=== PATIENT | male | born 1990 | race Caucasian/White ===

== ENCOUNTER 2016-07-26 23:19 | Emergency (ER) | payer OTHER ==
[~2016-07-26] VITALS: Ht 180.3 cm; Wt 121.5 kg
[2016-07-26 23:19] VITALS: BP 136/83
[~2016-07-26 23:19] MED LIST: /ADVA50050 PO; /QUET10TA PO; /QUET25TA; ADDE10CA3; ADDE30CA PO; AFRI0.056; ATOM40CA; ATOM60CA PO; DEPA250T2 PO; GUANFACINE; PROP PO; PROV90AE; PROZ10CA; QUET20XRTB; SERO50TA PO; SING10TA31; TRAZ50TA2 PO
[2016-07-26] MEDS ORDERED: EPIP0.3I2 (23:50)
[2016-07-26] MEDS ORDERED: ACAM0.05 PO (23:50)
[2016-07-26] MEDS ORDERED: CLAR1TAB2 PO (23:50)
[2016-07-26] MEDS ORDERED: BREO1INH (23:50)
[2016-07-26] MEDS ORDERED: ALBU17IN INH (23:50)
[2016-07-26] MEDS ORDERED: DIVA500T3 PO (23:50)
[2016-07-26] MEDS ORDERED: NALT50TA4 PO (23:50)
[2016-07-26] MEDS ORDERED: MONT10TA2 PO (23:50)
[2016-07-26] MEDS ORDERED: BUPR1TAB52 PO (23:50)
[2016-07-26] MEDS ORDERED: Vitamin (23:50)
[2016-07-26] MEDS ORDERED: HYDR25TAB PO (23:50)
== END 2016-07-27 01:10 | disposition left against medical advice (07) ==
LOC: M ED 07-27 00:40
DX: R07.9 Chest pain, unspecified (principal); Z53.21 Procedure and treatment not carried out due to patient leaving prior to being seen by health care provider

== ENCOUNTER 2016-09-04 17:55 | Emergency (ER) | payer OTHER ==
[~2016-09-04] VITALS: Ht 180.3 cm; Wt 124.7 kg
[2016-09-04 17:55] VITALS: BP 152/93
[~2016-09-04 17:55] MED LIST changes: +ACAM0.05 PO; +ALBU17IN INH; +BREO1INH; +BUPR1TAB52 PO; +CLAR1TAB2 PO; +DIVA500T3 PO; +EPIP0.3I2; +HYDR25TAB PO; +MONT10TA2 PO; +NALT50TA4 PO; +Vitamin
[2016-09-16] MEDS ORDERED: BREO1INH3 INH (16:31)
[2016-09-16] MEDS ORDERED: AMOX250REC PO (16:31)
[2016-09-16] MEDS ORDERED: PRED5SOL10 PO (16:31)
== END 2016-09-04 18:58 | disposition left against medical advice (07) ==
LOC: M ED 18:55
DX: R06.02 Shortness of breath (principal); Z53.29 Procedure and treatment not carried out because of patient's decision for other reasons

== ENCOUNTER 2016-09-04 20:46 | Emergency (ER) | payer OTHER ==
[~2016-09-04] VITALS: Ht 177.8 cm; Wt 124.7 kg
[2016-09-04 20:46] VITALS: BP 131/98
[2016-09-16] MEDS ORDERED: AMOX250REC PO (16:31)
[2016-09-16] MEDS ORDERED: PRED5SOL10 PO (16:31)
[2016-09-16] MEDS ORDERED: BREO1INH3 INH (16:31)
== END 2016-09-05 00:19 | disposition left against medical advice (07) ==
LOC: M ED 21:56
DX: J02.9 Acute pharyngitis, unspecified (principal); Z53.29 Procedure and treatment not carried out because of patient's decision for other reasons

== ENCOUNTER 2016-09-07 03:11 | Emergency (ER) | payer OTHER ==
[~2016-09-07] VITALS: Ht 175.3 cm; Wt 122.5 kg
[2016-09-07] MEDS ORDERED: cloNIDine 0.1 MG TAB PO ONE (03:30)
[2016-09-07] MEDS ORDERED: clonazePAM 0.5 MG TAB PO ONE (03:30)
[2016-09-07 03:52] VITALS: BP 134/100
[2016-09-07 04:39] VITALS: BP 136/88
[2016-09-07] MEDS ORDERED: HYDR-4274 PO ×2 (16:42→16:44)
[2016-09-08] MEDS ORDERED: MUCI600T34 PO (08:53)
[2016-09-08] MEDS ORDERED: IBUP80TA PO (08:53)
[2016-09-08] MEDS ORDERED: AUGM875T27 PO (08:53)
[2016-09-08] MEDS ORDERED: ZOFR4TAB3 PO (08:53)
[2016-09-16] MEDS ORDERED: AMOX250REC PO (16:31)
[2016-09-16] MEDS ORDERED: BREO1INH3 INH (16:31)
[2016-09-16] MEDS ORDERED: PRED5SOL10 PO (16:31)
== END 2016-09-07 04:40 | disposition home or self-care (01) ==
LOC: EDBD 03:11 → M ED 03:33
DX: F41.9 Anxiety disorder, unspecified (principal); I10 Essential (primary) hypertension; J45.909 Unspecified asthma, uncomplicated; F19.21 Other psychoactive substance dependence, in remission; Z79.899 Other long term (current) drug therapy; Z79.51 Long term (current) use of inhaled steroids; Z91.030 Bee allergy status; Z91.018 Allergy to other foods; Z88.5 Allergy status to narcotic agent; Z88.8 Allergy status to other drugs, medicaments and biological substances

== ENCOUNTER 2016-09-07 14:13 | Emergency (ER) | payer OTHER ==
[~2016-09-07] VITALS: Ht 180.3 cm; Wt 124.7 kg
[2016-09-07 14:24] VITALS: BP 135/75
[2016-09-07] MEDS ORDERED: HYDR-4274 PO ×2 (16:42→16:44)
[2016-09-07] MEDS ORDERED: hydrOXYzine 50 MG TAB PO ONE (16:45)
[2016-09-07] MEDS ORDERED: hydrOXYzine 25 MG TAB PO ONE (16:45)
[2016-09-08] MEDS ORDERED: IBUP80TA PO (08:53)
[2016-09-08] MEDS ORDERED: AUGM875T27 PO (08:53)
[2016-09-08] MEDS ORDERED: MUCI600T34 PO (08:53)
[2016-09-08] MEDS ORDERED: ZOFR4TAB3 PO (08:53)
[2016-09-16] MEDS ORDERED: PRED5SOL10 PO (16:31)
[2016-09-16] MEDS ORDERED: BREO1INH3 INH (16:31)
[2016-09-16] MEDS ORDERED: AMOX250REC PO (16:31)
== END 2016-09-07 16:55 | disposition home or self-care (01) ==
LOC: M ED 16:48
DX: F41.9 Anxiety disorder, unspecified (principal); F43.10 Post-traumatic stress disorder, unspecified; F33.9 Major depressive disorder, recurrent, unspecified; F19.10 Other psychoactive substance abuse, uncomplicated; F10.10 Alcohol abuse, uncomplicated; Z79.899 Other long term (current) drug therapy; Z79.51 Long term (current) use of inhaled steroids; Z91.030 Bee allergy status; Z91.018 Allergy to other foods; Z88.5 Allergy status to narcotic agent; Z88.8 Allergy status to other drugs, medicaments and biological substances

== ENCOUNTER 2016-09-08 08:00 | Emergency (ER) | payer OTHER ==
[~2016-09-08] VITALS: Ht 177.8 cm; Wt 124.7 kg
[~2016-09-08 08:00] MED LIST changes: +HYDR-4274 PO
[2016-09-08 08:15] VITALS: BP 131/87
[2016-09-08] MEDS ORDERED: AUGM875T27 PO (08:53)
[2016-09-08] MEDS ORDERED: MUCI600T34 PO (08:53)
[2016-09-08] MEDS ORDERED: ZOFR4TAB3 PO (08:53)
[2016-09-08] MEDS ORDERED: IBUP80TA PO (08:53)
[2016-09-08] MEDS ORDERED: AUGMENTIN 875 MG TAB PO ONE (09:00)
[2016-09-08] MEDS ORDERED: IBUPROFEN 800 MG TAB PO ONE (09:00)
[2016-09-08] MEDS ORDERED: ONDANSETRON 4 MG ORAL DISINTEGRATING TAB (S0181) PO ONE (09:00)
[2016-09-09] MEDS ORDERED: BUPR10TASR PO (19:27)
[2016-09-16] MEDS ORDERED: BREO1INH3 INH (16:31)
[2016-09-16] MEDS ORDERED: AMOX250REC PO (16:31)
[2016-09-16] MEDS ORDERED: PRED5SOL10 PO (16:31)
== END 2016-09-08 09:43 | disposition home or self-care (01) ==
LOC: M ED 09:17
DX: J02.0 Streptococcal pharyngitis (principal); J01.90 Acute sinusitis, unspecified; J45.909 Unspecified asthma, uncomplicated; F41.9 Anxiety disorder, unspecified; F33.9 Major depressive disorder, recurrent, unspecified; F43.10 Post-traumatic stress disorder, unspecified; F19.10 Other psychoactive substance abuse, uncomplicated; Z79.899 Other long term (current) drug therapy; Z79.51 Long term (current) use of inhaled steroids; Z91.030 Bee allergy status; Z91.018 Allergy to other foods; Z88.5 Allergy status to narcotic agent; Z88.8 Allergy status to other drugs, medicaments and biological substances; F17.210 Nicotine dependence, cigarettes, uncomplicated

== ENCOUNTER 2016-09-08 20:36 | Emergency (ER) | payer OTHER ==
[~2016-09-08] VITALS: Ht 177.8 cm; Wt 124.7 kg
[~2016-09-08 20:36] MED LIST changes: +AUGM875T27 PO; +IBUP80TA PO; +MUCI600T34 PO; +ZOFR4TAB3 PO
--- NOTE | 2016-09-08 23:20 | REPUSA ---
CT of the soft tissues of the neck Clinical history: dysphagia. Technique: Multiple axial CT images were obtained from the base of the skull to the upper thorax with out administration of contrast. Findings: The visualized paranasal sinuses are clear. The pterygopalatine fossa, pterygoid plates and pterygoid muscles are unremarkable. The mucosa of the naso- and oropharynx appears unremarkable. The hypopharynx and larynx show no pathology. The visualized osseous structures are intact. The airway i s patent. No focal mass is appreciated. There is no evidence of lymphadenopathy. The thyroid gland ap pears unremarkable. The superficial soft tissues are unremarkable. Impression: Unremarkable CT examination of the soft tissues of the neck.
[2016-09-08 23:28] VITALS: BP 124/76
[2016-09-09] MEDS ORDERED: BUPR10TASR PO (19:27)
[2016-09-16] MEDS ORDERED: PRED5SOL10 PO (16:31)
[2016-09-16] MEDS ORDERED: AMOX250REC PO (16:31)
[2016-09-16] MEDS ORDERED: BREO1INH3 INH (16:31)
== END 2016-09-08 23:31 | disposition home or self-care (01) ==
LOC: EDBD 20:36 → EDSEX 20:36 → M ED 21:21
DX: F41.9 Anxiety disorder, unspecified (principal); I10 Essential (primary) hypertension; J45.909 Unspecified asthma, uncomplicated; F19.10 Other psychoactive substance abuse, uncomplicated; Z79.899 Other long term (current) drug therapy; Z91.030 Bee allergy status; Z91.018 Allergy to other foods; Z88.5 Allergy status to narcotic agent; Z88.8 Allergy status to other drugs, medicaments and biological substances; F17.210 Nicotine dependence, cigarettes, uncomplicated

== ENCOUNTER 2016-09-09 18:51 | Emergency (ER) | payer OTHER ==
[~2016-09-09] VITALS: Ht 177.8 cm; Wt 122.0 kg
[2016-09-09 18:52] VITALS: BP 147/92
[2016-09-09] MEDS ORDERED: BUPR10TASR PO (19:27)
[2016-09-16] MEDS ORDERED: AMOX250REC PO (16:31)
[2016-09-16] MEDS ORDERED: BREO1INH3 INH (16:31)
[2016-09-16] MEDS ORDERED: PRED5SOL10 PO (16:31)
== END 2016-09-09 19:31 | disposition home or self-care (01) ==
LOC: M ED 19:23
DX: F41.1 Generalized anxiety disorder (principal); J45.909 Unspecified asthma, uncomplicated; R56.9 Unspecified convulsions; F33.9 Major depressive disorder, recurrent, unspecified; F43.10 Post-traumatic stress disorder, unspecified; F19.10 Other psychoactive substance abuse, uncomplicated; Z79.899 Other long term (current) drug therapy; Z79.51 Long term (current) use of inhaled steroids; Z91.030 Bee allergy status; Z91.018 Allergy to other foods; Z88.5 Allergy status to narcotic agent; Z88.8 Allergy status to other drugs, medicaments and biological substances

== ENCOUNTER 2016-09-11 14:49 | Emergency (ER) | payer OTHER ==
[~2016-09-11] VITALS: Ht 177.8 cm; Wt 122.0 kg
[~2016-09-11 14:49] MED LIST changes: +BUPR10TASR PO
[2016-09-11] MEDS ORDERED: PRED1TABL PO (15:07)
[2016-09-11] MEDS ORDERED: unable to verify (15:09)
[2016-09-11 16:38] LABS: BASO % 0.5 % (0.0-1.0); EOS # 0.2 K/mm3 (0.0-0.50); EOS % 1.6 % (0.0-3.0); LARGE UNSTAINED CELL # 0.2 K/mm3 (0.0-0.4); LARGE UNSTAINED CELL % 1.5 % (0.0-4.0); LYMPH # 2.5 K/mm3 (1.5-6.5); LYMPH % 24.3 % (24.0-44.0); MEAN CORPUSCULAR HEMOGLOBIN 29.6 pg (27.0-33.0); MEAN CORPUSCULAR HGB CONC 34.1 g/dl (32.0-36.5); MEAN CORPUSCULAR VOLUME 86.6 fl (80.0-96.0); MONO # 0.5 K/mm3 (0.0-0.8); MONO % 4.9 % (0.0-5.0); NEUTROPHILS # 6.8 K/mm3 (1.8-7.7); NEUTROPHILS % 67.2 % (36.0-66.0); PLATELET COUNT, AUTOMATED 322 k/mm3 (150-450); RED CELL DISTRIBUTION WIDTH 12.6 % (11.5-14.5); WHITE BLOOD COUNT 10.2 K/mm3 (4.0-10.0)
[2016-09-11 17:07] LABS: ALBUMIN 4.5 GM/DL (3.2-5.2); ALBUMIN/GLOBULIN RATIO 1.36 (1.00-1.93); ALKALINE PHOSPHATASE 61 U/L (45-117); ALT/SGPT 34 U/L (12-78); ANION GAP 6 MEQ/L (8-16); AST/SGOT 12 U/L (15-37); BILIRUBIN,TOTAL 0.6 MG/DL (0.2-1.0); BLOOD UREA NITROGEN 10 MG/DL (7-18); CALCIUM LEVEL 9.5 MG/DL (8.5-10.1); CARBON DIOXIDE LEVEL 27 MEQ/L (21-32); CHLORIDE LEVEL 106 MEQ/L (98-107); CREATININE FOR GFR 0.75 MG/DL (0.70-1.30); FREE T4 1.11 NG/DL (0.76-1.46); GLOMERULAR FILTRATION RATE > 60.0 (>60); GLUCOSE, FASTING 94 MG/DL (70-105); POTASSIUM SERUM 3.9 MEQ/L (3.5-5.1); SODIUM LEVEL 139 MEQ/L (136-145); THYROXINE (T4) 9.3 UG/DL (4.5-12.0); TOTAL PROTEIN 7.8 GM/DL (6.4-8.2)
[2016-09-11 17:09] LABS: CONTROL LINE MONO INT CTR LINE PRESENT
[2016-09-11] MEDS ORDERED: DILT60TA PO (17:25)
[2016-09-11 17:39] VITALS: BP 129/85
--- NOTE | 2016-09-12 07:02 | REP ---
REASON: Dysphagia. COMPARISON: None. FINDINGS: AP and lateral views of the neck soft tissues show the pharyngeal, hypopharyngeal and tracheal airways to be within normal limits. The anterior spinal soft tissues are within normal limits. IMPRESSION: Negative exam. Signed by Jose Luis Lugo DO 09/12/2016 03:44 P
[2016-09-16] MEDS ORDERED: PRED5SOL10 PO (16:31)
[2016-09-16] MEDS ORDERED: BREO1INH3 INH (16:31)
[2016-09-16] MEDS ORDERED: AMOX250REC PO (16:31)
== END 2016-09-11 17:50 | disposition home or self-care (01) ==
LOC: M ED 16:26
DX: K22.4 Dyskinesia of esophagus (principal); I10 Essential (primary) hypertension; J45.909 Unspecified asthma, uncomplicated; G43.909 Migraine, unspecified, not intractable, without status migrainosus; F41.9 Anxiety disorder, unspecified; F31.9 Bipolar disorder, unspecified; F43.10 Post-traumatic stress disorder, unspecified; F19.10 Other psychoactive substance abuse, uncomplicated; F17.200 Nicotine dependence, unspecified, uncomplicated; Z79.899 Other long term (current) drug therapy; Z79.51 Long term (current) use of inhaled steroids; Z79.52 Long term (current) use of systemic steroids

== ENCOUNTER 2016-09-12 18:57 | Emergency (ER) | payer OTHER ==
[~2016-09-12] VITALS: Ht 177.8 cm; Wt 120.2 kg
[2016-09-12 18:57] VITALS: BP 145/90
[~2016-09-12 18:57] MED LIST changes: +DILT60TA PO; +PRED1TABL PO; +unable to verify
[2016-09-16] MEDS ORDERED: BREO1INH3 INH (16:31)
[2016-09-16] MEDS ORDERED: PRED5SOL10 PO (16:31)
[2016-09-16] MEDS ORDERED: AMOX250REC PO (16:31)
== END 2016-09-12 19:49 | disposition home or self-care (01) ==
LOC: M ED 19:46
DX: R13.10 Dysphagia, unspecified (principal)

== ENCOUNTER → 2016-09-15 | Outpatient (CLI) | payer OTHER ==
[~2016-09-15] MED LIST changes: +AMOX250REC PO; +BREO1INH3 INH; +PRED5SOL10 PO
[2016-09-15 11:52] LABS: BASO % 0.5 % (0.0-1.0); EOS # 0.1 K/mm3 (0.0-0.50); EOS % 1.1 % (0.0-3.0); LARGE UNSTAINED CELL # 0.2 K/mm3 (0.0-0.4); LARGE UNSTAINED CELL % 2.1 % (0.0-4.0); LYMPH # 2.6 K/mm3 (1.5-6.5); LYMPH % 31.3 % (24.0-44.0); MEAN CORPUSCULAR HEMOGLOBIN 29.3 pg (27.0-33.0); MEAN CORPUSCULAR HGB CONC 33.9 g/dl (32.0-36.5); MEAN CORPUSCULAR VOLUME 86.3 fl (80.0-96.0); MONO # 0.5 K/mm3 (0.0-0.8); MONO % 5.9 % (0.0-5.0); NEUTROPHILS # 4.7 K/mm3 (1.8-7.7); PLATELET COUNT, AUTOMATED 320 k/mm3 (150-450); RED CELL DISTRIBUTION WIDTH 12.5 % (11.5-14.5); WHITE BLOOD COUNT 7.9 K/mm3 (4.0-10.0)
--- NOTE | 2016-09-15 12:04 | REP ---
ABDOMINAL SERIES: Three views. HISTORY: Abdominal pain. COMPARISON STUDY: September 26, 2012. FINDINGS: Upright chest radiograph is normal. There is no evidence of infiltrate or free subdiaphragmatic air. Supine and erect views of the abdomen show no evidence of mass, organomegaly or pathologic calcification. Psoas margins and flank stripes are intact. There are a few loops of air-filled nondilated small bowel in the central abdomen and there are several very small right colonic air fluid levels. Question enteritis versus ileus. No evidence of obstruction. No evidence of free air. IMPRESSION: Nonspecific small bowel loops without small or large bowel dilation. Question enteritis. Otherwise negative. Signed by Refugio Duarte MD 09/15/2016 12:41 P
[2016-09-15 12:15] LABS: ALBUMIN 4.6 GM/DL (3.2-5.2); ALBUMIN/GLOBULIN RATIO 1.31 (1.00-1.93); ALKALINE PHOSPHATASE 61 U/L (45-117); ALT/SGPT 38 U/L (12-78); AMYLASE 33 U/L (25-115); ANION GAP 9 MEQ/L (8-16); AST/SGOT 21 U/L (15-37); BILIRUBIN,TOTAL 0.9 MG/DL (0.2-1.0); BLOOD UREA NITROGEN 12 MG/DL (7-18); CALCIUM LEVEL 9.6 MG/DL (8.5-10.1); CARBON DIOXIDE LEVEL 30 MEQ/L (21-32); CHLORIDE LEVEL 101 MEQ/L (98-107); GLOMERULAR FILTRATION RATE > 60.0 (>60); GLUCOSE, FASTING 85 MG/DL (70-105); POTASSIUM SERUM 4.1 MEQ/L (3.5-5.1); SODIUM LEVEL 140 MEQ/L (136-145); TOTAL PROTEIN 8.1 GM/DL (6.4-8.2)
== END ==
LOC: M LAB 10:59
PROVIDERS: ATTEND Physician Assistant Medical
DX: R10.10 Upper abdominal pain, unspecified (principal); R19.7 Diarrhea, unspecified; R11.0 Nausea

== ENCOUNTER → 2016-09-20 | Outpatient (CLI) | payer OTHER ==
[~2016-09-20] VITALS: Ht 177.8 cm; Wt 117.9 kg
[~2016-09-20] MED LIST changes: +LIDOCAINE 2% INJ 100 MG/5 ML SDV (FOR ANES.) As Ordered ONE; +NS 1,000 ML IV SCH; +PROPOFOL 200 MG/20 ML VIAL As Ordered ONE; +fentaNYL 100 MCG/2 ML INJECTION (J3010) As Ordered ONE
--- NOTE | 2016-09-20 09:40 | ROOR ---
Patient Name: Liu Bynum Procedure Date: 09/20/2016 9:21 AM Date of : 1990 Age: 26 Room: [facility] Gender: Male Note Status: Finalized Procedure: Upper GI endoscopy Indications: Dysphagia Providers: Vikram SCHOFIELD MD Referring MD: Ray FISCHER MD Requesting Provider: Medicines: Monitored Anesthesia Care Complications: No immediate complications. Procedure: Pre-Anesthesia Assessment: - The heart rate, respiratory rate, oxygen saturations, blood pressure, adequacy of pulmonary ventilation, and response to care were monitored throughout the procedure. The Endoscope was introduced through the mouth, and advanced to the second part of duodenum. The upper GI endoscopy was accomplished without difficulty. The patient tolerated the procedure well. Findings: The esophagus was normal. The stomach was normal. The examined duodenum was normal. No endoscopic abnormality was evident in the esophagus to explain the patient's complaint of dysphagia. It was decided, however, to proceed with dilation of the entire esophagus. The scope was withdrawn. Dilation was performed with a Mars dilator with no resistance at 56 Fr. The dilation site was examined following endoscope reinsertion and showed no change. This was biopsied with a cold forceps for evaluation of eosinophilic esophagitis. Impression: - Normal esophagus. - Normal stomach. - Normal examined duodenum. - No endoscopic esophageal abnormality to explain patient's dysphagia. Esophagus dilated with 54 and 56Fmaloney. Biopsied for eosinophilic esophagitis. Recommendation: - Observe patient's clinical course. - I anticipate no further need for intervention. - Telephone endoscopist for pathology results in 2 weeks. Vikram Schofield MD Vikram SCHOFIELD MD 09/20/2016 9:39:36 AM This report has been signed electronically. Number of Addenda: 0 Note Initiated On: 09/20/2016 9:21 AM Estimated Blood Loss: Estimated blood loss: none.
[2016-09-20 10:00] VITALS: BP 119/78
== END | disposition home or self-care (01) ==
LOC: M OPP 08:15
PROVIDERS: ATTEND Internal Medicine Gastroenterology
DX: I10 Essential (primary) hypertension (principal); K21.9 Gastro-esophageal reflux disease without esophagitis; J45.909 Unspecified asthma, uncomplicated; F41.9 Anxiety disorder, unspecified; F31.9 Bipolar disorder, unspecified; F17.210 Nicotine dependence, cigarettes, uncomplicated; Z79.899 Other long term (current) drug therapy; Z79.51 Long term (current) use of inhaled steroids; Z91.030 Bee allergy status; Z91.018 Allergy to other foods; Z88.5 Allergy status to narcotic agent; Z88.8 Allergy status to other drugs, medicaments and biological substances
CPT/HCPCS: 43239; 43450; 88305; 99156; 99157; J3010

== ENCOUNTER 2016-09-26 19:44 | Emergency (ER) | payer OTHER ==
[~2016-09-26] VITALS: Ht 177.8 cm; Wt 117.9 kg
[~2016-09-26 19:44] MED LIST changes: -LIDOCAINE 2% INJ 100 MG/5 ML SDV (FOR ANES.) As Ordered ONE; -NS 1,000 ML IV SCH; -PROPOFOL 200 MG/20 ML VIAL As Ordered ONE; -fentaNYL 100 MCG/2 ML INJECTION (J3010) As Ordered ONE
[2016-09-26] MEDS ORDERED: PANTOPRAZOLE 40MG INJ (PROTONIX) (C9113) IV ONE (20:45)
[2016-09-26] MEDS ORDERED: dexameTHASONE 1 MG/10 ML ORAL SOL PO ONE (20:45)
[2016-09-26] MEDS ORDERED: KETOROLAC 30 MG/ML VIAL (J1885) IV ONE (20:45)
[2016-09-26] MEDS ORDERED: dexameTHASONE 4 MG/ML 1ML VIAL (J1100) PO ONE (21:00)
[2016-09-26 21:16] LABS: BASO # 0.1 K/mm3 (0.0-0.2); BASO % 0.6 % (0.0-1.0); EOS # 0.2 K/mm3 (0.0-0.50); EOS % 1.8 % (0.0-3.0); LARGE UNSTAINED CELL # 0.3 K/mm3 (0.0-0.4); LARGE UNSTAINED CELL % 2.5 % (0.0-4.0); LYMPH # 2.9 K/mm3 (1.5-6.5); LYMPH % 28.7 % (24.0-44.0); MEAN CORPUSCULAR HEMOGLOBIN 30.5 pg (27.0-33.0); MEAN CORPUSCULAR HGB CONC 34.4 g/dl (32.0-36.5); MEAN CORPUSCULAR VOLUME 88.6 fl (80.0-96.0); MONO # 0.6 K/mm3 (0.0-0.8); MONO % 6.2 % (0.0-5.0); NEUTROPHILS % 60.1 % (36.0-66.0); PLATELET COUNT, AUTOMATED 294 k/mm3 (150-450); RED CELL DISTRIBUTION WIDTH 12.6 % (11.5-14.5)
[2016-09-26 21:37] LABS: ALBUMIN 4.1 GM/DL (3.2-5.2); ALBUMIN/GLOBULIN RATIO 1.24 (1.00-1.93); ALKALINE PHOSPHATASE 66 U/L (45-117); ALT/SGPT 35 U/L (12-78); ANION GAP 8 MEQ/L (8-16); AST/SGOT 15 U/L (15-37); BILIRUBIN,DIRECT < 0.1 MG/DL (0.0-0.2); BILIRUBIN,TOTAL 0.3 MG/DL (0.2-1.0); BLOOD UREA NITROGEN 10 MG/DL (7-18); CARBON DIOXIDE LEVEL 25 MEQ/L (21-32); CHLORIDE LEVEL 106 MEQ/L (98-107); CREATININE FOR GFR 0.73 MG/DL (0.70-1.30); GLOMERULAR FILTRATION RATE > 60.0 (>60); GLUCOSE, FASTING 92 MG/DL (70-105); SODIUM LEVEL 139 MEQ/L (136-145); TOTAL PROTEIN 7.4 GM/DL (6.4-8.2)
[2016-09-26 22:01] VITALS: BP 126/82
== END 2016-09-26 22:07 | disposition home or self-care (01) ==
LOC: M ED 20:24
DX: J38.5 Laryngeal spasm (principal); R11.10 Vomiting, unspecified
CPT/HCPCS: 80048; 80076; 83690; 85025; 96374; 96375; 99282; C9113; J1100; J1885

== ENCOUNTER 2016-09-29 22:16 | Emergency (ER) | payer OTHER ==
[~2016-09-29] VITALS: Ht 177.8 cm; Wt 117.9 kg
[2016-09-29] MEDS ORDERED: diphenhydrAMINE INJ 50MG/ML VIAL (J1200) IV STA (23:07)
[2016-09-29] MEDS ORDERED: NS 1,000 ML IV ONE (23:15)
[2016-09-29] MEDS ORDERED: KETOROLAC 30 MG/ML VIAL (J1885) IV ONE (23:15)
[2016-09-29] MEDS ORDERED: METOCLOPRAMIDE INJ 10MG/2ML VIAL (J2765) IV ONE (23:15)
[2016-09-29 23:34] LABS: VENOUS BASE EXCESS 1.5 (-2.0-2.0); VENOUS PARTIAL PRESSURE CO2 48.6 mmHg (38.0-50.0); VENOUS STANDARD HCO3 25.3 MEQ/L
[2016-09-29 23:44] LABS: BASO # 0.1 K/mm3 (0.0-0.2); BASO % 0.7 % (0.0-1.0); EOS # 0.2 K/mm3 (0.0-0.50); EOS % 1.8 % (0.0-3.0); LARGE UNSTAINED CELL # 0.2 K/mm3 (0.0-0.4); LARGE UNSTAINED CELL % 2.3 % (0.0-4.0); LYMPH # 3.4 K/mm3 (1.5-6.5); LYMPH % 41.1 % (24.0-44.0); MEAN CORPUSCULAR HEMOGLOBIN 30.2 pg (27.0-33.0); MEAN CORPUSCULAR VOLUME 88.9 fl (80.0-96.0); MONO # 0.5 K/mm3 (0.0-0.8); MONO % 6.5 % (0.0-5.0); NEUTROPHILS # 3.9 K/mm3 (1.8-7.7); NEUTROPHILS % 47.6 % (36.0-66.0); PLATELET COUNT, AUTOMATED 312 k/mm3 (150-450); RED CELL DISTRIBUTION WIDTH 12.6 % (11.5-14.5); WHITE BLOOD COUNT 8.2 K/mm3 (4.0-10.0)
[2016-09-29 23:47] LABS: INR 1.01
[2016-09-29 23:54] LABS: METHADONE URINE NEGATIVE (NEGATIVE)
[2016-09-30] LABS: ALBUMIN 4.1 GM/DL (3.2-5.2); ALBUMIN/GLOBULIN RATIO 1.28 (1.00-1.93); ALKALINE PHOSPHATASE 61 U/L (45-117); ALT/SGPT 28 U/L (12-78); ANION GAP 6 MEQ/L (8-16); AST/SGOT 12 U/L (15-37); BILIRUBIN,DIRECT 0.1 MG/DL (0.0-0.2); BILIRUBIN,TOTAL 0.4 MG/DL (0.2-1.0); BLOOD UREA NITROGEN 8 MG/DL (7-18); CALCIUM LEVEL 9.1 MG/DL (8.5-10.1); CARBON DIOXIDE LEVEL 31 MEQ/L (21-32); CHLORIDE LEVEL 105 MEQ/L (98-107); CREATININE FOR GFR 0.68 MG/DL (0.70-1.30); GLOMERULAR FILTRATION RATE > 60.0 (>60); GLUCOSE, FASTING 93 MG/DL (70-105); POTASSIUM SERUM 3.8 MEQ/L (3.5-5.1); SODIUM LEVEL 142 MEQ/L (136-145); TOTAL PROTEIN 7.3 GM/DL (6.4-8.2)
[2016-09-30 00:21] VITALS: BP 104/63
--- NOTE | 2016-09-30 00:56 | REP ---
Clinical: Dyspnea and cough . Comparison: 09/15/2016 . Technique: PA and lateral. Findings: The mediastinum and cardiac silhouette are normal. The lung icsse are clear and without acute consolidation, effusion, or pneumothorax. The skeletal structures are intact and normal. Impression: 1. No acute cardiopulmonary process. Signed by Eduardo Starks MD 09/30/2016 12:47 A
--- NOTE | 2016-09-30 11:06 | ECGEPIP ---
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
== END 2016-09-30 00:22 | disposition home or self-care (01) ==
LOC: M ED 23:53
DX: F41.9 Anxiety disorder, unspecified (principal); J45.909 Unspecified asthma, uncomplicated; Z79.899 Other long term (current) drug therapy; Z79.51 Long term (current) use of inhaled steroids; Z91.030 Bee allergy status; Z91.018 Allergy to other foods; Z88.5 Allergy status to narcotic agent; Z88.8 Allergy status to other drugs, medicaments and biological substances; E75.21 Fabry (-Anderson) disease
CPT/HCPCS: 71020; 80048; 80076; 80306; 82550; 82553; 82803; 83605; 85025; 85610; 93005; 96374; 96375; 99283; G0480; J1200; J1885; J2765

== ENCOUNTER 2016-10-01 20:48 | Emergency (ER) | payer OTHER ==
[~2016-10-01] VITALS: Ht 177.8 cm; Wt 115.7 kg
[2016-10-01] MEDS ORDERED: METOCLOPRAMIDE INJ 10MG/2ML VIAL (J2765) IV ONE (22:45)
[2016-10-01] MEDS ORDERED: NS 1,000 ML IV ONE (22:45)
[2016-10-01] MEDS ORDERED: diphenhydrAMINE INJ 50MG/ML VIAL (J1200) IV ONE (22:45)
[2016-10-01] MEDS ORDERED: KETOROLAC 30 MG/ML VIAL (J1885) IV ONE (22:45)
[2016-10-01 23:06] LABS: BASO # 0.1 K/mm3 (0.0-0.2); BASO % 0.7 % (0.0-1.0); EOS # 0.2 K/mm3 (0.0-0.50); EOS % 2.3 % (0.0-3.0); LARGE UNSTAINED CELL # 0.2 K/mm3 (0.0-0.4); LARGE UNSTAINED CELL % 1.9 % (0.0-4.0); LYMPH # 4.3 K/mm3 (1.5-6.5); LYMPH % 41.8 % (24.0-44.0); MEAN CORPUSCULAR HEMOGLOBIN 29.9 pg (27.0-33.0); MEAN CORPUSCULAR HGB CONC 34.2 g/dl (32.0-36.5); MEAN CORPUSCULAR VOLUME 87.4 fl (80.0-96.0); MONO # 0.6 K/mm3 (0.0-0.8); MONO % 6.3 % (0.0-5.0); NEUTROPHILS # 4.6 K/mm3 (1.8-7.7); NEUTROPHILS % 46.9 % (36.0-66.0); PLATELET COUNT, AUTOMATED 303 k/mm3 (150-450); RED CELL DISTRIBUTION WIDTH 12.7 % (11.5-14.5); WHITE BLOOD COUNT 9.8 K/mm3 (4.0-10.0)
[2016-10-01 23:27] LABS: ALBUMIN 4.3 GM/DL (3.2-5.2); ALBUMIN/GLOBULIN RATIO 1.34 (1.00-1.93); ALKALINE PHOSPHATASE 58 U/L (45-117); ALT/SGPT 27 U/L (12-78); ANION GAP 5 MEQ/L (8-16); AST/SGOT 11 U/L (15-37); BILIRUBIN,DIRECT 0.2 MG/DL (0.0-0.2); BILIRUBIN,TOTAL 0.7 MG/DL (0.2-1.0); BLOOD UREA NITROGEN 10 MG/DL (7-18); CALCIUM LEVEL 9.5 MG/DL (8.5-10.1); CARBON DIOXIDE LEVEL 30 MEQ/L (21-32); CHLORIDE LEVEL 105 MEQ/L (98-107); CREATININE FOR GFR 0.74 MG/DL (0.70-1.30); GLOMERULAR FILTRATION RATE > 60.0 (>60); GLUCOSE, FASTING 87 MG/DL (70-105); SODIUM LEVEL 140 MEQ/L (136-145); TOTAL PROTEIN 7.5 GM/DL (6.4-8.2)
[2016-10-01] MEDS ORDERED: VALPROATE SOD INJ 500 MG in D5W 50 ML IV ONE (23:45)
[2016-10-02] MEDS ORDERED: diphenhydrAMINE INJ 50MG/ML VIAL (J1200) IV ONE (00:45)
[2016-10-02] MEDS ORDERED: METOCLOPRAMIDE INJ 10MG/2ML VIAL (J2765) IV ONE (00:45)
[2016-10-02] MEDS ORDERED: ZOFR4TAB3 PO (01:46)
[2016-10-02 01:57] VITALS: BP 133/69
== END 2016-10-02 01:59 | disposition home or self-care (01) ==
LOC: M ED 21:37
DX: G43.909 Migraine, unspecified, not intractable, without status migrainosus (principal); F31.9 Bipolar disorder, unspecified; Z79.899 Other long term (current) drug therapy; Z91.018 Allergy to other foods; Z91.030 Bee allergy status; Z88.5 Allergy status to narcotic agent; Z88.8 Allergy status to other drugs, medicaments and biological substances; F17.210 Nicotine dependence, cigarettes, uncomplicated
CPT/HCPCS: 80048; 80076; 80164; 82375; 83690; 85025; 93041; 96374; 96375; 96376; 99284; J1200; J1885; J2765

== ENCOUNTER → 2016-10-12 | Outpatient (CLI) | payer OTHER ==
[~2016-10-12] MED LIST changes: +E-Z-GAS II EFFERVESCENT PACKET (SODIUM BICARB./CITRIC ACID/SIMETHICONE) As Ordered ONE; +E-Z-HD 98% w/w 340GM SUSP BTL As Ordered ONE; +E-Z-PAQUE 96% w/w SUSP 176GM BTL As Ordered ONE
--- NOTE | 2016-10-12 09:01 | REP ---
Thyroid sonography: History: Dysphagia. Findings: Thyroid isthmus is 0.5 cm thick. Right lobe dimensions by ultrasound are 5.3 x 1.8 x 2.0 cm. Left lobe measures 4.2 x 1.5 x 1.5 cm. No thyroid mass or cyst is seen. No extrathyroidal mass or adenopathy is observed. Posterior surface of the right thyroid lobe is seen to be somewhat lobulated. This is felt to be normal variant. Impression: Normal thyroid sonography. Signed by Refugio Duarte MD 10/12/2016 09:05 A
--- NOTE | 2016-10-14 17:08 | REP ---
Clinical: dysphagia. Technique: Single contrast and double contrast technique using barium sulfate substrates. Findings: Normal motility through the oropharynx and hypopharynx is appreciated without obvious mass/mass effect or contour abnormality. The esophagus demonstrates normal mucosal outline and distension without ulcerations, polyps, mass lesions, mucosal irregularities or extrinsic abnormalities. No areas of stenosis or stricture appreciated. No hiatal hernia or evidence for reflux during examination. Limited evaluation of the stomach and duodenum demonstrates normal gastric rugal folds, duodenal bulb and incidental 11 mm duodenal diverticulum along the medial aspect of the descending duodenum. Total fluoroscopic time: 2:27. Impression: Essentially normal esophagram study. Incidental 11 mm duodenal diverticulum. Signed by Eduardo Starks MD 10/14/2016 05:00 P
== END ==
LOC: M RAD 08:17
PROVIDERS: ATTEND Family Medicine Addiction Medicine
DX: R13.10 Dysphagia, unspecified (principal)

== ENCOUNTER 2017-03-26 20:07 | Emergency (ER) | payer OTHER ==
[~2017-03-26] VITALS: Ht 177.8 cm; Wt 113.6 kg
[~2017-03-26 20:07] MED LIST changes: -AUGM875T27 PO; +AUGM875T28 PO; +DOXY100C37 PO; -E-Z-GAS II EFFERVESCENT PACKET (SODIUM BICARB./CITRIC ACID/SIMETHICONE) As Ordered ONE; -E-Z-HD 98% w/w 340GM SUSP BTL As Ordered ONE; -E-Z-PAQUE 96% w/w SUSP 176GM BTL As Ordered ONE; -HYDR-4274 PO; +HYDR50TA70 PO; -MUCI600T34 PO; +MUCI600T37 PO
[2017-03-26] MEDS ORDERED: NORCOTAB PO (21:22)
[2017-03-26 21:35] VITALS: BP 139/76
== END 2017-03-26 21:37 | disposition home or self-care (01) ==
LOC: M ED 20:07
DX: L02.11 Cutaneous abscess of neck (principal); Z72.0 Tobacco use

== ENCOUNTER → 2017-04-23 | Outpatient (CLI) | payer OTHER ==
[~2017-04-23] MED LIST changes: +NORCOTAB PO
[2017-04-23 10:13] LABS: BASO # 0.1 10^3/uL (0.0-0.2); BASO % 0.8 % (0.0-1.0); EOS # 0.1 10^3/uL (0.0-0.50); EOS % 2.1 % (0.0-3.0); IMMATURE GRANULOCYTE % 0.3 % (0-0); LYMPH # 2.4 10^3/uL (1.5-6.5); LYMPH % 35.9 % (24.0-44.0); MEAN CORPUSCULAR HEMOGLOBIN 29.2 pg (27.0-33.0); MEAN CORPUSCULAR HGB CONC 34.5 g/dl (32.0-36.5); MEAN CORPUSCULAR VOLUME 84.6 fl (80.0-96.0); MONO # 0.6 10^3/uL (0.0-0.8); MONO % 9.5 % (0.0-5.0); NEUTROPHILS # 3.4 10^3/uL (1.8-7.7); NEUTROPHILS % 51.4 % (36.0-66.0); PLATELET COUNT, AUTOMATED 292 10^3/uL (150-450); RED CELL DISTRIBUTION WIDTH 12.9 % (11.5-14.5); WHITE BLOOD COUNT 6.6 10^3/uL (4.0-10.0)
[2017-04-23 10:45] LABS: ALBUMIN 3.9 GM/DL (3.2-5.2); ALBUMIN/GLOBULIN RATIO 1.15 (1.00-1.93); ALKALINE PHOSPHATASE 77 U/L (45-117); ALT/SGPT 21 U/L (12-78); ANION GAP 7 MEQ/L (8-16); AST/SGOT 9 U/L (7-37); BILIRUBIN,TOTAL 0.5 MG/DL (0.2-1.0); BLOOD UREA NITROGEN 14 MG/DL (7-18); CALCIUM LEVEL 8.9 MG/DL (8.5-10.1); CARBON DIOXIDE LEVEL 27 MEQ/L (21-32); CHLORIDE LEVEL 107 MEQ/L (98-107); CHOLESTEROL LEVEL 183 MG/DL (<200); CREATININE FOR GFR 0.67 MG/DL (0.70-1.30); GLOMERULAR FILTRATION RATE > 60.0 (>60); GLUCOSE, FASTING 93 MG/DL (70-105); POTASSIUM SERUM 4.2 MEQ/L (3.5-5.1); SODIUM LEVEL 141 MEQ/L (136-145); T UPTAKE 29 % (33-40); THYROXINE (T4) 7.6 UG/DL (4.5-12.0); TOTAL PROTEIN 7.3 GM/DL (6.4-8.2); TRIGLYCERIDES LEVEL 130 MG/DL (<150)
== END ==
LOC: M LAB 09:48
PROVIDERS: ATTEND Physician Assistant Medical
DX: I10 Essential (primary) hypertension (principal)

== ENCOUNTER → 2017-06-09 | Outpatient (CLI) | payer OTHER | LOC: M PLARAD 11:31 | DX: R42 Dizziness and giddiness (principal); R51 Headache | CPT/HCPCS: 70551 ==

== ENCOUNTER → 2017-08-02 | Outpatient (REF) | payer OTHER ==
[2017-08-03 14:22] LABS: VITAMIN B12 LEVEL 260 PG/ML
[2017-08-03 14:23] LABS: FOLATE 10.6 NG/ML
== END ==
LOC: M LAB REF 08-03 13:54
DX: G60.9 Hereditary and idiopathic neuropathy, unspecified (principal)

== ENCOUNTER → 2017-08-02 | Outpatient (CLI) | payer OTHER ==
[2017-08-02 11:22] LABS: BASO % 0.5 % (0.0-1.0); EOS # 0.1 10^3/uL (0.0-0.50); EOS % 1.5 % (0.0-3.0); HEMATOCRIT 45.3 % (42.0-52.0); HEMOGLOBIN 15.3 g/dl (14.0-18.0); IMMATURE GRANULOCYTE % 0.2 % (0-3.0); LYMPH # 2.4 10^3/uL (1.5-6.5); LYMPH % 28.7 % (24.0-44.0); MEAN CORPUSCULAR HEMOGLOBIN 28.9 pg (27.0-33.0); MEAN CORPUSCULAR HGB CONC 33.8 g/dl (32.0-36.5); MEAN CORPUSCULAR VOLUME 85.6 fl (80.0-96.0); MONO # 0.8 10^3/uL (0.0-0.8); MONO % 9.2 % (0.0-5.0); NEUTROPHILS # 4.9 10^3/uL (1.8-7.7); NEUTROPHILS % 59.9 % (36.0-66.0); PLATELET COUNT, AUTOMATED 301 10^3/uL (150-450); RED BLOOD COUNT 5.29 10^6/uL (4.30-6.10); RED CELL DISTRIBUTION WIDTH 13.4 % (11.5-14.5); WHITE BLOOD COUNT 8.2 10^3/uL (4.0-10.0)
[2017-08-02 12:02] LABS: ALBUMIN/GLOBULIN RATIO 1.18 (1.00-1.93); ALKALINE PHOSPHATASE 78 U/L (45-117); ALT/SGPT 22 U/L (12-78); ANION GAP 8 MEQ/L (8-16); AST/SGOT 10 U/L (7-37); BILIRUBIN,TOTAL 0.4 MG/DL (0.2-1.0); BLOOD UREA NITROGEN 17 MG/DL (7-18); CARBON DIOXIDE LEVEL 28 MEQ/L (21-32); CHLORIDE LEVEL 105 MEQ/L (98-107); CHOLESTEROL LEVEL 182 MG/DL (<200); CHOLESTEROL RISK RATIO 4.044 (<5); CREATININE FOR GFR 0.73 MG/DL (0.70-1.30); GLOMERULAR FILTRATION RATE > 60.0 (>60); GLUCOSE, FASTING 92 MG/DL (70-100); HDL CHOLESTEROL 45 MG/DL (>40); LDL CHOLESTEROL 105.4 MG/DL (<100); NON-HDL-C 137 MG/DL; POTASSIUM SERUM 4.4 MEQ/L (3.5-5.1); SODIUM LEVEL 141 MEQ/L (136-145); TOTAL PROTEIN 7.4 GM/DL (6.4-8.2); TRIGLYCERIDES LEVEL 158 MG/DL (<150)
[2017-08-02 15:21] LABS: ESTIMATED AVERAGE GLUCOSE 108 MG/DL (60-110); HEMOGLOBIN A1c 5.4 %
== END ==
LOC: M WUC 09:36
DX: F32.89 Other specified depressive episodes (principal)
CPT/HCPCS: 84443

== ENCOUNTER 2017-09-12 22:06 | Emergency (ER) | payer OTHER | END 2017-09-13 01:00 | disposition left against medical advice (07) | LOC: M ED 22:06 | DX: R07.9 Chest pain, unspecified (principal); Z53.21 Procedure and treatment not carried out due to patient leaving prior to being seen by health care provider | CPT/HCPCS: 93005 ==

== ENCOUNTER 2017-10-20 00:47 | Emergency (ER) | payer OTHER ==
[2017-10-20 01:53] LABS: HEMATOCRIT 40.8 % (42.0-52.0); HEMOGLOBIN 13.9 g/dl (13.5-17.5); MEAN CORPUSCULAR HEMOGLOBIN 29.4 pg (27.0-33.0); MEAN CORPUSCULAR HGB CONC 34.1 g/dl (32.0-36.5); MEAN CORPUSCULAR VOLUME 86.3 fl (80.0-96.0); PLATELET COUNT, AUTOMATED 278 10^3/uL (150-450); RED BLOOD COUNT 4.73 10^6/uL (4.30-6.10); RED CELL DISTRIBUTION WIDTH 12.9 % (11.5-14.5); WHITE BLOOD COUNT 8.8 10^3/uL (4.0-10.0)
[2017-10-20 02:16] LABS: AMPHETAMINES LEVEL URINE NEGATIVE (NEGATIVE); BARBITURATES URINE NEGATIVE (NEGATIVE); BENZODIAZEPINES URINE NEGATIVE (NEGATIVE); CANNABINOIDS URINE NEGATIVE (NEGATIVE); COCAINE METABOLITE URINE NEGATIVE (NEGATIVE); METHADONE URINE NEGATIVE (NEGATIVE); OPIATES URINE NEGATIVE (NEGATIVE); PHENCYCLIDINE URINE NEGATIVE (NEGATIVE)
[2017-10-20 02:24] LABS: ACETAMINOPHEN LEVEL < 2.0 UG/ML (10.0-30.0); ALBUMIN 3.8 GM/DL (3.2-5.2); ALBUMIN/GLOBULIN RATIO 1.19 (1.00-1.93); ALKALINE PHOSPHATASE 76 U/L (45-117); ALT/SGPT 27 U/L (12-78); ANION GAP 9 MEQ/L (8-16); AST/SGOT 15 U/L (7-37); BILIRUBIN,DIRECT 0.1 MG/DL (0.0-0.2); BILIRUBIN,TOTAL 0.5 MG/DL (0.2-1.0); BLOOD UREA NITROGEN 13 MG/DL (7-18); CALCIUM LEVEL 8.7 MG/DL (8.5-10.1); CARBON DIOXIDE LEVEL 25 MEQ/L (21-32); CHLORIDE LEVEL 107 MEQ/L (98-107); CREATININE FOR GFR 0.76 MG/DL (0.70-1.30); ETHYL ALCOHOL (ETHANOL) 0.048 % (0.000-0.010); GLOMERULAR FILTRATION RATE > 60.0 (>60); GLUCOSE, FASTING 95 MG/DL (70-100); POTASSIUM SERUM 3.5 MEQ/L (3.5-5.1); SALICYLATE LEVEL < 1.7 MG/DL (5.0-30.0); SODIUM LEVEL 141 MEQ/L (136-145)
== END 2017-10-20 03:48 | disposition home or self-care (01) ==
LOC: M ED 00:47
DX: F10.229 Alcohol dependence with intoxication, unspecified (principal); Z60.9 Problem related to social environment, unspecified; J45.909 Unspecified asthma, uncomplicated; F41.9 Anxiety disorder, unspecified; F33.9 Major depressive disorder, recurrent, unspecified; Z88.5 Allergy status to narcotic agent; Z88.8 Allergy status to other drugs, medicaments and biological substances; Z91.018 Allergy to other foods; Z91.030 Bee allergy status; F17.210 Nicotine dependence, cigarettes, uncomplicated
CPT/HCPCS: 80320

== ENCOUNTER 2018-01-10 21:24 | Emergency (ER) | payer OTHER ==
[2018-01-11] MEDS: AMOXICILLIN 500 MG CAP PO (01:54)
[2018-01-11] MEDS: MAGIC MOUTHWASH SUSPENSION BTL SS (02:01)
== END 2018-01-11 02:03 | disposition home or self-care (01) ==
LOC: M ED 21:24
DX: J02.9 Acute pharyngitis, unspecified (principal); J06.9 Acute upper respiratory infection, unspecified; H66.91 Otitis media, unspecified, right ear; I10 Essential (primary) hypertension; G43.909 Migraine, unspecified, not intractable, without status migrainosus; F43.10 Post-traumatic stress disorder, unspecified; F31.9 Bipolar disorder, unspecified; F19.10 Other psychoactive substance abuse, uncomplicated; Z72.0 Tobacco use; Z79.899 Other long term (current) drug therapy; Z91.030 Bee allergy status; Z91.018 Allergy to other foods; Z88.5 Allergy status to narcotic agent; Z88.8 Allergy status to other drugs, medicaments and biological substances
CPT/HCPCS: 87880

== ENCOUNTER 2018-01-29 21:16 | Emergency (ER) | payer OTHER | END 2018-01-29 22:25 | disposition home or self-care (01) | LOC: M ED 21:16 | DX: F10.120 Alcohol abuse with intoxication, uncomplicated (principal); Z60.9 Problem related to social environment, unspecified; J45.909 Unspecified asthma, uncomplicated; F91.9 Conduct disorder, unspecified; Z88.5 Allergy status to narcotic agent; Z88.8 Allergy status to other drugs, medicaments and biological substances; Z91.030 Bee allergy status; Z91.018 Allergy to other foods; Z79.899 Other long term (current) drug therapy; Z79.51 Long term (current) use of inhaled steroids; Z79.1 Long term (current) use of non-steroidal anti-inflammatories (NSAID) | CPT/HCPCS: 99284 ==

== ENCOUNTER 2018-03-07 21:14 | Emergency (ER) | payer OTHER ==
[2018-03-07] MEDS: NORCO 5/325MG TABLET (BULK FOR ED) PO (22:49)
== END 2018-03-07 22:58 | disposition home or self-care (01) ==
LOC: M ED 21:14
DX: S30.811A Abrasion of abdominal wall, initial encounter (principal); S30.1XXA Contusion of abdominal wall, initial encounter; V28.4XXA Motorcycle driver injured in noncollision transport accident in traffic accident, initial encounter; Y92.410 Unspecified street and highway as the place of occurrence of the external cause; I10 Essential (primary) hypertension; J45.909 Unspecified asthma, uncomplicated; F31.9 Bipolar disorder, unspecified; F43.10 Post-traumatic stress disorder, unspecified; Z79.899 Other long term (current) drug therapy; Z88.5 Allergy status to narcotic agent; Z88.8 Allergy status to other drugs, medicaments and biological substances; Z91.030 Bee allergy status; F17.201 Nicotine dependence, unspecified, in remission
CPT/HCPCS: 73030

== ENCOUNTER 2018-04-01 19:40 | Emergency (ER) | payer OTHER ==
[2018-04-01] MEDS: METHOCARBAMOL 500 MG TAB PO (21:33)
== END 2018-04-01 21:36 | disposition home or self-care (01) ==
LOC: M ED 19:40
DX: M51.37 Other intervertebral disc degeneration, lumbosacral region (principal); M25.511 Pain in right shoulder; M54.5 Low back pain; G89.29 Other chronic pain; F17.200 Nicotine dependence, unspecified, uncomplicated; Z88.5 Allergy status to narcotic agent; Z88.8 Allergy status to other drugs, medicaments and biological substances; Z91.030 Bee allergy status; Z79.899 Other long term (current) drug therapy; Z79.51 Long term (current) use of inhaled steroids
CPT/HCPCS: 72110

== ENCOUNTER 2018-04-13 02:32 | Emergency (ER) | payer OTHER ==
[2018-04-13] MEDS ORDERED: LORazepam 2 MG TAB PO (02:45)
[2018-04-13] MEDS: LIDOCAINE VISCOUS 2% SOLN 15ML UDC SS (05:00)
[2018-04-13] MEDS ORDERED: THIAMINE 100 MG TAB PO (09:00)
[2018-04-13] MEDS ORDERED: MULTIVITAMINS/MINERALS THERAP 1 TAB PO (09:00)
[2018-04-13] MEDS ORDERED: FOLIC ACID 1 MG TAB PO (09:00)
== END 2018-04-13 05:19 | disposition home or self-care (01) ==
LOC: M ED 02:32
DX: J02.9 Acute pharyngitis, unspecified (principal); Z79.899 Other long term (current) drug therapy; Z91.030 Bee allergy status; Z88.5 Allergy status to narcotic agent; Z88.8 Allergy status to other drugs, medicaments and biological substances
CPT/HCPCS: 87880

== ENCOUNTER 2018-04-27 20:26 | Emergency (ER) | payer OTHER ==
[2018-04-27] MEDS: AUGMENTIN 875 MG TAB PO (23:38)
== END 2018-04-27 23:50 | disposition home or self-care (01) ==
LOC: M ED 20:26
DX: J40 Bronchitis, not specified as acute or chronic (principal); J02.9 Acute pharyngitis, unspecified; F10.229 Alcohol dependence with intoxication, unspecified; J45.909 Unspecified asthma, uncomplicated; F31.9 Bipolar disorder, unspecified; F19.10 Other psychoactive substance abuse, uncomplicated; Z79.899 Other long term (current) drug therapy; Z88.5 Allergy status to narcotic agent; Z88.8 Allergy status to other drugs, medicaments and biological substances; Z91.018 Allergy to other foods; Z91.030 Bee allergy status; F17.210 Nicotine dependence, cigarettes, uncomplicated
CPT/HCPCS: 71046

== ENCOUNTER 2018-04-30 16:39 | Emergency (ER) | payer OTHER ==
[2018-04-30] MEDS: IBUPROFEN 600 MG TAB PO (18:07)
[2018-04-30] MEDS: dexameTHASONE 4 MG/ML 1ML VIAL (J1100) PO (18:07)
[2018-04-30] MEDS: IPRATROPIUM 0.5MG/ALBUTEROL 2.5MG INH SOL UD 3ML (DUONEB)(J7620) NEB (18:29)
== END 2018-04-30 19:28 | disposition home or self-care (01) ==
LOC: M ED 16:39
DX: J06.9 Acute upper respiratory infection, unspecified (principal); B34.9 Viral infection, unspecified; I10 Essential (primary) hypertension; J45.909 Unspecified asthma, uncomplicated; F41.9 Anxiety disorder, unspecified; G43.909 Migraine, unspecified, not intractable, without status migrainosus; Z79.899 Other long term (current) drug therapy; Z88.5 Allergy status to narcotic agent; Z88.8 Allergy status to other drugs, medicaments and biological substances; Z91.018 Allergy to other foods; Z91.030 Bee allergy status; F17.210 Nicotine dependence, cigarettes, uncomplicated; F17.220 Nicotine dependence, chewing tobacco, uncomplicated
CPT/HCPCS: J1100

== ENCOUNTER 2018-05-01 19:16 | Emergency (ER) | payer OTHER ==
[2018-05-01] MEDS: NS 1,000 ML IV (22:15)
[2018-05-01] MEDS: dexameTHASONE 20 MG/5 ML VIAL (J1100) IV (22:15)
[2018-05-01 22:21] LABS: HEMATOCRIT 45.4 % (42.0-52.0); HEMOGLOBIN 15.1 g/dl (13.5-17.5); MEAN CORPUSCULAR HEMOGLOBIN 29.3 pg (27.0-33.0); MEAN CORPUSCULAR HGB CONC 33.3 g/dl (32.0-36.5); MEAN CORPUSCULAR VOLUME 88.2 fl (80.0-96.0); PLATELET COUNT, AUTOMATED 311 10^3/uL (150-450); RED BLOOD COUNT 5.15 10^6/uL (4.30-6.10); RED CELL DISTRIBUTION WIDTH 12.7 % (11.5-14.5); WHITE BLOOD COUNT 13.3 10^3/uL (4.0-10.0)
[2018-05-01 22:24] LABS: ADD MANUAL DIFFER YES; DIFF SLIDE NUMBER 420; POSITIVE DIFF POS FLAG; POSITIVE MORPH POS FLAG
[2018-05-01 22:41] LABS: ERYTHROCYTE SEDIMENTATION RATE 1 mm/hr (0-15)
[2018-05-01 22:52] LABS: ANION GAP 5 MEQ/L (8-16); BLOOD UREA NITROGEN 8 MG/DL (7-18); C REACTIVE PROTEIN QUANTITATIV < 0.30 MG/DL (0.00-0.30); CALCIUM LEVEL 8.8 MG/DL (8.5-10.1); CARBON DIOXIDE LEVEL 29 MEQ/L (21-32); CHLORIDE LEVEL 105 MEQ/L (98-107); CREATININE FOR GFR 0.88 MG/DL (0.70-1.30); FREE THYROXINE INDEX 2.2 % (1.4-3.8); GLOMERULAR FILTRATION RATE > 60.0 (>60); GLUCOSE, FASTING 104 MG/DL (70-100); SODIUM LEVEL 139 MEQ/L (136-145); T UPTAKE 28 % (33-40); THYROXINE (T4) 7.9 UG/DL (4.5-12.0)
[2018-05-01 22:57] LABS: ATYPICAL LYMPH 3 % (0-5); EOSINOPHILS 1 % (0-5); LYMPHOCYTES 35 % (16-52); MONOCYTES 9 % (0-8); NEUTROPHILS 52 % (35-75)
[2018-05-01] MEDS ORDERED: ISOVUE-370 76% 100ML VIAL (Q9967) As Ordered (22:57)
[2018-05-01 22:58] LABS: PLATELET ESTIMATE NORMAL (NORMAL)
== END 2018-05-01 23:59 | disposition home or self-care (01) ==
LOC: M ED 23:59
DX: J03.90 Acute tonsillitis, unspecified (principal); I10 Essential (primary) hypertension; G43.909 Migraine, unspecified, not intractable, without status migrainosus; J45.909 Unspecified asthma, uncomplicated; F31.9 Bipolar disorder, unspecified; F43.10 Post-traumatic stress disorder, unspecified; F19.10 Other psychoactive substance abuse, uncomplicated; F20.9 Schizophrenia, unspecified; Z72.0 Tobacco use; Z79.899 Other long term (current) drug therapy; Z91.030 Bee allergy status; Z91.018 Allergy to other foods; Z88.5 Allergy status to narcotic agent; Z88.8 Allergy status to other drugs, medicaments and biological substances
CPT/HCPCS: J1100

== ENCOUNTER 2018-05-02 20:02 | Emergency (ER) | payer OTHER | END 2018-05-02 21:25 | disposition home or self-care (01) | LOC: M ED 20:02 | DX: J06.9 Acute upper respiratory infection, unspecified (principal); B34.9 Viral infection, unspecified; I10 Essential (primary) hypertension; J45.909 Unspecified asthma, uncomplicated; Z79.899 Other long term (current) drug therapy; Z88.5 Allergy status to narcotic agent; Z88.8 Allergy status to other drugs, medicaments and biological substances; Z91.018 Allergy to other foods; Z91.030 Bee allergy status; F17.210 Nicotine dependence, cigarettes, uncomplicated | CPT/HCPCS: 99283 ==

== ENCOUNTER 2018-05-04 10:37 | Emergency (ER) | payer OTHER ==
[2018-05-04] MEDS: NS 1,000 ML IV (11:23)
[2018-05-04] MEDS: cefTRIAXone SOD 1 GM in D5W MINI-BAG PLUS 50 ML IV (11:23)
[2018-05-04] MEDS: ONDANSETRON 4MG/2ML VIAL (J2405) IV (11:23)
[2018-05-04] MEDS: GI COCKTAIL 50ML BTL(HYOSCYAMINE/MAALOX/LIDOCAINE VISCOUS)(1:3:1) PO (11:28)
== END 2018-05-04 13:30 | disposition home or self-care (01) ==
LOC: M ED 10:37
DX: J02.0 Streptococcal pharyngitis (principal); F17.210 Nicotine dependence, cigarettes, uncomplicated; I10 Essential (primary) hypertension; G43.909 Migraine, unspecified, not intractable, without status migrainosus; F43.10 Post-traumatic stress disorder, unspecified
CPT/HCPCS: J2405

== ENCOUNTER 2018-05-17 02:39 | Emergency (ER) | payer OTHER ==
[~2018-05-17] VITALS: Ht 180.3 cm; Wt 80.0 kg
[~2018-05-17 02:39] MED LIST changes: +AMOX875T PO; +CEPA1LOZ5 PO; +CEPH250REC PO; +CETI10TA; -DIVA500T3 PO; +DIVA500T94; +DIVA500T94 PO; +GABA-843; +GABA600T PO; +LAMI25TA PO; +LAMO25TA2; +LIDO2SO PO; +MAGICMW SSP; +MELO7.5T7; +NAPR-885 PO; +OMEP40CA2; +PRED20TA PO; +PROAAER10 INH; +ROBA500T PO; +TESS100C PO; +VENTAER PO; +ZOFR4TAB14 PO; -ZOFR4TAB3 PO
[2018-05-17] MEDS ORDERED: NAPR250T4 PO (03:14)
[2018-05-17] MEDS ORDERED: NS 1,000 ML IV ONE ×2 (04:00→04:30)
[2018-05-17 04:22] LABS: BASO % 0.7 % (0.0-1.0); EOS # 0.1 10^3/uL (0.0-0.50); EOS % 2.4 % (0.0-3.0); HEMOGLOBIN 13.3 g/dl (13.5-17.5); LYMPH # 2.5 10^3/uL (1.5-6.5); LYMPH % 45.3 % (24.0-44.0); MEAN CORPUSCULAR HEMOGLOBIN 29.6 pg (27.0-33.0); MEAN CORPUSCULAR HGB CONC 34.1 g/dl (32.0-36.5); MEAN CORPUSCULAR VOLUME 86.7 fl (80.0-96.0); MONO # 0.7 10^3/uL (0.0-0.8); MONO % 12.4 % (0.0-5.0); NEUTROPHILS # 2.1 10^3/uL (1.8-7.7); PLATELET COUNT, AUTOMATED 229 10^3/uL (150-450); WHITE BLOOD COUNT 5.5 10^3/uL (4.0-10.0)
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
[2018-05-17 04:58] LABS: ALBUMIN 3.8 GM/DL (3.2-5.2); ALT/SGPT 39 U/L (12-78); BILIRUBIN,DIRECT 0.2 MG/DL (0.0-0.2); BILIRUBIN,TOTAL 0.6 MG/DL (0.2-1.0); BLOOD UREA NITROGEN 3 MG/DL (7-18); CALCIUM LEVEL 8.3 MG/DL (8.5-10.1); CARBON DIOXIDE LEVEL 32 MEQ/L (21-32); CHLORIDE LEVEL 107 MEQ/L (98-107); ETHYL ALCOHOL (ETHANOL) 0.003 % (0.000-0.010); GLOMERULAR FILTRATION RATE > 60.0 (>60); GLUCOSE, FASTING 87 MG/DL (70-100); LIPASE 56 U/L (73-393); POTASSIUM SERUM 3.4 MEQ/L (3.5-5.1); SODIUM LEVEL 144 MEQ/L (136-145); TOTAL PROTEIN 6.6 GM/DL (6.4-8.2)
[2018-05-17 07:00] VITALS: BP 108/65
== END 2018-05-17 07:19 | disposition home or self-care (01) ==
LOC: M ED 02:39 → EDBD 02:39 → M ED 07:19
DX: E86.0 Dehydration (principal); K21.9 Gastro-esophageal reflux disease without esophagitis; F17.200 Nicotine dependence, unspecified, uncomplicated; G89.29 Other chronic pain; M54.9 Dorsalgia, unspecified; G43.909 Migraine, unspecified, not intractable, without status migrainosus
CPT/HCPCS: 36415; 70450; 80048; 80076; 83690; 85025; 96360; 99285; G0480

== ENCOUNTER 2018-05-18 13:32 | Day surgery (SDC) | payer OTHER ==
[2018-05-18] MEDS: NS 1,000 ML IV (13:57)
[2018-05-18] MEDS ORDERED: fentaNYL 100 MCG/2 ML INJECTION (J3010) As Ordered ×2 (15:25→15:51)
[2018-05-18] MEDS ORDERED: MIDAZOLAM INJ 2 MG/2 ML VIAL (J2250) As Ordered ×6 (15:27→15:55)
== END 2018-05-19 16:42 | disposition home or self-care (01) ==
LOC: M SDC 13:32
DX: R13.12 Dysphagia, oropharyngeal phase (principal); K21.9 Gastro-esophageal reflux disease without esophagitis
CPT/HCPCS: 43235

== ENCOUNTER 2018-06-17 18:49 | Emergency (ER) | payer OTHER ==
[~2018-06-17] VITALS: Ht 177.8 cm; Wt 105.0 kg
[~2018-06-17 18:49] MED LIST changes: -GABA600T PO; +GABA600T4 PO; -LAMO25TA2; +LAMO25TA4; +NAPR250T4 PO
[2018-06-17 19:23] LABS: BASO # 0.1 10^3/uL (0.0-0.2); BASO % 0.9 % (0.0-1.0); EOS # 0.1 10^3/uL (0.0-0.50); HEMATOCRIT 45.4 % (42.0-52.0); HEMOGLOBIN 16.6 g/dl (13.5-17.5); LYMPH # 2.6 10^3/uL (1.5-6.5); LYMPH % 31.4 % (24.0-44.0); MEAN CORPUSCULAR HEMOGLOBIN 29.5 pg (27.0-33.0); MEAN CORPUSCULAR HGB CONC 36.6 g/dl (32.0-36.5); MEAN CORPUSCULAR VOLUME 80.8 fl (80.0-96.0); MONO # 0.9 10^3/uL (0.0-0.8); MONO % 11.1 % (0.0-5.0); NEUTROPHILS # 4.5 10^3/uL (1.8-7.7); NEUTROPHILS % 55.4 % (36.0-66.0); PLATELET COUNT, AUTOMATED 329 10^3/uL (150-450); RED BLOOD COUNT 5.62 10^6/uL (4.30-6.10); WHITE BLOOD COUNT 8.2 10^3/uL (4.0-10.0)
[2018-06-17 19:59] LABS: BLOOD UREA NITROGEN 6 MG/DL (7-18); CALCIUM LEVEL 9.6 MG/DL (8.5-10.1); CARBON DIOXIDE LEVEL 27 MEQ/L (21-32); CHLORIDE LEVEL 96 MEQ/L (98-107); CREATININE FOR GFR 0.68 MG/DL (0.70-1.30); FREE T4 1.09 NG/DL (0.76-1.46); GLOMERULAR FILTRATION RATE > 60.0 (>60); GLUCOSE, FASTING 101 MG/DL (70-100); MAGNESIUM LEVEL 2.1 MG/DL (1.8-2.4); POTASSIUM SERUM 3.1 MEQ/L (3.5-5.1); SODIUM LEVEL 136 MEQ/L (136-145)
[2018-06-17] MEDS ORDERED: NS 1,000 ML IV ONE (20:00)
[2018-06-17] MEDS ORDERED: POTASSIUM CHLORIDE 10% LIQ 20 MEQ/15 ML UDC PO ONE (20:15)
[2018-06-17] MEDS ORDERED: POTASSIUM CHLORIDE 10 MEQ SR TABLET PO ONE (20:15)
[2018-06-17 21:33] VITALS: BP 113/64
--- NOTE | 2018-06-18 06:35 | ECGEPIP ---
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
--- NOTE | 2018-06-18 09:11 | REP ---
CHEST PA AND LATERAL: 06/25/2018 COMPARISON: 04/30/2018 CLINICAL HISTORY: Syncope. FINDINGS: Two views show lungs well inflated and clear. The heart, mediastinal and hilar contours are normal. Aorta and airway are intact. Bony thorax unremarkable. No free air under the diaphragm. IMPRESSION: 1. No acute cardiopulmonary disease. Electronically Signed by Gerry Stoner MD 06/18/2018 01:09 P
[2018-06-18] MEDS ORDERED: COMMENT (13:24)
== END 2018-06-17 21:35 | disposition home or self-care (01) ==
LOC: M ED 18:49 → EDBD 18:49 → M ED 21:35
DX: R55 Syncope and collapse (principal); E87.6 Hypokalemia; I10 Essential (primary) hypertension; J45.909 Unspecified asthma, uncomplicated; K21.9 Gastro-esophageal reflux disease without esophagitis; E07.9 Disorder of thyroid, unspecified; F33.9 Major depressive disorder, recurrent, unspecified; F41.9 Anxiety disorder, unspecified; F43.10 Post-traumatic stress disorder, unspecified; F20.9 Schizophrenia, unspecified; Z79.899 Other long term (current) drug therapy; Z88.5 Allergy status to narcotic agent; Z88.8 Allergy status to other drugs, medicaments and biological substances; Z91.018 Allergy to other foods; Z91.030 Bee allergy status

== ENCOUNTER 2018-06-18 10:23 | Inpatient (IN) | payer OTHER ==
[~2018-06-18] VITALS: Ht 180.3 cm; Wt 98.7 kg
[2018-06-18 10:50] LABS: BASO # 0.1 10^3/uL (0.0-0.2); EOS # 0.2 10^3/uL (0.0-0.50); EOS % 2.4 % (0.0-3.0); HEMATOCRIT 43.6 % (42.0-52.0); HEMOGLOBIN 15.4 g/dl (13.5-17.5); LYMPH # 1.8 10^3/uL (1.5-6.5); LYMPH % 29.4 % (24.0-44.0); MEAN CORPUSCULAR HGB CONC 35.3 g/dl (32.0-36.5); MEAN CORPUSCULAR VOLUME 82.1 fl (80.0-96.0); MONO # 0.9 10^3/uL (0.0-0.8); MONO % 13.8 % (0.0-5.0); NEUTROPHILS # 3.3 10^3/uL (1.8-7.7); NEUTROPHILS % 53.2 % (36.0-66.0); PLATELET COUNT, AUTOMATED 306 10^3/uL (150-450); RED BLOOD COUNT 5.31 10^6/uL (4.30-6.10); WHITE BLOOD COUNT 6.2 10^3/uL (4.0-10.0)
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
[2018-06-18 11:24] LABS: ALT/SGPT 47 U/L (12-78); BILIRUBIN,TOTAL 1.2 MG/DL (0.2-1.0); BLOOD UREA NITROGEN 7 MG/DL (7-18); CALCIUM LEVEL 9.2 MG/DL (8.5-10.1); CARBON DIOXIDE LEVEL 31 MEQ/L (21-32); CHLORIDE LEVEL 98 MEQ/L (98-107); CPK CREATINE PHOSPHOKINASE 142 U/L (39-308); CREATININE FOR GFR 0.74 MG/DL (0.70-1.30); GLOMERULAR FILTRATION RATE > 60.0 (>60); GLUCOSE, FASTING 102 MG/DL (70-100); MB/CK RELATIVE INDEX 1.13 (< OR =4); POTASSIUM SERUM 3.3 MEQ/L (3.5-5.1); SODIUM LEVEL 137 MEQ/L (136-145)
[2018-06-18 11:25] LABS: ACETAMINOPHEN LEVEL < 2.0 UG/ML (10.0-30.0); ALBUMIN 4.3 GM/DL (3.2-5.2); BILIRUBIN,DIRECT 0.4 MG/DL (0.0-0.2); ETHYL ALCOHOL (ETHANOL) < 0.003 % (0.000-0.010); SALICYLATE LEVEL < 1.7 MG/DL (5.0-30.0); THYROID STIMULATING HORMONE 0.992 uIU/ML (0.358-3.740); TROPONIN I < 0.02 NG/ML (< 0.10)
[2018-06-18] MEDS ORDERED: NS 1,000 ML IV ONE (12:15)
[2018-06-18] MEDS ORDERED: POTASSIUM CHLORIDE 10 MEQ SR TABLET PO ONE (12:30)
[2018-06-18 12:36] LABS: MAGNESIUM LEVEL 2.4 MG/DL (1.8-2.4)
[2018-06-18] MEDS ORDERED: COMMENT (13:24)
--- NOTE | 2018-06-18 14:17 | HPE ---
DATE OF ADMISSION: 06/18/2018 27-year-old male with past medical history of asthma, seizure disorder, history of esophageal dysmotility, currently nothing by mouth except for fluids. Presents to the emergency room for second visit for syncopal event. Patient apparently was here yesterday to the ER where he had passed out in the middle of talking on the phone. Patient was found to be dehydrated. He was given IV fluids and was stabilized and sent home, however today the mother witnessed that he had three episodes of dry heaving which subsequently then had a syncopal event. He came to the emergency room for evaluation. In the emergency room he had an EKG and was found to be in normal sinus rhythm. No acute ST abnormalities. CT head was done and showed no acute bleed or mass effect and cervical spine CT showed no acute fracture or subluxation. Patient currently denies any chest pain, shortness of breath, abdominal pain, nausea, vomiting, vertigo, headaches. He will be admitted for further management. PAST MEDICAL HISTORY: Asthma, bipolar disorder, seizure disorder, esophageal dysmotility and hypertension. DRUG ALLERGIES: Fluoxetine . FAMILY HISTORY: Negative for early coronary disease. SOCIAL HISTORY: Patient denies tobacco, alcohol or illicit drugs. MEDICATIONS: Albuterol as needed. Cepacol as needed, cetirizine 10 mg orally daily, Epipen as needed, fluticasone/vilanterol 1 inhalation daily, gabapentin 600 mg orally twice daily, amitriptyline 25 mg orally daily, meloxicam 7.5 mg orally daily, Robaxin 2 tabs orally as needed. Naproxen 250 mg orally twice a day, omeprazole 40 mg orally daily, Zofran 4 mg orally every 4 hours as needed. REVIEW OF SYSTEMS: Negative for all 10 major systems except what was mentioned in the history of present illness. VITALS: Blood pressure 137/92, heart rate 84 and regular, respiratory rate 18, temperature 97.5, oxygen saturation 95% on room air. Head is atraumatic, normocephalic. Neck is supple with no JVD. Lungs were clear to auscultation. S1, S2 audible. No murmurs appreciated. Abdomen was soft and positive bowel sounds, No pedal edema. Skin was intact. Neurologic examination, patient awake, alert and oriented times three. LABS: WBC 6.2, hemoglobin 15.4, hematocrit 43.6, platelets 306,000, sodium 137, potassium 3.3, chloride 98, C02 31, anion gap 8, BUN 7, creatinine 0.74, lactic acid 1.3, fasting glucose 102, troponin less than 0.02, TSH 0.992. Urine tox was negative. IMPRESSION: 1. Syncope. 2. Hypokalemia. PLAN: The patient will be admitted to med-surg floor with remote tele. We will get a second troponin and have an echocardiogram done. If those are all negative we will discharge him home with outpatient cardiology followup. We will continue his preadmission medications and keep him on a clear liquid diets. Potassium has already been repleted in the ER. We will continue his preadmission medications if swallowing permits and continue his care on the med-surg floor. MELISSA
[2018-06-18] MEDS: NS 1,000 ML IV SCH (14:23)
[2018-06-18] MEDS ORDERED: POTASSIUM CHL PWD 20 MEQ PACKET PO ONE (15:00)
[2018-06-18 15:50] LABS: AMPHETAMINES LEVEL URINE NEGATIVE (NEGATIVE); BARBITURATES URINE NEGATIVE (NEGATIVE); BENZODIAZEPINES URINE NEGATIVE (NEGATIVE); CANNABINOIDS URINE NEGATIVE (NEGATIVE); COCAINE METABOLITE URINE NEGATIVE (NEGATIVE); METHADONE URINE NEGATIVE (NEGATIVE); OPIATES URINE NEGATIVE (NEGATIVE); PHENCYCLIDINE URINE NEGATIVE (NEGATIVE)
[2018-06-18 16:02] VITALS: BP 111/61
--- NOTE | 2018-06-18 18:10 | ECGEPIP ---
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
[2018-06-18] MEDS ORDERED: IPRATROPIUM 0.5MG/ALBUTEROL 2.5MG INH SOL UD 3ML (DUONEB)(J7620) NEB PRN (21:30)
[2018-06-18 22:00] VITALS: BP 122/75
[2018-06-19 00:02] VITALS: BP 105/63
[2018-06-19] MEDS: NS 1,000 ML IV SCH ×3 (01:56→19:36)
[2018-06-19 02:11] VITALS: BP 98/53
[2018-06-19 03:56] VITALS: BP 97/55
[2018-06-19 06:00] VITALS: BP 116/61
[2018-06-19 07:05] LABS: ALBUMIN 3.4 GM/DL (3.2-5.2); ALT/SGPT 33 U/L (12-78); BILIRUBIN,TOTAL 1.1 MG/DL (0.2-1.0); BLOOD UREA NITROGEN 6 MG/DL (7-18); CALCIUM LEVEL 8.6 MG/DL (8.5-10.1); CARBON DIOXIDE LEVEL 28 MEQ/L (21-32); CHLORIDE LEVEL 105 MEQ/L (98-107); CREATININE FOR GFR 0.54 MG/DL (0.70-1.30); GLOMERULAR FILTRATION RATE > 60.0 (>60); GLUCOSE, FASTING 79 MG/DL (70-100); POTASSIUM SERUM 3.3 MEQ/L (3.5-5.1); SODIUM LEVEL 141 MEQ/L (136-145)
--- NOTE | 2018-06-19 09:04 | IPNPDOC ---
Date Seen The patient was seen on 06/19/18. Progress Note SUBJECTIVE: Patient is seen and examined at the bedside. chart has been reviewed. Pt has been ambulating around the floor without issues. "My mom is worried about me going h ome. Dr. Schofield referred me to get a tube in [place] this week." no c/o lightheadedness, dizziness, sob, chest pain, pressure, tightness. OBJECTIVE: PHYSICAL EXAMINATION: VITALS:PLS SEE BELOW Head is atraumatic, normocephalic. Neck is supple with no JVD. Lungs were clear to auscultation. Heart:S1,S2 audible. No murmurs appreciated. RRR Abdomen was soft and positive bowel sounds, No pedal edema. Skin was intact. Neurologic examination, patient awake, alert and oriented times three. LABS: PLS SEE BELOW ASSESSMENT AND PLAN: 27-year-old male with past medical history of asthma, seizure disorder, history of esophageal dysmotility, currently nothing by mouth except for fluids. Presents to the emergency room for second visit for syncopal event. Patient apparently was here yesterday to the ER where he had passed out in the middle of talking on the phone. Patient was found to be dehydrated. He was given IV fluids and was stabilized and sent home, however today the mother witnessed that he had three episodes of dry heaving which subsequently then had a syncopal event. He came to the emergency room for evaluation. In the emergency room he had an EKG and was found to be in normal sinus rhythm. No acute ST abnormalities. CT head was done and showed no acute bleed or mass effect and cervical spine CT showed no acute fracture or subluxation. Patient currently denies any chest pain, shortness of breath, abdominal pain, nausea, vomiting, vertigo, headaches. He will be admitted for further management. Syncope.The patient will be admitted to med-surg floor with remote tele. We will get a second troponin and have an echocardiogram done. If those are all negative we will discharge him home with outpatient cardiology followup. We will continue his preadmission medications and keep him on a clear liquid diet. Hypokalemia.supplemented Potassium hasalready been repleted in the ER. We will continue his preadmission medications if swallowing permits and continuehis care on the med-surg floor. Asthma, no acute symptoms PRN nebs ?History of Seizure disorder check prolactin level. check EEG. pt denies any seizure activity disposition: check echo and orthostatics. dc home in am if negative EEG and negative orthostatics. VS, I&O, 24H, Fishbone Vital Signs/I&O Vital Signs Date Time Temp Pulse Resp B/P (MAP) Pulse Ox O2 Delivery O2 Flow Rate FiO2 06/19/18 06:00 98.0 57 18 116/61 (79) 98 06/18/18 16:02 Room Air I&O- Last 24 Hours up to 6 AM 06/19/18 06:00 Intake Total 2800 ml Output Total 400 ml Balance 2400 ml Laboratory Data 24H LABS Laboratory Tests 2 06/18/18 10:37: Bedside Glucose (Misc Panel) 100 06/18/18 10:38: Immature Granulocyte % (Auto) 0.2, White Blood Count 6.2, Red Blood Count 5.31, Hemoglobin 15.4, Hematocrit 43.6, Mean Corpuscular Volume 82.1, Mean Corpuscular Hemoglobin 29.0, Mean Corpuscular Hemoglobin Concent 35.3, Red Cell Distribution Width 12.7, Platelet Count 306, Neutrophils (%) (Auto) 53.2, Lymphocytes (%) (Auto) 29.4, Monocytes (%) (Auto) 13.8H, Eosinophils (%) (Auto) 2.4, Basophils (%) (Auto) 1.0, Neutrophils # (Auto) 3.3, Lymphocytes # (Auto) 1.8, Monocytes # (Auto) 0.9H, Eosinophils # (Auto) 0.2, Basophils # (Auto) 0.1, Nucleated Red Blood Cells % (auto) 0.0, Anion Gap 8, Glomerular Filtration Rate > 60.0, Lactic Acid Level 1.3, Calcium Level 9.2, Magnesium Level 2.4, Aspartate Amino Transf (AST/SGOT) 27, Alanine Aminotransferase (ALT/SGPT) 47, Alkaline Phosphatase 57, Total Bilirubin 1.2H, Direct Bilirubin 0.4H, Total Creatine Kinase 142, Creatine Kinase MB 2.0, Creatine Kinase MB Relative Index 1.13, Troponin I < 0.02, Total Protein 7.0, Albumin 4.3, Albumin/Globulin Ratio 1.59, Thyroid Stimulating Hormone (TSH) 0.992, Salicylates Level < 1.7L, Acetaminophen Level < 2.0L, Ethyl Alcohol Level < 0.003 06/18/18 11:10: Urine Amphetamines Screen NEGATIVE, Urine Benzodiazepines Screen NEGATIVE, Urine Opiates Screen NEGATIVE, Urine Methadone Screen NEGATIVE, Urine Barbiturates Screen NEGATIVE, Urine Phencyclidine Screen NEGATIVE, Urine Cocaine Metabolite Screen NEGATIVE, Urine Cannabinoids Screen NEGATIVE 06/18/18 20:01: Troponin I < 0.02 06/19/18 05:40: CBC/BMP Laboratory Tests 06/18/18 10:38 Red Blood Count 5.31, Mean Corpuscular Volume 82.1, Mean Corpuscular Hemoglobin 29.0, Mean Corpuscular Hemoglobin Concent 35.3, Red Cell Distribution Width 12.7, Neutrophils (%) (Auto) 53.2, Lymphocytes (%) (Auto) 29.4, Monocytes (%) (Auto) 13.8 H, Eosinophils (%) (Auto) 2.4, Basophils (%) (Auto) 1.0, Neutrophils # (Auto) 3.3, Lymphocytes # (Auto) 1.8, Monocytes # (Auto) 0.9 H, Eosinophils # (Auto) 0.2, Basophils # (Auto) 0.1 MARCELLE GATES MD Jun 19, 2018 06:49
[2018-06-19] MEDS ORDERED: POTASSIUM CHLORIDE 10 MEQ SR TABLET PO ONE (10:15)
[2018-06-19] MEDS ORDERED: POTASSIUM CHLORIDE 10% LIQ 20 MEQ/15 ML UDC PO ONE (10:30)
--- NOTE | 2018-06-19 19:16 | ECHO ---
DATE OF PROCEDURE: 06/19/2018 REFERRING PHYSICIAN: Dr. Vernon Aguilar INDICATION: Syncope Height 180 cm, weight 102 kg. DIMENSIONS: IVS: 1.0 LV: 4.4 LVPW: 1.0 LA: 3.7 Aorta: 3.4 IVC: 2.1 Mitral E wave velocity: 102 A wave: 47 E prime septal: 9.5 E prime lateral: 16.5 FINDINGS: The study is of good technical quality. The patient is in sinus rhythm. Left ventricle is normal size and systolic function with estimated left ventricular ejection fraction (LVEF) 60-65%. Right ventricle is also normal size and systolic function. Both atria appear normal. All four valves were well seen and appear normal. No pericardial effusion is noted. Inferior vena cava is mildly dilated but collapses with respiration raising possibility of elevated central venous pressure. Aortic root is normal. Aortic arch and abdominal aorta were not well seen. Doppler interrogation reveals no aortic stenosis or insufficiency. Same is true for all four cardiac valves. Mitral inflow pattern and tissue Doppler imaging of mitral annulus revealed normal diastolic function. CONCLUSIONS: 1. Study is of good technical quality. 2. Normal left ventricular (LV) size, systolic and diastolic function. 3. No valvular disease. 4. Possibly elevated central venous pressure. 5. Unable to estimate pulmonary artery pressure but no signs to suggest pulmonary hypertension. COMMENT: Subacute bacterial endocarditis (SBE) prophylaxis is not recommended. Essentially normal echocardiogram.
[2018-06-19 22:00] VITALS: BP 129/70
[2018-06-20] VITALS (7 sets, daily range): BP systolic 103–138; BP diastolic 54–91
[2018-06-20] MEDS: NS 1,000 ML IV SCH ×2 (04:57→14:34)
--- NOTE | 2018-06-20 06:41 | IPNPDOC ---
Date Seen The patient was seen on 06/20/18. Progress Note SUBJECTIVE: Patient is seen and examined at the bedside. chart has been reviewed. Tele both on 06/19 and 06/20: sinus bradycardia 37-55.wnl TSH Pt woke up at 2am c/o tingling and numbness to chest and head with EKG: sinus marni no heart blocks. lyme titers pending. no nausea, vomiting. pt was awakened every hour when hr<40 with subsequent increase by 5bpm once awakened. Pt has been ambulating around the floor yesterday without issues. "My mom is worried about me going h ome. Dr. Schofield referred me to get a tube in [place] this week." no c/o lightheadedness, dizziness, sob OBJECTIVE: PHYSICAL EXAMINATION: VITALS:PLS SEE BELOW Head is atraumatic, normocephalic. Neck is supple with no JVD. Lungs were clear to auscultation. Heart:S1,S2 audible. No murmurs appreciated. sinus marni Abdomen was soft and positive bowel sounds, No pedal edema. Skin was intact. Neurologic examination, patient awake, alert and oriented times three. LABS: PLS SEE BELOW ASSESSMENT AND PLAN: 27-year-old male with past medical history of asthma, seizure disorder, history of esophageal dysmotility, currently nothing by mouth except for fluids. Presents to the emergency room for second visit for syncopal event. Patient apparently was here yesterday to the ER where he had passed out in the middle of talking on the phone. Patient was found to be dehydrated. He was given IV fluids and was stabilized and sent home, however today the mother witnessed that he had three episodes of dry heaving which subsequently then had a syncopal event. He came to the emergency room for evaluation. In the emergency room he had an EKG and was found to be in normal sinus rhythm. No acute ST abnormalities. CT head was done and showed no acute bleed or mass effect and cervical spine CT showed no acute fracture or subluxation. Patient currently denies any chest pain, shortness of breath, abdominal pain, nausea, vomiting, vertigo, headaches. He will be admitted for further management. Symptomatic bradycardia: tele documented 37 while asleep with normal blood pressure EKG: no AV blocks or sinus pauses. ECHO read by Dr. Pugh 06/19/18 wnl. lyme screen pending. TSH wnl. cardiology Dr. Reddy consulted. Syncope.The patient will be admitted to med-surg floor with remote tele. We will get a second troponin and have an echocardiogram done. If those are all negative we will discharge him home with outpatient cardiology followup. We will continue his preadmission medications and keep him on a clear liquid diet. Esophageal Dysmotility clears diet. [facility] for feeding tube referred by Dr. Schofield. ?Achalasia. Hypokalemia.supplemented Potassium hasalready been repleted in the ER. We will continue his preadmission medications if swallowing permits and continuehis care on the med-surg floor. Asthma, no acute symptoms PRN nebs ?History of Seizure disorder check prolactin level. check EEG. pt denies any seizure activity disposition: check echo and orthostatics. dc home in am if negative EEG and negative orthostatics. VS, I&O, 24H, Fishbone Vital Signs/I&O Vital Signs Date Time Temp Pulse Resp B/P (MAP) Pulse Ox O2 Delivery O2 Flow Rate FiO2 06/20/18 05:12 39 06/20/18 04:27 97.7 18 134/82 (99) 97 Room Air I&O- Last 24 Hours up to 6 AM 06/20/18 06:00 Intake Total 2100 ml Output Total 200 ml Balance 1900 ml Laboratory Data 24H LABS Laboratory Tests 2 06/19/18 09:11: Prolactin 5.1 MARCELLE GATES MD Jun 20, 2018 06:41
[2018-06-20 07:17] LABS: BASO # 0.1 10^3/uL (0.0-0.2); BASO % 1.1 % (0.0-1.0); EOS # 0.2 10^3/uL (0.0-0.50); HEMOGLOBIN 13.4 g/dl (13.5-17.5); LYMPH # 2.4 10^3/uL (1.5-6.5); MEAN CORPUSCULAR HEMOGLOBIN 29.6 pg (27.0-33.0); MEAN CORPUSCULAR HGB CONC 34.4 g/dl (32.0-36.5); MEAN CORPUSCULAR VOLUME 86.3 fl (80.0-96.0); MONO # 0.6 10^3/uL (0.0-0.8); MONO % 10.2 % (0.0-5.0); NEUTROPHILS # 2.2 10^3/uL (1.8-7.7); NEUTROPHILS % 41.5 % (36.0-66.0); PLATELET COUNT, AUTOMATED 252 10^3/uL (150-450); RED BLOOD COUNT 4.52 10^6/uL (4.30-6.10); WHITE BLOOD COUNT 5.4 10^3/uL (4.0-10.0)
--- NOTE | 2018-06-20 07:26 | REP ---
Clinical: Acute chest pain . Comparison: 06/17/2018 . Findings: The mediastinum and cardiac silhouette are stable and within normal limits for portable technique. The lung cisse are clear without acute consolidation, effusion, or pneumothorax. Skeletal structures are intact. Impression: No acute cardiopulmonary process appreciated. Electronically Signed by Eduardo Starks MD 06/20/2018 07:17 A
[2018-06-20] MEDS ORDERED: GI COCKTAIL 50ML BTL(HYOSCYAMINE/MAALOX/LIDOCAINE VISCOUS)(1:3:1) PO ONE (07:30)
[2018-06-20] MEDS ORDERED: GI COCKTAIL 50ML BTL(HYOSCYAMINE/MAALOX/LIDOCAINE VISCOUS)(1:3:1) PO PRN (07:30)
[2018-06-20 07:39] LABS: BLOOD UREA NITROGEN 4 MG/DL (7-18); CALCIUM LEVEL 8.7 MG/DL (8.5-10.1); CARBON DIOXIDE LEVEL 27 MEQ/L (21-32); CHLORIDE LEVEL 109 MEQ/L (98-107); CREATININE FOR GFR 0.56 MG/DL (0.70-1.30); GLOMERULAR FILTRATION RATE > 60.0 (>60); GLUCOSE, FASTING 80 MG/DL (70-100); POTASSIUM SERUM 3.9 MEQ/L (3.5-5.1); SODIUM LEVEL 144 MEQ/L (136-145)
[2018-06-20 07:44] LABS: CPK CREATINE PHOSPHOKINASE 109 U/L (39-308); MB/CK RELATIVE INDEX 0.92 (< OR =4); TROPONIN I < 0.02 NG/ML (< 0.10)
[2018-06-20] MEDS: LANSOPRAZOLE SUSPENSION 30 MG/10 ML ORAL SYRINGE (FIRST-LANSOPRAZOLE) PO SCH ×2 (09:57→21:59)
[2018-06-21] MEDS: NS 1,000 ML IV SCH (00:07)
[2018-06-21 06:00] VITALS: BP 106/65
[2018-06-21] MEDS ORDERED: FIRS3SUS PO (07:56)
[2018-06-21] MEDS: LANSOPRAZOLE SUSPENSION 30 MG/10 ML ORAL SYRINGE (FIRST-LANSOPRAZOLE) PO SCH (08:49)
[2018-06-21 08:57] LABS: HEMATOCRIT 40.9 % (42.0-52.0); HEMOGLOBIN 14.1 g/dl (13.5-17.5); MEAN CORPUSCULAR HEMOGLOBIN 29.4 pg (27.0-33.0); MEAN CORPUSCULAR HGB CONC 34.5 g/dl (32.0-36.5); MEAN CORPUSCULAR VOLUME 85.4 fl (80.0-96.0); PLATELET COUNT, AUTOMATED 276 10^3/uL (150-450); RED BLOOD COUNT 4.79 10^6/uL (4.30-6.10); WHITE BLOOD COUNT 5.9 10^3/uL (4.0-10.0)
[2018-06-21 09:22] LABS: ALBUMIN 3.5 GM/DL (3.2-5.2); ALT/SGPT 36 U/L (12-78); BILIRUBIN,TOTAL 1.1 MG/DL (0.2-1.0); BLOOD UREA NITROGEN 3 MG/DL (7-18); CALCIUM LEVEL 9.1 MG/DL (8.5-10.1); CARBON DIOXIDE LEVEL 30 MEQ/L (21-32); CHLORIDE LEVEL 105 MEQ/L (98-107); CREATININE FOR GFR 0.55 MG/DL (0.70-1.30); GLOMERULAR FILTRATION RATE > 60.0 (>60); GLUCOSE, FASTING 81 MG/DL (70-100); POTASSIUM SERUM 4.2 MEQ/L (3.5-5.1); SODIUM LEVEL 143 MEQ/L (136-145); TOTAL PROTEIN 5.8 GM/DL (6.4-8.2)
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
--- NOTE | 2018-06-21 16:57 | ECGEPIP ---
Stationary ECG Study [facility] Test Date: 2018-06-20 Pat Name: [facility] Department: Room: [place] [address] Gender: M Quality Intern: MADDIE : 1990 Requested By: MARCELLE Shirley Order Number: [id number] Reading MD: Cory Harris Measurements Intervals [place] Rate: 49 P: 17 DC: 134 QRS: 31 QRSD: 110 T: 21 QT: 445 QTc: 405 Interpretive Statements Sinus bradycardia with sinus arrhythmia Normal EKG No significant change since prior tracing of 06/18/2018 Electronically Signed On 06-21-2018 16:57:29 EST by Cory Harris
[2018-06-22 00:08] LABS: Lyme Disease IgG/IgM Antibodie <0.91 ISR (0.00-0.90); Lyme Disease IgM Ab Quantitati <0.80 index (0.00-0.79)
--- NOTE | 2018-06-22 08:53 | EEG ---
DATE OF EE06/19/2018 REFERRING PHYSICIAN: Dr. Marilynn Saha DIAGNOSIS: Syncope versus seizure. EEG #: [id number] HISTORY: Liu Bynum is a 27-year-old man who was admitted at [facility] due to syncopal episode. The patient had three episodes of dry heaving with syncopal episode. This EEG was done to rule out epileptic potential. He is currently taking albuterol, Atrovent inhalers, etc. TECHNICAL DESCRIPTION: This digital EEG was recorded by 21 scalp, ear and two EKG electrodes and was reviewed in bipolar and referential montages following reformatting in 10-20 international electrode placement system. INTERPRETATION: The patient was noted to be in awake and drowsy states during this EEG. Resting awake background rhythm consisted of well-formed posterior dominant rhythm with anterior/posterior gradient comprising of 11 Hz alpha activity measuring 15-70 microvolts in amplitude which was symmetric and reactive to eye opening. Attenuation of posterior dominant rhythm was seen during transition into drowsiness. Anteriorly low voltage and mixed frequency activity was noted. Stage I and II sleep were reviewed and were symmetric bilaterally. Hyperventilation could not be performed. Photic stimulation remained unremarkable. Electrocardiogram (EKG) was affected by electrode and motion artifacts. No focal, lateralizing or epileptiform abnormalities were seen. No clinical or electrographic seizures were recorded. CONCLUSION: This EEG in awake, drowsy states, stage I and II sleep is within normal limits.
[2018-06-22] MEDS ORDERED: FIRS3SUS PO (21:25)
--- NOTE | 2018-06-23 04:03 | CR ---
DATE OF CONSULTATION: 06/20/2018 REFERRING PROVIDER: Dr. Marilynn Saha REASON FOR CONSULTATION: Abnormal EKG, recent episode of syncope. HISTORY OF PRESENT ILLNESS: A 27-year-old male who was seen in the evening of 06/20/2018 because he was found to have abnormal telemetry strips. His heart rate was significantly slow in the 30s. He does have a history of syncope, and cardiology consult was called. When I saw Mr. Liu Bynum on the floor, he was supine in bed in no acute distress at rest, and his mother was at bedside. He denies any complaint of chest pain or palpitations, pedal edema, orthopnea. He has not been having any more shortness of breath than usual. He has had three episodes of syncope lately, and most of the time upon getting up and walking from the sitting position. There are no associated palpitations. He has had two visits to the emergency room (ER) this year so far for those episodes of syncope. He has been having difficulty swallowing, and he was found to have esophageal dysmotility, and this is being addressed in [place], [place]. He stated that he might need a feeding tube. He denies any vomiting, diarrhea, melena, or hematemesis. He denies any cough. PAST MEDICAL HISTORY: Positive for: 1. Bipolar disorder. 2. Seizure disorder. 3. Hypertension. 4. Asthma. 5. Esophageal dysmotility. He has not been taking an oral medications. HOME MEDICATIONS: - albuterol nebulizer as needed - Cepacol as needed - cetirizine 10 mg by mouth daily - Epi-Pen - fluticasone - gabapentin 600 mg by mouth twice a day - amitriptyline 25 mg by mouth daily - meloxicam 7.5 mg by mouth daily - Robaxin two tablets by mouth as needed - Naprosyn 250 mg by mouth twice a day - omeprazole 40 mg by mouth daily - Zofran 4 mg by mouth daily and every 4 hours as needed PAST SURGICAL HISTORY: Positive for orthopedic surgery, arthroscopic, on the left shoulder. FAMILY HISTORY: Noncontributory. SOCIAL HISTORY: Patient currently lives with his girlfriend on and off. He denies any smoking or EtOH (ethanol) abuse. PHYSICAL EXAMINATION: Patient is alert and oriented in no acute distress at rest, and his vital signs when I saw him revealed a blood pressure of 014/54 and prior to that it was 137/91 in the afternoon, respirations 18, pulse 58, and maximal temperature was 98.3 degrees Fahrenheit with an oxygen saturation of 98% on room air. Examination of the head: Atraumatic. Neck is supple. No jugular venous distention (JVD) or carotid bruits. The lungs did not reveal any wheezing or crackles. The heart examination revealed normal S1 and S2 without gallops. The point of maximal impulse (PMI) is not displaced. There is no rub. Abdomen is unremarkable. Extremities reveal no pedal edema. Neurologic examination is negative for focal deficit. LABORATORY DATA: CBC on 06/28/2018 revealed a WBC of 5.4, hemoglobin 13.4, hematocrit 39.0, and platelets 252,000. BMP revealed a sodium of 143, potassium 4.2, chloride 105, CO2 of 30, BUN 3, creatinine 0.55, GFR more than 60, fasting glucose 81, calcium 9.1. Liver enzymes revealed a total bilirubin of 1.1, AST 19, ALT 36, alkaline phosphatase 50, total protein 5.8, albumin 3.5. Serum troponin has been negative. Serum TSH on admission was 0.99. Serum potassium on admission was 3.3. Toxicology was negative. Head CT on admission, 06/18/2018, revealed no acute intracranial disease process. Cervical spine CT on 06/18/2018 was negative for fracture of subluxation. Chest x-ray 06/20/2018 revealed no acute cardiopulmonary disease process. Electrocardiogram on 06/18/2018 revealed normal sinus rhythm at 67 beats per minute, high-voltage QRS complexes, and early repolarization. Repeat electrocardiogram on 06/20/2018 revealed lower voltage QRS complex, otherwise unremarkable. Early repolarization noted. Telemetry was reviewed and revealed sinus bradycardia. Heart rate varies between 40 beats per minute and up to 75 beats per minute. IMPRESSION: 1. Syncope, recurrent and seems to be related to orthostatic drop in his blood pressure. 2. Sinus bradycardia, asymptomatic and noted at night while sleeping. 3. Weight loss, as per patient, secondary to poor intake due to esophageal dysfunction, and this is being addressed. 4. History of hypertension. 5. History of bipolar disorder. 6. History of seizures. Mr. Liu Crockett [facility] were discussed with him as well as with his mother. He seems to be stable from a cardiac point of view, and there is no need at this present time for a permanent pacemaker. When his workup is completed, he will be discharged home, and he will stop by at the office for an event recorder. He had an electroencephalogram (EEG), and result is pending. He had an echocardiogram done on 06/19/2018, and it revealed a normal global left ventricular systolic function at 60-65% and a mildly dilated inferior vena cava, otherwise unremarkable. There is no significant valvular heart disease. The right ventricle appeared to be normal in size. It was a pleasure to participate in the care of [facility] condition. Once again, he appears to be stable, and will see him as outpatient. Case was discussed with his hospitalist, and upon discharge prior to going home he will stop by at the office for a 30-day event recorder. This was discussed with him as well as his mother, and he is in agreement.
== END 2018-06-21 10:25 | disposition home or self-care (01) | DRG 201 ==
LOC: M ED 10:23 → EDBD 10:23 → M ED INP 13:48 → M MSPAV 15:25
PROVIDERS: ADMIT Internal Medicine; ATTEND General Practice
DX: R00.1 Bradycardia, unspecified (principal); K22.8 Other specified diseases of esophagus; E87.6 Hypokalemia; Z88.8 Allergy status to other drugs, medicaments and biological substances; J45.909 Unspecified asthma, uncomplicated; I95.1 Orthostatic hypotension; E66.9 Obesity, unspecified; F31.9 Bipolar disorder, unspecified; G40.909 Epilepsy, unspecified, not intractable, without status epilepticus; I10 Essential (primary) hypertension; Z79.1 Long term (current) use of non-steroidal anti-inflammatories (NSAID); Z79.899 Other long term (current) drug therapy; Z68.31 Body mass index [BMI] 31.0-31.9, adult; Z91.030 Bee allergy status; Z91.018 Allergy to other foods; Z88.5 Allergy status to narcotic agent

== ENCOUNTER 2018-06-22 18:17 | Inpatient (IN) | payer OTHER ==
[~2018-06-22] VITALS: Ht 180.3 cm; Wt 99.9 kg
[~2018-06-22 18:17] MED LIST changes: +COMMENT; +FIRS3SUS PO
[2018-06-22] MEDS ORDERED: ONDANSETRON 4MG/2ML VIAL (J2405) IV ONE (19:00)
[2018-06-22] MEDS ORDERED: PANTOPRAZOLE 40MG INJ (PROTONIX) (C9113) IV ONE (19:00)
[2018-06-22] MEDS ORDERED: NS 1,000 ML IV ONE ×2 (19:00→21:15)
[2018-06-22] MEDS ORDERED: ISOVUE-370 76% 100ML VIAL (Q9967) As Ordered ONE (19:02)
[2018-06-22 19:23] LABS: BASO # 0.1 10^3/uL (0.0-0.2); BASO % 1.1 % (0.0-1.0); EOS # 0.2 10^3/uL (0.0-0.50); EOS % 3.1 % (0.0-3.0); HEMATOCRIT 41.9 % (42.0-52.0); HEMOGLOBIN 14.5 g/dl (13.5-17.5); LYMPH # 2.1 10^3/uL (1.5-6.5); LYMPH % 32.7 % (24.0-44.0); MEAN CORPUSCULAR HEMOGLOBIN 29.1 pg (27.0-33.0); MEAN CORPUSCULAR HGB CONC 34.6 g/dl (32.0-36.5); MEAN CORPUSCULAR VOLUME 84.1 fl (80.0-96.0); MONO # 0.7 10^3/uL (0.0-0.8); MONO % 11.6 % (0.0-5.0); NEUTROPHILS # 3.3 10^3/uL (1.8-7.7); NEUTROPHILS % 51.2 % (36.0-66.0); PLATELET COUNT, AUTOMATED 277 10^3/uL (150-450); RED BLOOD COUNT 4.98 10^6/uL (4.30-6.10); WHITE BLOOD COUNT 6.4 10^3/uL (4.0-10.0)
--- NOTE | 2018-06-22 19:37 | REP ---
Clinical: Acute headache/pain . Comparison: 05/17/2018, 06/18/2018 . Findings: The ventricles, sulci, and cisterns are normal in position and appearance. Staley-white differentiation is maintained. No acute intracranial hemorrhage, mass/mass effect, pathology or trauma/injury. No evidence for acute infarction. No extra-axial fluid collection. Calvarium is intact. Paranasal sinuses and mastoid air cells are clear. Impression: Normal noncontrast head CT. No evidence for acute intracranial pathology or trauma/injury. Electronically Signed by Eduardo Starks MD 06/22/2018 07:29 P
[2018-06-22 19:46] LABS: AMPHETAMINES LEVEL URINE NEGATIVE (NEGATIVE); BARBITURATES URINE NEGATIVE (NEGATIVE); BENZODIAZEPINES URINE NEGATIVE (NEGATIVE); CANNABINOIDS URINE NEGATIVE (NEGATIVE); COCAINE METABOLITE URINE NEGATIVE (NEGATIVE); METHADONE URINE NEGATIVE (NEGATIVE); OPIATES URINE NEGATIVE (NEGATIVE); PHENCYCLIDINE URINE NEGATIVE (NEGATIVE)
--- NOTE | 2018-06-22 19:47 | REP ---
Clinical: Acute abdominal pain. Technique: Axial contrast enhanced images from the lung bases to the pubic symphysis using 100 ml Isovue 370 intravenous contrast material with coronal and sagittal re-formations. Comparison: 08/28/2015. Findings: Lung bases are clear. Visualized heart and pericardium normal. Liver, spleen, pancreas, gallbladder, bilateral adrenal glands and kidneys are normal. The enteric system is without obstruction or acute inflammatory process. Pelvis demonstrates normal bladder and age appropriate prostate/seminal vesicles. No pelvic fluid or ascites. No free air. No adenopathy. No obvious hernia. Surrounding musculoskeletal structures are intact. Impression: No acute abdominopelvic pathology appreciated. Electronically Signed by Eduardo Starks MD 06/22/2018 07:38 P
[2018-06-22 19:55] LABS: ALBUMIN 3.8 GM/DL (3.2-5.2); ALT/SGPT 41 U/L (12-78); AMYLASE 26 U/L (25-115); BILIRUBIN,DIRECT 0.3 MG/DL (0.0-0.2); BILIRUBIN,TOTAL 0.8 MG/DL (0.2-1.0); BLOOD UREA NITROGEN 2 MG/DL (7-18); CARBON DIOXIDE LEVEL 29 MEQ/L (21-32); CHLORIDE LEVEL 106 MEQ/L (98-107); CPK CREATINE PHOSPHOKINASE 243 U/L (39-308); CREATININE FOR GFR 0.55 MG/DL (0.70-1.30); ETHYL ALCOHOL (ETHANOL) < 0.003 % (0.000-0.010); GLOMERULAR FILTRATION RATE > 60.0 (>60); GLUCOSE, FASTING 89 MG/DL (70-100); LIPASE 53 U/L (73-393); MB/CK RELATIVE INDEX 0.95 (< OR =4); POTASSIUM SERUM 3.5 MEQ/L (3.5-5.1); PREALBUMIN 15.5 MG/DL (20.0-40.0); SODIUM LEVEL 143 MEQ/L (136-145); TOTAL PROTEIN 6.1 GM/DL (6.4-8.2); TROPONIN I < 0.02 NG/ML (< 0.10)
[2018-06-22 20:01] LABS: INR 1.38; PROTHROMBIN TIME 17.2 SECONDS (12.1-14.4)
[2018-06-22 20:02] LABS: PARTIAL THROMBOPLASTIN TIME 31.6 SECONDS (25.4-37.6)
[2018-06-22] MEDS ORDERED: FIRS3SUS PO (21:25)
[2018-06-22] MEDS ORDERED: ONDANSETRON 4MG/2ML VIAL (J2405) IV PRN (21:30)
[2018-06-22] MEDS: NS 1,000 ML IV SCH (22:30)
--- NOTE | 2018-06-22 22:55 | HPEPDOC ---
[facility] Medical History & Physical Date of Admission Jun 22, 2018 Other Provider Dictating/admitting: Lindsey Arellano M.D. Attending Physician: MARCELLE GATES MD History and Physical CHIEF COMPLAINT: Seizure-like activity today HISTORY OF PRESENT ILLNESS: Patient is a 27-year-old man. He has history significant for asthma, bipolar disorder, seizure disorder, esophageal dysmotility and hypertension. Patient was recently evaluated in our hospital with nausea and vomiting due to his esophageal dysmotility. According to him, he had endoscopy with balloon expansion during last admission. He was discharged yesterday. However, he comes in today with witnessed seizure-like activity witnessed by his mom who describes his seizure activity as rolling back of both eyes and generalized shaking of the entire body. Patient gives history of follow-up at [place] for his esophageal dysmotility. He is also noted with event monitoring and evaluation advisor which was putting today by Dr. Reddy as patient occasionally has sinus bradycardia. He denies any associated fever or chills. No nausea, vomiting, no chest pain or palpitations. No cough, no shortness of breath. No change in his bowel or urinary habits. Other than he still not been able to tolerate solid food and with associated subjective weight loss. He does take liquid diet. He was worked up in the emergency room with unremarkable. Imaging of the head, abdomen and pelvis. Dr. Bon blanco. PAST MEDICAL HISTORY: Per HPI PAST SURGICAL HISTORY: 1. EGD with balloon expansion of the esophagus 2. SOCIAL HISTORY: Patient currently lives with his mom denies smoking, alcohol or illicit drugs. FAMILY HISTORY: No significant ischemic heart disease in the family. ALLERGIES: Please see below. REVIEW OF SYSTEMS: HOME MEDICATIONS: Please see below. PHYSICAL EXAMINATION: VITAL SIGNS: Temperature 97.6, pulse 53, respiratory rate 19, blood pressure 138/94, pulse oximetry 97% on room air. GENERAL APPEARANCE: Young man, lying calmly in bed, not in any apparent distress. He is not pale, anicteric and afebrile HEENT: Atraumatic. Neck: Supple. LUNGS: Clear to auscultation bilaterally. CARDIOVASCULAR: S1 and 2 heard, no murmurs, rubs or gallops. ABDOMEN: Obese, soft, not tender, not distended. Bowel sounds normoactive. MUSCULOSKELETAL: Apparently within normal limits. EXTREMITIES: No pedal edema, 2+ bilateral pedal pulses noted. NEUROLOGICAL: Awake, alert, oriented 3. PSYCHIATRIC: Normal affect LABORATORY DATA: See below. IMAGING: CT head noncontrast:Normal noncontrast head CT. No evidence for acute intracranial pathology or trauma/injury. CT abdomen and pelvis: No acute abdominopelvic pathology appreciated. EKG: Sinus rhythm, bradycardic bpm 49, no acute ST or T-wave changes. MICROBIOLOGY: Please see below. ASSESSMENT: 27-year-old man with above medical history. Comes in with witnessed seizure-like activity. Exam is unremarkable. Imaging also unremarkable. His labs unremarkable. Patient will be admitted and will be seen by Dr. Crockett tomorrow. DIAGNOSIS: 1. Seizure disorder witnessed by mother. . PLAN: 1. I will admit patient to the medical floor with remote telemetry under care of Dr Ram 2. Neurology consult to Dr. Crockett placed. We'll defer starting seizure medications to Neurology after having evaluated patient. 3. Will resume outpatient by mouth medications. 4. IV normal saline to run at 75 mils per hour. 5. Patient has issues with swallowing but can tolerate liquid diet for now. 6. GI prophylaxis. IV pantoprazole. 7. DVT prophylaxis, TEDs. 8. Further management will be per patient's clinical course. Vital Signs Vital Signs Date Time Temp Pulse Resp B/P (MAP) Pulse Ox O2 Delivery O2 Flow Rate FiO2 06/22/18 20:26 51 145/87 (106) 84 148/93 (111) 91 120/74 (89) 06/22/18 18:22 97.6 19 97 Room Air Laboratory Data Labs 24H Laboratory Tests 2 06/22/18 19:13: Immature Granulocyte % (Auto) 0.3, White Blood Count 6.4, Red Blood Count 4.98, Hemoglobin 14.5, Hematocrit 41.9L, Mean Corpuscular Volume 84.1, Mean Corpuscular Hemoglobin 29.1, Mean Corpuscular Hemoglobin Concent 34.6, Red Cell Distribution Width 13.0, Platelet Count 277, Neutrophils (%) (Auto) 51.2, Lymphocytes (%) (Auto) 32.7, Monocytes (%) (Auto) 11.6H, Eosinophils (%) (Auto) 3.1H, Basophils (%) (Auto) 1.1H, Neutrophils # (Auto) 3.3, Lymphocytes # (Auto) 2.1, Monocytes # (Auto) 0.7, Eosinophils # (Auto) 0.2, Basophils # (Auto) 0.1, Nucleated Red Blood Cells % (auto) 0.0, Prothrombin Time 17.2H, Prothromb Time International Ratio 1.38, Activated Partial Thromboplast Time 31.6, Anion Gap 8, Glomerular Filtration Rate > 60.0, Lactic Acid Level 1.5, Calcium Level 9.0, Aspartate Amino Transf (AST/SGOT) 27, Alanine Aminotransferase (ALT/SGPT) 41, Alkaline Phosphatase 54, Total Bilirubin 0.8, Direct Bilirubin 0.3H, Total Creatine Kinase 243#, Creatine Kinase MB 2.0, Creatine Kinase MB Relative Index 0.95, Troponin I < 0.02, Total Protein 6.1L, Albumin 3.8, Albumin/Globulin Ratio 1.65, Prealbumin 15.5L, Amylase Level 26, Lipase 53L, Urine Amphetamines Screen NEGATIVE, Urine Benzodiazepines Screen NEGATIVE, Urine Opiates Screen NEGATIVE, Urine Methadone Screen NEGATIVE, Urine Barbiturates Screen NEGATIVE, Urine Phencyclidine Screen NEGATIVE, Urine Cocaine Metabolite Screen NEGATIVE, Urine Cannabinoids Screen NEGATIVE, Ethyl Alcohol Level < 0.003 CBC/BMP Laboratory Tests 06/22/18 19:13 Red Blood Count 4.98, Mean Corpuscular Volume 84.1, Mean Corpuscular Hemoglobin 29.1, Mean Corpuscular Hemoglobin Concent 34.6, Red Cell Distribution Width 13.0, Neutrophils (%) (Auto) 51.2, Lymphocytes (%) (Auto) 32.7, Monocytes (%) (Auto) 11.6 H, Eosinophils (%) (Auto) 3.1 H, Basophils (%) (Auto) 1.1 H, Neutrophils # (Auto) 3.3, Lymphocytes # (Auto) 2.1, Monocytes # (Auto) 0.7, Eosinophils # (Auto) 0.2, Basophils # (Auto) 0.1 Home Medications Scheduled (First-Lansoprazole) 3 Mg/Ml Isis, 10 ML PO BID Allergies Coded Allergies: Bee Venom (Verified Allergy, Severe, anaphylaxis, 06/17/18) Codeine (Verified Allergy, Severe, anaphylaxis, 06/17/18) Gonzalez (Verified Allergy, Intermediate, HIVES, 06/17/18) Fluoxetine (Verified Allergy, Intermediate, hives, 06/17/18) LINDSEY ARELLANO MD Jun 22, 2018 21:27
[2018-06-23 00:47] VITALS: BP 129/98
[2018-06-23 04:00] VITALS: BP 143/84
[2018-06-23 05:26] LABS: BASO # 0.1 10^3/uL (0.0-0.2); BASO % 1.2 % (0.0-1.0); EOS # 0.2 10^3/uL (0.0-0.50); EOS % 3.1 % (0.0-3.0); HEMATOCRIT 40.2 % (42.0-52.0); HEMOGLOBIN 13.8 g/dl (13.5-17.5); LYMPH % 34.2 % (24.0-44.0); MEAN CORPUSCULAR HEMOGLOBIN 28.5 pg (27.0-33.0); MEAN CORPUSCULAR HGB CONC 34.3 g/dl (32.0-36.5); MEAN CORPUSCULAR VOLUME 83.1 fl (80.0-96.0); MONO # 0.7 10^3/uL (0.0-0.8); NEUTROPHILS # 2.8 10^3/uL (1.8-7.7); NEUTROPHILS % 49.3 % (36.0-66.0); PLATELET COUNT, AUTOMATED 301 10^3/uL (150-450); RED BLOOD COUNT 4.84 10^6/uL (4.30-6.10); WHITE BLOOD COUNT 5.7 10^3/uL (4.0-10.0)
[2018-06-23 05:46] LABS: BLOOD UREA NITROGEN 2 MG/DL (7-18); CALCIUM LEVEL 8.5 MG/DL (8.5-10.1); CARBON DIOXIDE LEVEL 30 MEQ/L (21-32); CHLORIDE LEVEL 105 MEQ/L (98-107); GLOMERULAR FILTRATION RATE > 60.0 (>60); GLUCOSE, FASTING 92 MG/DL (70-100); POTASSIUM SERUM 3.1 MEQ/L (3.5-5.1); SODIUM LEVEL 142 MEQ/L (136-145)
[2018-06-23] MEDS ORDERED: GI COCKTAIL 50ML BTL(HYOSCYAMINE/MAALOX/LIDOCAINE VISCOUS)(1:3:1) PO PRN (07:15)
[2018-06-23] MEDS ORDERED: POTASSIUM CHLORIDE 10% LIQ 20 MEQ/15 ML UDC PO ONE (07:15)
[2018-06-23 08:00] VITALS: BP 115/69
[2018-06-23] MEDS ORDERED: GI COCKTAIL 50ML BTL(HYOSCYAMINE/MAALOX/LIDOCAINE VISCOUS)(1:3:1) PO ONE (08:00)
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
[2018-06-23] MEDS: NS 1,000 ML IV SCH (08:31)
[2018-06-23] MEDS ORDERED: LANSOPRAZOLE SUSPENSION 30 MG/10 ML ORAL SYRINGE (FIRST-LANSOPRAZOLE) PO SCH (09:00)
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
[2018-06-23] MEDS ORDERED: PANTOPRAZOLE 40MG INJ (PROTONIX) (C9113) IV SCH (21:00)
--- NOTE | 2018-06-24 09:07 | ECGEPIP ---
Stationary ECG Study [facility] - ED Test Date: 2018-06-22 Pat Name: CELIA GUTIÉRREZ Department: Room: [place] [address] Gender: M Senior Web Designer: NATALIO : 1990 Requested By: RODOLFO Lucas Order Number: [id number] Reading MD: Vannessa Fisher Measurements Intervals [place] Rate: 49 P: 17 FL: 134 QRS: 16 QRSD: 109 T: 23 QT: 433 QTc: 395 Interpretive Statements SINUS BRADYCARDIA POSSIBLE LEFT VENTRICULAR HYPERTROPHY SIMILAR 06/20/18 Electronically Signed On 06-24-2018 9:06:48 EST by Vannessa Fisher
== END 2018-06-23 10:30 | disposition left against medical advice (07) | DRG 53 ==
LOC: EDBD 18:17 → M ED 18:17 → M ED INP 21:28 → M PCU 06-23 00:32
PROVIDERS: ADMIT Hospitalist; ATTEND General Practice
DX: G40.909 Epilepsy, unspecified, not intractable, without status epilepticus (principal); R55 Syncope and collapse; K22.8 Other specified diseases of esophagus; J45.909 Unspecified asthma, uncomplicated; F31.9 Bipolar disorder, unspecified; I10 Essential (primary) hypertension; Z91.030 Bee allergy status; Z91.018 Allergy to other foods; Z88.5 Allergy status to narcotic agent; Z88.8 Allergy status to other drugs, medicaments and biological substances; Z79.899 Other long term (current) drug therapy; R10.9 Unspecified abdominal pain

== ENCOUNTER → 2018-06-26 | Outpatient (CLI) | payer OTHER ==
[~2018-06-26] MED LIST changes: +KEPP1SOL PO
--- NOTE | 2018-06-26 09:38 | REP ---
Clinical: Gastric tube placement. Technique: Axial noncontrast images of the abdomen with coronal and sagittal re-formations. Findings: Lung bases are clear. Liver, spleen, pancreas, gallbladder, bilateral adrenal glands and kidneys are normal for noncontrast evaluation. Stomach is normal in appearance and the anterior wall of the gastric body is above the level of the transverse colon and lateral to the liver with only intervening intraperitoneal fat between the anterior abdominal wall. The remainder of the visualized enteric system is unremarkable. No ascites. No obvious adenopathy. Musculoskeletal structures are intact and normal. Impression: Normal noncontrast CT of the abdomen. Normal appearance to the stomach. Electronically Signed by Eduardo Starks MD 06/26/2018 09:30 A
== END ==
LOC: M RAD 08:56
PROVIDERS: ATTEND Internal Medicine Hepatology
DX: Z78.9 Other specified health status (principal)

== ENCOUNTER 2018-06-30 15:27 | Emergency (ER) | payer OTHER ==
[~2018-06-30] VITALS: Ht 180.3 cm; Wt 97.3 kg
[~2018-06-30 15:27] MED LIST changes: -KEPP1SOL PO
[2018-06-30 15:38] VITALS: BP 138/85
[2018-06-30] MEDS ORDERED: levETIRAcetam INJection 1,000 MG in D5W 100 ML IV ONE (16:45)
[2018-06-30] MEDS ORDERED: NS 1,000 ML IV ONE (16:45)
[2018-06-30] MEDS ORDERED: KEPP1SOL PO (17:22)
== END 2018-06-30 17:56 | disposition home or self-care (01) ==
LOC: EDSEX 15:27 → M ED 15:27 → EDBD 15:27 → M ED 17:56
DX: R56.9 Unspecified convulsions (principal); Z88.5 Allergy status to narcotic agent; Z88.8 Allergy status to other drugs, medicaments and biological substances; Z91.018 Allergy to other foods; Z91.030 Bee allergy status
CPT/HCPCS: 96365; 99284; J1953

== ENCOUNTER 2018-07-01 19:56 | Emergency (ER) | payer OTHER ==
[~2018-07-01 19:56] MED LIST changes: +KEPP1SOL PO
[2018-07-01 20:10] VITALS: BP 127/73
[2018-07-01] MEDS ORDERED: levETIRAcetam INJection 500 MG in D5W MINI-BAG PLUS 100 ML IV ONE (20:15)
[2018-07-01 21:17] LABS: BLOOD UREA NITROGEN 3 MG/DL (7-18); CALCIUM LEVEL 6.8 MG/DL (8.5-10.1); CARBON DIOXIDE LEVEL 27 MEQ/L (21-32); CHLORIDE LEVEL 110 MEQ/L (98-107); CREATININE FOR GFR 0.43 MG/DL (0.70-1.30); GLOMERULAR FILTRATION RATE > 60.0 (>60); GLUCOSE, FASTING 59 MG/DL (70-100); POTASSIUM SERUM 3.2 MEQ/L (3.5-5.1); SODIUM LEVEL 145 MEQ/L (136-145)
--- NOTE | 2018-07-02 07:14 | REP ---
Clinical: Possible aspiration pneumonia . Comparison: 06/20/2018 . Findings: Examination is limited by poor inspiratory effort and portable technique which accentuate the pulmonary vasculature and interstitium. The mediastinum and cardiac silhouette are stable and within normal limits for portable technique. The lung cisse are clear without acute consolidation, effusion, or pneumothorax. Skeletal structures are intact. Impression: No focal consolidation appreciated. Electronically Signed by Eduardo Starks MD 07/02/2018 07:06 A
== END 2018-07-01 22:54 | disposition home or self-care (01) ==
LOC: M ED 19:56
DX: E16.2 Hypoglycemia, unspecified (principal); G40.909 Epilepsy, unspecified, not intractable, without status epilepticus; K22.9 Disease of esophagus, unspecified; F19.10 Other psychoactive substance abuse, uncomplicated; Z91.14 Patient's other noncompliance with medication regimen; Z79.899 Other long term (current) drug therapy; Z91.030 Bee allergy status; Z91.018 Allergy to other foods; Z88.5 Allergy status to narcotic agent; Z88.8 Allergy status to other drugs, medicaments and biological substances
CPT/HCPCS: 71045; 80048; 96374; 99284; J1953

== ENCOUNTER 2018-07-03 12:23 | Inpatient (IN) | payer OTHER ==
[~2018-07-03] VITALS: Ht 180.3 cm; Wt 97.2 kg
[2018-07-03] MEDS ORDERED: NS 1,000 ML IV ONE ×2 (12:45→14:30)
[2018-07-03 13:13] LABS: HEMOGLOBIN 15.5 g/dl (13.5-17.5); MEAN CORPUSCULAR HGB CONC 33.7 g/dl (32.0-36.5); MEAN CORPUSCULAR VOLUME 86.1 fl (80.0-96.0); PLATELET COUNT, AUTOMATED 330 10^3/uL (150-450); RED BLOOD COUNT 5.34 10^6/uL (4.30-6.10); WHITE BLOOD COUNT 6.6 10^3/uL (4.0-10.0)
--- NOTE | 2018-07-03 13:38 | REP ---
CT Head without contrast HISTORY: Fall COMPARISON: 06/22/2018 There is no intraparenchymal hemorrhage, acute infarct, mass or midline shift. The ventricular system is normal in appearance. There is no extra cerebral collection. There is no fracture. The visualized sinuses are clear. Soft tissue swelling is present overlying the parietal bones at the vertex. IMPRESSION: There is no intracranial lesion. Electronically Signed by Filemon Horta MD 07/03/2018 01:29 P
--- NOTE | 2018-07-03 13:41 | REP ---
CT cervical spine without contrast HISTORY: Fall COMPARISON: 06/18/2018 There is no acute fracture or subluxation. There is no disc bulge or herniation. The spinal canal and neural foramina are patent. The intervertebral discs and vertebral bodies are normal in height. IMPRESSION: There is no acute fracture or subluxation. Electronically Signed by Filemon Horta MD 07/03/2018 01:33 P
[2018-07-03 14:12] LABS: BLOOD UREA NITROGEN 3 MG/DL (7-18); CALCIUM LEVEL 9.3 MG/DL (8.5-10.1); CARBON DIOXIDE LEVEL 30 MEQ/L (21-32); CHLORIDE LEVEL 102 MEQ/L (98-107); CREATININE FOR GFR 0.61 MG/DL (0.70-1.30); GLOMERULAR FILTRATION RATE > 60.0 (>60); GLUCOSE, FASTING 90 MG/DL (70-100); POTASSIUM SERUM 4.2 MEQ/L (3.5-5.1); PROLACTIN 4.3 NG/ML (2.1-17.7); SODIUM LEVEL 140 MEQ/L (136-145)
[2018-07-03] MEDS ORDERED: KEPP1SOL PO (17:58)
[2018-07-03] MEDS ORDERED: LORazepam 2 MG/ML VIAL (J2060) IV PRN (22:00)
[2018-07-03] MEDS ORDERED: BISACODYL 5 MG TAB PO PRN (22:00)
[2018-07-03] MEDS ORDERED: ACETAMINOPHEN TAB 650MG DOSE (2X325MG) PO PRN (22:00)
--- NOTE | 2018-07-03 22:10 | HPEPDOC ---
[facility] Medical History & Physical History and Physical CHIEF COMPLAINT: seizure like activity HISTORY OF PRESENT ILLNESS: This is a 27-year-old man with hx of ? seizure disorder not officially dx, esophageal stricture s/p balloon dilation who presented to the ed for seizure like activity today. Patient said he doesn't remember what happened. His mother witnessed it and said he fell backwards, hit the back of his head and shook his hands and feet b/l. She said it seems like he could hear her, but could not understand and did not respond. She said this has been happening for quite some time now, but he has not been officially dx and his not on any meds for seizure. He was admitted the last time for similar episode and he left AMA. Per patient he did not want to be be seen by the neurologist who was scheduled to see him. Patient said he doesn't remember what happened prior to his seizure episode, said all he remembered was being on the couch and then woke up seeing a bunch of people. Per his mother , he left from the couch and went to the sink and felt backwards while standing at the sink.There was no tongue bitting, fecal or urinary incontinence. He denies any associated fever or chills. No nausea, vomiting, no chest pain or palpitations. No cough, no shortness of breath. No change in his bowel or urinary habits. Patient also c/o 40 lbs weight loss since March 2018 because he cannot swallow anything thicker than drinks. He cannot swallow ensure or any solid food. Per patient his GI doctor ( Dr. Em) said he needs a PEG. ED attending spoke with his GI in [facility] who accepted him for transfer there once bed is available for peg tube placement. He does take liquid diet. PAST MEDICAL HISTORY: asthma, bipolar disorder, seizure disorder, esophageal dysmotility and hypertension. PAST SURGICAL HISTORY: 1. EGD with balloon expansion of the esophagus 2. SOCIAL HISTORY: Patient currently lives with his mom denies smoking, alcohol or illicit drugs. FAMILY HISTORY: No significant ischemic heart disease in the family. ALLERGIES: Please see below. REVIEW OF SYSTEMS: All 14 points ROS is negative except what's stated in HPI PHYSICAL EXAMINATION: GEN: no acute distress, poor dentition CVS: Normal S1/s2, no murmurs, rubs or gallops, RESP: Lungs are clear to auscultation bilaterally, no crackles, wheezes or rh onchi Abd: soft, some diffuse tenderness , nondistended, + BS MSK: full ROM, 5/5 strength in all extremities Integumentary: no rash or bruises , multiple tatoos Neuro: AOAx3, no focal deficit psych: normal mood, good judgement and cooperative HOME MEDICATIONS: Please see below. LABORATORY DATA: See below. IMAGING: CT head noncontrast:Normal noncontrast head CT. No evidence for acute intracranial pathology or trauma/injury. CT abdomen and pelvis: No acute abdominopelvic pathology appreciated. EKG: Sinus rhythm, bradycardic bpm 49, no acute ST or T-wave changes. MICROBIOLOGY: Please see below. ASSESSMENT: 27-year-old man with above medical history. Comes in with witnessed seizure-like activity. Exam is unremarkable. Imaging also unremarkable. His labs unremarkable. DIAGNOSIS: 1. Seizure disorder witnessed by mother. PLAN: 1. Neurology consult 2. Will resume outpatient by mouth medications- on KEPPRA 500mg bid 3. IV normal saline 4. liquid diet for now. 5. pending transfer to [facility] when bed is ready GI prophylaxis DVT prophylaxis - heparin Vital Signs Vital Signs Date Time Temp Pulse Resp B/P (MAP) Pulse Ox O2 Delivery O2 Flow Rate FiO2 07/03/18 21:28 68 20 113/81 (92) 97 Room Air 07/03/18 19:09 97.5 Laboratory Data Labs 24H Laboratory Tests 2 07/03/18 13:02: Nucleated Red Blood Cells % (auto) 0.0, Anion Gap 8, Glomerular Filtration Rate > 60.0, Blood Urea Nitrogen 3L, Creatinine 0.61L, Sodium Level 140, Potassium Level 4.2#, Chloride Level 102, Carbon Dioxide Level 30, Calcium Level 9.3#, Prolactin 4.3 CBC/BMP Laboratory Tests 07/03/18 13:02 Red Blood Count 5.34, Mean Corpuscular Volume 86.1, Mean Corpuscular Hemoglobin 29.0, Mean Corpuscular Hemoglobin Concent 33.7, Red Cell Distribution Width 13.7, Calcium Level 9.3 # Home Medications Scheduled (Keppra) 100 Mg/Ml Ghazal, 5 ML PO BID Allergies Coded Allergies: Bee Venom (Verified Allergy, Severe, anaphylaxis, 1/20/19) Codeine (Verified Allergy, Severe, anaphylaxis, 06/17/18) Gonzalez (Verified Allergy, Intermediate, HIVES, 06/17/18) Fluoxetine (Verified Allergy, Intermediate, hives, 06/17/18) AMNA PALOMO MD Jul 03, 2018 22:10
[2018-07-03 23:07] LABS: ETHYL ALCOHOL (ETHANOL) < 0.003 % (0.000-0.010)
[2018-07-04 02:52] VITALS: BP 106/59
[2018-07-04 06:00] VITALS: BP 107/61
[2018-07-04] MEDS ORDERED: HEPARIN SOD (PORCINE) 5000 UNITS/ML VIAL SC SCH (06:00)
[2018-07-04 06:56] LABS: BASO # 0.1 10^3/uL (0.0-0.2); EOS # 0.3 10^3/uL (0.0-0.50); EOS % 4.9 % (0.0-3.0); HEMATOCRIT 40.9 % (42.0-52.0); HEMOGLOBIN 13.8 g/dl (13.5-17.5); LYMPH # 2.6 10^3/uL (1.5-6.5); LYMPH % 44.2 % (24.0-44.0); MEAN CORPUSCULAR HEMOGLOBIN 29.1 pg (27.0-33.0); MEAN CORPUSCULAR HGB CONC 33.7 g/dl (32.0-36.5); MEAN CORPUSCULAR VOLUME 86.3 fl (80.0-96.0); MONO # 0.7 10^3/uL (0.0-0.8); MONO % 11.4 % (0.0-5.0); NEUTROPHILS # 2.3 10^3/uL (1.8-7.7); NEUTROPHILS % 38.3 % (36.0-66.0); PLATELET COUNT, AUTOMATED 301 10^3/uL (150-450); RED BLOOD COUNT 4.74 10^6/uL (4.30-6.10); WHITE BLOOD COUNT 5.9 10^3/uL (4.0-10.0)
[2018-07-04 07:34] LABS: BLOOD UREA NITROGEN 3 MG/DL (7-18); CALCIUM LEVEL 8.8 MG/DL (8.5-10.1); CARBON DIOXIDE LEVEL 31 MEQ/L (21-32); CHLORIDE LEVEL 105 MEQ/L (98-107); CREATININE FOR GFR 0.58 MG/DL (0.70-1.30); GLOMERULAR FILTRATION RATE > 60.0 (>60); GLUCOSE, FASTING 79 MG/DL (70-100); MAGNESIUM LEVEL 2.3 MG/DL (1.8-2.4); POTASSIUM SERUM 3.9 MEQ/L (3.5-5.1); SODIUM LEVEL 142 MEQ/L (136-145); THYROID STIMULATING HORMONE 0.973 uIU/ML (0.358-3.740)
[2018-07-04] MEDS ORDERED: D5W/0.9% SODIUM CHLORIDE 1,000 ML IV SCH (08:15)
[2018-07-04] MEDS ORDERED: levETIRAcetam 250MG TABLET (KEPPRA) PO SCH (09:00)
[2018-07-04] MEDS ORDERED: levETIRAcetam ORAL SOLUTION 500 MG/5 ML UDC PO SCH (09:00)
[2018-07-04] MEDS ORDERED: PANTOPRAZOLE 40MG TAB (PROTONIX) PO SCH (09:00)
[2018-07-04 11:00] VITALS: BP 101/64
--- NOTE | 2018-07-04 11:22 | REP ---
MR BRAIN WITHOUT CONTRAST: HISTORY: Seizure. COMPARISON: MR 06/09/[address] 07/03/2018. There are no areas of abnormal signal intensity in the brain. There is no intraparenchymal hemorrhage, infarct, mass or midline shift. The ventricular system is normal in appearance. There is on extracerebral collection. Mucosal thickening is present in the ethmoid and maxillary sinuses. IMPRESSION: There is no intracranial lesion. Electronically Signed by Filemon Horta MD 07/04/2018 11:28 A
[2018-07-04 12:20] VITALS: BP 101/70
[2018-07-04 12:25] VITALS: BP 110/80
[2018-07-04 12:30] VITALS: BP 100/79
--- NOTE | 2018-07-04 14:04 | IPNPDOC ---
Text Note Date of Service The patient was seen on 07/04/18. NOTE Subjective: Patient states he feels well now. States he has been having diffic ulty eating and drinking over the past few weeks and has been having lightheadedness, dizziness, and couple episodes upon standing. He had left AMA last month prior to be seen by neurology. He is scheduled to have a PEG tube state with further workup of his dysphagia thereafter. Objective: Vitals: (see below) General: No acute distress, laying comfortably in bed. HEENT: Moist mucous membranes. Neck: No JVD or lymphadenopathy Cardiac: RRR, No murmurs Pulm: Clear to auscultation b/l. No wheezing, rhonchi Abd: NT/ND + BS Ext: No edema or cyanosis Neuro: Strength 5/5 BUE and BLE. CN 2-12 intact. F to N intact Negative pronator drift. Labs (see below) Images: MRI brain on 07/04/18 with no acute intracranial abnormality.. Assessment/Plan 1. Syncope likely secondary to orthostatic hypotension. Patient has been having decreased by mouth intake given his difficulty with dysphagia for which she is following closely with [facility]. He is scheduled to have a PEG tube placed tomorrow. Patient has been hydrated with IV fluids. His blood pressure improving. He had recent echocardiogram on 06/19 with a preserved EF with no significant valvular abnormalities. He is currently feeling well, and his blood pressure is much improved with IV fluids. 2.? Seizure, patient's symptoms seem consistent with orthostatic hypotension. He has been started on Keppra on Monday, however I have consulted to review the case prior to discontinuing Keppra. Patient also had EEG on his last admission which was negative. 3. Protein calorie malnutrition- scheduled follow-up with [facility] for a PEG tube as well as further investigation of the patient's dysphagia. The patient's only to be transferred there once a bed is available for continuity of care. 4. Hypertension controlled 5. History of bipolar disorder will need outpatient follow-up with PCP DVT prophy: Heparin subcutaneous VS,Fishbone, I+O VS, Fishbone, I+O Laboratory Tests 07/04/18 06:31 Red Blood Count 4.74, Mean Corpuscular Volume 86.3, Mean Corpuscular Hemoglobin 29.1, Mean Corpuscular Hemoglobin Concent 33.7, Red Cell Distribution Width 13.8, Neutrophils (%) (Auto) 38.3, Lymphocytes (%) (Auto) 44.2 H, Monocytes (%) (Auto) 11.4 H, Eosinophils (%) (Auto) 4.9 H, Basophils (%) (Auto) 1.0, Neutrophils # (Auto) 2.3, Lymphocytes # (Auto) 2.6, Monocytes # (Auto) 0.7, Eosinophils # (Auto) 0.3, Basophils # (Auto) 0.1, Calcium Level 8.8 Vital Signs Date Time Temp Pulse Resp B/P (MAP) Pulse Ox O2 Delivery O2 Flow Rate FiO2 07/04/18 12:30 90 100/79 (86) 07/04/18 11:00 98.4 15 97 07/04/18 01:22 Room Air MARIA FERNANDA FANG MD Jul 04, 2018 14:04
== END 2018-07-04 15:35 | disposition left against medical advice (07) | DRG 204 ==
LOC: EDBD 12:23 → M ED 12:23 → M ED INP 21:59 → M MSPAV 07-04 15:08
PROVIDERS: ADMIT Internal Medicine; ATTEND Internal Medicine
DX: I95.1 Orthostatic hypotension (principal); E46 Unspecified protein-calorie malnutrition; R13.10 Dysphagia, unspecified; K22.4 Dyskinesia of esophagus; G40.909 Epilepsy, unspecified, not intractable, without status epilepticus; J45.909 Unspecified asthma, uncomplicated; F31.9 Bipolar disorder, unspecified; I10 Essential (primary) hypertension; Z91.030 Bee allergy status; Z88.5 Allergy status to narcotic agent; Z91.018 Allergy to other foods; Z88.8 Allergy status to other drugs, medicaments and biological substances

== ENCOUNTER 2018-07-05 20:22 | Emergency (ER) | payer OTHER ==
[2018-07-05] MEDS ORDERED: NS 1,000 ML IV ONE (20:45)
[2018-07-05 21:17] LABS: BASO # 0.1 10^3/uL (0.0-0.2); BASO % 0.5 % (0.0-1.0); EOS # 0.1 10^3/uL (0.0-0.50); EOS % 0.8 % (0.0-3.0); HEMATOCRIT 42.7 % (42.0-52.0); HEMOGLOBIN 14.2 g/dl (13.5-17.5); LYMPH # 1.6 10^3/uL (1.5-6.5); LYMPH % 16.8 % (24.0-44.0); MEAN CORPUSCULAR HEMOGLOBIN 29.2 pg (27.0-33.0); MEAN CORPUSCULAR HGB CONC 33.3 g/dl (32.0-36.5); MEAN CORPUSCULAR VOLUME 87.9 fl (80.0-96.0); MONO # 0.8 10^3/uL (0.0-0.8); MONO % 8.7 % (0.0-5.0); NEUTROPHILS # 6.7 10^3/uL (1.8-7.7); NEUTROPHILS % 72.9 % (36.0-66.0); PLATELET COUNT, AUTOMATED 320 10^3/uL (150-450); RED BLOOD COUNT 4.86 10^6/uL (4.30-6.10); WHITE BLOOD COUNT 9.2 10^3/uL (4.0-10.0)
[2018-07-05 21:46] LABS: ALBUMIN 3.6 GM/DL (3.2-5.2); ALT/SGPT 32 U/L (12-78); BILIRUBIN,DIRECT 0.3 MG/DL (0.0-0.2); BILIRUBIN,TOTAL 0.8 MG/DL (0.2-1.0); BLOOD UREA NITROGEN 7 MG/DL (7-18); CARBON DIOXIDE LEVEL 27 MEQ/L (21-32); CHLORIDE LEVEL 106 MEQ/L (98-107); CREATININE FOR GFR 0.61 MG/DL (0.70-1.30); GLOMERULAR FILTRATION RATE > 60.0 (>60); GLUCOSE, FASTING 86 MG/DL (70-100); SODIUM LEVEL 142 MEQ/L (136-145); TOTAL PROTEIN 6.3 GM/DL (6.4-8.2)
[2018-07-05] MEDS ORDERED: levETIRAcetam INJection 1,000 MG in D5W 100 ML IV ONE (23:00)
[2018-07-05 23:16] LABS: AMPHETAMINES LEVEL URINE NEGATIVE (NEGATIVE); BARBITURATES URINE NEGATIVE (NEGATIVE); BENZODIAZEPINES URINE POSITIVE (NEGATIVE); CANNABINOIDS URINE NEGATIVE (NEGATIVE); COCAINE METABOLITE URINE NEGATIVE (NEGATIVE); METHADONE URINE NEGATIVE (NEGATIVE); OPIATES URINE NEGATIVE (NEGATIVE); PHENCYCLIDINE URINE NEGATIVE (NEGATIVE)
[2018-07-06 00:09] VITALS: BP 122/80
--- NOTE | 2018-07-06 01:57 | REP ---
Clinical: Status epilepticus . Comparison: 06/20/2018 . Findings: The mediastinum and cardiac silhouette are stable and within normal limits for portable technique. The lung cisse are clear without acute consolidation, effusion, or pneumothorax. Skeletal structures are intact. Impression: No acute cardiopulmonary process appreciated. Electronically Signed by Eduardo Starks MD 07/06/2018 01:49 A
--- NOTE | 2018-07-06 13:15 | ECGEPIP ---
Stationary ECG Study [facility] - ED Test Date: 2018-07-05 Pat Name: CELIA GUTIÉRREZ Department: Room: - Gender: M Occupational Therapy Department Chair: abelino : 1990 Requested By: MARCY aMgana Order Number: [id number] Reading MD: Vannessa Fisher Measurements Intervals [place] Rate: 59 P: 18 VA: 125 QRS: 30 QRSD: 98 T: 32 QT: 383 QTc: 381 Interpretive Statements SINUS BRADYCARDIA INCREASED RATE 06/22/18 Electronically Signed On 07-06-2018 13:14:57 EST by Vannessa Fisher
[2018-07-06] MEDS ORDERED: IBUP100S2 PO (21:41)
== END 2018-07-06 00:22 | disposition home or self-care (01) ==
LOC: M ED 20:22
DX: R56.9 Unspecified convulsions (principal); R00.1 Bradycardia, unspecified; J45.909 Unspecified asthma, uncomplicated; I10 Essential (primary) hypertension; F31.9 Bipolar disorder, unspecified; K21.9 Gastro-esophageal reflux disease without esophagitis; Z79.899 Other long term (current) drug therapy
CPT/HCPCS: 71045; 80048; 80076; 80307; 81001; 85025; 93005; 94760; 96374; 99284; J1953

== ENCOUNTER 2018-07-06 20:31 | Emergency (ER) | payer OTHER ==
[~2018-07-06] VITALS: Ht 180.3 cm; Wt 90.9 kg
[2018-07-06 20:32] VITALS: BP 125/65
[2018-07-06] MEDS ORDERED: IBUP100S2 PO (21:41)
[2018-07-06] MEDS ORDERED: IBUPROFEN 100 MG/5 ML SUSP UDC DYE FREE PO ONE (21:45)
== END 2018-07-06 22:05 | disposition home or self-care (01) ==
LOC: M ED 20:31
DX: G89.18 Other acute postprocedural pain (principal); R10.9 Unspecified abdominal pain; I10 Essential (primary) hypertension; G40.909 Epilepsy, unspecified, not intractable, without status epilepticus; G43.909 Migraine, unspecified, not intractable, without status migrainosus; F43.10 Post-traumatic stress disorder, unspecified; F41.9 Anxiety disorder, unspecified; F31.9 Bipolar disorder, unspecified; Z87.19 Personal history of other diseases of the digestive system; Z79.899 Other long term (current) drug therapy; Z91.018 Allergy to other foods; Z91.030 Bee allergy status; Z88.5 Allergy status to narcotic agent; Z88.8 Allergy status to other drugs, medicaments and biological substances

== ENCOUNTER 2018-07-08 15:35 | Emergency (ER) | payer OTHER ==
[~2018-07-08] VITALS: Ht 177.8 cm; Wt 90.0 kg
[~2018-07-08 15:35] MED LIST changes: +IBUP100S2 PO
[2018-07-08 17:44] VITALS: BP 128/91
[2018-07-09] MEDS ORDERED: LEVE100SOL (08:52)
== END 2018-07-08 17:47 | disposition home or self-care (01) ==
LOC: M ED 15:35
DX: Z43.1 Encounter for attention to gastrostomy (principal); J45.909 Unspecified asthma, uncomplicated; I10 Essential (primary) hypertension; G40.909 Epilepsy, unspecified, not intractable, without status epilepticus; F31.9 Bipolar disorder, unspecified; F43.10 Post-traumatic stress disorder, unspecified; F20.9 Schizophrenia, unspecified; Z91.030 Bee allergy status; Z88.5 Allergy status to narcotic agent; Z88.8 Allergy status to other drugs, medicaments and biological substances

== ENCOUNTER 2018-07-09 08:38 | Emergency (ER) | payer OTHER ==
[~2018-07-09] VITALS: Ht 177.8 cm; Wt 90.0 kg
[2018-07-09] MEDS ORDERED: LEVE100SOL (08:52)
[2018-07-09] MEDS ORDERED: NS 1,000 ML IV ONE (09:15)
[2018-07-09 09:16] LABS: BASO # 0.1 10^3/uL (0.0-0.2); EOS # 0.3 10^3/uL (0.0-0.50); EOS % 4.9 % (0.0-3.0); HEMATOCRIT 43.6 % (42.0-52.0); HEMOGLOBIN 14.5 g/dl (13.5-17.5); LYMPH # 2.1 10^3/uL (1.5-6.5); LYMPH % 34.6 % (24.0-44.0); MEAN CORPUSCULAR HEMOGLOBIN 29.1 pg (27.0-33.0); MEAN CORPUSCULAR HGB CONC 33.3 g/dl (32.0-36.5); MEAN CORPUSCULAR VOLUME 87.4 fl (80.0-96.0); MONO # 0.7 10^3/uL (0.0-0.8); MONO % 11.3 % (0.0-5.0); NEUTROPHILS # 2.8 10^3/uL (1.8-7.7); NEUTROPHILS % 47.9 % (36.0-66.0); PLATELET COUNT, AUTOMATED 300 10^3/uL (150-450); RED BLOOD COUNT 4.99 10^6/uL (4.30-6.10); WHITE BLOOD COUNT 5.9 10^3/uL (4.0-10.0)
[2018-07-09 09:26] LABS: ALBUMIN 3.4 GM/DL (3.2-5.2); ALT/SGPT 26 U/L (12-78); BILIRUBIN,DIRECT 0.5 MG/DL (0.0-0.2); BLOOD UREA NITROGEN 6 MG/DL (7-18); CALCIUM LEVEL 8.9 MG/DL (8.5-10.1); CARBON DIOXIDE LEVEL 28 MEQ/L (21-32); CHLORIDE LEVEL 107 MEQ/L (98-107); CREATININE FOR GFR 0.48 MG/DL (0.70-1.30); GLOMERULAR FILTRATION RATE > 60.0 (>60); GLUCOSE, FASTING 86 MG/DL (70-100); LIPASE 56 U/L (73-393); POTASSIUM SERUM 3.8 MEQ/L (3.5-5.1); SODIUM LEVEL 141 MEQ/L (136-145); TOTAL PROTEIN 6.6 GM/DL (6.4-8.2)
--- NOTE | 2018-07-09 09:45 | REP ---
Acute abdominal series three views including PA chest and supine upright abdomen: Comparison is 09/15/2016. PA chest: The lung cisse are clear. Cardiac size is normal. The mitali, mediastinum, skeletal structures are. There is no free subdiaphragmatic air. No interval change. Supine upright abdomen: There is tubing superimposed over the upper abdomen, possibly a G tube. There is no bowel distension or obstruction. There is opaque material throughout the colon, this may be a bowel contrast. There is a surgical clip in the right lower quadrant as an interval change. There is a small calcification in the pelvis on the left, unchanged, likely a phlebolith. Skeletal structures are unremarkable. Impression: Normal bowel gas pattern. 2. Being as described. Electronically Signed by Shayan Loera MD 07/09/2018 09:37 A
--- NOTE | 2018-07-09 10:05 | REP ---
CT Head without contrast HISTORY: Seizure COMPARISON: 07/03/2018 There is no intraparenchymal hemorrhage, acute infarct, mass or midline shift. The ventricular system is normal in appearance. There is no extra cerebral collection. There is no fracture. The visualized sinuses are clear. Soft tissue swelling is present overlying the parietal bones at the vertex. IMPRESSION: There is no intracranial lesion. Electronically Signed by Filemon Horta MD 07/09/2018 09:57 A
[2018-07-09 12:46] VITALS: BP 109/70
--- NOTE | 2018-07-09 14:30 | REP ---
RIGHT LOWER LEG: AP and lateral views of right lower leg performed. There is no evidence of an acute fracture, dislocation or intrinsic bone disease. IMPRESSION: No fracture or dislocation. Electronically Signed by Shayan Staley MD 07/09/2018 11:45 P
== END 2018-07-09 16:18 | disposition home or self-care (01) ==
LOC: EDBD 08:38 → M ED 08:38
DX: K22.4 Dyskinesia of esophagus (principal); Z93.1 Gastrostomy status; G43.909 Migraine, unspecified, not intractable, without status migrainosus; Z88.5 Allergy status to narcotic agent; Z88.8 Allergy status to other drugs, medicaments and biological substances; Z91.030 Bee allergy status; Z91.018 Allergy to other foods; Z79.899 Other long term (current) drug therapy

== ENCOUNTER 2018-07-13 17:53 | Emergency (ER) | payer OTHER ==
[~2018-07-13] VITALS: Ht 177.8 cm; Wt 91.8 kg
[~2018-07-13 17:53] MED LIST changes: +LEVE100SOL
[2018-07-13] MEDS ORDERED: GASTROGRAFIN SOLUTION 30ML (Q9963) As Ordered ONE (18:45)
[2018-07-13] MEDS ORDERED: GASTROGRAFIN SOLUTION 30ML (Q9963) PO SCH (18:45)
--- NOTE | 2018-07-13 19:19 | REP ---
ACUTE ABDOMINAL SERIES: 07/13/2018. Comparison: 07/09/2018. Clinical history: Verify G tube placement. Findings: PA chest: Lungs well inflated and clear. Heart, mediastinal and hilar contours normal. Aorta and airway intact. No free air under the diaphragm. Flat upright abdomen show a G tube overlying the upper abdomen about the T12 level. This anchors at about the level of the T12 pedicle to the left of midline on the upright view. Gas pattern nonspecific. No free air on the upright view. No dilated small bowel loops. Third image was performed after the ED nursing staff injected 30 ml of a mixture of gastrographin and water at a 1:1 ratio. That view shows contrast in the stomach and proximal duodenum without extravasation. Impression: 1. G tube placement confirmed with tube in the stomach and with contrast injected staying within the stomach and into the duodenum. No extravasation or leak. 2. Nonspecific gas pattern without obstruction, mass or free air. 3. PA chest negative. Electronically Signed by Gerry Stoner MD 07/13/2018 08:18 P
[2018-07-13 19:49] VITALS: BP 110/76
== END 2018-07-13 19:50 | disposition home or self-care (01) ==
LOC: M ED 17:53
DX: K94.20 Gastrostomy complication, unspecified (principal); F43.10 Post-traumatic stress disorder, unspecified; F19.10 Other psychoactive substance abuse, uncomplicated; Z87.891 Personal history of nicotine dependence; Z88.5 Allergy status to narcotic agent; Z88.8 Allergy status to other drugs, medicaments and biological substances; Z91.030 Bee allergy status; Z91.018 Allergy to other foods; Z79.899 Other long term (current) drug therapy

== ENCOUNTER 2018-07-14 10:32 | Emergency (ER) | payer OTHER ==
[~2018-07-14] VITALS: Ht 180.3 cm; Wt 91.8 kg
[2018-07-14 11:15] LABS: HEMATOCRIT 44.1 % (42.0-52.0); HEMOGLOBIN 15.1 g/dl (13.5-17.5); MEAN CORPUSCULAR HEMOGLOBIN 29.2 pg (27.0-33.0); MEAN CORPUSCULAR HGB CONC 34.2 g/dl (32.0-36.5); MEAN CORPUSCULAR VOLUME 85.1 fl (80.0-96.0); PLATELET COUNT, AUTOMATED 294 10^3/uL (150-450); RED BLOOD COUNT 5.18 10^6/uL (4.30-6.10); WHITE BLOOD COUNT 5.4 10^3/uL (4.0-10.0)
[2018-07-14 11:31] LABS: AMPHETAMINES LEVEL URINE NEGATIVE (NEGATIVE); BARBITURATES URINE NEGATIVE (NEGATIVE); BENZODIAZEPINES URINE NEGATIVE (NEGATIVE); CANNABINOIDS URINE NEGATIVE (NEGATIVE); COCAINE METABOLITE URINE NEGATIVE (NEGATIVE); METHADONE URINE NEGATIVE (NEGATIVE); OPIATES URINE NEGATIVE (NEGATIVE); PHENCYCLIDINE URINE NEGATIVE (NEGATIVE)
[2018-07-14 11:44] LABS: ACETAMINOPHEN LEVEL < 2.0 UG/ML (10.0-30.0); ALBUMIN 3.9 GM/DL (3.2-5.2); ALT/SGPT 49 U/L (12-78); BILIRUBIN,DIRECT 0.4 MG/DL (0.0-0.2); BLOOD UREA NITROGEN 7 MG/DL (7-18); CARBON DIOXIDE LEVEL 28 MEQ/L (21-32); CHLORIDE LEVEL 104 MEQ/L (98-107); CREATININE FOR GFR 0.48 MG/DL (0.70-1.30); ETHYL ALCOHOL (ETHANOL) < 0.003 % (0.000-0.010); GLOMERULAR FILTRATION RATE > 60.0 (>60); GLUCOSE, FASTING 105 MG/DL (70-100); POTASSIUM SERUM 3.8 MEQ/L (3.5-5.1); SALICYLATE LEVEL < 1.7 MG/DL (5.0-30.0); SODIUM LEVEL 140 MEQ/L (136-145); TOTAL PROTEIN 7.1 GM/DL (6.4-8.2)
[2018-07-14 13:32] VITALS: BP 123/58
== END 2018-07-14 13:38 | disposition home or self-care (01) ==
LOC: M ED 10:32
DX: F43.0 Acute stress reaction (principal); F43.10 Post-traumatic stress disorder, unspecified; F31.9 Bipolar disorder, unspecified; G40.909 Epilepsy, unspecified, not intractable, without status epilepticus; M54.9 Dorsalgia, unspecified; G43.909 Migraine, unspecified, not intractable, without status migrainosus; J01.90 Acute sinusitis, unspecified; L05.01 Pilonidal cyst with abscess; Z87.891 Personal history of nicotine dependence; Z79.899 Other long term (current) drug therapy; Z91.013 Allergy to seafood; Z88.5 Allergy status to narcotic agent; Z88.8 Allergy status to other drugs, medicaments and biological substances; Z91.018 Allergy to other foods
CPT/HCPCS: 80048; 80076; 80307; 84443; 85027; 99284; G0480

== ENCOUNTER 2018-07-16 20:50 | Emergency (ER) | payer OTHER ==
[~2018-07-16] VITALS: Ht 180.3 cm; Wt 90.0 kg
[2018-07-16 23:30] VITALS: BP 140/69
== END 2018-07-16 23:31 | disposition home or self-care (01) ==
LOC: M ED 20:50
DX: K94.23 Gastrostomy malfunction (principal); I10 Essential (primary) hypertension; J45.909 Unspecified asthma, uncomplicated; K21.9 Gastro-esophageal reflux disease without esophagitis; G43.909 Migraine, unspecified, not intractable, without status migrainosus; M54.9 Dorsalgia, unspecified; F41.9 Anxiety disorder, unspecified; F32.9 Major depressive disorder, single episode, unspecified; G62.9 Polyneuropathy, unspecified; K22.4 Dyskinesia of esophagus; F17.200 Nicotine dependence, unspecified, uncomplicated; Z88.5 Allergy status to narcotic agent; Z91.018 Allergy to other foods; Z91.030 Bee allergy status; Z88.8 Allergy status to other drugs, medicaments and biological substances; Z79.899 Other long term (current) drug therapy

== ENCOUNTER 2018-07-21 19:26 | Emergency (ER) | payer OTHER ==
[~2018-07-21] VITALS: Ht 180.3 cm; Wt 95.0 kg
[2018-07-21 20:14] VITALS: BP 115/67
== END 2018-07-21 20:48 | disposition home or self-care (01) ==
LOC: M ED 19:26
DX: L98.9 Disorder of the skin and subcutaneous tissue, unspecified (principal); Z87.820 Personal history of traumatic brain injury; G40.909 Epilepsy, unspecified, not intractable, without status epilepticus; J45.909 Unspecified asthma, uncomplicated; K22.9 Disease of esophagus, unspecified; Z93.1 Gastrostomy status; Z87.891 Personal history of nicotine dependence; Z79.899 Other long term (current) drug therapy; Z88.5 Allergy status to narcotic agent; Z88.8 Allergy status to other drugs, medicaments and biological substances; Z91.030 Bee allergy status; Z91.018 Allergy to other foods

== ENCOUNTER 2018-07-26 14:40 | Emergency (ER) | payer OTHER ==
[~2018-07-26] VITALS: Ht 177.8 cm; Wt 90.9 kg
[2018-07-26 14:51] VITALS: BP 99/57
[2018-07-26 16:24] LABS: HEMATOCRIT 41.2 % (42.0-52.0); HEMOGLOBIN 13.8 g/dl (13.5-17.5); MEAN CORPUSCULAR HEMOGLOBIN 29.2 pg (27.0-33.0); MEAN CORPUSCULAR HGB CONC 33.5 g/dl (32.0-36.5); MEAN CORPUSCULAR VOLUME 87.3 fl (80.0-96.0); PLATELET COUNT, AUTOMATED 320 10^3/uL (150-450); RED BLOOD COUNT 4.72 10^6/uL (4.30-6.10); WHITE BLOOD COUNT 7.5 10^3/uL (4.0-10.0)
[2018-07-26 16:47] LABS: BLOOD UREA NITROGEN 10 MG/DL (7-18); CALCIUM LEVEL 9.2 MG/DL (8.5-10.1); CARBON DIOXIDE LEVEL 30 MEQ/L (21-32); CHLORIDE LEVEL 101 MEQ/L (98-107); CREATININE FOR GFR 0.53 MG/DL (0.70-1.30); GLOMERULAR FILTRATION RATE > 60.0 (>60); GLUCOSE, FASTING 98 MG/DL (70-100); POTASSIUM SERUM 4.2 MEQ/L (3.5-5.1); SODIUM LEVEL 138 MEQ/L (136-145)
== END 2018-07-26 16:56 | disposition left against medical advice (07) ==
LOC: EDBD 14:40 → M ED 14:40
DX: G40.909 Epilepsy, unspecified, not intractable, without status epilepticus (principal); K22.4 Dyskinesia of esophagus; F31.9 Bipolar disorder, unspecified; J45.909 Unspecified asthma, uncomplicated; Z79.899 Other long term (current) drug therapy; Z93.1 Gastrostomy status; Z88.5 Allergy status to narcotic agent; Z88.8 Allergy status to other drugs, medicaments and biological substances; Z91.018 Allergy to other foods; Z91.030 Bee allergy status

== ENCOUNTER 2018-09-06 17:51 | Emergency (ER) | payer OTHER ==
[~2018-09-06] VITALS: Ht 180.3 cm; Wt 89.1 kg
[~2018-09-06 17:51] MED LIST changes: -/ADVA50050 PO; -/QUET10TA PO; -/QUET25TA; +ADVA1AER2 PO; -CEPA1LOZ5 PO; +CEPALOZ8 PO; +CETI1SYP16; +GABA250S6 FT; +HYDR-3715 PO; +IBUP0.77 PO; -IBUP100S2 PO; -NORCOTAB PO; -PROP PO; +PROP1TAB26 PO; -QUET20XRTB; +SERO1TAB PO; +SERO1TAB3; +SERO200T43
[2018-09-06] MEDS ORDERED: TGTSUS2 PO (17:55)
[2018-09-06] MEDS ORDERED: GASTROGRAFIN SOLUTION 30ML (Q9963) PEG STA (19:14)
[2018-09-06] MEDS ORDERED: CYCL5TAB GT (20:41)
--- NOTE | 2018-09-06 20:43 | REP ---
KUB ABDOMEN: KUB film of abdomen performed. A small amount of contrast was instilled into the patient's PEG tube. The contrast is seen in the stomach. There is a nonobstructive bowel gas pattern. Electronically Signed by Shayan Staley MD 09/06/2018 08:45 P
[2018-09-06] MEDS ORDERED: CYCLOBENZAPRINE 5MG TABLET PEG ONE (20:45)
[2018-09-06 20:46] VITALS: BP 117/58
== END 2018-09-06 21:02 | disposition home or self-care (01) ==
LOC: M ED 17:51
DX: M62.830 Muscle spasm of back (principal); K94.20 Gastrostomy complication, unspecified; I10 Essential (primary) hypertension; J45.909 Unspecified asthma, uncomplicated; F31.9 Bipolar disorder, unspecified; F43.10 Post-traumatic stress disorder, unspecified; F19.10 Other psychoactive substance abuse, uncomplicated; Z87.891 Personal history of nicotine dependence; Z88.5 Allergy status to narcotic agent; Z88.8 Allergy status to other drugs, medicaments and biological substances; Z91.030 Bee allergy status; Z91.018 Allergy to other foods; Z79.899 Other long term (current) drug therapy
CPT/HCPCS: 74018; 99283; Q9963

== ENCOUNTER 2018-09-08 21:30 | Emergency (ER) | payer OTHER ==
[~2018-09-08] VITALS: Ht 180.3 cm; Wt 89.1 kg
[~2018-09-08 21:30] MED LIST changes: +CYCL5TAB GT; +TGTSUS2 PO
[2018-09-08 21:31] VITALS: BP 114/74
== END 2018-09-08 22:28 | disposition home or self-care (01) ==
LOC: M ED 21:30
DX: J70.5 Respiratory conditions due to smoke inhalation (principal); K22.70 Barrett's esophagus without dysplasia; Z93.1 Gastrostomy status; Z87.891 Personal history of nicotine dependence; Z79.899 Other long term (current) drug therapy; Z91.030 Bee allergy status; Z91.018 Allergy to other foods; Z88.5 Allergy status to narcotic agent; Z88.8 Allergy status to other drugs, medicaments and biological substances

== ENCOUNTER 2018-09-13 20:30 | Emergency (ER) | payer OTHER ==
[~2018-09-13] VITALS: Ht 182.9 cm; Wt 110.7 kg
[2018-09-13] MEDS ORDERED: ONDANSETRON 4MG/2ML VIAL (J2405) As Ordered ONE (20:40)
[2018-09-13] MEDS ORDERED: ONDANSETRON 4MG/2ML VIAL (J2405) IV ONE ×2 (20:45→21:15)
[2018-09-13] MEDS ORDERED: levETIRAcetam INJection 1,000 MG in D5W 100 ML IV ONE (20:45)
[2018-09-13] MEDS ORDERED: AMOX400S2 PO (21:17)
[2018-09-13 21:18] LABS: BASO # 0.1 10^3/uL (0.0-0.2); EOS # 0.1 10^3/uL (0.0-0.50); EOS % 2.1 % (0.0-3.0); HEMATOCRIT 38.3 % (42.0-52.0); HEMOGLOBIN 12.8 g/dl (13.5-17.5); LYMPH # 2.5 10^3/uL (1.5-6.5); LYMPH % 40.7 % (24.0-44.0); MEAN CORPUSCULAR HEMOGLOBIN 29.5 pg (27.0-33.0); MEAN CORPUSCULAR HGB CONC 33.4 g/dl (32.0-36.5); MEAN CORPUSCULAR VOLUME 88.2 fl (80.0-96.0); MONO # 0.6 10^3/uL (0.0-0.8); MONO % 9.3 % (0.0-5.0); NEUTROPHILS # 2.9 10^3/uL (1.8-7.7); NEUTROPHILS % 46.7 % (36.0-66.0); PLATELET COUNT, AUTOMATED 249 10^3/uL (150-450); RED BLOOD COUNT 4.34 10^6/uL (4.30-6.10); WHITE BLOOD COUNT 6.1 10^3/uL (4.0-10.0)
[2018-09-13 21:32] LABS: BLOOD UREA NITROGEN 13 MG/DL (7-18); CALCIUM LEVEL 8.3 MG/DL (8.5-10.1); CARBON DIOXIDE LEVEL 26 MEQ/L (21-32); CHLORIDE LEVEL 105 MEQ/L (98-107); CREATININE FOR GFR 0.59 MG/DL (0.70-1.30); ETHYL ALCOHOL (ETHANOL) 0.076 % (0.000-0.010); GLOMERULAR FILTRATION RATE > 60.0 (>60); GLUCOSE, FASTING 103 MG/DL (70-100); POTASSIUM SERUM 3.6 MEQ/L (3.5-5.1); SODIUM LEVEL 139 MEQ/L (136-145)
--- NOTE | 2018-09-13 21:34 | REPVR ---
EXAM: CT Head Without Contrast EXAM DATE/TIME: 09/13/2018 8:51 PM CLINICAL HISTORY: 28 years old, male; Signs and symptoms; Other: Seizure; Additional info: Tr TECHNIQUE: Imaging protocol: Axial computed tomography images of the head/brain without contrast. Radiation optimization: All CT scans at this facility use at least one of these dose optimization techniques: automated exposure control; mA and/or kV adjustment per patient size (includes targeted exams where dose is matched to clinical indication); or iterative reconstruction. COMPARISON: CT Head without contrast 07/09/2018 9:37 AM FINDINGS: Brain: Normal. No hemorrhage. No significant white matter disease. No edema. Ventricles: Normal. No ventriculomegaly. Bones/joints: Unremarkable. No acute fracture. Sinuses: Visualized sinuses are unremarkable. No acute sinusitis. Mastoid air cells: Visualized mastoid air cells are unremarkable. No mastoid effusion. Soft tissues: Unremarkable. IMPRESSION: Negative noncontrast head CT without change from 07/09/2018. Electronically signed by: Lukasz Conley On 09/13/2018 21:34:20 PM
[2018-09-13] MEDS ORDERED: METOCLOPRAMIDE INJ 10MG/2ML VIAL (J2765) IV ONE (21:45)
[2018-09-13 22:00] VITALS: BP 103/68
== END 2018-09-13 22:12 | disposition home or self-care (01) ==
LOC: M ED 20:30
DX: F10.129 Alcohol abuse with intoxication, unspecified (principal); Y90.0 Blood alcohol level of less than 20 mg/100 ml; G40.909 Epilepsy, unspecified, not intractable, without status epilepticus; K22.9 Disease of esophagus, unspecified; Z93.1 Gastrostomy status; Z91.19 Patient's noncompliance with other medical treatment and regimen; Z79.899 Other long term (current) drug therapy; Z88.5 Allergy status to narcotic agent; Z88.8 Allergy status to other drugs, medicaments and biological substances; Z91.018 Allergy to other foods; Z91.030 Bee allergy status
CPT/HCPCS: 36415; 70450; 80048; 85025; 96365; 96375; 99284; G0480; J1953; J2405; J2765

== ENCOUNTER 2018-09-20 22:01 | Emergency (ER) | payer OTHER ==
[~2018-09-20] VITALS: Ht 180.3 cm; Wt 87.3 kg
[~2018-09-20 22:01] MED LIST changes: +AMOX400S2 PO
[2018-09-20 22:02] VITALS: BP 133/86
== END 2018-09-20 23:21 | disposition home or self-care (01) ==
LOC: M ED 22:01
DX: Z43.1 Encounter for attention to gastrostomy (principal); K22.4 Dyskinesia of esophagus; Z88.5 Allergy status to narcotic agent; Z88.8 Allergy status to other drugs, medicaments and biological substances; Z91.018 Allergy to other foods; Z91.030 Bee allergy status

== ENCOUNTER 2018-11-15 17:32 | Emergency (ER) | payer OTHER ==
[~2018-11-15] VITALS: Ht 177.8 cm; Wt 79.7 kg
[2018-11-15] MEDS ORDERED: FLUTISP (17:43)
[2018-11-15] MEDS ORDERED: NS 1,000 ML IV ONE (18:15)
[2018-11-15 18:41] LABS: BASO # 0.1 10^3/uL (0.0-0.2); BASO % 0.9 % (0.0-1.0); EOS # 0.1 10^3/uL (0.0-0.50); EOS % 1.6 % (0.0-3.0); HEMATOCRIT 43.7 % (42.0-52.0); HEMOGLOBIN 14.7 g/dl (13.5-17.5); LYMPH # 2.2 10^3/uL (1.5-6.5); LYMPH % 39.5 % (24.0-44.0); MEAN CORPUSCULAR HEMOGLOBIN 30.5 pg (27.0-33.0); MEAN CORPUSCULAR HGB CONC 33.6 g/dl (32.0-36.5); MEAN CORPUSCULAR VOLUME 90.7 fl (80.0-96.0); MONO # 0.5 10^3/uL (0.0-0.8); MONO % 9.5 % (0.0-5.0); NEUTROPHILS # 2.7 10^3/uL (1.8-7.7); NEUTROPHILS % 48.3 % (36.0-66.0); PLATELET COUNT, AUTOMATED 234 10^3/uL (150-450); RED BLOOD COUNT 4.82 10^6/uL (4.30-6.10); WHITE BLOOD COUNT 5.7 10^3/uL (4.0-10.0)
[2018-11-15] MEDS ORDERED: CONRAY-43 43% 50ML VIAL (Q9960) As Ordered ONE ×2 (19:03→19:04)
[2018-11-15 19:10] LABS: ALT/SGPT 19 U/L (12-78); BILIRUBIN,TOTAL 0.4 MG/DL (0.2-1.0); BLOOD UREA NITROGEN 11 MG/DL (7-18); CARBON DIOXIDE LEVEL 32 MEQ/L (21-32); CHLORIDE LEVEL 105 MEQ/L (98-107); CREATININE FOR GFR 0.63 MG/DL (0.70-1.30); GLOMERULAR FILTRATION RATE > 60.0 (>60); GLUCOSE, FASTING 82 MG/DL (70-100); LIPASE 78 U/L (73-393); POTASSIUM SERUM 4.2 MEQ/L (3.5-5.1); SODIUM LEVEL 143 MEQ/L (136-145); TOTAL PROTEIN 7.4 GM/DL (6.4-8.2)
[2018-11-15] MEDS ORDERED: GASTROGRAFIN SOLUTION 30ML (Q9963) As Ordered ONE (19:12)
--- NOTE | 2018-11-15 20:00 | REP ---
KUB: Single view. History: NG tube placement evaluation. Gastrographin was injected. Findings: KUB demonstrates dilute Gastrographin filling the stomach and duodenal C-loop and several jejunal loops. No extravasation is seen. Gastrostomy tube is seen in place in the gastric body. Electronically Signed by Refugio Duarte MD 11/15/2018 07:50 P
[2018-11-15 20:17] VITALS: BP 127/83
== END 2018-11-15 20:18 | disposition home or self-care (01) ==
LOC: M ED 17:32
DX: K94.29 Other complications of gastrostomy (principal); I10 Essential (primary) hypertension; J45.909 Unspecified asthma, uncomplicated; G62.9 Polyneuropathy, unspecified; K22.4 Dyskinesia of esophagus; Z79.899 Other long term (current) drug therapy; Z91.030 Bee allergy status; Z91.018 Allergy to other foods; Z88.5 Allergy status to narcotic agent; Z88.8 Allergy status to other drugs, medicaments and biological substances
CPT/HCPCS: 74018; 80053; 83605; 83690; 85025; 96360; 96361; 99284; Q9960; Q9963

== ENCOUNTER 2018-11-27 13:05 | Emergency (ER) | payer OTHER ==
[~2018-11-27] VITALS: Ht 177.8 cm; Wt 78.6 kg
[2018-11-27 13:05] VITALS: BP 118/75
[~2018-11-27 13:05] MED LIST changes: +FLUTISP
== END 2018-11-27 13:45 | disposition left against medical advice (07) ==
LOC: M ED 13:05
DX: Z53.29 Procedure and treatment not carried out because of patient's decision for other reasons (principal)

== ENCOUNTER 2018-12-01 22:40 | Emergency (ER) | payer OTHER ==
[~2018-12-01] VITALS: Ht 177.8 cm; Wt 75.0 kg
[2018-12-01 22:41] VITALS: BP 132/76
[2018-12-01] MEDS ORDERED: LEVE100SOL FT (22:57)
[2018-12-01] MEDS ORDERED: LIDOCAINE VISCOUS 2% SOLN 15ML UDC SSP ONE (23:30)
[2018-12-01] MEDS ORDERED: LIDO1SOL8 PO (23:46)
[2018-12-02] MEDS ORDERED: LIDOCAINE VISCOUS 2% SOLN 15ML UDC SSP ONE
== END 2018-12-01 23:51 | disposition home or self-care (01) ==
LOC: M ED 22:40
DX: K12.1 Other forms of stomatitis (principal); I10 Essential (primary) hypertension; J45.909 Unspecified asthma, uncomplicated; K21.9 Gastro-esophageal reflux disease without esophagitis; G62.9 Polyneuropathy, unspecified; F33.9 Major depressive disorder, recurrent, unspecified; F41.9 Anxiety disorder, unspecified; F43.10 Post-traumatic stress disorder, unspecified; F20.0 Paranoid schizophrenia; Z93.1 Gastrostomy status; Z79.899 Other long term (current) drug therapy; Z88.5 Allergy status to narcotic agent; Z88.8 Allergy status to other drugs, medicaments and biological substances; Z91.030 Bee allergy status; Z91.040 Latex allergy status; F17.220 Nicotine dependence, chewing tobacco, uncomplicated

== ENCOUNTER 2018-12-18 21:16 | Emergency (ER) | payer OTHER ==
[~2018-12-18] VITALS: Ht 177.8 cm; Wt 82.6 kg
[2018-12-18 21:16] VITALS: BP 120/70
[~2018-12-18 21:16] MED LIST changes: +LEVE100SOL FT; +LIDO1SOL8 PO
[2018-12-18] MEDS ORDERED: GABA600T4 (21:27)
[2018-12-18] MEDS ORDERED: KEPP1SOL (21:27)
[2018-12-19] MEDS ORDERED: ACET160S3 PO (21:47)
[2018-12-19] MEDS ORDERED: CEPH25SS PO (23:45)
== END 2018-12-18 23:32 | disposition left against medical advice (07) ==
LOC: M ED 21:16
DX: Z53.29 Procedure and treatment not carried out because of patient's decision for other reasons (principal)

== ENCOUNTER 2018-12-19 21:39 | Emergency (ER) | payer OTHER ==
[~2018-12-19] VITALS: Ht 177.8 cm; Wt 82.3 kg
[~2018-12-19 21:39] MED LIST changes: +GABA600T4; +KEPP1SOL
[2018-12-19 21:40] VITALS: BP 142/84
[2018-12-19] MEDS ORDERED: ACET160S3 PO (21:47)
[2018-12-19] MEDS ORDERED: ADACEL/BOOSTRIX VACCINE (DIPHTH/PERTUSS/ACELL/TETANUS)0.5ML SYR (90715) IM ONE (23:15)
[2018-12-19] MEDS ORDERED: CEPHALEXIN SUSP POWDER 250MG/5ML BTL 100ML PO ONE (23:15)
[2018-12-19] MEDS ORDERED: CEPH25SS PO (23:45)
== END 2018-12-19 23:56 | disposition home or self-care (01) ==
LOC: M ED 21:39
DX: S61.032A Puncture wound without foreign body of left thumb without damage to nail, initial encounter (principal); L08.9 Local infection of the skin and subcutaneous tissue, unspecified; W45.0XXA Nail entering through skin, initial encounter; Y92.9 Unspecified place or not applicable; Y93.9 Activity, unspecified; Y99.9 Unspecified external cause status; I10 Essential (primary) hypertension; J45.909 Unspecified asthma, uncomplicated; K22.9 Disease of esophagus, unspecified; Z93.1 Gastrostomy status; Z87.891 Personal history of nicotine dependence; Z79.899 Other long term (current) drug therapy; Z91.030 Bee allergy status; Z91.018 Allergy to other foods; Z91.040 Latex allergy status; Z88.5 Allergy status to narcotic agent; Z88.8 Allergy status to other drugs, medicaments and biological substances

== ENCOUNTER → 2019-01-22 | Outpatient (CLI) | payer MEDICAID ==
[~2019-01-22] MED LIST changes: +ACET160S3 PO; +ACET1LIQ PO; +CEPH25SS PO
== END ==
LOC: M OUTALCOH 07:46
PROVIDERS: ATTEND Psychiatry & Neurology Psychiatry
DX: F11.20 Opioid dependence, uncomplicated (principal)

== ENCOUNTER 2019-01-24 20:07 | Emergency (ER) | payer MEDICAID, OTHER ==
[~2019-01-24] VITALS: Ht 177.8 cm; Wt 79.5 kg
[~2019-01-24 20:07] MED LIST changes: -ACET1LIQ PO; -CETI1SYP16; +CETI1SYP16 GT; -FLUTISP; +FLUTISP NARES
[2019-01-24 20:49] LABS: HEMATOCRIT 43.3 % (42.0-52.0); HEMOGLOBIN 14.4 g/dl (13.5-17.5); MEAN CORPUSCULAR HEMOGLOBIN 30.3 pg (27.0-33.0); MEAN CORPUSCULAR HGB CONC 33.3 g/dl (32.0-36.5); MEAN CORPUSCULAR VOLUME 91.2 fl (80.0-96.0); PLATELET COUNT, AUTOMATED 274 10^3/uL (150-450); RED BLOOD COUNT 4.75 10^6/uL (4.30-6.10); WHITE BLOOD COUNT 7.8 10^3/uL (4.0-10.0)
[2019-01-24 21:27] LABS: AMPHETAMINES LEVEL URINE NEGATIVE (NEGATIVE); BARBITURATES URINE NEGATIVE (NEGATIVE); BENZODIAZEPINES URINE NEGATIVE (NEGATIVE); CANNABINOIDS URINE NEGATIVE (NEGATIVE); COCAINE METABOLITE URINE NEGATIVE (NEGATIVE); METHADONE URINE NEGATIVE (NEGATIVE); OPIATES URINE NEGATIVE (NEGATIVE); PHENCYCLIDINE URINE NEGATIVE (NEGATIVE)
[2019-01-24 21:35] LABS: ACETAMINOPHEN LEVEL < 2.0 UG/ML (10.0-30.0); ALBUMIN 3.8 GM/DL (3.2-5.2); ALT/SGPT 28 U/L (12-78); BILIRUBIN,DIRECT 0.1 MG/DL (0.0-0.2); BILIRUBIN,TOTAL 0.3 MG/DL (0.2-1.0); BLOOD UREA NITROGEN 7 MG/DL (7-18); CALCIUM LEVEL 8.8 MG/DL (8.5-10.1); CARBON DIOXIDE LEVEL 30 MEQ/L (21-32); CHLORIDE LEVEL 107 MEQ/L (98-107); CREATININE FOR GFR 0.66 MG/DL (0.70-1.30); ETHYL ALCOHOL (ETHANOL) < 0.003 % (0.000-0.010); GLOMERULAR FILTRATION RATE > 60.0 (>60); GLUCOSE, FASTING 103 MG/DL (70-100); POTASSIUM SERUM 3.8 MEQ/L (3.5-5.1); SALICYLATE LEVEL 2.2 MG/DL (5.0-30.0); SODIUM LEVEL 141 MEQ/L (136-145)
[2019-01-24] MEDS ORDERED: KEPP1SOL PO (22:00)
[2019-01-24] MEDS: levETIRAcetam ORAL SOLUTION 500 MG/5 ML UDC GT ONE ×2 (22:00→22:55)
[2019-01-24] MEDS ORDERED: QUEtiapine FUMARATE 50 MG TAB PO ONE (23:15)
[2019-01-24] MEDS ORDERED: VALPROIC ACID SYRUP 250 MG/5 ML UDC PO ONE (23:15)
[2019-01-24 23:23] VITALS: BP 133/72
== END 2019-01-24 23:43 | disposition home or self-care (01) ==
LOC: M ED 20:07
DX: G40.909 Epilepsy, unspecified, not intractable, without status epilepticus (principal); Z76.0 Encounter for issue of repeat prescription; F31.9 Bipolar disorder, unspecified; K22.9 Disease of esophagus, unspecified; Z93.1 Gastrostomy status; Z88.5 Allergy status to narcotic agent; Z88.8 Allergy status to other drugs, medicaments and biological substances; Z91.040 Latex allergy status; Z91.030 Bee allergy status; Z91.018 Allergy to other foods; Z79.899 Other long term (current) drug therapy
CPT/HCPCS: 36415; 80048; 80076; 80307; 84443; 85027; 99283; G0480

== ENCOUNTER 2019-01-26 00:28 | Emergency (ER) | payer OTHER ==
[~2019-01-26] VITALS: Ht 177.8 cm; Wt 80.5 kg
[2019-01-26] MEDS ORDERED: KETOROLAC 60 MG/2 ML VIAL (J1885) IM ONE (01:30)
--- NOTE | 2019-01-26 02:10 | REPVR ---
EXAM: XR Left Shoulder EXAM DATE/TIME: 01/26/19 (12:56am) CLINICAL HISTORY: 28 year old male. Recent fall. Initial encounter. Sprain or strain, left shoulder. Additional info: Hit on a rock. TECHNIQUE: Imaging protocol: XR Left shoulder Views: 3 views COMPARISON: Right shoulder plain films of 03/07/18 FINDINGS: No acute fracture nor dislocation. Mild deformity of the proximal left humeral shaft -- perhaps developmental; perhaps secondary to old trauma with healing. The left shoulder joint is preserved. The left lung is clear. IMPRESSION: No acute findings. Electronically signed by: Nevin Vilchis On 01/26/2019 02:10:15 AM
[2019-01-26] MEDS ORDERED: ACET1LIQ PO (02:17)
[2019-01-26 02:22] VITALS: BP 130/78
== END 2019-01-26 02:24 | disposition home or self-care (01) ==
LOC: M ED 00:28
DX: S40.012A Contusion of left shoulder, initial encounter (principal); W01.198A Fall on same level from slipping, tripping and stumbling with subsequent striking against other object, initial encounter; Y92.832 Beach as the place of occurrence of the external cause; Y93.43 Activity, gymnastics; Y99.8 Other external cause status; Z88.5 Allergy status to narcotic agent; Z88.8 Allergy status to other drugs, medicaments and biological substances; Z91.030 Bee allergy status; Z91.040 Latex allergy status; Z91.018 Allergy to other foods
CPT/HCPCS: 73030; 96372; 99284; J1885

== ENCOUNTER 2019-02-12 17:36 | Inpatient (IN) | payer MEDICAID ==
[~2019-02-12] VITALS: Ht 177.8 cm; Wt 91.1 kg
[~2019-02-12 17:36] MED LIST changes: +ACET1LIQ PO
[2019-02-12] MEDS ORDERED: GABA250S6 GT (17:48)
[2019-02-12 18:18] LABS: HEMATOCRIT 43.1 % (42.0-52.0); HEMOGLOBIN 14.6 g/dl (13.5-17.5); MEAN CORPUSCULAR HEMOGLOBIN 30.7 pg (27.0-33.0); MEAN CORPUSCULAR HGB CONC 33.9 g/dl (32.0-36.5); MEAN CORPUSCULAR VOLUME 90.5 fl (80.0-96.0); PLATELET COUNT, AUTOMATED 280 10^3/uL (150-450); RED BLOOD COUNT 4.76 10^6/uL (4.30-6.10); WHITE BLOOD COUNT 8.9 10^3/uL (4.0-10.0)
[2019-02-12 18:51] LABS: ACETAMINOPHEN LEVEL < 2.0 UG/ML (10.0-30.0); ALBUMIN 3.9 GM/DL (3.2-5.2); ALT/SGPT 30 U/L (12-78); BILIRUBIN,DIRECT < 0.1 MG/DL (0.0-0.2); BILIRUBIN,TOTAL 0.3 MG/DL (0.2-1.0); BLOOD UREA NITROGEN 10 MG/DL (7-18); CALCIUM LEVEL 9.1 MG/DL (8.5-10.1); CARBON DIOXIDE LEVEL 28 MEQ/L (21-32); CHLORIDE LEVEL 106 MEQ/L (98-107); ETHYL ALCOHOL (ETHANOL) < 0.003 % (0.000-0.010); GLOMERULAR FILTRATION RATE > 60.0 (>60); GLUCOSE, FASTING 89 MG/DL (70-100); POTASSIUM SERUM 4.1 MEQ/L (3.5-5.1); SALICYLATE LEVEL 2.5 MG/DL (5.0-30.0); SODIUM LEVEL 140 MEQ/L (136-145); TOTAL PROTEIN 6.9 GM/DL (6.4-8.2)
[2019-02-12 19:21] LABS: AMPHETAMINES LEVEL URINE NEGATIVE (NEGATIVE); BARBITURATES URINE NEGATIVE (NEGATIVE); BENZODIAZEPINES URINE NEGATIVE (NEGATIVE); CANNABINOIDS URINE NEGATIVE (NEGATIVE); COCAINE METABOLITE URINE NEGATIVE (NEGATIVE); METHADONE URINE NEGATIVE (NEGATIVE); OPIATES URINE NEGATIVE (NEGATIVE); PHENCYCLIDINE URINE NEGATIVE (NEGATIVE)
[2019-02-12] MEDS ORDERED: MAALOX 30 ML SUSP *UDC PO PRN (21:30)
[2019-02-12] MEDS ORDERED: MOM 30ML SUSPENSION UDC PO PRN (21:30)
[2019-02-12] MEDS ORDERED: OLANZapine ORAL DISINTEGRATING TAB 5MG PO PRN (21:30)
[2019-02-12] MEDS ORDERED: NICOTINE 21MG/24HR 1 EA TRANSDERMAL TD PRN (21:30)
[2019-02-12] MEDS ORDERED: ACETAMINOPHEN 325 MG/10.15 ML UDC PO PRN (21:45)
[2019-02-12 22:35] VITALS: BP 127/75
[2019-02-12] MEDS ORDERED: levETIRAcetam ORAL SOLUTION 500 MG/5 ML UDC GT ONE (23:45)
[2019-02-12] MEDS ORDERED: ALBUTEROL SULFATE 2.5 MG/0.5 ML INH NEB SOLN NEB PRN (23:45)
[2019-02-12] MEDS ORDERED: traZODone 50 MG TAB PO PRN (23:45)
[2019-02-12] MEDS ORDERED: FLUTICASONE PROP 0.05% NASAL SPRAY 16 GM (FLONASE) NARES PRN (23:45)
[2019-02-13] MEDS ORDERED: KEPP1SOL GT (00:32)
[2019-02-13] MEDS ORDERED: TGTSUS2 PO (00:35)
[2019-02-13] MEDS ORDERED: levETIRAcetam ORAL SOLUTION 500 MG/5 ML UDC PO ONE (00:45)
[2019-02-13 06:32] VITALS: BP 132/79
[2019-02-13] MEDS: GABAPENTIN 300 MG CAP PO SCH ×2 (08:58→15:13)
[2019-02-13] MEDS ORDERED: levETIRAcetam ORAL SOLUTION 500 MG/5 ML UDC GT SCH (09:00)
[2019-02-13] MEDS ORDERED: levETIRAcetam ORAL SOLUTION 500 MG/5 ML UDC PO SCH (09:00)
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
--- NOTE | 2019-02-13 13:49 | HPEPDOC ---
[facility] Medical History & Physical Date of Admission Feb 13, 2019 Date of Service: Feb 13, 2019 History and Physical CHIEF COMPLAINT: Suicidal ideation HISTORY OF PRESENT ILLNESS: Patient is a 28M with PMH bipolar disorder, ?Seizure disorder, Esophageal stricture s/p balloon dilatation and Asthma admitted to [facility] for reported suicidal ideation. He states that he go through this from time to time and it's not unusual for him but currently denies active SI at the moment. He was recently admitted in December. There was a concern on previous admissions for Seizure disorders but neurological workup showed no evidence of seizures and patient was taken off of Keppra. However, he states that he went to a different hospital and did receive a diagnosis of seizure and had been on keppra since then. Denies any physical complaints. PAST MEDICAL HISTORY: Refer to [facility] PAST SURGICAL HISTORY: Esophageal balloon dilatation L. shoulder surgery SOCIAL HISTORY: Smokes 1ppd, used dope once recently and is a recovering alcoholic. FAMILY HISTORY: Patient does not know. ALLERGIES: Please see below. REVIEW OF SYSTEMS: 10 point review of system negative except as stated in HPI HOME MEDICATIONS: Please see below. PHYSICAL EXAMINATION: General: No acute distress, Alert Eyes: Normal sclera, EOMI, BARBARA HENT: Atraumatic, neck supple, moist mucous membranes Cardiovascular: Normal rate, normal rhythm. No murmurs appreciated. Pulmonary: Clear to auscultation b/l, no wheezing GI: Soft, nontender, nondistended Skin: Warm and dry Neuro: CN grossly intact. No focal deficits. Strengths equal b/l. Psych: oriented x 3 LABORATORY DATA: See below. MICROBIOLOGY: Please see below. ASSESSMENT AND PLAN: 1. Suicidal ideation/Bipolar disorder - evaluation and treatment per psych 2. ?Seizure disorder - Not found in this hospital's workup but reportedly at a different facility. - C/w home dose Keppra. - Monitor for seizures. 3. Asthma - Not in exacerbation. Nebs PRN for SOB. 4. Esophageal stricture - s/p balloon dilatation. - s/p recent PEG tube placement. C/w patient's normal tube feeds. 5. Tobacco use - Nicotine patch ordered. No active medical problems at this time. Will sign off, please call back should any concerns arise, thank you. Vital Signs Vital Signs Date Time Temp Pulse Resp B/P (MAP) Pulse Ox O2 Delivery O2 Flow Rate FiO2 02/13/19 06:32 97.9 84 14 132/79 (96) 02/12/19 22:35 99 02/12/19 21:34 Room Air Laboratory Data Labs 24H Laboratory Tests 2 02/12/19 18:08: Nucleated Red Blood Cells % (auto) 0.0, Anion Gap 6L, Glomerular Filtration Rate > 60.0, Calcium Level 9.1, Aspartate Amino Transf (AST/SGOT) 16, Alanine Aminotransferase (ALT/SGPT) 30, Alkaline Phosphatase 64, Total Bilirubin 0.3, Direct Bilirubin < 0.1, Total Protein 6.9, Albumin 3.9, Albumin/Globulin Ratio 1.30, Thyroid Stimulating Hormone (TSH) 1.470, Salicylates Level 2.5L, Acetaminophen Level < 2.0L, Ethyl Alcohol Level < 0.003 02/12/19 18:40: Urine Amphetamines Screen NEGATIVE, Urine Benzodiazepines Screen NEGATIVE, Urine Opiates Screen NEGATIVE, Urine Methadone Screen NEGATIVE, Urine Barbiturates Screen NEGATIVE, Urine Phencyclidine Screen NEGATIVE, Urine Cocaine Metabolite Screen NEGATIVE, Urine Cannabinoids Screen NEGATIVE CBC/BMP Laboratory Tests 02/12/19 18:08 Red Blood Count 4.76, Mean Corpuscular Volume 90.5, Mean Corpuscular Hemoglobin 30.7, Mean Corpuscular Hemoglobin Concent 33.9, Red Cell Distribution Width 13.2 Home Medications Scheduled Cetirizine HCl (Cetirizine HCl) 1 Mg/Ml Syp, 10 ML GT DAILY for Fluticasone Propionate (Fluticasone Propionate) 16 Gm [place].susp, 1 SPRAY NARES DAILY for Gabapentin (Gabapentin) 250 Mg/5 Ml Solution, 6 ML GT Q8H for Levetiracetam (Keppra) 100 Mg/1 Ml Solution, 10 ML GT BID for Scheduled PRN Acetaminophen (Acetaminophen) 160 Mg/5 Ml Oral.susp, 500 MG PO Q4-6HP PRN for PAIN / FEVER Allergies Coded Allergies: codeine (Verified Allergy, Severe, 02/12/19) fluoxetine (Verified Allergy, Intermediate, hives, 02/12/19) latex (Verified Allergy, Intermediate, 02/12/19) HIVES bee venom protein (honey bee) (Verified Allergy, Unknown, 02/12/19) almodovar (Verified Allergy, Unknown, 02/12/19) A-FIB/CHADSVASC A-FIB History Current/History of A-Fib/PAF?: No REDDY LOW MD Feb 13, 2019 13:49
[2019-02-13] MEDS ORDERED: diphenhydrAMINE 50 MG CAP PO PRN (14:00)
[2019-02-13] MEDS ORDERED: LORazepam 2 MG TAB PO PRN (14:00)
[2019-02-13] MEDS ORDERED: HALOPERIDOL 10 MG TAB PO PRN (14:00)
[2019-02-13] MEDS ORDERED: LORA2TA PO (14:51)
[2019-02-13] MEDS ORDERED: HALO10TA20 PO (14:51)
[2019-02-13] MEDS ORDERED: NICO21PAT TD (14:51)
[2019-02-13] MEDS ORDERED: TRAZ-252 PO (15:06)
--- NOTE | 2019-02-27 12:53 | MHDSPDOC ---
[facility] Discharge Summary Discharge Summary DATE OF ADMISSION: Feb 12, 2019 at 21:24 DATE OF DISCHARGE: Feb 13, 2019 at 15:45 DISCHARGE DIAGNOSES: PTSD, chronic. Antisocial personality disorder. Alcohol use disorder in remission. Tobacco use disorder in remission. Traumatic brain injury. Please see my H/P for the summary of the patient's presentation and admission course as well as outpatient plan, as they were a same day discharge. Medications Scheduled Cetirizine HCl (Cetirizine HCl) 1 Mg/Ml Syp, 10 ML GT DAILY for , (Reported) Fluticasone Propionate (Fluticasone Propionate) 16 Gm [place].susp, 1 SPRAY NARES DAILY for , (Reported) Gabapentin (Gabapentin) 250 Mg/5 Ml Solution, 6 ML GT Q8H for , (Reported) Levetiracetam (Keppra) 100 Mg/1 Ml Solution, 10 ML GT BID for , (Reported) Scheduled PRN Acetaminophen (Acetaminophen) 160 Mg/5 Ml Oral.susp, 500 MG PO Q4-6HP PRN for PAIN / FEVER, (Reported) Haloperidol (Haloperidol) 10 Mg Tablet, 10 MG PO Q4HP PRN for ANXIETY/AGITATION for 7 Days, #7 Lorazepam (Lorazepam) 2 Mg Tablet, 2 MG PO DAILYPRN PRN for ANXIETY/AGITATION for 7 Days, #7 Nicotine (Nicotine Patch) 21 Mg Patch.td24, 1 PATCH TD DAILY PRN for Nicotine withdrawl for 30 Days, #30 Trazodone HCl (Trazodone HCl) 50 Mg Tablet, 50 MG PO QHSP PRN for INSOMNIA for 7 Days, #7 Allergies Coded Allergies: codeine (Verified Allergy, Severe, 02/12/19) fluoxetine (Verified Allergy, Intermediate, hives, 02/12/19) latex (Verified Allergy, Intermediate, 02/12/19) HIVES bee venom protein (honey bee) (Verified Allergy, Unknown, 02/12/19) almodovar (Verified Allergy, Unknown, 02/12/19) JOLANTA PRESLEY DO Feb 27, 2019 12:53
== END 2019-02-13 15:45 | disposition home or self-care (01) | DRG 755 ==
LOC: M ED 17:36 → M PSY 21:24 → M ED 21:36
PROVIDERS: ADMIT Psychiatry & Neurology Addiction Medicine; ATTEND Psychiatry & Neurology Addiction Medicine
DX: F43.12 Post-traumatic stress disorder, chronic (principal); F60.2 Antisocial personality disorder; G40.909 Epilepsy, unspecified, not intractable, without status epilepticus; K22.8 Other specified diseases of esophagus; I69.398 Other sequelae of cerebral infarction; F10.21 Alcohol dependence, in remission; J45.909 Unspecified asthma, uncomplicated; Z87.891 Personal history of nicotine dependence; Z79.899 Other long term (current) drug therapy; Z91.040 Latex allergy status; Z91.018 Allergy to other foods; Z91.030 Bee allergy status; Z88.8 Allergy status to other drugs, medicaments and biological substances

== ENCOUNTER 2019-02-20 12:29 | Emergency (ER) | payer MEDICAID, OTHER ==
[~2019-02-20] VITALS: Ht 170.2 cm; Wt 81.0 kg
[~2019-02-20 12:29] MED LIST changes: +GABA250S6 GT; +HALO10TA20 PO; +KEPP1SOL GT; +LORA2TA PO; +NICO21PAT TD; -OMEP40CA2; +OMEP40CA97; +TGTSUS2 GT; +TRAZ-252 PO
[2019-02-20 12:38] VITALS: BP 128/80
[2019-05-09] MEDS ORDERED: medical marijuana (18:24)
== END 2019-02-20 13:02 | disposition home or self-care (01) ==
LOC: M ED 12:29
DX: Z60.9 Problem related to social environment, unspecified (principal); F43.0 Acute stress reaction; F31.9 Bipolar disorder, unspecified; R45.851 Suicidal ideations; F17.200 Nicotine dependence, unspecified, uncomplicated; Z79.899 Other long term (current) drug therapy; Z91.030 Bee allergy status; Z91.018 Allergy to other foods; Z91.040 Latex allergy status; Z88.5 Allergy status to narcotic agent; Z88.8 Allergy status to other drugs, medicaments and biological substances

== ENCOUNTER 2019-02-22 08:45 | Outpatient (RCR) | payer MEDICAID ==
[~2019-02-22 08:45] MED LIST changes: +OMEP40CA2; -OMEP40CA97; -TGTSUS2 GT
== END 2019-02-25 ==
LOC: M OUTALCOH 08:45
PROVIDERS: ATTEND Psychiatry & Neurology Psychiatry
DX: F10.20 Alcohol dependence, uncomplicated (principal); F12.20 Cannabis dependence, uncomplicated

== ENCOUNTER 2019-03-13 14:07 | Emergency (ER) | payer MEDICAID, OTHER ==
[~2019-03-13] VITALS: Ht 177.8 cm; Wt 95.0 kg
[~2019-03-13 14:07] MED LIST changes: -OMEP40CA2; +OMEP40CA97; +TGTSUS2 GT
[2019-03-13] MEDS: diphenhydrAMINE 25 MG CAP PO ONE ×2 (14:45→15:38)
[2019-03-13] MEDS: predniSONE 20 MG TAB PO ONE ×2 (14:45→15:38)
--- NOTE | 2019-03-13 15:23 | REP ---
Three views soft tissue neck: 03/13/2019. Indication: Neck swelling. Comparison: None. Findings: The prevertebral soft tissues are normal. Visualized osseous structures are also normal. No abnormalities of the paraspinal/neck soft tissues are otherwise detected. The airway is patent. Impression: Unremarkable neck soft tissues. Electronically Signed by Dylan Espinal DO 03/13/2019 03:14 P
[2019-03-13] MEDS ORDERED: diphenhydrAMINE 12.5MG/5ML ELIXIR UDC PO ONE (16:00)
[2019-03-13] MEDS ORDERED: predniSONE 5MG/5ML SOLN ORAL SYRINGE PO ONE (16:00)
[2019-03-13] MEDS ORDERED: DIPH12.529 PO (16:01)
[2019-03-13] MEDS ORDERED: PRED5SOL10 GT (16:01)
[2019-03-13 16:58] VITALS: BP 119/77
[2019-03-13] MEDS ORDERED: ABIL1TAB13 PO (17:03)
== END 2019-03-13 17:03 | disposition home or self-care (01) ==
LOC: M ED 14:07
DX: Z76.5 Malingerer [conscious simulation] (principal); K22.9 Disease of esophagus, unspecified; Z79.899 Other long term (current) drug therapy; Z88.5 Allergy status to narcotic agent; Z88.8 Allergy status to other drugs, medicaments and biological substances; Z91.040 Latex allergy status; Z91.018 Allergy to other foods; Z91.030 Bee allergy status

== ENCOUNTER 2019-03-15 10:38 | Emergency (ER) | payer OTHER ==
[~2019-03-15] VITALS: Ht 177.8 cm; Wt 93.2 kg
[~2019-03-15 10:38] MED LIST changes: +ABIL1TAB13 PO; +DIPH12.529 PO; +PRED5SOL10 GT
[2019-03-15 11:45] LABS: BASO # 0.1 10^3/uL (0.0-0.2); BASO % 0.9 % (0.0-1.0); EOS # 0.2 10^3/uL (0.0-0.5); EOS % 2.3 % (0.0-3.0); HEMATOCRIT 45.7 % (42.0-52.0); HEMOGLOBIN 15.5 g/dl (13.5-17.5); LYMPH # 2.6 10^3/uL (1.5-5.0); LYMPH % 35.4 % (24.0-44.0); MEAN CORPUSCULAR HEMOGLOBIN 31.1 pg (27.0-33.0); MEAN CORPUSCULAR HGB CONC 33.9 g/dl (32.0-36.5); MEAN CORPUSCULAR VOLUME 91.6 fl (80.0-96.0); MONO # 0.7 10^3/uL (0.0-0.8); MONO % 9.1 % (0.0-5.0); NEUTROPHILS # 3.9 10^3/uL (1.5-8.5); NEUTROPHILS % 51.9 % (36.0-66.0); PLATELET COUNT, AUTOMATED 291 10^3/uL (150-450); RED BLOOD COUNT 4.99 10^6/uL (4.30-6.10); WHITE BLOOD COUNT 7.5 10^3/uL (4.0-10.0)
[2019-03-15 11:56] LABS: INR 1.02; PROTHROMBIN TIME 13.2 SECONDS (11.8-14.0)
[2019-03-15 12:03] LABS: PARTIAL THROMBOPLASTIN TIME 28.2 SECONDS (25.0-38.4)
[2019-03-15 12:21] LABS: BLOOD UREA NITROGEN 11 MG/DL (7-18); CALCIUM LEVEL 9.3 MG/DL (8.5-10.1); CARBON DIOXIDE LEVEL 30 MEQ/L (21-32); CHLORIDE LEVEL 105 MEQ/L (98-107); CK-MB VALUE MASS < 1.0 NG/ML (<3.6); CPK CREATINE PHOSPHOKINASE 87 U/L (39-308); CREATININE FOR GFR 0.71 MG/DL (0.70-1.30); GLOMERULAR FILTRATION RATE > 60.0 (>60); GLUCOSE, FASTING 83 MG/DL (70-100); MB/CK RELATIVE INDEX 1.15 (< OR =4); POTASSIUM SERUM 4.3 MEQ/L (3.5-5.1); SODIUM LEVEL 139 MEQ/L (136-145); TROPONIN I < 0.02 NG/ML (< 0.10)
--- NOTE | 2019-03-15 13:35 | REP ---
MRI brain: 03/16/2019. Indication: Stroke. Comparison: 06/09/2017. Technique: Multiplanar short and long TR sequences of the brain were obtained without IV Gadolinium. Findings: There are no areas of restricted diffusion to suggest an acute infarction. There is no intracranial mass effect or hydrocephalous. No intracranial hemorrhage is present. No significant signal abnormalities within the brainstem or brain parenchyma are present. The large intracranial flow voids are present. The midline structures, and craniocervical junction are unremarkable. Impression: No acute intracranial process. Unremarkable brain. Electronically Signed by Dylan Espinal DO 03/15/2019 01:27 P
--- NOTE | 2019-03-15 13:41 | REP ---
Extracranial MRA: 03/16/2019. Indication: Stroke. Comparison: None. Technique: 3-D [id number] imaging of the extracranial carotid and vertebral arteries were performed. Findings: There is no hemodynamically significant stenosis of the ICAs by NASCET criteria. The carotid and vertebral arteries are widely patent. The great vessels originate in the expected anatomic fashion from the aortic arch. Impression: Unremarkable extracranial MRA. Electronically Signed by Dylan Espinal DO 03/15/2019 01:32 P
--- NOTE | 2019-03-15 13:44 | REP ---
Intracranial MRA: 03/16/2019. Indication: Stroke. Comparison: 06/09/2017. Technique: 3-D [id number] imaging of the intracranial circulation were performed with rotational reconstructions. Findings: There is no intracranial high-grade stenosis, occlusion, aneurysm or AVM. Impression: No intracranial high-grade stenosis or occlusion. Unremarkable intracranial MRA. Electronically Signed by Dylan Espinal DO 03/15/2019 01:36 P
[2019-03-15] MEDS ORDERED: TRAZ-186 GT (13:48)
[2019-03-15] MEDS ORDERED: DIPH12.529 GT (13:48)
[2019-03-15] MEDS ORDERED: ARIP1TAB GT (13:48)
[2019-03-15] MEDS ORDERED: VALP250S GT ×2 (13:48)
[2019-03-15] MEDS ORDERED: HALO5TA GT (13:48)
--- NOTE | 2019-03-15 13:58 | REP ---
CT brain: 03/16/2019. Indication: Stroke. Comparison: 09/13/2018. Technique: Unenhanced axial CT images of the brain were obtained from skull base to vertex. Findings: There is no acute intracranial hemorrhage, acute cortical infarction, mass effect or hydrocephalous. The calvarium is intact. Impression: No acute intracranial process. Electronically Signed by Dylan Espinal DO 03/15/2019 11:13 A
--- NOTE | 2019-03-15 13:59 | REP ---
Portable chest x-ray: Single view. History: CVA. Comparison chest x-ray: July 13, 2018. Findings: EKG monitoring electrodes overlie the chest. Heart is not enlarged. Pleural angles are sharp. Pulmonary vasculature is not increased. Impression: Negative portable chest x-ray. Electronically Signed by Refugio Duarte MD 03/15/2019 11:46 A
[2019-03-15 14:51] LABS: VITAMIN B12 LEVEL 650 PG/ML (247-911)
[2019-03-15 15:30] VITALS: BP 116/64
--- NOTE | 2019-03-15 20:09 | ECGEPIP ---
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
[2019-03-19 00:10] LABS: Lyme Disease IgG/IgM Antibodie <0.91 ISR (0.00-0.90); Lyme Disease IgM Ab Quantitati <0.80 index (0.00-0.79)
== END 2019-03-15 15:34 | disposition home or self-care (01) ==
LOC: EDBD 10:38 → M ED 10:38
DX: R20.2 Paresthesia of skin (principal); R29.810 Facial weakness; R94.31 Abnormal electrocardiogram [ECG] [EKG]; Z88.5 Allergy status to narcotic agent; Z91.040 Latex allergy status; Z91.030 Bee allergy status; Z91.018 Allergy to other foods; Z88.8 Allergy status to other drugs, medicaments and biological substances; Z79.899 Other long term (current) drug therapy

== ENCOUNTER 2019-04-01 07:50 | Emergency (ER) | payer OTHER ==
[~2019-04-01] VITALS: Ht 177.8 cm; Wt 90.9 kg
[~2019-04-01 07:50] MED LIST changes: +ARIP1TAB GT; +DIPH12.529 GT; +HALO5TA GT; +TRAZ-186 GT; +VALP250S GT
[2019-04-01 09:12] LABS: HEMATOCRIT 45.7 % (42.0-52.0); HEMOGLOBIN 15.2 g/dl (13.5-17.5); MEAN CORPUSCULAR HEMOGLOBIN 30.7 pg (27.0-33.0); MEAN CORPUSCULAR HGB CONC 33.3 g/dl (32.0-36.5); MEAN CORPUSCULAR VOLUME 92.3 fl (80.0-96.0); PLATELET COUNT, AUTOMATED 268 10^3/uL (150-450); RED BLOOD COUNT 4.95 10^6/uL (4.30-6.10); WHITE BLOOD COUNT 7.2 10^3/uL (4.0-10.0)
[2019-04-01 09:47] LABS: ACETAMINOPHEN LEVEL < 2.0 UG/ML (10.0-30.0); ALBUMIN 3.9 GM/DL (3.2-5.2); ALT/SGPT 18 U/L (12-78); BILIRUBIN,DIRECT < 0.1 MG/DL (0.0-0.2); BILIRUBIN,TOTAL 0.3 MG/DL (0.2-1.0); BLOOD UREA NITROGEN 7 MG/DL (7-18); CALCIUM LEVEL 9.2 MG/DL (8.5-10.1); CARBON DIOXIDE LEVEL 31 MEQ/L (21-32); CHLORIDE LEVEL 107 MEQ/L (98-107); CREATININE FOR GFR 0.68 MG/DL (0.70-1.30); ETHYL ALCOHOL (ETHANOL) < 0.003 % (0.000-0.010); GLOMERULAR FILTRATION RATE > 60.0 (>60); GLUCOSE, FASTING 104 MG/DL (70-100); POTASSIUM SERUM 4.5 MEQ/L (3.5-5.1); SALICYLATE LEVEL < 1.7 MG/DL (5.0-30.0); SODIUM LEVEL 142 MEQ/L (136-145); TOTAL PROTEIN 7.1 GM/DL (6.4-8.2)
[2019-04-01 10:51] LABS: AMPHETAMINES LEVEL URINE NEGATIVE (NEGATIVE); BARBITURATES URINE NEGATIVE (NEGATIVE); BENZODIAZEPINES URINE NEGATIVE (NEGATIVE); CANNABINOIDS URINE NEGATIVE (NEGATIVE); COCAINE METABOLITE URINE NEGATIVE (NEGATIVE); METHADONE URINE NEGATIVE (NEGATIVE); OPIATES URINE NEGATIVE (NEGATIVE); PHENCYCLIDINE URINE NEGATIVE (NEGATIVE)
[2019-04-01 10:58] VITALS: BP 142/91
== END 2019-04-01 11:00 | disposition home or self-care (01) ==
LOC: M ED 07:50
DX: F31.9 Bipolar disorder, unspecified (principal); J45.909 Unspecified asthma, uncomplicated; F43.10 Post-traumatic stress disorder, unspecified; G89.29 Other chronic pain; F17.200 Nicotine dependence, unspecified, uncomplicated; F12.10 Cannabis abuse, uncomplicated; Z79.899 Other long term (current) drug therapy; Z91.030 Bee allergy status; Z91.018 Allergy to other foods; Z91.040 Latex allergy status; Z88.5 Allergy status to narcotic agent; Z88.8 Allergy status to other drugs, medicaments and biological substances
CPT/HCPCS: 36415; 80048; 80076; 80164; 80307; 84443; 85027; 99284; G0480

== ENCOUNTER 2019-04-21 21:16 | Emergency (ER) | payer OTHER ==
[~2019-04-21] VITALS: Ht 177.8 cm; Wt 90.9 kg
[2019-04-21 21:17] VITALS: BP 144/90
[2019-04-21] MEDS ORDERED: AUGMSUS PO (22:18)
[2019-04-21] MEDS ORDERED: AUGMENTIN ES SUSP POWDER 600MG/5ML 125ML BTL PO ONE (22:30)
== END 2019-04-21 22:43 | disposition home or self-care (01) ==
LOC: M ED 21:16
DX: L98.8 Other specified disorders of the skin and subcutaneous tissue (principal); Z93.1 Gastrostomy status; K22.8 Other specified diseases of esophagus; Z79.899 Other long term (current) drug therapy; Z91.030 Bee allergy status; Z91.018 Allergy to other foods; Z91.040 Latex allergy status; Z88.5 Allergy status to narcotic agent; Z88.8 Allergy status to other drugs, medicaments and biological substances

== ENCOUNTER 2019-04-29 20:39 | Emergency (ER) | payer OTHER ==
[~2019-04-29] VITALS: Ht 177.8 cm; Wt 90.9 kg
[2019-04-29 20:39] VITALS: BP 139/86
[~2019-04-29 20:39] MED LIST changes: +AUGMSUS PO
[2019-04-29 21:28] LABS: BASO # 0.1 10^3/uL (0.0-0.2); BASO % 0.8 % (0.0-1.0); EOS # 0.2 10^3/uL (0.0-0.5); EOS % 2.3 % (0.0-3.0); HEMATOCRIT 45.3 % (42.0-52.0); LYMPH # 3.3 10^3/uL (1.5-5.0); LYMPH % 42.5 % (24.0-44.0); MEAN CORPUSCULAR HEMOGLOBIN 30.2 pg (27.0-33.0); MEAN CORPUSCULAR HGB CONC 33.1 g/dl (32.0-36.5); MEAN CORPUSCULAR VOLUME 91.1 fl (80.0-96.0); MONO # 0.8 10^3/uL (0.0-0.8); MONO % 9.8 % (0.0-5.0); NEUTROPHILS # 3.4 10^3/uL (1.5-8.5); NEUTROPHILS % 44.2 % (36.0-66.0); PLATELET COUNT, AUTOMATED 295 10^3/uL (150-450); RED BLOOD COUNT 4.97 10^6/uL (4.30-6.10); WHITE BLOOD COUNT 7.7 10^3/uL (4.0-10.0)
[2019-04-29 21:54] LABS: ALBUMIN 4.1 GM/DL (3.2-5.2); ALT/SGPT 18 U/L (12-78); AMYLASE 67 U/L (25-115); BILIRUBIN,DIRECT 0.1 MG/DL (0.0-0.2); BILIRUBIN,TOTAL 0.3 MG/DL (0.2-1.0); BLOOD UREA NITROGEN 6 MG/DL (7-18); CALCIUM LEVEL 9.9 MG/DL (8.5-10.1); CARBON DIOXIDE LEVEL 30 MEQ/L (21-32); CHLORIDE LEVEL 104 MEQ/L (98-107); GLOMERULAR FILTRATION RATE > 60.0 (>60); GLUCOSE, FASTING 94 MG/DL (70-100); LIPASE 101 U/L (73-393); POTASSIUM SERUM 4.5 MEQ/L (3.5-5.1); SODIUM LEVEL 141 MEQ/L (136-145); TOTAL PROTEIN 7.6 GM/DL (6.4-8.2)
== END 2019-04-29 22:54 | disposition left against medical advice (07) ==
LOC: M ED 20:39
DX: R10.9 Unspecified abdominal pain (principal); Z53.21 Procedure and treatment not carried out due to patient leaving prior to being seen by health care provider

== ENCOUNTER 2019-05-20 21:41 | Emergency (ER) | payer MEDICAID, OTHER ==
[~2019-05-20] VITALS: Ht 177.8 cm; Wt 90.9 kg
[~2019-05-20 21:41] MED LIST changes: +medical marijuana
[2019-05-20] MEDS ORDERED: CETI5SOL3 GT (21:50)
[2019-05-20] MEDS ORDERED: HALO5TA PO (21:50)
[2019-05-20] MEDS ORDERED: QUET5TAB PO (21:50)
[2019-05-20] MEDS ORDERED: DIVALPROEX 500 MG TAB PO ONE (22:15)
[2019-05-20] MEDS ORDERED: DIVALPROEX SPRINKLE 125 MG CAP GT ONE (23:00)
[2019-05-20 23:15] LABS: HEMATOCRIT 42.5 % (42.0-52.0); MEAN CORPUSCULAR HEMOGLOBIN 29.9 pg (27.0-33.0); MEAN CORPUSCULAR HGB CONC 32.9 g/dl (32.0-36.5); MEAN CORPUSCULAR VOLUME 90.8 fl (80.0-96.0); PLATELET COUNT, AUTOMATED 257 10^3/uL (150-450); RED BLOOD COUNT 4.68 10^6/uL (4.30-6.10); WHITE BLOOD COUNT 8.3 10^3/uL (4.0-10.0)
[2019-05-20 23:38] LABS: ALBUMIN 3.7 GM/DL (3.2-5.2); ALT/SGPT 33 U/L (12-78); BILIRUBIN,TOTAL 0.3 MG/DL (0.2-1.0); BLOOD UREA NITROGEN 18 MG/DL (7-18); CALCIUM LEVEL 8.8 MG/DL (8.5-10.1); CARBON DIOXIDE LEVEL 27 MEQ/L (21-32); CHLORIDE LEVEL 103 MEQ/L (98-107); CREATININE FOR GFR 0.53 MG/DL (0.70-1.30); GLOMERULAR FILTRATION RATE > 60.0 (>60); GLUCOSE, FASTING 78 MG/DL (70-100); POTASSIUM SERUM 4.3 MEQ/L (3.5-5.1); SODIUM LEVEL 139 MEQ/L (136-145); TOTAL PROTEIN 6.7 GM/DL (6.4-8.2); VALPROIC ACID (DEPAKOTE) < 3.0 UG/ML (50.0-100.0)
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
[2019-05-20 23:54] VITALS: BP 115/64
== END 2019-05-21 00:32 | disposition home or self-care (01) ==
LOC: M ED 21:41
DX: G40.909 Epilepsy, unspecified, not intractable, without status epilepticus (principal); F17.200 Nicotine dependence, unspecified, uncomplicated; F12.10 Cannabis abuse, uncomplicated; Z79.899 Other long term (current) drug therapy; Z91.030 Bee allergy status; Z91.040 Latex allergy status; Z91.018 Allergy to other foods; Z88.5 Allergy status to narcotic agent; Z88.8 Allergy status to other drugs, medicaments and biological substances

== ENCOUNTER 2019-05-24 21:38 | Emergency (ER) | payer OTHER ==
[~2019-05-24] VITALS: Ht 180.3 cm; Wt 100.5 kg
[~2019-05-24 21:38] MED LIST changes: +CETI5SOL3 GT; +HALO5TA PO; +QUET5TAB PO
[2019-05-24] MEDS ORDERED: LIDOCAINE 1% MDV 20ML VIAL INFIL ONE (23:00)
[2019-05-24] MEDS: ACETAMINOPHEN TAB 650MG DOSE (2X325MG) PO ONE ×2 (23:15→23:25)
[2019-05-24] MEDS ORDERED: ACETAMINOPHEN 325 MG/10.15 ML UDC As Ordered ONE (23:19)
[2019-05-24] MEDS ORDERED: ACETAMINOPHEN 325 MG/10.15 ML UDC PO ONE (23:30)
[2019-05-24] MEDS ORDERED: NEOSPORIN OINT 0.9 GM PKT (FLOOR STOCK) As Ordered ONE (23:43)
[2019-05-24 23:55] VITALS: BP 145/95
== END 2019-05-25 00:03 | disposition home or self-care (01) ==
LOC: M ED 21:38
DX: S61.210A Laceration without foreign body of right index finger without damage to nail, initial encounter (principal); W26.0XXA Contact with knife, initial encounter; Y92.099 Unspecified place in other non-institutional residence as the place of occurrence of the external cause; Y93.9 Activity, unspecified; Y99.9 Unspecified external cause status; K21.9 Gastro-esophageal reflux disease without esophagitis; G40.909 Epilepsy, unspecified, not intractable, without status epilepticus; J45.909 Unspecified asthma, uncomplicated; F31.9 Bipolar disorder, unspecified; F43.10 Post-traumatic stress disorder, unspecified; F19.11 Other psychoactive substance abuse, in remission; F17.200 Nicotine dependence, unspecified, uncomplicated; Z86.19 Personal history of other infectious and parasitic diseases; Z79.899 Other long term (current) drug therapy; Z91.030 Bee allergy status; Z91.040 Latex allergy status; Z91.018 Allergy to other foods; Z88.5 Allergy status to narcotic agent; Z88.8 Allergy status to other drugs, medicaments and biological substances

== ENCOUNTER 2019-07-03 06:42 | Emergency (ER) | payer OTHER ==
[~2019-07-03] VITALS: Ht 180.3 cm; Wt 105.3 kg
[2019-07-03 06:42] VITALS: BP 116/68
== END 2019-07-03 08:01 | disposition left against medical advice (07) ==
LOC: M ED 06:42
DX: Z53.21 Procedure and treatment not carried out due to patient leaving prior to being seen by health care provider (principal)

== ENCOUNTER → 2019-08-16 | Outpatient (CLI) | payer OTHER ==
[~2019-08-16] MED LIST changes: +ACET160L16 PO; -ACET1LIQ PO; -LIDO1SOL8 PO; +LIDO2SOL17 PO; -MONT10TA2 PO; +MONT10TA4 PO
[2019-08-16 16:35] LABS: BASO # 0.1 10^3/uL (0.0-0.2); BASO % 0.9 % (0.0-1.0); EOS # 0.2 10^3/uL (0.0-0.5); EOS % 2.1 % (0.0-3.0); HEMATOCRIT 48.1 % (42.0-52.0); HEMOGLOBIN 16.2 g/dl (13.5-17.5); LYMPH # 3.1 10^3/uL (1.5-5.0); LYMPH % 33.7 % (24.0-44.0); MEAN CORPUSCULAR HEMOGLOBIN 30.7 pg (27.0-33.0); MEAN CORPUSCULAR HGB CONC 33.7 g/dl (32.0-36.5); MEAN CORPUSCULAR VOLUME 91.1 fl (80.0-96.0); MONO # 0.8 10^3/uL (0.0-0.8); MONO % 8.4 % (0.0-5.0); NEUTROPHILS % 54.5 % (36.0-66.0); PLATELET COUNT, AUTOMATED 354 10^3/uL (150-450); RED BLOOD COUNT 5.28 10^6/uL (4.30-6.10); WHITE BLOOD COUNT 9.2 10^3/uL (4.0-10.0)
[2019-08-16 16:57] LABS: HEMOGLOBIN A1c 5.3 %
[2019-08-16 17:16] LABS: ALBUMIN 4.3 GM/DL (3.2-5.2); ALT/SGPT 26 U/L (12-78); BILIRUBIN,TOTAL 0.3 MG/DL (0.2-1.0); BLOOD UREA NITROGEN 8 MG/DL (7-18); CARBON DIOXIDE LEVEL 29 MEQ/L (21-32); CHLORIDE LEVEL 105 MEQ/L (98-107); CHOLESTEROL LEVEL 174 MG/DL (<200); CHOLESTEROL RISK RATIO 3.163 (<5); CREATININE FOR GFR 0.68 MG/DL (0.70-1.30); GLOMERULAR FILTRATION RATE > 60.0 (>60); GLUCOSE, FASTING 95 MG/DL (70-100); HDL CHOLESTEROL 55 MG/DL (>40); LDL CHOLESTEROL 92 MG/DL (<100); NON-HDL-C 119 MG/DL; POTASSIUM SERUM 4.7 MEQ/L (3.5-5.1); SODIUM LEVEL 139 MEQ/L (136-145); TOTAL 25(OH) VITAMIN D 23.3 NG/ML (30.0-100.0); TOTAL PROTEIN 7.5 GM/DL (6.4-8.2); TRIGLYCERIDES LEVEL 136 MG/DL (<150)
== END ==
LOC: M LAB 15:24
PROVIDERS: ATTEND Family Medicine
DX: Z00.00 Encounter for general adult medical examination without abnormal findings (principal)

== ENCOUNTER → 2019-09-30 | Outpatient (CLI) | payer OTHER | LOC: M LAB 12:41 | PROVIDERS: ATTEND Physician Assistant | DX: F43.9 Reaction to severe stress, unspecified (principal); F60.2 Antisocial personality disorder ==

== ENCOUNTER 2020-01-22 18:38 | Emergency (ER) | payer OTHER | END 2020-01-22 18:54 | disposition left against medical advice (07) | LOC: EDBD 18:38 → M ED 18:38 | DX: Z53.21 Procedure and treatment not carried out due to patient leaving prior to being seen by health care provider (principal) ==

== ENCOUNTER 2020-02-15 16:25 | Emergency (ER) | payer OTHER ==
[~2020-02-15] VITALS: Ht 180.3 cm; Wt 100.5 kg
[2020-02-15 17:17] LABS: BASO # 0.1 10^3/uL (0.0-0.2); EOS # 0.2 10^3/uL (0.0-0.5); EOS % 1.3 % (0.0-3.0); HEMATOCRIT 44.7 % (42.0-52.0); LYMPH # 5.7 10^3/uL (1.5-5.0); MEAN CORPUSCULAR HEMOGLOBIN 29.5 pg (27.0-33.0); MEAN CORPUSCULAR HGB CONC 33.6 g/dl (32.0-36.5); MONO # 0.9 10^3/uL (0.0-0.8); MONO % 7.1 % (0.0-5.0); NEUTROPHILS # 5.3 10^3/uL (1.5-8.5); NEUTROPHILS % 43.1 % (36.0-66.0); PLATELET COUNT, AUTOMATED 318 10^3/uL (150-450); RED BLOOD COUNT 5.08 10^6/uL (4.30-6.10); WHITE BLOOD COUNT 12.2 10^3/uL (4.0-10.0)
--- NOTE | 2020-02-15 17:34 | REPVR ---
PROCEDURE INFORMATION: Exam: CT Head Without Contrast Exam date and time: 02/15/2020 5:17 PM Age: 29 years old Clinical indication: Other: Drug overdose TECHNIQUE: Imaging protocol: Computed tomography of the head without contrast. Radiation optimization: All CT scans at this facility use at least one of these dose optimization techniques: automated exposure control; mA and/or kV adjustment per patient size (includes targeted exams where dose is matched to clinical indication); or iterative reconstruction. COMPARISON: CT Head without contrast 05/20/2019 10:28 PM FINDINGS: Brain: Normal. No hemorrhage. Unremarkable white matter. No mass effect. Ventricles: No ventriculomegaly. Bones/joints: Unremarkable. No acute fracture. Paranasal sinuses: Visualized sinuses are unremarkable. No fluid levels. Mastoid air cells: Visualized mastoid air cells are well aerated. Soft tissues: Unremarkable. IMPRESSION: No acute intracranial abnormality. Electronically signed by: Néstor Petty On 02/15/2020 17:33:40 PM
[2020-02-15 17:41] VITALS: BP 116/63
[2020-02-15 17:57] LABS: ACETAMINOPHEN LEVEL < 2.0 UG/ML (10.0-30.0); ALBUMIN 3.9 GM/DL (3.2-5.2); ALT/SGPT 28 U/L (12-78); BILIRUBIN,DIRECT 0.1 MG/DL (0.0-0.2); BILIRUBIN,TOTAL 0.3 MG/DL (0.2-1.0); BLOOD UREA NITROGEN 12 MG/DL (7-18); CALCIUM LEVEL 8.8 MG/DL (8.5-10.1); CARBON DIOXIDE LEVEL 24 MEQ/L (21-32); CHLORIDE LEVEL 106 MEQ/L (98-107); CPK CREATINE PHOSPHOKINASE 142 U/L (39-308); CREATININE FOR GFR 0.83 MG/DL (0.70-1.30); ETHYL ALCOHOL (ETHANOL) 0.146 % (0.000-0.010); GLOMERULAR FILTRATION RATE > 60.0 (>60); GLUCOSE, FASTING 131 MG/DL (70-100); POTASSIUM SERUM 3.7 MEQ/L (3.5-5.1); SODIUM LEVEL 139 MEQ/L (136-145); TOTAL PROTEIN 7.3 GM/DL (6.4-8.2); VALPROIC ACID (DEPAKOTE) < 3.0 UG/ML (50.0-100.0)
--- NOTE | 2020-02-17 20:22 | ECGEPIP ---
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
== END 2020-02-15 21:10 | disposition home or self-care (01) ==
LOC: M ED 16:25
DX: F10.129 Alcohol abuse with intoxication, unspecified (principal); F44.5 Conversion disorder with seizures or convulsions; F43.12 Post-traumatic stress disorder, chronic; F60.2 Antisocial personality disorder; F17.200 Nicotine dependence, unspecified, uncomplicated; Z79.899 Other long term (current) drug therapy; Z91.030 Bee allergy status; Z91.018 Allergy to other foods; Z91.040 Latex allergy status; Z88.5 Allergy status to narcotic agent; Z88.8 Allergy status to other drugs, medicaments and biological substances
CPT/HCPCS: 70450; 80048; 80076; 80164; 82550; 84443; 85025; 93005; 93041; 94760; 99285; G0480

== ENCOUNTER → 2020-07-26 | Outpatient (CLI) | payer OTHER ==
[~2020-07-26] MED LIST changes: +GABA-282; -GABA-843; +HYDR-3490 PO; -HYDR25TAB PO; +MONT10TA10 PO; -MONT10TA4 PO; +QUET50TA3 PO; -QUET5TAB PO
[2020-07-26 12:13] LABS: BASO # 0.1 10^3/uL (0.0-0.2); EOS # 0.2 10^3/uL (0.0-0.5); EOS % 2.4 % (0.0-3.0); HEMATOCRIT 45.1 % (42.0-52.0); HEMOGLOBIN 15.2 g/dl (13.5-17.5); LYMPH % 41.7 % (24.0-44.0); MEAN CORPUSCULAR HEMOGLOBIN 29.1 pg (27.0-33.0); MEAN CORPUSCULAR HGB CONC 33.7 g/dl (32.0-36.5); MEAN CORPUSCULAR VOLUME 86.4 fl (80.0-96.0); MONO # 0.7 10^3/uL (0.0-0.8); MONO % 9.5 % (2.0-8.0); NEUTROPHILS # 3.2 10^3/uL (1.5-8.5); NEUTROPHILS % 45.1 % (36.0-66.0); PLATELET COUNT, AUTOMATED 312 10^3/uL (150-450); RED BLOOD COUNT 5.22 10^6/uL (4.30-6.10); WHITE BLOOD COUNT 7.1 10^3/uL (4.0-10.0)
[2020-07-26 12:42] LABS: ALBUMIN 3.7 GM/DL (3.2-5.2); ALT/SGPT 24 U/L (12-78); AMYLASE 52 U/L (25-115); BILIRUBIN,TOTAL 0.4 MG/DL (0.2-1.0); BLOOD UREA NITROGEN 10 MG/DL (7-18); CALCIUM LEVEL 8.7 MG/DL (8.5-10.1); CARBON DIOXIDE LEVEL 28 MEQ/L (21-32); CHLORIDE LEVEL 107 MEQ/L (98-107); CREATININE FOR GFR 0.81 MG/DL (0.70-1.30); GLOMERULAR FILTRATION RATE > 60.0 (>60); GLUCOSE, FASTING 95 MG/DL (70-100); LIPASE 87 U/L (73-393); POTASSIUM SERUM 4.1 MEQ/L (3.5-5.1); SODIUM LEVEL 140 MEQ/L (136-145); TOTAL PROTEIN 6.9 GM/DL (6.4-8.2)
== END ==
LOC: M LAB 11:38
PROVIDERS: ATTEND Internal Medicine Gastroenterology
DX: K21.9 Gastro-esophageal reflux disease without esophagitis (principal); R19.7 Diarrhea, unspecified

== ENCOUNTER 2020-11-01 22:16 | Emergency (ER) | payer OTHER ==
[~2020-11-01] VITALS: Ht 180.3 cm; Wt 115.5 kg
[~2020-11-01 22:16] MED LIST changes: +NAPR-849 PO; -NAPR250T4 PO
[2020-11-01 22:17] VITALS: BP 136/78
== END 2020-11-02 00:33 | disposition left against medical advice (07) ==
LOC: M ED 22:16
DX: R10.9 Unspecified abdominal pain (principal); Z79.899 Other long term (current) drug therapy; Z91.030 Bee allergy status; Z91.040 Latex allergy status; Z91.018 Allergy to other foods; Z88.5 Allergy status to narcotic agent; Z88.8 Allergy status to other drugs, medicaments and biological substances

== ENCOUNTER 2021-01-13 13:36 | Emergency (ER) | payer OTHER ==
[~2021-01-13] VITALS: Ht 177.8 cm; Wt 116.5 kg
[~2021-01-13 13:36] MED LIST changes: +ARIP10TA32 GT; -ARIP1TAB GT; -DOXY100C37 PO; +DOXY1CAP62 PO; +OMEP40CA4; -OMEP40CA97; -QUET50TA3 PO; +QUET50TA4 PO
[2021-01-13] MEDS ORDERED: ALBU83IN (13:57)
[2021-01-13] MEDS ORDERED: NYST10CR (13:57)
[2021-01-13] MEDS ORDERED: OMEP-221 (13:57)
[2021-01-13] MEDS ORDERED: ALBU8.5H (13:57)
[2021-01-13] MEDS ORDERED: levETIRAcetam INJection 1,000 MG in D5W 100 ML IV ONE (14:15)
[2021-01-13] MEDS ORDERED: ACETAMINOPHEN TAB 650MG DOSE (2X325MG) PO ONE (14:25)
[2021-01-13 15:15] VITALS: BP 104/51
[2021-01-13] MEDS ORDERED: KEPP1SOL GT (15:16)
[2021-01-13] MEDS ORDERED: ACETAMINOPHEN SUSP DYE FREE 160 MG/5 ML UDC GT ONE (15:20)
== END 2021-01-13 15:39 | disposition home or self-care (01) ==
LOC: M ED 13:36 → EDBD 13:36 → M ED 15:39
DX: G40.909 Epilepsy, unspecified, not intractable, without status epilepticus (principal); Z87.820 Personal history of traumatic brain injury; F43.10 Post-traumatic stress disorder, unspecified; Z79.899 Other long term (current) drug therapy; Z88.5 Allergy status to narcotic agent; Z88.8 Allergy status to other drugs, medicaments and biological substances; Z91.040 Latex allergy status; Z91.018 Allergy to other foods; Z91.030 Bee allergy status
CPT/HCPCS: 96365; 99284; J1953

== ENCOUNTER 2021-03-21 15:16 | Emergency (ER) | payer OTHER ==
[~2021-03-21] VITALS: Ht 180.3 cm; Wt 115.1 kg
[~2021-03-21 15:16] MED LIST changes: +ALBU8.5H; +ALBU83IN; +DOXY-443 PO; -DOXY1CAP62 PO; +NYST10CR; +OMEP-221
--- OUTSIDE RECORDS SUMMARY | 2021-03-21 15:24 | CCD ---
Author Organization Unknown Address [address] [place] [address] Phone [phone] Care Team Providers Care Animal Killer Name Role Phone [facility] 107 [phone] Allergies Code Code System Name Reaction Severity Status Onset Codeine Sulfate Active 04/24/2013 Gonzalez Active 09/09/2016 4493 RxNorm Fluoxetine Active 09/09/2016 Bee Venom Protein (Honey Bee) Active 10/04/19 20 [id number] RxNorm Latex Active Notes: BEE STINGS - Reaction: anaphylax is Medications Name Status Start Date Stop Date AIRS Adult Aerosol Mask USE DIRECTED Active Not available albuterol sulfate 2.5 mg/3 mL (0.083 %) solution for nebulization USE 1 VIAL IN NEBULIZER 4 TIMES DAILY NEEDED FOR SHORTNESS OF BREATH Active Not available albuterol sulfate HFA 90 mcg/actuation a erosol inhaler INHALE 1 TO 2 PUFFS BY MOUTH EVERY 4 TO 6 HOURS NEEDED FOR SHORTNESS OF BREATH Active Not available amoxicillin 400 mg/5 mL oral suspension Completed 10/28/2020 azithromycin 250 mg tablet TAKE 2 TABLETS BY MOUTH ON DAY 1, THEN TAKE 1 TABLET DAILY ON DAYS 2-5 Completed 07/14/2020 cefdinir 300 mg capsule TAKE TWO CAPSULES BY MOUTH ONCE DAILY FOR 10 DAYS may open AND sprinkle in feeding tube Completed 07/14/2020 cephalexin 250 mg/5 mL oral suspension Completed 02/11/2021 Cough DM ER 30 mg/5 mL oral suspension,e xtended release TAKE FIVE MILLILITERS EVERY 12 HOURS FOR 10 DAYS Completed 07/14/2020 cyclobenzaprine 10 mg tablet TAKE 1 TABLET BY MOUTH ONCE DAILY Active Not a vailable doxycycline monohydrate 100 mg capsule TAKE ONE CAPSULE BY MOUTH TWICE DAILY FOR 14 DAYS Completed 07/14/2020 epinephrine 0.3 mg/0.3 mL injection, aut o-injector USE DIRECTED NEEDED FOR ALLERGIC REACTION Active Not available famotidine 40 mg/5 mL (8 mg/mL) oral mason pension TAKE 5 ML BY MOUTH TWICE DAILY Active Not avai lable levetiracetam 100 mg/mL oral solution TAKE 10 ML BY MOUTH TWICE DAILY Active Not oliva ilable M-PAP 160 mg/5 mL oral liquid TAKE 5 ML BY MOUTH EVERY 8 HOURS NEEDED Active Not available metronidazole 250 mg tablet TAKE ONE TABLET BY MOUTH FOUR TIMES DAILY AFTER MEALS AND NIGHTLY FOR 14 DAYS. AVOID ALCOHOL Completed 07/14/2020 nystatin 100,000 unit/gram topical cream APPLY CREAM TOPICALLY TO AFFECTED AREA TWICE DAILY Active Not available omeprazole 40 mg capsule,delayed release TAKE 1 CAPSULE BY MOUTH ONCE DAILY Active Not available ondansetron 4 mg disintegrating tablet DISSOLVE 1 TABLET IN MOUTH 4 TIMES DAILY NEEDED FOR NAUSEA AND VOMITING. PLACE ON TOP OF TONGUE Active Not available prazosin 1 mg capsule TAKE ONE CAPSULE BY MOUTH AT BEDTIME Completed Sidestream misc USE DIRECTED Active Not available Sudogest 30 mg tablet TAKE ONE TABLET BY MOUTH FOUR TIMES DAILY NEEDED FOR 10 DAYS Completed 07/14/2020 Problems Name Status Onset Date Source Bipolar Disorder Active 04/24/2013 History Posttraumatic Stress Disorder Active 04/24/2013 Hi story Evaluation Procedure Unknown 04/24/[address] Concept Unknown 04/24/2013 History Sinusitis Unknown 06/24/2013 History Screening for Cancer Unknown 07/24/2013 History Gastroesophageal Reflux Disease without Esophagitis Active 05/07/2014 History Dysphagia Active 05/07/2014 History Bruxism (Teeth Grinding) Active 09/09/2016 History Paranoid Schizophrenia Active 08/16/2019 History Hereditary Peripheral Neuropathy Active 10/04/2019 History Idiopathic Peripheral Neuropathy Active 10/04/2019 History Finding by Site Unknown 11/20/2019 History Finding by Site Unknown 11/20/2019 History Walking Aid Use - Finding Active 11/20/2019 Histor y Tube Feeding Diet Active 08/17/2020 Depressive Disorder Active History Hypertensive Disorder Active History Asthma Active History Fitting Procedure Active History Procedures Notes: lt shoulder surgery, feeding tube placed Results Lab Results Date Name Specimen Result Interpretation Description Value Range Status Address 07/26/2020 CBC W/ Auto Diff Normal White Blood Count 7.1 10 4.0-10.0 10 Final [facility]: [address] [facility] Normal Red Blood Count 5.22 10 4.30-6.10 10 Final [facility]: [address] [facility] Normal Hemoglobin 15.2 g/dL 13.5-17.5 g/dL [facility]: [address] [facility] Normal Hematocrit 45.1 % 42.0-52.0 % [facility]: [address] [facility] Normal Mean Corpuscular Volume 86.4 fL 80.0 -96.0 fL [facility]: [address] [place] [address] Normal Mean Corpuscular Hemoglobin 29.1 pg 27.0-33.0 pg [facility]: [address] [place] [address] Normal Mean Corpuscular HGB Conc 33.7 g/dL 32.0-36.5 g/dL [facility]: [address] [place] [address] Normal Red Cell Distribution Width 12.7 % 1 1.5-14.5 % [facility]: [address] [place] [address] Normal Platelet Count, Automated 312 10 150 -450 10 [facility]: [address] [facility] Normal Neutrophils % 45.1 % 36.0-66.0 % [facility]: [address] [facility] Normal Lymph % 41.7 % 24.0-44.0 % [facility]: [address] [facility] High [place] % 9.5 % 2.0-8.0 % [facility]: [address] [facility] Normal Eos % 2.4 % 0.0-3.0 % [facility]: [address] [facility] Normal Baso % 1.0 % 0.0-1.0 % [facility]: [address] [facility] Normal Immature Granulocyte % 0.3 % 0-3.0 % [facility]: [address] [place] [address] Normal Nucleated Red Blood Cell % 0.0 % 0- 0 % [facility]: 0 [facility] Normal Neutrophils # 3.2 10 1.5-8.5 10 [facility]: [address] [facility] Normal Lymph # 3.0 10 1.5-5.0 10 [facility]: [address] [facility] Normal [place]ley # 0.7 10 0.0-0.8 10 [facility]: [address] [facility] Normal Eos # 0.2 10 0.0-0.5 10 [facility]: [address] [facility] Normal Baso # 0.1 10 0.0-0.2 10 [facility]: [address] [facility] 07/26/2020 CMP, Serum or Plasma Normal Glucose, Fastin g 95 mg/dL 70-100 mg/dL [facility]: [address] [facility] Normal Blood Urea Nitrogen 10 mg/dL 7-18 mg /dL [facility]: 0 [facility] Normal Creatinine for GFR 0.81 mg/dL 0.70-1 .30 mg/dL [facility]: [address] [facility] Normal Glomerular Filtration Rate > 60.0 >6 0 [facility]: [address] [facility] Normal Sodium Level 140 mEq/L 136-145 mEq/L [facility]: 0 [facility] Normal Potassium Serum 4.1 mEq/L 3.5-5.1 mE q/L [facility]: [address] [facility] Normal Chloride Level 107 mEq/L 98-107 mEq/ L [facility]: [address] [facility] Normal Carbon Dioxide Level 28 mEq/L 21-32 mEq/L [facility]: [address] [facility] Low Anion Gap 5 mEq/L 8-16 mEq/L [facility]: [address] [facility] Normal Calcium Level 8.7 mg/dL 8.5-10.1 mg/ dL [facility]: [address] [facility] Normal AST/SGOT 11 U/L 7-37 U/L [facility]: [address] [facility] Normal ALT/SGPT 24 U/L 12-78 U/L [facility]: [address] [facility] Normal Alkaline Phosphatase 76 U/L 45-117 U /L [facility]: [address] [facility] Normal Bilirubin,total 0.4 mg/dL 0.2-1.0 mg /dL [facility]: [address] [place] [address] Normal Total Protein 6.9 gm/dL 6.4-8.2 gm/d L [facility]: [address] [facility] Normal Albumin 3.7 gm/dL 3.2-5.2 gm/dL Theresa l [facility]: [address] [facility] Normal Albumin/globulin Ratio 1.2 [facility]: [address] [place] [address] 07/26/2020 Amylase, Serum or Plasma Normal Amylase 52 U/L 25-115 U/L [facility]: [address] [place] [address] 07/26/2020 Lipase, Serum or Plasma Normal Lipase 87 U/L 7 3-393 U/L [facility]: 0 [facility] 07/26/2020 C Reactive Protein, QN, Serum or Plasma Normal C Reactive Protein Quantitativ 0.30 mg/dL 0.00-0.30 mg/dL [facility]: [address] [place] [address] 07/26/2020 Tissue Transglutaminase IgA Normal Tissue Transglutaminase IgA <2 U/mL 0-3 U/mL [facility] nter: [address] [facility] Past Encounters 02/11/2021 Tube Feeding Diet Price Giles, RPA-C: [address] [facility], [facility] [address] [address], Ph. 10/28/2020 Medication Monitoring; History of Placement of Gastrostomy Tube; Candidiasis of Skin Claribel Baker MD: [address] [place] [address], Ph. 08/18/2020 Body Mass Index 30+ - Obesity; Nicotine Dependence with Current Use; Low Back Pain; Idiopathic Peripheral Neuropathy; Tube Feeding Diet Alissa Garnett PA-C: [address] [place] [address], Ph. 07/14/2020 Allergy to Bee Venom; Asthma; Gastroesophageal Reflux Disease without Esophagitis; Seizure Disorder; Peripheral Neuropathic Pain; Low Back Pain; Dysphagia Alissa Garnett PA-C: [address] [facility], [facility] [address], [place] [address], Ph. 07/01/2020 Ray Pineda MD: [address] [facility], [facility] [address], [place] [address], Ph. Social History Tobacco Smoking Status Heavy Tobacco Smoker (1 pack per a da y) Vaccine List None recorded. Plan of Care Reminders Provider Appointments None recorded. Lab None recorded. Referral None recorded. Procedures None recorded. Surgeries None recorded. Imaging None recorded. Vitals 02/11/2021 11:00AM SAME DAY 20 Height Weight BMI Blood Pressure 70 in 257 lbs 16 oz 37 kg/m2 116/83 mm[Hg] 10/28/2020 03:20PM ESTABLISHED [id number] Height Weight BMI Blood Pressure 70 in 255 lbs 6.4 oz 36.6 kg/m2 118/71 mm[Hg ] 08/18/2020 10:40AM HOSPITAL DISCHARGE Height Weight BMI Blood Pressure 70 in 266 lbs 3.2 oz 38.2 kg/m2 116/76 mm[Hg ] 07/14/2020 02:10PM TELEHEALTH 20 Height 70 in 11/20/2019 Height Weight BMI Blood Pressure 70 in 256 lbs 36.86 kg/m2 106/73 mm[Hg] 10/04/2019 Height Weight BMI Blood Pressure 70 in 241 lbs 4 oz 34.74 kg/m2 103/74 mm[Hg] 08/16/2019 Height Weight BMI Blood Pressure 70 in 236 lbs 33.98 kg/m2 121/86 mm[Hg]
--- OUTSIDE RECORDS SUMMARY | 2021-03-21 15:24 | CCD ---
Author Author Located Within [facility] Organization Located [facility] Address Unknown Phone Unavailable Care Team Providers Care Jail Officer Name Role Phone John Brock Unavailable PROBLEMS Type Condition ICD9-CM Code [id number] Code Onset Dates Condition S tatus W/U Status Risk SNOMED Code Notes Problem Neuropathy G62.9 Active confirmed 471507644 Problem Feeding by G-tube Z93.1 Active confirmed 30 6073815 Problem Seasonal allergies J30.2 Active confirmed 4 13289218 Problem Chewing tobacco nicotine dependence without complication F17.220 Active confirmed 94512093 Problem Dysphagia, unspecified type R13.10 Active confirmed 55513799 Problem History of cigarette smoking Z87.891 Active confirm ed 987938818 Problem Bee sting allergy Z91.030 Active confirmed 4 17891983 Problem Post traumatic stress disorder F43.10 Active confir med 69236480 Problem Generalized anxiety disorder F41.1 Active confirme d 07718144 Problem Alcohol use disorder, mild, abuse F10.10 Active confirmed 89821260 Problem Cigarette smoker F17.210 Active confirmed 65 284215 Problem History of psychiatric disorder Z86.59 Active confi rmed 917259753 Problem Seizure disorder G40.909 Active confirmed 12 0790715 Problem Asthma, unspecified asthma s everity, unspecified whether complicated, unspecified whether persistent J45.909 Active confirmed 688135549 Problem Bipolar affective disorder, currently manic, severe, with psychotic features F31.2 Active confirmed 608460789 Problem Cannabis use disorder, mild, abuse F12.10 Activ e confirmed 27619902 Problem Depressive disorder F32.9 Active confirmed 77644508 Problem Tourette's disorder F95.2 Active confirmed 1517786 ALLERGIES Allergen (clinical drug ingredient) Drug/Non Drug Allergy do cumented on EMR Reaction Allergy Type Onset Date Status Latex Gloves([facility] Code:92866-28123) Rash Drug Allergy Active fluoxetine Fluoxetine Hives Drug Allergy Active Gonzalez([facility] Code:[address]-17) voices Drug Allergy Active codeine Codeine Sulfate([facility] Code:[address]-30) Rash Drug Al lergy 10/23/2018 Active Bee Pollen([facility] Code:[address]-54) Anaphylaxis Drug Allerg y Active ENCOUNTERS from 1990 to 2021-02-18 Encounter Location Date Provider Diagnosis [facility] [phone] [place] [address] Jan, John Brock IMMUNIZATIONS Vaccine Route Administration Date Status Influenza Denied Unknown Mar 27, 2019 Others Influenza 6mo & up Fluzone Unknown October 23, 2018 Other s SOCIAL HISTORY Tobacco Use: Social History Observation Description Date Details (start date - stop date) Current Smoker Sex Assigned At : Social History Observation Description Sex Assigned At Unknown Education: Question Answer Notes Level of Education: Not finished High School 11th grade Audit Question Answer Notes Total Score: 0 Interpretation: Alcohol Education Language: Question Answer Notes Languages spoken: Vincentian Yarsanism: Question Answer Notes Yarsanism 03 Roman Catholic Domestic Violence: Question Answer Notes Status: Single Sexual Hx: Question Answer Notes Had sex in the last 12 months (vaginal, oral, or anal)? Yes Have you ever had an STD? No with Women only Use protection? No Alcohol Screening: Question Answer Notes Did you have a drink containing alcohol in the past year? No Points 0 Interpretation Negative Tobacco Use: Question Answer Notes Are you a: current smoker quit smoking in 2017 Smoking Cessation Information Given 03/27/2019 Patient counseled on the dangers of tobacco use and urged to quit: 03/27/2019 How many cigarettes a day do you smoke? 6-10 Are you interested in quitting? Thinking about quitting Counseled the patient on smoking cessation, education provid ed 03/27/2019 REASON FOR REFERRAL No Information VITAL SIGNS No information MEDICATIONS Medication SIG (Take, Route, Frequency, Duration) Notes Start Da te End Date Status Haldol 5mg 1 orally daily Not-Taking SEROquel 25 MG 1 tablet at bedtime Orally Once a day for 30 day(s) Not-Taking Depakote Not-Taking Nystatin 114763 UNIT/ML 4 ml Mouth/Throat Four times a day for 30 day (s) Active Keppra 500 MG/5ML 2.5ml via g tube three times daily for 30 days Not-Taking EpiPen 2-Laz 0.3 MG/0.3ML as directed Injection when e xpose to bee venom for 30 days September, Active Ondansetron 4 MG 1 tablet on the tongue and a llow to dissolve Orally Once a day for 30 day(s) Active Albuterol Sulfate (2.5 MG/3ML) 0.083% 3 ml as needed Inhalation kenna ry 6 hrs Active ZyrTEC Childrens Allergy 5 MG/5ML 10 ml as needed Oral ly Once a day for seasonal allergies for 30 days A ctive Breo Ellipta 200-25 MCG/INH 1 puff Inhalation Once a day for 30 days Not-Taking levETIRAcetam 100 MG/ML 5 ml Orally every 12 hrs for 30 day(s) Active Gabapentin 250 MG/5ML 5ml via g tube three times daily Not-Taking Abilify 10 MG 1 tablet Orally Once a day for 30 day(s) Not-Taking Famotidine 40 MG 1 tablet at bedtime Orally Once a day for 30 day(s) Active Ensure Plus - 240 ml g tube 6 cans per day Not-Taking Fluticasone Propionate 50 MCG/ACT 1 spray in each nost ril Nasally Once a day for 30 day(s) September, Active Ventolin HFA 108 (90 Base) MCG/ACT 1 puff Inhalation f our times daily as needed for 30 days Active Omeprazole 40 MG 1 capsule 30 minutes before morning meal Orally Once a day for 30 day(s) Active Tylenol Childrens 160 MG/5ML 30 mls Orally three times a day Not-Taking PROCEDURES No Information RESULTS No Results 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 MEDICAL (GENERAL) HISTORY Type Description Date Medical History seizure disorder May 312018 Medical History feeding tube Cook 18 Fr with 3 ports [facility] Medical History 10/12/2016 esophagram/ stephan um swallow essentially normal incidential 11 mm duodenal diverticulum no hiatal hernia no evidence of reflux Medical History 07/04/2018 MRI of the brain without cont rast negative Medical History 09/13/18 ct head without contrast-negati ve Medical History 06/22/2018 CT of the abdomen pelvis with IV contrast no acute pathology Medical History 06/09/17 MRA carotids without contrast no rmal Medical History 10/12/2016 thyroid, ST head neck ultraso und normal Medical History 06/19/2018, echocardiogram, LVEF 60-65%. Study found to be normal Medical History request open MRI at hospital Medical History needs liquid medications for G tube. Surgical History UGI endoscopy Dr. Schofield- no endoscopic abnormality evident to explain dyspagia 05/18/18 Surgical History UGI endoscopy Dr. Schofield-no endoscopic abnormality to explain dysphagia 09/20/18 Surgical History Feeding Tube Cook #18FT 3 ports-[facility] 07/05/2018 Surgical History left shoulder-2 metal rods-Dr.Peter Pineda 2001 Surgical History EEG- within normal limits. B oth the eyes no abnormalities explained this is not effective 06/19/18 Hospitalization History [facility] IM 02/13/19 Hospitalization History [facility] ER 03/13/19 Hospitalization History [facility] ER 03/15/19 Goals Section No Information Health Concerns No Information MEDICAL EQUIPMENT No Information MENTAL STATUS No Information FUNCTIONAL STATUS No Information ASSESSMENTS No Information PLAN OF TREATMENT Next Appt Details Provider Name:John Brock, 01:00:00 PM, [address], , [place], [address], Insurance Providers Payer Name Payer Address Payer Phone Insured Name Patient Relati onship to Insured Coverage Start Date Coverage End Date [facility] [address] [facility] [phone] CELIA GUTIÉRREZ self
--- OUTSIDE RECORDS SUMMARY | 2021-03-21 15:25 | CCD ---
Author Author [facility] Address Unknown Phone Unavailable Care Team Providers Care Technician Helper Instrument Name Role Phone Abid, Chris Unavailable Unavailable Mounika Pineda MD Unavailable Unavailable Mounika Pineda MD Unavailable Unavailable Mounika Pineda MD Unavailable Unavailable Mounika Pineda MD Unavailable Unavailable Mounika Pineda MD Unavailable Unavailable Mounika Pineda MD Unavailable Unavailable Mounika Pineda MD Unavailable Unavailable Mounika Pineda MD Unavailable Unavailable Mounika Pineda MD Unavailable Unavailable Mounika Pineda MD Unavailable Unavailable Mounika Pineda MD Unavailable Unavailable Mounika Pineda MD Unavailable Unavailable Mounika Pineda MD Unavailable Unavailable Mounika Pineda MD Unavailable Unavailable Mounkia Pineda MD Unavailable Unavailable Mounika Pineda MD Unavailable Unavailable Mounika Pineda MD Unavailable Unavailable Mounika Pineda MD Unavailable Unavailable Mounika Pineda MD Unavailable Unavailable Mounika Pineda MD Unavailable Unavailable Mounika Pineda MD Unavailable Unavailable Mounika Pineda MD Unavailable Unavailable Mounika Pineda MD Unavailable Unavailable Mounika Pineda MD Unavailable Unavailable Mounika Pineda MD Unavailable Unavailable Mounika Pineda MD Unavailable Unavailable Mounika Pineda MD Unavailable Unavailable Mounika Pineda MD Unavailable Unavailable Mounika Pineda MD Unavailable Unavailable Mounika Pineda MD Unavailable Unavailable Mounika Pineda MD Unavailable Unavailable Mounika Pineda MD Unavailable Unavailable Mounika Pineda MD Unavailable Unavailable Mounika Pineda MD Unavailable Unavailable Mounika Pineda MD Unavailable Unavailable Mounika Pineda MD Unavailable Unavailable Mounika Pineda MD Unavailable Unavailable Mounika Pineda MD Unavailable Unavailable Mounika Pineda MD Unavailable Unavailable Mounika Pineda MD Unavailable Unavailable Mounika Pineda MD Unavailable Unavailable Mounika Pineda MD Unavailable Unavailable Mounika Pineda MD Unavailable Unavailable Mounika Pineda MD Unavailable Unavailable Mounika Pineda MD Unavailable Unavailable Mounika Pineda MD Unavailable Unavailable Mounika Pineda MD Unavailable Unavailable Mounika Pineda MD Unavailable Unavailable Mounika Pineda MD Unavailable Unavailable Mounika Pineda MD Unavailable Unavailable Mounika Pineda MD Unavailable Unavailable Mounika Pineda MD Unavailable Unavailable Mounika Pineda MD Unavailable Unavailable Mounika Pineda MD Unavailable Unavailable Mounika Pineda MD Unavailable Unavailable Mounika Pineda MD Unavailable Unavailable Mounika Pineda MD Unavailable Unavailable Mounika Pineda MD Unavailable Unavailable Mounika Pineda MD Unavailable Unavailable Mounika Pineda MD Unavailable Unavailable Mounika Pineda MD Unavailable Unavailable Mounika Pineda MD Unavailable Unavailable Mounika Pineda MD Unavailable Unavailable Mounika Pineda MD Unavailable Unavailable Mounika Pineda MD Unavailable Unavailable Mounika Pineda MD Unavailable Unavailable Mounika Pineda MD Unavailable Unavailable Mounika Pineda MD Unavailable Unavailable Mounika Pineda MD Unavailable Unavailable Mounika Pineda MD Unavailable Unavailable Mounika Pineda MD Unavailable Unavailable Mounika Pineda MD Unavailable Unavailable Mounika Pineda MD Unavailable Unavailable Mounika Pineda MD Unavailable Unavailable Mounika Pineda MD Unavailable Unavailable Mounika Pineda MD Unavailable Unavailable Mounika Pineda MD Unavailable Unavailable Mounika Pineda MD Unavailable Unavailable Mounika Pineda MD Unavailable Unavailable Mounika Pineda MD Unavailable Unavailable Mounika Pineda MD Unavailable Unavailable Mounika Pineda MD Unavailable Unavailable Mounika Pineda MD Unavailable Unavailable Mounika Pineda MD Unavailable Unavailable Mounika Pineda MD Unavailable Unavailable Mounika Pineda MD Unavailable Unavailable Mounika Pineda MD Unavailable Unavailable Mounika Pineda MD Unavailable Unavailable Mounika Pineda MD Unavailable Unavailable Mounika Pineda MD Unavailable Unavailable Mounika Pineda MD Unavailable Unavailable Mounika Pineda MD Unavailable Unavailable Mounika Pineda MD Unavailable Unavailable Peter Bloom MD Unavailable Unavailable Peter Bloom MD Unavailable Unavailable Peter Bloom MD Unavailable Unavailable Peter Bloom MD Unavailable Unavailable Peter Bloom MD Unavailable Unavailable Peter Bloom MD Unavailable Unavailable Evelyn LAINEZ Unavailable Unavailable Olivia, Babita Unavailable Unavailable Olivia, Babita Unavailable Unavailable Olivia, Babita Unavailable Unavailable Olivia, Babita Unavailable Unavailable Olivia, Babita Unavailable Unavailable Olivia, Babita Unavailable Unavailable Olivia, Babita Unavailable Unavailable Olivia, Babita Unavailable Unavailable Olivia, Babita Unavailable Unavailable Olivia, Babita Unavailable Unavailable Olivia, Babita Unavailable Unavailable Olivia, Babita Unavailable Unavailable Olivia, Babita Unavailable Unavailable Olivia, Babita Unavailable Unavailable Olivia, Babita Unavailable Unavailable Olivia, Babita Unavailable Unavailable Olivia, Babita Unavailable Unavailable Olivia, Babita Unavailable Unavailable Olivia, Babita Unavailable Unavailable Olivia, Babita Unavailable Unavailable Olivia, Babita Unavailable Unavailable Olivia, Babita Unavailable Unavailable Olivia, Babita Unavailable Unavailable Olivia, Babita Unavailable Unavailable Olivia, Babita Unavailable Unavailable Olivia, Babita Unavailable Unavailable Francisco YI MD Unavailable Unavailable Francisco YI MD Unavailable Unavailable Francisco YI MD Unavailable Unavailable Francisco YI MD Unavailable Unavailable Francisco YI MD Unavailable Unavailable Francisco YI MD Unavailable Unavailable Francisco YI MD Unavailable Unavailable Francisco YI MD Unavailable Unavailable Francisco YI MD Unavailable Unavailable Francisco YI MD Unavailable Unavailable Francisco YI MD Unavailable Unavailable Francisco YI MD Unavailable Unavailable Francisco YI MD Unavailable Unavailable Francisco YI MD Unavailable Unavailable Francisco YI MD Unavailable Unavailable Francisco YI MD Unavailable Unavailable Bandar HASSAN Unavailable Unavailable MARTINEZ, J OMAYRA PA Unavailable Unavailable MARTINEZ, J OMAYRA PA Unavailable Unavailable MARTINEZ, J OMAYRA PA Unavailable Unavailable MARTINEZ, J OMAYRA PA Unavailable Unavailable MARTINEZ, J OMAYRA PA Unavailable Unavailable MARTINEZ, J OMAYRA PA Unavailable Unavailable MARTINEZ, J OMAYRA PA Unavailable Unavailable MARTINEZ, J OMAYRA PA Unavailable Unavailable MARTINEZ, J OMAYRA PA Unavailable Unavailable MARTINEZ, J OMAYRA PA Unavailable Unavailable MARTINEZ, J OMAYRA PA Unavailable Unavailable MARTINEZ, J OMAYRA PA Unavailable Unavailable MARTINEZ, J OMAYRA PA Unavailable Unavailable MARTINEZ, J OMAYRA PA Unavailable Unavailable MARTINEZ, J OMAYRA PA Unavailable Unavailable MARTINEZ, J OMAYRA PA Unavailable Unavailable MARTINEZ, J OMAYRA PA Unavailable Unavailable MARTINEZ, J OMAYRA PA Unavailable Unavailable MARTINEZ, J OMAYRA PA Unavailable Unavailable MARTINEZ, J OMAYRA PA Unavailable Unavailable MARTINEZ, J OMAYRA PA Unavailable Unavailable MARTINEZ, J OMAYRA PA Unavailable Unavailable MARTINEZ, J OMAYRA PA Unavailable Unavailable MARTINEZ, J OMAYRA PA Unavailable Unavailable MARTINEZ, J OMAYRA PA Unavailable Unavailable MARTINEZ, J OMAYRA PA Unavailable Unavailable MARTINEZ, J OMAYRA PA Unavailable Unavailable Ray Virk MD Unavailable Unavailable Ray Virk MD Unavailable Unavailable Ray Virk MD Unavailable Unavailable Ray Virk MD Unavailable Unavailable Ray Virk MD Unavailable Unavailable Ray Virk MD Unavailable Unavailable Ray Virk MD Unavailable Unavailable Ray Virk MD Unavailable Unavailable Ray Virk MD Unavailable Unavailable Ray Virk MD Unavailable Unavailable Ray Virk MD Unavailable Unavailable Ray Virk MD Unavailable Unavailable Ray Virk MD Unavailable Unavailable Ray Virk MD Unavailable Unavailable Ray Virk MD Unavailable Unavailable Ray Virk MD Unavailable Unavailable Ray Virk MD Unavailable Unavailable Ray Virk MD Unavailable Unavailable Ray Virk MD Unavailable Unavailable Ray Virk MD Unavailable Unavailable Ray Virk MD Unavailable Unavailable Ray Virk MD Unavailable Unavailable Ray Virk MD Unavailable Unavailable Ray Virk MD Unavailable Unavailable Ray Virk MD Unavailable Unavailable Ray Virk MD Unavailable Unavailable Scordo, M Alissa PA Unavailable Unavailable Scordo, M Alissa PA Unavailable Unavailable Scordo, M Alissa PA Unavailable Unavailable Scordo, M Alissa PA Unavailable Unavailable Scordo, M Alissa PA Unavailable Unavailable Scordo, M Alissa PA Unavailable Unavailable Scordo, M Alissa PA Unavailable Unavailable Scordo, M Alissa PA Unavailable Unavailable Scordo, M Alissa PA Unavailable Unavailable Scordo, M Alissa PA Unavailable Unavailable Scordo, M Alissa PA Unavailable Unavailable Scordo, M Alissa PA Unavailable Unavailable Scordo, M Alissa PA Unavailable Unavailable Scordo, M Alissa PA Unavailable Unavailable Scordo, M Alissa PA Unavailable Unavailable Scordo, M Alissa PA Unavailable Unavailable Scordo, M Alissa PA Unavailable Unavailable Scordo, M Alissa PA Unavailable Unavailable Scordo, M Alissa PA Unavailable Unavailable Scordo, M Alissa PA Unavailable Unavailable Scordo, M Alissa PA Unavailable Unavailable Scordo, M Alissa PA Unavailable Unavailable Scordo, M Alissa PA Unavailable Unavailable Scordo, M Alissa PA Unavailable Unavailable Scordo, M Alissa PA Unavailable Unavailable Scordo, M Alissa PA Unavailable Unavailable Scordo, M Alissa PA Unavailable Unavailable Scordo, M Alissa PA Unavailable Unavailable Scordo, M Alissa PA Unavailable Unavailable Scordo, M Alissa PA Unavailable Unavailable Scordo, M Alissa PA Unavailable Unavailable Scordo, M Alissa PA Unavailable Unavailable Scordo, M Alissa PA Unavailable Unavailable Scordo, M Alissa PA Unavailable Unavailable Scordo, M Alissa PA Unavailable Unavailable Scordo, M Alissa PA Unavailable Unavailable Scordo, M Alissa PA Unavailable Unavailable Scordo, M Alissa PA Unavailable Unavailable Scordo, M Alissa PA Unavailable Unavailable Scordo, M Alissa PA Unavailable Unavailable Scordo, M Alissa PA Unavailable Unavailable Scordo, M Alissa PA Unavailable Unavailable Scordo, M Alissa PA Unavailable Unavailable Scordo, M Alissa PA Unavailable Unavailable Scordo, M Alissa PA Unavailable Unavailable Scordo, M Alissa PA Unavailable Unavailable Scordo, M Alissa PA Unavailable Unavailable Karis SORTO PA-C Unavailable Unavailable NOREENKaris PA-C Unavailable Unavailable NOREENKaris PA-C Unavailable Unavailable NOREENKaris PA-C Unavailable Unavailable NOREENKaris PA-C Unavailable Unavailable NOREENKaris PA-C Unavailable Unavailable NOREENKaris PA-C Unavailable Unavailable NOREEN, Karis PA-C Unavailable Unavailable NOREEN, Karis PA-C Unavailable Unavailable NOREEN, Karis PA-C Unavailable Unavailable NOREEN, Karis PA-C Unavailable Unavailable NOREEN, Karis PA-C Unavailable Unavailable NOREEN, Karis PA-C Unavailable Unavailable NOREEN, Karis PA-C Unavailable Unavailable NOREEN, Karis PA-C Unavailable Unavailable NOREEN, Karis PA-C Unavailable Unavailable NOREEN, Karis PA-C Unavailable Unavailable NOREEN, Karis PA-C Unavailable Unavailable NOREEN, Karis PA-C Unavailable Unavailable NOREEN, Karis PA-C Unavailable Unavailable NOREEN, Karis PA-C Unavailable Unavailable NOREEN, Karis PA-C Unavailable Unavailable NOREEN, Karis PA-C Unavailable Unavailable NOREEN, Karis PA-C Unavailable Unavailable NOREEN, Karis PA-C Unavailable Unavailable NOREEN, Karis PA-C Unavailable Unavailable NOREEN, Karis PA-C Unavailable Unavailable NOREEN, Karis PA-C Unavailable Unavailable NOREEN, Karis PA-C Unavailable Unavailable NOREEN, Karis PA-C Unavailable Unavailable NOREEN, Karis PA-C Unavailable Unavailable NOREEN, Karis PA-C Unavailable Unavailable NOREEN, Karis PA-C Unavailable Unavailable NOREEN, Karis PA-C Unavailable Unavailable NOREEN, Karis PA-C Unavailable Unavailable NOREEN, Karis PA-C Unavailable Unavailable NOREEN, Karis PA-C Unavailable Unavailable NOREEN, Karis PA-C Unavailable Unavailable NOREEN, Karis PA-C Unavailable Unavailable NOREEN, Karis PA-C Unavailable Unavailable NOREEN, Karis PA-C Unavailable Unavailable NOREEN, Karis PA-C Unavailable Unavailable NOREEN, Karis PA-C Unavailable Unavailable Maring, Joseph PA Unavailable Unavailable Maring, Joseph PA Unavailable Unavailable Maring, Joseph PA Unavailable Unavailable Maring, Joseph PA Unavailable Unavailable Maring, Joseph PA Unavailable Unavailable Maring, Joseph PA Unavailable Unavailable Maring, Joseph PA Unavailable Unavailable Maring, Joseph PA Unavailable Unavailable Maring, Joseph PA Unavailable Unavailable Maring, Joseph PA Unavailable Unavailable Maring, Joseph PA Unavailable Unavailable Maring, Joseph PA Unavailable Unavailable Maring, Joseph PA Unavailable Unavailable Maring, Joseph PA Unavailable Unavailable Maring, Joseph PA Unavailable Unavailable Maring, Joseph PA Unavailable Unavailable Bovalino, Alejandra PA Unavailable Unavailable Bovalino, Alejandra PA Unavailable Unavailable Bovalino, Alejandra PA Unavailable Unavailable Bovalino, Alejandra PA Unavailable Unavailable Bovalino, Alejandra PA Unavailable Unavailable Bovalino, Alejandra PA Unavailable Unavailable Bovalino, Alejandra PA Unavailable Unavailable Bovalino, Alejandra PA Unavailable Unavailable Bovalino, Alejandra PA Unavailable Unavailable Bovalino, Alejandra PA Unavailable Unavailable Bovalino, Alejandra PA Unavailable Unavailable Servage, L Jami AOC OPERATIONS INTELLIGENCE CHIEF Unavailable Unavailable Servage, L Jami AOC OPERATIONS INTELLIGENCE CHIEF Unavailable Unavailable Servage, L Jami AOC OPERATIONS INTELLIGENCE CHIEF Unavailable Unavailable Servage, L Jami AOC OPERATIONS INTELLIGENCE CHIEF Unavailable Unavailable Servage, L Jami AOC OPERATIONS INTELLIGENCE CHIEF Unavailable Unavailable Servage, L Jami AOC OPERATIONS INTELLIGENCE CHIEF Unavailable Unavailable Servage, L Jami AOC OPERATIONS INTELLIGENCE CHIEF Unavailable Unavailable Servage, L Jami AOC OPERATIONS INTELLIGENCE CHIEF Unavailable Unavailable Servage, L Jami AOC OPERATIONS INTELLIGENCE CHIEF Unavailable Unavailable Servage, L Jami AOC OPERATIONS INTELLIGENCE CHIEF Unavailable Unavailable Servage, L Jami AOC OPERATIONS INTELLIGENCE CHIEF Unavailable Unavailable Servage, L Jami AOC OPERATIONS INTELLIGENCE CHIEF Unavailable Unavailable Servage, L Jami AOC OPERATIONS INTELLIGENCE CHIEF Unavailable Unavailable Servage, L Jami AOC OPERATIONS INTELLIGENCE CHIEF Unavailable Unavailable Servage, L Jami AOC OPERATIONS INTELLIGENCE CHIEF Unavailable Unavailable Servage, L Jami AOC OPERATIONS INTELLIGENCE CHIEF Unavailable Unavailable Servage, L Jami AOC OPERATIONS INTELLIGENCE CHIEF Unavailable Unavailable Servage, L Jami AOC OPERATIONS INTELLIGENCE CHIEF Unavailable Unavailable Servage, L Jami AOC OPERATIONS INTELLIGENCE CHIEF Unavailable Unavailable Servage, L Jami AOC OPERATIONS INTELLIGENCE CHIEF Unavailable Unavailable Servage, L Jami AOC OPERATIONS INTELLIGENCE CHIEF Unavailable Unavailable Servage, L Jami AOC OPERATIONS INTELLIGENCE CHIEF Unavailable Unavailable Servage, L Jami AOC OPERATIONS INTELLIGENCE CHIEF Unavailable Unavailable Servage, L Jami AOC OPERATIONS INTELLIGENCE CHIEF Unavailable Unavailable Servage, L Jami AOC OPERATIONS INTELLIGENCE CHIEF Unavailable Unavailable Servage, L Jami AOC OPERATIONS INTELLIGENCE CHIEF Unavailable Unavailable Servage, L Jami AOC OPERATIONS INTELLIGENCE CHIEF Unavailable Unavailable Servage, L Jami AOC OPERATIONS INTELLIGENCE CHIEF Unavailable Unavailable Servage, L Jami AOC OPERATIONS INTELLIGENCE CHIEF Unavailable Unavailable Servage, L Jami AOC OPERATIONS INTELLIGENCE CHIEF Unavailable Unavailable Servage, L Jami AOC OPERATIONS INTELLIGENCE CHIEF Unavailable Unavailable Servage, L Jami AOC OPERATIONS INTELLIGENCE CHIEF Unavailable Unavailable Servage, L Jami AOC OPERATIONS INTELLIGENCE CHIEF Unavailable Unavailable Servage, L Jami AOC OPERATIONS INTELLIGENCE CHIEF Unavailable Unavailable Servage, L Jami AOC OPERATIONS INTELLIGENCE CHIEF Unavailable Unavailable Servage, L Jami AOC OPERATIONS INTELLIGENCE CHIEF Unavailable Unavailable Servage, L Jami AOC OPERATIONS INTELLIGENCE CHIEF Unavailable Unavailable Servage, L Jami AOC OPERATIONS INTELLIGENCE CHIEF Unavailable Unavailable Servage, L Jami AOC OPERATIONS INTELLIGENCE CHIEF Unavailable Unavailable Servage, L Jami AOC OPERATIONS INTELLIGENCE CHIEF Unavailable Unavailable Servage, L Jami AOC OPERATIONS INTELLIGENCE CHIEF Unavailable Unavailable Servage, L Jami AOC OPERATIONS INTELLIGENCE CHIEF Unavailable Unavailable Servage, L Jami AOC OPERATIONS INTELLIGENCE CHIEF Unavailable Unavailable Servage, L Jami AOC OPERATIONS INTELLIGENCE CHIEF Unavailable Unavailable Servage, L Jami AOC OPERATIONS INTELLIGENCE CHIEF Unavailable Unavailable Servage, L Jami AOC OPERATIONS INTELLIGENCE CHIEF Unavailable Unavailable Servage, L Jami AOC OPERATIONS INTELLIGENCE CHIEF Unavailable Unavailable Servage, L Jami AOC OPERATIONS INTELLIGENCE CHIEF Unavailable Unavailable Servage, L Jami AOC OPERATIONS INTELLIGENCE CHIEF Unavailable Unavailable Servage, L Jami AOC OPERATIONS INTELLIGENCE CHIEF Unavailable Unavailable Servage, L Jami AOC OPERATIONS INTELLIGENCE CHIEF Unavailable Unavailable Servage, L Jami AOC OPERATIONS INTELLIGENCE CHIEF Unavailable Unavailable Servage, L Jami AOC OPERATIONS INTELLIGENCE CHIEF Unavailable Unavailable Servage, L Jami AOC OPERATIONS INTELLIGENCE CHIEF Unavailable Unavailable Servage, L Jami AOC OPERATIONS INTELLIGENCE CHIEF Unavailable Unavailable Servage, L Jami AOC OPERATIONS INTELLIGENCE CHIEF Unavailable Unavailable Servage, L Jami AOC OPERATIONS INTELLIGENCE CHIEF Unavailable Unavailable Servage, L Jami AOC OPERATIONS INTELLIGENCE CHIEF Unavailable Unavailable Servage, L Jami AOC OPERATIONS INTELLIGENCE CHIEF Unavailable Unavailable Servage, L Jami AOC OPERATIONS INTELLIGENCE CHIEF Unavailable Unavailable Servage, L Jami AOC OPERATIONS INTELLIGENCE CHIEF Unavailable Unavailable Servage, L Jami AOC OPERATIONS INTELLIGENCE CHIEF Unavailable Unavailable Servage, L Jami AOC OPERATIONS INTELLIGENCE CHIEF Unavailable Unavailable Servage, L Jami AOC OPERATIONS INTELLIGENCE CHIEF Unavailable Unavailable Servage, L Jami AOC OPERATIONS INTELLIGENCE CHIEF Unavailable Unavailable GILES, SUNDEEP PRICE RPA-C Unavailable Unavailable GILES, SUNDEEP PRICE RPA-C Unavailable Unavailable GILES, SUNDEEP PRICE RPA-C Unavailable Unavailable GILES, SUNDEEP PRICE RPA-C Unavailable Unavailable GILES, SUNDEEP PRICE RPA-C Unavailable Unavailable GILES, SUNDEEP PRICE RPA-C Unavailable Unavailable GILES, SUNDEEP PRICE RPA-C Unavailable Unavailable GILES, SUNDEEP PRICE RPA-C Unavailable Unavailable GILES, SUNDEEP PRICE RPA-C Unavailable Unavailable GILES, SUNDEEP PRICE RPA-C Unavailable Unavailable GILES, SUNDEEP PRICE RPA-C Unavailable Unavailable GILES, SUNDEEP PRICE RPA-C Unavailable Unavailable GILES, SUNDEEP PRICE RPA-C Unavailable Unavailable GILES, SUNDEEP PRICE RPA-C Unavailable Unavailable GILES, SUNDEEP PRICE RPA-C Unavailable Unavailable GILES, SUNDEEP RPICE RPA-C Unavailable Unavailable GILES, SUNDEEP PRICE RPA-C Unavailable Unavailable GILES, SUNDEEP PRICE RPA-C Unavailable Unavailable GILES, SUNDEEP PRICE RPA-C Unavailable Unavailable GILES, SUNDEEP PRICE RPA-C Unavailable Unavailable GILES, SUNDEEP PRICE RPA-C Unavailable Unavailable GILES, SUNDEEP PRICE RPA-C Unavailable Unavailable GILES, SUNDEEP PRICE RPA-C Unavailable Unavailable GILES, SUNDEEP PRICE RPA-C Unavailable Unavailable GILES, SUNDEEP PRICE RPA-C Unavailable Unavailable GILES, SUNDEEP PRICE RPA-C Unavailable Unavailable GILES, SUNDEEP PRICE RPA-C Unavailable Unavailable GILES, SUNDEEP PRICE RPA-C Unavailable Unavailable GILES, SUNDEEP PRICE RPA-C Unavailable Unavailable GILES, SUNDEEP PRICE RPA-C Unavailable Unavailable GILES, SUNDEEP PRICE RPA-C Unavailable Unavailable GILES, SUNDEEP PRICE RPA-C Unavailable Unavailable GILES, SUNDEEP PRICE RPA-C Unavailable Unavailable GILES, SUNDEEP PRICE RPA-C Unavailable Unavailable GILES, SUNDEEP PRICE RPA-C Unavailable Unavailable GILES, SUNDEEP PRICE RPA-C Unavailable Unavailable GILES, SUNDEEP PRICE RPA-C Unavailable Unavailable GILES, SUNDEEP PRICE RPA-C Unavailable Unavailable GILES, SUNDEEP PRICE RPA-C Unavailable Unavailable GILES, SUNDEEP PRICE RPA-C Unavailable Unavailable GILES, SUNDEEP PRICE RPA-C Unavailable Unavailable GILES, SUNDEEP PRICE RPA-C Unavailable Unavailable GILES, SUNDEEP PRICE RPA-C Unavailable Unavailable TROVATO, M PIETRO AOC OPERATIONS INTELLIGENCE CHIEF Unavailable Unavailable TROVATO, M PIETRO AOC OPERATIONS INTELLIGENCE CHIEF Unavailable Unavailable TROVATO, M PIETRO AOC OPERATIONS INTELLIGENCE CHIEF Unavailable Unavailable TROVATO, M PIETRO AOC OPERATIONS INTELLIGENCE CHIEF Unavailable Unavailable TROVATO, M PIETRO AOC OPERATIONS INTELLIGENCE CHIEF Unavailable Unavailable TROVATO, M PIETRO AOC OPERATIONS INTELLIGENCE CHIEF Unavailable Unavailable TROVATO, M PIETRO AOC OPERATIONS INTELLIGENCE CHIEF Unavailable Unavailable TROVATO, M PIETRO AOC OPERATIONS INTELLIGENCE CHIEF Unavailable Unavailable TROVATO, M PIETRO AOC OPERATIONS INTELLIGENCE CHIEF Unavailable Unavailable TROVATO, M PIETRO AOC OPERATIONS INTELLIGENCE CHIEF Unavailable Unavailable TROVATO, M PIETRO AOC OPERATIONS INTELLIGENCE CHIEF Unavailable Unavailable TROVATO, M PIETRO AOC OPERATIONS INTELLIGENCE CHIEF Unavailable Unavailable TROVATO, M PIETRO AOC OPERATIONS INTELLIGENCE CHIEF Unavailable Unavailable TROVATO, M PIETRO AOC OPERATIONS INTELLIGENCE CHIEF Unavailable Unavailable TROVATO, M PIETRO AOC OPERATIONS INTELLIGENCE CHIEF Unavailable Unavailable TROVATO, M PIETRO AOC OPERATIONS INTELLIGENCE CHIEF Unavailable Unavailable TROVATO, M PIETRO AOC OPERATIONS INTELLIGENCE CHIEF Unavailable Unavailable TROVATO, M PIETRO AOC OPERATIONS INTELLIGENCE CHIEF Unavailable Unavailable TROVATO, M PIETRO AOC OPERATIONS INTELLIGENCE CHIEF Unavailable Unavailable TROVATO, M PIETRO AOC OPERATIONS INTELLIGENCE CHIEF Unavailable Unavailable TROVATO, M PIETRO AOC OPERATIONS INTELLIGENCE CHIEF Unavailable Unavailable TROVATO, M PIETRO AOC OPERATIONS INTELLIGENCE CHIEF Unavailable Unavailable TROVATO, M PIETRO AOC OPERATIONS INTELLIGENCE CHIEF Unavailable Unavailable TROVATO, M PIETRO AOC OPERATIONS INTELLIGENCE CHIEF Unavailable Unavailable TROVATO, M PIETRO AOC OPERATIONS INTELLIGENCE CHIEF Unavailable Unavailable TROVATO, M PIETRO AOC OPERATIONS INTELLIGENCE CHIEF Unavailable Unavailable TROVATO, M PIETRO AOC OPERATIONS INTELLIGENCE CHIEF Unavailable Unavailable TROVATO, M PIETRO AOC OPERATIONS INTELLIGENCE CHIEF Unavailable Unavailable TROVATO, M PIETRO AOC OPERATIONS INTELLIGENCE CHIEF Unavailable Unavailable TROVATO, M PIETRO AOC OPERATIONS INTELLIGENCE CHIEF Unavailable Unavailable TROVATO, M PIETRO AOC OPERATIONS INTELLIGENCE CHIEF Unavailable Unavailable TROVATO, M PIETRO AOC OPERATIONS INTELLIGENCE CHIEF Unavailable Unavailable TROVATO, M PIETRO AOC OPERATIONS INTELLIGENCE CHIEF Unavailable Unavailable TROVATO, M PIETRO AOC OPERATIONS INTELLIGENCE CHIEF Unavailable Unavailable TROVATO, M PIETRO AOC OPERATIONS INTELLIGENCE CHIEF Unavailable Unavailable TROVATO, M PIETRO AOC OPERATIONS INTELLIGENCE CHIEF Unavailable Unavailable SWARNGENA, S AMAR MD Unavailable Unavailable SWARNKAR, S AMAR MD Unavailable Unavailable SWARNKAR, S AMAR MD Unavailable Unavailable SWARNKAR, S AMAR MD Unavailable Unavailable SWARNKAR, S AMAR MD Unavailable Unavailable SWARNKAR, S AMAR MD Unavailable Unavailable SWARNKAR, S AMAR MD Unavailable Unavailable SWARNKAR, S AMAR MD Unavailable Unavailable SWARNKAR, S AMAR MD Unavailable Unavailable SWARNKAR, S AMAR MD Unavailable Unavailable JAWED, MOHAMMED MD Unavailable Unavailable JAWED, MOHAMMED MD Unavailable Unavailable JAWED, MOHAMMED MD Unavailable Unavailable JAWED, MOHAMMED MD Unavailable Unavailable JAWED, MOHAMMED MD Unavailable Unavailable JAWED, MOHAMMED MD Unavailable Unavailable JAWED, MOHAMMED MD Unavailable Unavailable JAWED, MOHAMMED MD Unavailable Unavailable JAWED, MOHAMMED MD Unavailable Unavailable JAWED, MOHAMMED MD Unavailable Unavailable JAWED, MOHAMMED MD Unavailable Unavailable JAWED, MOHAMMED MD Unavailable Unavailable JAWED, MOHAMMED MD Unavailable Unavailable JAWED, MOHAMMED MD Unavailable Unavailable JAWED, MOHAMMED MD Unavailable Unavailable JAWED, MOHAMMED MD Unavailable Unavailable JAWED, MOHAMMED MD Unavailable Unavailable JAWED, MOHAMMED MD Unavailable Unavailable JAWED, MOHAMMED MD Unavailable Unavailable Micheal Hassan Unavailable Re-disclosure Warning The records that you are about to access may contain information from federally-assisted alcohol or drug abuse programs. If such information is present, then the following federally mandated warning applies: This information has been disclosed to you from records protected by federal confidentiality rules (42 CFR part 2). The federal rules prohibit you from making any further disclosure of this information unless further disclosure is expressly permitted by the written consent of the person to whom it pertains or as otherwise permitted by 42 CFR part 2. A general authorization for the release of medical or other information is NOT sufficient for this purpose. The Federal rules restrict any use of the information to criminally investigate or prosecute any alcohol or drug abuse patient.The records that you are about to access may contain highly sensitive health information, the redisclosure of which is protected by Article 27-F of the [facility] Public Health law. If you continue you may have access to information: Regarding HIV / AIDS; Provided by facilities licensed or operated by the [facility] Office of Mental Health; or Provided by the [facility] Office for People With Developmental Disabilities. If such information is present, then the following [facility] mandated warning applies: This information has been disclosed to you from confidential records which are protected by state law. State law prohibits you from making any further disclosure of this information without the specific written consent of the person to whom it pertains, or as otherwise permitted by law. Any unauthorized further disclosure in violation of state law may result in a fine or nursing home sentence or both. A general authorization for the release of medical or other information is NOT sufficient authorization for further disc losure. Allergies and Adverse Reactions Type Description Substance Reaction Status Data Source(s ) Propensity to adverse reactions BEE POLLEN BEE POLLEN Anaphylaxis [facility] Propensity to adverse reactions LATEX Latex Hives [facility] Bee venom Bee venom Bee venom active [facility] ([facility]) Codeine Codeine Codeine active [facility] ([facility]) Gonzalez Gonzalez Gonzalez active [facility] ([facility]) Fluoxetine Fluoxetine Fluoxetine active [facility] ([facility]) Family History Family Member Name Family Member Gender Family Member Status Date o f Status Description Data Source(s) Unknown Male Problem [facility] ([facility]) Unknown Unknown Problem [facility] ([facility]) Unknown Male Problem MEDENT ([facility]) Encounters Encounter Providers Location Date Indications Data Source(s ) Outpatient Attender: Karis SORTO PA-C 05/19/2021 12: 00:00 AM [facility] Outpatient Attender: Karis SORTO PA-C 05/14/2021 12: 00:00 AM [facility] Outpatient Attender: Chris Arshader: Karis SORTO PA-C 03/09/2021 12:00:00 AM [facility] Outpatient Attender: Chris Arshader: Karis SORTO PA-C 03/05/2021 12:00:00 AM EDT [facility] Outpatient Attender: Chris Cartereferrer: Karis SORTO PA-C 03/05/2021 12:00:00 AM EDT [facility] Outpatient Attender: TONY Moore mitter: Chris Cartereferrer: Karis SORTO PA-C 03/01/2021 12:00:00 AM EDT - 03/01/2021 01:00:00 PM EDT Gastrostomy [facility] Gastrostomy status Patient discharged. Outpatient 02/26/2021 11:41:08 AM EDT - 021 12:53:07 PM EDT [facility] ([facility]) Emergency Attender: Peter Bloom MDConsultant: Jami Shine P 02/25/2021 10:28:00 AM EDT - 02/25/2021 11:47:00 AM EDT [facility] Patient discharged. [place] [address] [address] 02/17/2021 12:00:00 AM EDT eCW1 ([facility]) Price Giles, RPA-C: [address] [address], Ph. Attender: PRICE GILES RPA-C [facility] Medical 02/11/2021 12:00:00 AM EDT [facility] ([facility]) Outpatient Attender: Karis SORTO PA-C 12/30/2020 12: 00:00 AM EDT [facility] Outpatient Referrer: Karis SORTO PA-C 12/15/2020 12: 00:00 AM T [facility] Outpatient Attender: TONY Moore mitter: RODOLFO LAINEZReferrer: Karis SORTO PA-C 12/14/2020 12:00:00 AM EDT - 12/14/2020 09:28:00 AM EDT Gastrostomy [facility] Gastrostomy status Patient discharged. Outpatient Attender: ROSE FIGUEROA MDA ttender: TONY YORK MDAttender: Micheal Beniteztender: MICHEAL MIRAMONTESdmitter: ROSE FIGUEROA MDReferrer: Karis SORTO PA-C [id number] 12/08/2020 07:12:51 AM EDT - 12/08/2020 10:04:00 AM EDT Dysphagia, unspecified [facility] Dysphagia, unspecified Patient discharged. Outpatient Attender: PIETRO MERRILL NP 12/04/2020 12:00:0 0 AM EDT [facility] Outpatient Attender: Joseph MORRIS 12/03/19 02:07:44 PM EDT - 12/02/2020 02:56:52 PM EDT [facility] ([facility] ) Outpatient Attender: Karis SORTO PA-C 11/23/2020 12: 00:00 AM EDT [facility] (WND NP120) New Patient 120 Min [address] [place] [address] 11/18/2020 12:00:00 AM EDT [facility] ([facility]) Outpatient Attender: Karis SORTO PA-C [id number] 11/17/2020 12:00:00 AM EDT - 11/17/2020 03:58:53 PM EDT [facility] Outpatient Attender: Karis SORTO PA-C 11/13/2020 12: 00:00 AM EDT [facility] Unknown [address] [address] 11/09/2020 12:00:00 AM EDT [facility] ([facility]) Outpatient Attender: PIETRO MERRILL NP 10/29/2020 12:00:0 0 AM EDT [facility] Claribel Baker MD: [address] [place] [address], Ph. Attender: Claribel Baker [facility] Medical 10/28/2020 12:00:00 AM EDT [facility] ([facility]) Claribel Baker MD: [address] [place] [address], Ph. Attender: Claribel Baker [facility] Medical 10/28/2020 12:00:00 AM EDT [facility] ([facility]) Unknown [address] [address] 10/27/2020 12:00:00 AM EDT eCW1 ([facility]) Alissa Garnett PA-C: [address], [place] [address], Ph. Attender: Alissa MORRIS [facility] Medical 08/18/2020 12:00:00 AM EDT [facility] ([facility]) Alissa Garnett PA-C: [address], [place] [address], Ph. Attender: Alissa MORRIS [facility] Medical 08/18/2020 12:00:00 AM EDT [facility] ([facility]) Alissa Garnett PA-C: [address], [place] [address], Ph. Attender: Alissa MORRIS [facility] Medical 08/18/2020 12:00:00 AM EDT [facility] ([facility]) 08/11/2020 01:00:00 AM EDT - 021 03:19:23 PM EDT [facility] ([facility]) Outpatient Attender: Alejandra MORRIS 09/2020 01:41:05 PM EST - 07/31/2020 02:14:07 PM EST [facility] ([facility]) Alissa Garnett PA-C: [address], [place] [address], Ph. Attender: Alissa MORRIS [facility] Medical 07/14/2020 12:00:00 AM EST [facility] ([facility]) Alissa Garnett PA-C: [address], [place] [address], Ph. Attender: Alissa MORRIS [facility] Medical 07/14/2020 12:00:00 AM EST [facility] ([facility]) Alissa Garnett PA-C: [address], [place] [address], Ph. Attender: Alissa MORRIS [facility] Medical 07/14/2020 12:00:00 AM EST [facility] ([facility]) Alissa Garnett PA-C: [address], [place] [address], Ph. Attender: Alissa MORRIS [facility] Medical 07/14/2020 12:00:00 AM EST [facility] ([facility]) Alissa Garnett PA-C: [address], [place] [address], Ph. Attender: Alissa MORRIS [facility] Medical 07/14/2020 12:00:00 AM EST [facility] ([facility]) Ray Pineda MD: [address], [place] [address], Ph. Attender: Ray Pineda MD [facility] Medical 07/01/2020 12:00:00 AM EST [facility] ([facility]) Ray Pineda MD: [address], [place] [address], Ph. Attender: Ray Pineda MD [facility] Medical 07/01/2020 12:00:00 AM EST [facility] ([facility]) Ray Pineda MD: [address], [place] [address], Ph. Attender: Ray Pineda MD [facility] Medical 07/01/2020 12:00:00 AM EST [facility] ([facility]) Ray Pineda MD: [address], [place] [address], Ph. Attender: Ray Pineda MD [facility] 07/01/2020 12:00:00 AM EST [facility] ([facility]) Ray Pineda MD: [address], [place] [address], Ph. Attender: Ray Pineda MD [facility] Medical 07/01/2020 12:00:00 AM EST [facility] ([facility]) Outpatient Attender: FELICE YI MDConsultant: Jami johnson [employer] 01/23/2020 02:08:00 PM EDT - 01/23/2020 02:08:00 PM EDT [facility] Outpatient Attender: OMAYRA carpenterr: Refugio Virk MDConsultant: Jami Tenorio [employer] 01/14/2020 02:42:00 PM EDT - 01/14/2020 02:42: 00 PM EDT [facility] Outpatient Attender: OMAYRA carpenterr: Refugio Virk MDConsultant: Jami Tenorio [employer] 01/14/2020 02:09:00 PM EDT - 01/14/2020 02:09: 00 PM EDT [facility] Medications Medication Brand Name Start Date Product Form Dose Route Admi nistrative Instructions Pharmacy Instructions Status Indications Reaction Description Data Source(s) sodium chloride (preservative free) 0.9 % flush 3 mL 12/08/2020 09:00:00 AM EDT 3 mL Intravenous active [Ord er 1 Start] Name: Peripheral IV Signed Summary: Routine, CONTINUOUS, Starting on Mon12/08/20 at 0701, Until Mon12/09/20, For 1 day
Upon admission through end of procedure., Pre-op [Order 1 End] [Order 2 Start] Name: sodium chloride (preservative free) 0.9 % flush 3 mL Signed Summary: 3 mL, Intravenous, Every 8 hours Standard (3 times per day), First dose on Mon12/08/20 at 0900, For 30 days, Pre-op
Saline Lock. Flush Q8H and after each use to Saline Lock.
[Order 2 End] [Order 3 Start] Name: sodium chloride (preservative free) 0.9 % flush 3 mL Signed Summary: 3 mL, Intravenous, PRN, Line Care, Starting on Mon12/08/20 at 0700, For 30 days, Pre-op
Saline Lock. Flush Q8H and after each use to Saline Lock.
[Order 3 End] [Order 4 Start] Name: Saline Lock order Signed Summary: Routine, ONCE, On Mon12/08/20 at 0701, For 1 occurrence
Pre-op [Order 4 End] [facility] Medication administered onsite sodium chloride 0.9 % bag 3-20 mL [id number] 12/08/2020 07:00:46 AM EDT mL Intravenous active 3-20 mL, Intr avenous, at 1-999 mL/hr, PRN, For Medication Administration and Line Clearance, Starting on Mon12/08/20 at 0700, For 30 days, Pre-op
Flush line with sufficient amount of fluid needed based on security checker recommendation for specific line size. Rate should be run at the same rate as medication in the line being flushed.
[facility] Medication administered onsite Acetaminophen 160 MG/5ML Acetaminophen 08/11/2020 01:00:00 AM EDT completed [facility] ([facility]) Ensure Enlive Ensure Enlive 08/11/2020 01:00:00 AM EDT completed [facility] ([facility] ) Folvite Folvite 08/11/2020 01:00:00 AM EDT 1.0 {ml} com pleted [facility] ([facility]) Omeprazole+Syrspend SF Liss 2 MG/ML Omeprazole+Syrspend SF A lka 08/11/2020 01:00:00 AM EDT 20.0 {ml} completed [facility] ([facility]) Thiamine HCl 100 MG/ML Thiamine HCl 08/11/2020 01:00:00 AM EDT 1 .0 {ml} completed [facility] ([facility]) levETIRAcetam 100 MG/ML levETIRAcetam 08/11/2020 01:00:00 AM EDT 10.0 {ml} completed [facility] ([facility]) Albuterol Sulfate HFA 108 (90 Base) MCG/ACT Albuterol Sulfat e HFA 08/11/2020 01:00:00 AM EDT completed [facility] ([facility]) Albuterol Sulfate 0.63 MG/3ML Albuterol Sulfate 08/11/2020 01:00:00 A M EDT completed [facility] ( [facility]) Pepcid Pepcid 08/11/2020 01:00:00 AM EDT 5.0 {ml} compl eted [facility] ([facility]) Flonase 50 MCG/ACT Flonase 08/11/2020 01:00:00 AM EDT completed [facility] ([facility]) Pseudoephedrine Hydrochloride 30 MG Oral Tablet [Sudogest] Sudogest 30 mg tablet TAKE ONE TABLET BY MOUTH FOUR TIMES DAILY NEEDED FOR 10 DAYS Sudogest 30 mg tablet TAKE ONE TABLET BY MOUTH FOUR TIMES DAILY NEEDED FOR 10 DAYS completed pseudoephedrine hydrochlo ride 30 MG Oral Tablet [Sudogest] [facility] ([facility]) Azithromycin 250 MG Oral Tablet azithrom ycin 250 mg tablet TAKE 2 TABLETS BY MOUTH ON DAY 1, THEN TAKE 1 TABLET DAILY ON DAYS 2-5 azithromycin 250 mg tablet TAKE 2 TABLETS BY MOUTH ON DAY 1, THEN TAKE 1 TABLET DAILY ON DAYS 2-5 completed azithromycin 250 MG Oral Tablet [facility] ([facility]) Metronidazole 250 MG Oral Tablet metroni dazole 250 mg tablet TAKE ONE TABLET BY MOUTH FOUR TIMES DAILY AFTER MEALS AND NIGHTLY FOR 14 DAYS. AVOID ALCOHOL metronidazole 250 mg tablet TAKE ONE TABLET BY MOUTH FOUR TIMES DAILY AFTER MEALS AND NIGHTLY FOR 14 DAYS. AVOID ALCOHOL completed metronidazole 250 MG Oral Tablet [facility] ([facility] er) 12 HR dextromethorphan polistirex 6 MG/M L Extended Release Suspension Cough DM ER 30 mg/5 mL oral suspension,extended release TAKE FIVE MILLILITERS EVERY 12 HOURS FOR 10 DAYS Cough DM ER 30 mg/5 mL oral suspension,e xtended release TAKE FIVE MILLILITERS EVERY 12 HOURS FOR 10 DAYS completed 12 HR dextromethorphan polistirex 6 MG/ML Extended Release Suspension [facility] ([facility]) Prazosin 1 MG Oral Capsule prazosin 1 mg capsule TAKE ONE CAPSULE BY MOUTH AT BEDTIME prazosin 1 mg capsule TAKE ONE CAPSULE BY MOUTH AT BEDTIME completed prazosin 1 MG Oral Capsule [facility] ([facility]) Azithromycin 250 MG Oral Tablet azithrom ycin 250 mg tablet TAKE 2 TABLETS BY MOUTH ON DAY 1, THEN TAKE 1 TABLET DAILY ON DAYS 2-5 azithromycin 250 mg tablet TAKE 2 TABLETS BY MOUTH ON DAY 1, THEN TAKE 1 TABLET DAILY ON DAYS 2-5 completed azithromycin 250 MG Oral Tablet [place] ([facility]) Doxycycline Monohydrate 100 MG Oral Caps ule doxycycline monohydrate 100 mg capsule TAKE ONE CAPSULE BY MOUTH TWICE DAILY FOR 14 DAYS doxycycline monohydrate 100 mg capsule TAKE ONE CAPSULE BY MOUTH TWICE DAILY FOR 14 DAYS completed doxycycline mo nohydrate 100 MG Oral Capsule [place] ([facility]) cefdinir 300 MG Oral Capsule cefdinir 30 0 mg capsule TAKE TWO CAPSULES BY MOUTH ONCE DAILY FOR 10 DAYS may open AND sprinkle in feeding tube cefdinir 300 mg capsule TAKE TWO CAPSULES BY MOUTH ONCE DAILY FOR 10 DAYS may open AND sprinkle in feeding tube completed cefdin ir 300 MG Oral Capsule [facility] ([facility]) cefdinir 300 MG Oral Capsule cefdinir 30 0 mg capsule TAKE TWO CAPSULES BY MOUTH ONCE DAILY FOR 10 DAYS may open AND sprinkle in feeding tube cefdinir 300 mg capsule TAKE TWO CAPSULES BY MOUTH ONCE DAILY FOR 10 DAYS may open AND sprinkle in feeding tube completed cefdin ir 300 MG Oral Capsule [place] ([facility]) 12 HR dextromethorphan polistirex 6 MG/M L Extended Release Suspension Cough DM ER 30 mg/5 mL oral suspension,extended release TAKE FIVE MILLILITERS EVERY 12 HOURS FOR 10 DAYS Cough DM ER 30 mg/5 mL oral suspension,e xtended release TAKE FIVE MILLILITERS EVERY 12 HOURS FOR 10 DAYS completed 12 HR dextromethorphan polistirex 6 MG/ML Extended Release Suspension [place] ([facility]) Pseudoephedrine Hydrochloride 30 MG Oral Tablet [Sudogest] Sudogest 30 mg tablet TAKE ONE TABLET BY MOUTH FOUR TIMES DAILY NEEDED FOR 10 DAYS Sudogest 30 mg tablet TAKE ONE TABLET BY MOUTH FOUR TIMES DAILY NEEDED FOR 10 DAYS completed pseudoephedrine hydrochlo ride 30 MG Oral Tablet [Sudogest] [facility]) 12 HR dextromethorphan polistirex 6 MG/M L Extended Release Suspension Cough DM ER 30 mg/5 mL oral suspension,extended release TAKE FIVE MILLILITERS EVERY 12 HOURS FOR 10 DAYS Cough DM ER 30 mg/5 mL oral suspension,e xtended release TAKE FIVE MILLILITERS EVERY 12 HOURS FOR 10 DAYS completed 12 HR dextromethorphan polistirex 6 MG/ML Extended Release Suspension [facility]) Pseudoephedrine Hydrochloride 30 MG Oral Tablet [Sudogest] Sudogest 30 mg tablet TAKE ONE TABLET BY MOUTH FOUR TIMES DAILY NEEDED FOR 10 DAYS Sudogest 30 mg tablet TAKE ONE TABLET BY MOUTH FOUR TIMES DAILY NEEDED FOR 10 DAYS completed pseudoephedrine hydrochlo ride 30 MG Oral Tablet [Sudogest] [facility]) Doxycycline Monohydrate 100 MG Oral Caps ule doxycycline monohydrate 100 mg capsule TAKE ONE CAPSULE BY MOUTH TWICE DAILY FOR 14 DAYS doxycycline monohydrate 100 mg capsule TAKE ONE CAPSULE BY MOUTH TWICE DAILY FOR 14 DAYS completed doxycycline mo nohydrate 100 MG Oral Capsule [facility]) Cephalexin 50 MG/ML Oral Suspension cephalexin 250 mg/ 5 mL oral suspension cephalexin 250 mg/5 mL oral suspension completed cephalexin 50 MG/ML Oral Suspension [facility] er) Pseudoephedrine Hydrochloride 30 MG Oral Tablet [Sudogest] Sudogest 30 mg tablet TAKE ONE TABLET BY MOUTH FOUR TIMES DAILY NEEDED FOR 10 DAYS Sudogest 30 mg tablet TAKE ONE TABLET BY MOUTH FOUR TIMES DAILY NEEDED FOR 10 DAYS completed pseudoephedrine hydrochlo ride 30 MG Oral Tablet [Sudogest] [facility]) Azithromycin 250 MG Oral Tablet azithrom ycin 250 mg tablet TAKE 2 TABLETS BY MOUTH ON DAY 1, THEN TAKE 1 TABLET DAILY ON DAYS 2-5 azithromycin 250 mg tablet TAKE 2 TABLETS BY MOUTH ON DAY 1, THEN TAKE 1 TABLET DAILY ON DAYS 2-5 completed azithromycin 250 MG Oral Tablet [place] ([facility]) cefdinir 300 MG Oral Capsule cefdinir 30 0 mg capsule TAKE TWO CAPSULES BY MOUTH ONCE DAILY FOR 10 DAYS may open AND sprinkle in feeding tube cefdinir 300 mg capsule TAKE TWO CAPSULES BY MOUTH ONCE DAILY FOR 10 DAYS may open AND sprinkle in feeding tube completed cefdin ir 300 MG Oral Capsule [place] ([facility]) Doxycycline Monohydrate 100 MG Oral Caps ule doxycycline monohydrate 100 mg capsule TAKE ONE CAPSULE BY MOUTH TWICE DAILY FOR 14 DAYS doxycycline monohydrate 100 mg capsule TAKE ONE CAPSULE BY MOUTH TWICE DAILY FOR 14 DAYS completed doxycycline mo nohydrate 100 MG Oral Capsule [place] ([facility]) Pseudoephedrine Hydrochloride 30 MG Oral Tablet [Sudogest] Sudogest 30 mg tablet TAKE ONE TABLET BY MOUTH FOUR TIMES DAILY NEEDED FOR 10 DAYS Sudogest 30 mg tablet TAKE ONE TABLET BY MOUTH FOUR TIMES DAILY NEEDED FOR 10 DAYS completed pseudoephedrine hydrochlo ride 30 MG Oral Tablet [Sudogest] [place] ([facility]) Amoxicillin 80 MG/ML Oral Suspension amoxicillin 400 m g/5 mL oral suspension amoxicillin 400 mg/5 mL oral suspension completed amoxicillin 80 MG/ML Oral Suspension [place] ([facility] er) Metronidazole 250 MG Oral Tablet metroni dazole 250 mg tablet TAKE ONE TABLET BY MOUTH FOUR TIMES DAILY AFTER MEALS AND NIGHTLY FOR 14 DAYS. AVOID ALCOHOL metronidazole 250 mg tablet TAKE ONE TABLET BY MOUTH FOUR TIMES DAILY AFTER MEALS AND NIGHTLY FOR 14 DAYS. AVOID ALCOHOL completed metronidazole 250 MG Oral Tablet [place] ([facility]) Amoxicillin 80 MG/ML Oral Suspension amoxicillin 400 m g/5 mL oral suspension amoxicillin 400 mg/5 mL oral suspension completed amoxicillin 80 MG/ML Oral Suspension [place] ([facility] er) 12 HR dextromethorphan polistirex 6 MG/M L Extended Release Suspension Cough DM ER 30 mg/5 mL oral suspension,extended release TAKE FIVE MILLILITERS EVERY 12 HOURS FOR 10 DAYS Cough DM ER 30 mg/5 mL oral suspension,e xtended release TAKE FIVE MILLILITERS EVERY 12 HOURS FOR 10 DAYS completed 12 HR dextromethorphan polistirex 6 MG/ML Extended Release Suspension [facility] ([facility]) 12 HR dextromethorphan polistirex 6 MG/M L Extended Release Suspension Cough DM ER 30 mg/5 mL oral suspension,extended release TAKE FIVE MILLILITERS EVERY 12 HOURS FOR 10 DAYS Cough DM ER 30 mg/5 mL oral suspension,e xtended release TAKE FIVE MILLILITERS EVERY 12 HOURS FOR 10 DAYS completed 12 HR dextromethorphan polistirex 6 MG/ML Extended Release Suspension [place] ([facility]) Doxycycline Monohydrate 100 MG Oral Caps ule doxycycline monohydrate 100 mg capsule TAKE ONE CAPSULE BY MOUTH TWICE DAILY FOR 14 DAYS doxycycline monohydrate 100 mg capsule TAKE ONE CAPSULE BY MOUTH TWICE DAILY FOR 14 DAYS completed doxycycline mo nohydrate 100 MG Oral Capsule [place] ([facility]) cefdinir 300 MG Oral Capsule cefdinir 30 0 mg capsule TAKE TWO CAPSULES BY MOUTH ONCE DAILY FOR 10 DAYS may open AND sprinkle in feeding tube cefdinir 300 mg capsule TAKE TWO CAPSULES BY MOUTH ONCE DAILY FOR 10 DAYS may open AND sprinkle in feeding tube completed cefdin ir 300 MG Oral Capsule [place] ([facility]) Azithromycin 250 MG Oral Tablet azithrom ycin 250 mg tablet TAKE 2 TABLETS BY MOUTH ON DAY 1, THEN TAKE 1 TABLET DAILY ON DAYS 2-5 azithromycin 250 mg tablet TAKE 2 TABLETS BY MOUTH ON DAY 1, THEN TAKE 1 TABLET DAILY ON DAYS 2-5 completed azithromycin 250 MG Oral Tablet [facility]) Metronidazole 250 MG Oral Tablet metroni dazole 250 mg tablet TAKE ONE TABLET BY MOUTH FOUR TIMES DAILY AFTER MEALS AND NIGHTLY FOR 14 DAYS. AVOID ALCOHOL metronidazole 250 mg tablet TAKE ONE TABLET BY MOUTH FOUR TIMES DAILY AFTER MEALS AND NIGHTLY FOR 14 DAYS. AVOID ALCOHOL completed metronidazole 250 MG Oral Tablet [facility]) cefdinir 300 MG Oral Capsule cefdinir 30 0 mg capsule TAKE TWO CAPSULES BY MOUTH ONCE DAILY FOR 10 DAYS may open AND sprinkle in feeding tube cefdinir 300 mg capsule TAKE TWO CAPSULES BY MOUTH ONCE DAILY FOR 10 DAYS may open AND sprinkle in feeding tube completed cefdin ir 300 MG Oral Capsule [facility]) Azithromycin 250 MG Oral Tablet azithrom ycin 250 mg tablet TAKE 2 TABLETS BY MOUTH ON DAY 1, THEN TAKE 1 TABLET DAILY ON DAYS 2-5 azithromycin 250 mg tablet TAKE 2 TABLETS BY MOUTH ON DAY 1, THEN TAKE 1 TABLET DAILY ON DAYS 2-5 completed azithromycin 250 MG Oral Tablet [facility] ([facility]) Metronidazole 250 MG Oral Tablet metroni dazole 250 mg tablet TAKE ONE TABLET BY MOUTH FOUR TIMES DAILY AFTER MEALS AND NIGHTLY FOR 14 DAYS. AVOID ALCOHOL metronidazole 250 mg tablet TAKE ONE TABLET BY MOUTH FOUR TIMES DAILY AFTER MEALS AND NIGHTLY FOR 14 DAYS. AVOID ALCOHOL completed metronidazole 250 MG Oral Tablet [facility] ([facility]) Prazosin 1 MG Oral Capsule prazosin 1 mg capsule TAKE ONE CAPSULE BY MOUTH AT BEDTIME prazosin 1 mg capsule TAKE ONE CAPSULE BY MOUTH AT BEDTIME completed prazosin 1 MG Oral Capsule [facility] A ([facility]) Metronidazole 250 MG Oral Tablet metroni dazole 250 mg tablet TAKE ONE TABLET BY MOUTH FOUR TIMES DAILY AFTER MEALS AND NIGHTLY FOR 14 DAYS. AVOID ALCOHOL metronidazole 250 mg tablet TAKE ONE TABLET BY MOUTH FOUR TIMES DAILY AFTER MEALS AND NIGHTLY FOR 14 DAYS. AVOID ALCOHOL completed metronidazole 250 MG Oral Tablet [place] ([facility]) Doxycycline Monohydrate 100 MG Oral Caps ule doxycycline monohydrate 100 mg capsule TAKE ONE CAPSULE BY MOUTH TWICE DAILY FOR 14 DAYS doxycycline monohydrate 100 mg capsule TAKE ONE CAPSULE BY MOUTH TWICE DAILY FOR 14 DAYS completed doxycycline mo nohydrate 100 MG Oral Capsule [place] ([facility]) Insurance Providers Payer name Policy type / Coverage type Policy ID Covered democrat ID Covered democrat's relationship to sharif Policy Sharif Plan Information Medicaid [place] Medigap Part B [id number] Family Dependent [id number] Medicaid S [id number] S [id number] Managed Care - Community Plan [facility] P [id number] S [id number] Managed Care - Community Plan [facility] P [id number] S [id number] Medicaid S [id number] S [id number] Medicaid P [id number] S [id number] [facility] COMMUNITY PLAN [facility] [id number] SP [id number] [facility] COMMUNITY PLAN [facility] [id number] SP [id number] [facility] COMMUNITY PLAN [facility] [id number] SP [id number] [facility] COMMUNITY PLAN MCDO [id number] SP [id number] [facility] I [id number] Self [id number] Medicaid S [id number] S [id number] Managed Care - [facility] Community Plan P [id number] S [id number] [facility] [employer] [id number] Self [id number] [facility] Commercial Insurance Co. [id number] Self [id number] ANSI-Medicaid [id number] ANSI-Medicaid [id number] ANSI-Medicaid [id number] [facility] Community Plan Commercial [id number] Self [id number] [facility] Community Plan Commercial [id number] Self 1 [id number] [facility] Communty Plan Medicaid [id number] Self [id number] Formerly [facility] Community Plan Commercial [id number] Self 1 [id number] [facility] Communty Plan Medicaid [id number] Self [id number] Formerly [facility] Community Plan Commercial [id number] Self 1 [id number] [facility] Communty Plan Medicaid [id number] Self [id number] [facility] Health Maintenance Organization (O) [id number] Self [id number] [facility] Maintenance [facility] ([facility]) [id number] [id number] Self [id number] [facility] Maintenance [facility] ([facility]) [id number] Self [id number] Formerly [facility] Community Plan Commercial [id number] Self 1 [id number] [facility] Communty Plan Medicaid [id number] Self [id number] Formerly [facility] Community Plan Commercial [id number] Self 1 [id number] [facility] Communty Plan Medicaid [id number] Self [id number] [facility] Communty Plan Medicaid [id number] Self [id number] Formerly [facility] Community Plan Commercial [id number] Self 1 [id number] [facility] Communty Plan Medicaid [id number] Self [id number] Formerly [facility] Community Plan Commercial [id number] Self 1 [id number] [facility] AMERICHOICE XIX -O [id number] 18 [id number] [facility] Communty Plan Medicaid [id number] Self [id number] Formerly [facility] Community Plan Commercial [id number] Self 1 [id number] [facility]) O [id number] S [id number] UN COMMUNITY PLAN [facility] [id number] SP [id number] [facility] Marilee/MCR Health Maintenance Organization (HMO) [id number] Self [id number] [facility] 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 [id number] SP [id number] MEDICAID [id number] SP [id number] MEDICAID -O/P [id number] 18 [id number] [facility] COMMUNITY PLAN [facility] [id number] SP [id number] [facility]) P [id number] S [id number] Self Pay O na S na Self Pay P UNAVAILABLE S UNAVAILA BLE Managed Care - Community Plan [facility] P [id number] S [id number] UN COMMUNITY PLAN MCDO [id number] SP [id number] [place] [facility] NOT IN EFFECT SP NO T IN EFFECT [facility] COMMUNITY PLAN MCDO [id number] SP [id number] [facility] COMMUNITY PLAN XIX [id number] 18 [id number] [facility] COMMUNITY PLAN XIX [id number] 18 [id number] [facility] COMMUNITY PLAN MCDO [id number] SP [id number] [facility] COMMUNTY PLAN [id number] 18 [id number] [facility] COMMUNITY PL[place] [id number] 18 [id number] [facility]) O [id number] S [id number] [facility] [id number] SP [id number] [facility] [id number] SP [id number] [facility] [id number] SP [id number] ANSI-Medicaid [id number] ANSI-Medicaid [id number] ANSI-Medicaid [id number] ANSI-Medicaid [id number] ANSI-Medicaid [id number] Problems, Conditions, and Diagnoses Code Display Name Description Problem Type Effective Dates Data Source(s) Z16994 Latex allergy status Latex allergy status Diagnosis 02/25/2021 10:28:00 AM [facility] Z8673 Personal history of transien t ischemic attack (TIA), 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 (TIA), and cerebral infarction without residual deficits Diagnosis 02/25/2021 10:28:00 AM [facility] F91863 Nicotine dependence, cigarettes, uncompl icated Nicotine dependence, cigarettes, uncomplicated Diagnosis 02/25/2021 10:28:00 AM [facility] V34119 Unspecified asthma, uncomplicated Unspecified as thma, uncomplicated Diagnosis 02/25/2021 10:28:00 AM [facility] I10 Essential (primary) hypertension Essential (primary) h ypertension Diagnosis 02/25/2021 10:28:00 AM [facility] R1012 Left upper quadrant pain Left upper quadrant pain Diag nosis 02/25/2021 10:28:00 AM [facility] K9429 Other complications of gastrostomy Other complic ations of gastrostomy Diagnosis 02/25/2021 10:28:00 AM [facility] R13.10 Dysphagia, unspecified Dysphagia, unspecified Diagnosi s 12/08/2020 07:00:47 AM EDT [facility] Z93.1 Gastrostomy status Gastrostomy status Diagnosis 12:18:40 PM EDT [facility] Z931 Gastrostomy status Gastrostomy status Diagnosis 0 02:08:00 PM EDT [facility] Z4659 Encounter for fitting and ad justment of other gastrointestinal appliance and device Encounter for fitting and adjustment of other gastrointestinal appliance and device Diagnosis 01/23/2020 02:08:00 PM EDT [facility] K224 Dyskinesia of esophagus Dyskinesia of esophagus Diagno sis 01/23/2020 02:08:00 PM EDT [facility] [id number] Tube feeding diet Tube Feeding Diet Problem 08/17/2020 12:00:00 AM EDT [place] ([facility]) 90889242 Tube feeding diet Tube Feeding Diet Problem 08/17/2020 12:00:00 AM EDT [place] ([facility]) 36049037 Tube feeding diet Tube Feeding Diet Problem 08/17/2020 12:00:00 AM EDT [place] ([facility]) 71207946 Tube feeding diet Tube Feeding Diet Problem 08/17/2020 12:00:00 AM EDT [place] ([facility]) K29.90 Gastroduodenitis, unspecified, without b leeding Gastroduodenitis, unspecified, without bleeding Problem 08/11/2020 01:00:00 AM EDT [facility] ([facility]) E46 Unspecified protein-calorie malnutrition Unspecified protein-calorie malnutrition Problem 08/11/2020 01:00:00 AM EDT [facility] ([facility]) R13.10 Dysphagia, unspecified Dysphagia, unspecified Problem 08/11/2020 01:00:00 AM EDT [facility] ([facility] ) J45.909 Unspecified asthma, uncomplicated Unspecified as thma, uncomplicated Problem 08/11/2020 01:00:00 AM EDT [facility] ([facility]) G40.909 Epilepsy, unspecified, not intractable, without status epilepticus Epilepsy, unspecified, not intractable, without status epilepticus Problem 08/11/2020 01:00:00 AM EDT [facility] ([facility] ) I10 Essential (primary) hypertension Essential (primary) h ypertension Problem 08/11/2020 01:00:00 AM EDT [facility] ([facility] ) F31.9 Bipolar disorder, unspecified Bipolar disorder, unspec ified Problem 08/11/2020 01:00:00 AM EDT [facility] ([facility] ) F10.10 Alcohol abuse, uncomplicated Alcohol abuse, uncomplica augusto Problem 08/11/2020 01:00:00 AM EDT [facility] ([facility] ) F14.10 Cocaine abuse, uncomplicated Cocaine abuse, uncomplica augusto Problem 08/11/2020 01:00:00 AM EDT [facility] ([facility] ) F12.10 Cannabis abuse, uncomplicated Cannabis abuse, uncompli cated Problem 08/11/2020 01:00:00 AM EDT [facility] ([facility] ) Z43.1 Encounter for attention to gastrostomy E ncounter for attention to gastrostomy Problem 08/11/2020 01:00:00 AM EDT [facility] ([facility]) Z91.81 History of falling History of falling Problem 01:00:00 AM EDT [facility] ([facility]) K20.80 Other esophagitis without bleeding Other esophag itis without bleeding Problem 08/11/2020 01:00:00 AM EDT [facility] ([facility]) Z43.1 Encounter for attention to gastrostomy E ncounter for attention to gastrostomy Problem 08/05/2020 12:00:00 AM EST [facility] ([facility]) [id number] Fitting procedure Fitting Procedure Problem 03/12 06:40:32 PM EDT [place] ([facility]) 850299824 Asthma Asthma Problem 03/12/2020 06:40:32 PM ED T [place] ([facility]) 09404554 Hypertensive disorder Hypertensive Disorder Problem 03/12/2020 06:40:32 PM EDT [place] ([facility]) 26370598 Depressive disorder Depressive Disorder Problem 1 06:40:32 PM EDT [place] ([facility]) 359710417 Fitting procedure Fitting Procedure Problem 03/12 06:40:32 PM EDT [place] ([facility]) 521041818 Asthma Asthma Problem 03/12/2020 06:40:32 PM ED T [place] ([facility]) 61838337 Hypertensive disorder Hypertensive Disorder Problem 03/12/2020 06:40:32 PM EDT [place] ([facility]) 58342489 Depressive disorder Depressive Disorder Problem 1 06:40:32 PM EDT [place] ([facility]) 315242558 Fitting procedure Fitting Procedure Problem 03/12 06:40:32 PM EDT [place] ([facility]) 322051903 Asthma Asthma Problem 03/12/2020 06:40:32 PM ED T [place] ([facility]) 97164127 Hypertensive disorder Hypertensive Disorder Problem 03/12/2020 06:40:32 PM EDT [place] ([facility]) 14494091 Depressive disorder Depressive Disorder Problem 1 06:40:32 PM EDT [place] ([facility]) 297964954 Fitting procedure Fitting Procedure Problem 03/12 06:40:32 PM EDT [place] ([facility]) 957601206 Asthma Asthma Problem 03/12/2020 06:40:32 PM ED T [place] ([facility]) 94901136 Hypertensive disorder Hypertensive Disorder Problem 03/12/2020 06:40:32 PM EDT [place] ([facility]) 42246091 Depressive disorder Depressive Disorder Problem 1 06:40:32 PM EDT [place] ([facility]) 060524971 Fitting procedure Fitting Procedure Problem 03/12 06:40:32 PM EDT [place] ([facility]) 342172367 Asthma Asthma Problem 03/12/2020 06:40:32 PM ED T [place] ([facility]) 35375272 Hypertensive disorder Hypertensive Disorder Problem 03/12/2020 06:40:32 PM EDT [place] ([facility]) 39240387 Depressive disorder Depressive Disorder Problem 1 06:40:32 PM EDT [place] ([facility]) 040824223 Finding by site Finding by Site Problem 0 12:00:00 AM EDT - 07/14/2020 12:00:00 AM EST [place] ([facility]) 822684872 Finding by site Finding by Site Problem 0 12:00:00 AM EDT - 07/14/2020 12:00:00 AM EST [place] ([facility]) 028589898 Finding by site Finding by Site Problem 0 12:00:00 AM EDT - 07/14/2020 12:00:00 AM EST [place] ([facility]) 883795613 Finding by site Finding by Site Problem 0 12:00:00 AM EDT - 07/14/2020 12:00:00 AM EST [place] ([facility]) 543176595 Finding by site Finding by Site Problem 0 12:00:00 AM EDT - 07/14/2020 12:00:00 AM EST [place] ([facility]) 402389300 Finding by site Finding by Site Problem 0 12:00:00 AM EDT - 07/14/2020 12:00:00 AM EST [place] ([facility]) 241257566 Finding by site Finding by Site Problem 0 12:00:00 AM EDT - 07/14/2020 12:00:00 AM EST [place] ([facility]) 425990293 Finding by site Finding by Site Problem 0 12:00:00 AM EDT - 07/14/2020 12:00:00 AM EST [place] ([facility]) 177906996 Finding by site Finding by Site Problem 0 12:00:00 AM EDT - 07/14/2020 12:00:00 AM EST [place] ([facility]) 750135048 Finding by site Finding by Site Problem 0 12:00:00 AM EDT - 07/14/2020 12:00:00 AM EST [place] ([facility]) 89166665 Screening for cancer Screening for Cancer Problem 07/24/2013 12:00:00 AM EST - 07/14/2020 12:00:00 AM EST [place] ([facility]) 42872906 Screening for cancer Screening for Cancer Problem 07/24/2013 12:00:00 AM EST - 07/14/2020 12:00:00 AM EST [place] ([facility]) 32045028 Screening for cancer Screening for Cancer Problem 07/24/2013 12:00:00 AM EST - 07/14/2020 12:00:00 AM EST [place] ([facility]) 31127333 Screening for cancer Screening for Cancer Problem 07/24/2013 12:00:00 AM EST - 07/14/2020 12:00:00 AM EST [place] ([facility]) 48437479 Screening for cancer Screening for Cancer Problem 07/24/2013 12:00:00 AM EST - 07/14/2020 12:00:00 AM EST [place] ([facility]) 42226589 Sinusitis Sinusitis Problem 06/24/2013 12:0 0:00 AM EST - 07/14/2020 12:00:00 AM EST [place] ([facility]) 07950954 Sinusitis Sinusitis Problem 06/24/2013 12:0 0:00 AM EST - 07/14/2020 12:00:00 AM EST [place] ([facility]) 95589754 Sinusitis Sinusitis Problem 06/24/2013 12:0 0:00 AM EST - 07/14/2020 12:00:00 AM EST [place] ([facility]) 09976960 Sinusitis Sinusitis Problem 06/24/2013 12:0 0:00 AM EST - 07/14/2020 12:00:00 AM EST [place] ([facility]) 97388702 Sinusitis Sinusitis Problem 06/24/2013 12:0 0:00 AM EST - 07/14/2020 12:00:00 AM EST [place] ([facility]) 446965902 Evaluation procedure Evaluation Procedure Problem 04/24/2013 12:00:00 AM EST - 07/14/2020 12:00:00 AM EST [place] ([facility]) 001152091 SNOMED CT Concept SNOMED CT Concept Problem 04/24 12:00:00 AM EST - 07/14/2020 12:00:00 AM EST [place] ([facility]) 074019303 Evaluation procedure Evaluation Procedure Problem 04/24/2013 12:00:00 AM EST - 07/14/2020 12:00:00 AM EST [place] ([facility]) 978160768 SNOMED CT Concept SNOMED CT Concept Problem 04/24 12:00:00 AM EST - 07/14/2020 12:00:00 AM EST [place] ([facility]) 334575865 Evaluation procedure Evaluation Procedure Problem 04/24/2013 12:00:00 AM EST - 07/14/2020 12:00:00 AM EST [place] ([facility]) 039678518 SNOMED CT Concept SNOMED CT Concept Problem 04/24 12:00:00 AM EST - 07/14/2020 12:00:00 AM EST [place] ([facility]) 695747135 Evaluation procedure Evaluation Procedure Problem 04/24/2013 12:00:00 AM EST - 07/14/2020 12:00:00 AM EST [place] ([facility]) 939847735 SNOMED CT Concept SNOMED CT Concept Problem 04/24 12:00:00 AM EST - 07/14/2020 12:00:00 AM EST [place] ([facility]) 334464256 Evaluation procedure Evaluation Procedure Problem 04/24/2013 12:00:00 AM EST - 07/14/2020 12:00:00 AM EST [place] ([facility]) 890772646 SNOMED CT Concept SNOMED CT Concept Problem 04/24 12:00:00 AM EST - 07/14/2020 12:00:00 AM EST [place] ([facility]) Surgeries/Procedures Procedure Description Date Indications Data Source(s) REPLACE GASTROSTOMY/CECOSTOMY TUBE PERCUTANEOUS <td>IR G-J TUBE INSERTION CHANGE REMOVAL</td><td>Routine</td><td>12/08/2020 9:02 AM EDT</td><td> Esophageal dysphagia Gastrostomy tube dependent</td><td></td> 12/08/2020 09:02:00 AM EDT Gastrostomy tube dependentEsophageal dysphagia [facility] Gastrostomy tube dependent Esophageal dysphagia POCT ID NOW COVID-19 <td>POCT ID NOW COVID-19</td ><td>Routine</td><td>12/08/2020 7:03 AM EDT</td><td></td><td> </td> 12/08/2020 07:03:00 AM EDT [facility] Results ID Date Data Source [id number] 02/25/2021 10:28:00 AM EDT [facility] 1 OrderSheet [facility] Emergency Department [address] [place] [address] Phone #: ext- [phone] 02/25/2021 10:28 Patient: CELIA GUTIÉRREZ Sex: M : 1990 Age: 30yWEIGHT:108.8 kg HEIGHT:71 inches BMI:33.5ALLERGIES: Codeine Phosphate, Latex, PROzacDIAGNOSIS: Acute painLAB ORDERSOrder Description Priority Entered Acknowledged InitialedCulture, Wound STAT 11:07 02/25/2021 11:07 Daisy Mcgill(around gtube) Daisy Mcgill R.N.; R.N. Verbal order per; Srinath MORRIS NOTES: around g tubeDIAGNOSTIC STUDY ORDERSOrder Description Priority Entered Acknowledged InitialedMEDICATION/IV/DRIP/FLUID ORDERSOrder Description Priority Entered Acknowledged InitialedGENERAL ORDERSOrder Description Priority Entered Acknowledged Initialed[Electronically signed by Daisy Mcgill R.N. (11:47 02/25/2021)][Electronically signed by Srinath Romeo (22:11 02/26/2021)][Electronically locked by Daisy Mcgill R.N. (11:47 02/25/2021)] Name Value Range Interpretation Code Description Data Ethel rce(s) Supporting Document(s) ID Date Data Source [id number] 02/25/2021 10:28:00 AM EDT [facility] 1 Medication Reconciliation Report [facility] Emergency Department [address] [place] [address] Phone #: ext [phone] 02/25/2021 10:28 Patient: CELIA GUTIÉRREZ Sex: M : 1990 Age: 30yWeight: 108.8 kgHeight/Length: 71 in.BMI: 33.5ALLERGIES: Codeine Phosphate, Latex, PROzacThe patient's Home Medications are listed below:CONTINUE TAKING THE FOLLOWING MEDICATIONS: Albuterol Sulfate HFA Inhalation Keppra Oral, unknown dose Pt unsure of medication listThe source(s) of the original Home Medication information:Not obtained.The following Medications were given to the patient in the Emergency Department:None.The following Medications were prescribed to the patient:cefdinir 250 mg/5 mL oral suspension Take 5 ml twice a day for 7 days -- Dispense 70 ml. Refills: 0.Substitution permitted. Note to Pharmacy - USE Rx DISCOUNT CARD: $20.2, BIN:[id number],PCN:MONIQUE, Group:[id number], ID:[id number].Pharmacy - [facility] - [address] ; [place], [place] [id number]. .cefdinir 250 mg/5 mL oral suspension Take 5 ml twice a day for 7 days -- Dispense 70 ml. Refills: 0.Substitution permitted.Pharmacy - [facility] [id number] [address] [facility] [address] ; [place] [address]. . -- ALEXANDRA Romero Name Value Range Interpretation Code Description Data Ethel rce(s) Supporting Document(s) ID Date Data Source [id number] 02/25/2021 10:28:00 AM EDT [facility] 1 Medication Administration Record [facility] Emergency Department [address] [place] [address] Phone #: ext- [phone] 02/25/2021 10:28 Patient: CELIA GUTIÉRREZ Sex: M : 1990 Age: 30yWeight: 108.8 kgHeight/Length: 71 inBMI: 33.5ALLERGIES: Codeine Phosphate, Latex, PROzacDate/Time Medication Administered Medication Ordered Name Value Range Interpretation Code Description Data [facility](s) Supporting Document(s) ID Date Data Source [id number] 02/25/2021 10:28:00 AM EDT [facility] 1 General Instructions [facility] Emergency Department [address] [place] [address] Phone #: ext- [phone] 02/25/2021 10:28 Patient: CELIA GUTIÉRREZ Sex: M : 1990 Age: 30yAcute nontraumatic pain in the left upper quadrant of the abdomen(Peg Tube Drainage).INSTRUCTIONSWarnings: Further evaluation is necessary. It is very important to follow up with a healthcare provider.GENERAL WARNINGS: Return or contact your physician immediately if your condition worsens orchanges unexpectedly, if not improving as expected, or if other problems arise. Specifically return if fever.Your Current Medications: Your current home medications have been reviewed.CONTINUE TAKING THE FOLLOWING MEDICATIONS:Albuterol Sulfate HFA Inhalation.Keppra Oral : unknown dose.Pt unsure of medication list*.Prescription Medications:cefdinir 250 mg/5 mL oral suspension Take 5 ml twice a day for 7 days -- Dispense 70 ml. Refills: 0.Substitution permitted. Note to Pharmacy - USE Rx DISCOUNT CARD: $20.2, BIN:[id number],PCN:MONIQUE, Group:[id number], ID:[id number].Pharmacy - [facility] - [address] [place] [address] ; [place], [place] [phone]. .cefdinir 250 mg/5 mL oral suspension Take 5 ml twice a day for 7 days -- Dispense 70 ml. Refills: 0.Substitution permitted.Pharmacy - [facility] [phone] [facility] [address] ; [place] [address]. .Follow-up:Follow up with your doctor. Call for the next available appointment. Reason for referral: evaluation andtreatment. Summary of care provided to patient.Understanding of the discharge instructions verbalized by patient. ADDITIONAL INFORMATIONAcute Pain, Uncertain CausePain can be caused by many conditions that range from very minor to very serious. In some cases, 2 General Instructions [facility] Emergency Department [address] [place] [address] Phone #: ext- [phone] 02/25/2021 10:28 Patient: CELIA GUTIÉRREZ Sex: M : 1990 Age: 30ythough, pain comes and goes with no apparent cause.We were not able to find the exact cause for your pain. At this time there is no sign of any seriousillness causing your pain. More tests may be needed to d etermine the cause. In many cases, pain likethis goes away by itself.Home careTake any medicines as prescribed. If another medicine was not prescribed for pain, you can take zhpplx-zbm-gxiyqqn pain medicine such as ibuprofen or acetaminophen. Use these as directed on thelabel.Follow-up careFollow up with your healthcare provider or our staff as directed.When to seek medical adviceCall your healthcare provider for any of the following: Pain changes in pattern Pain doesn't lessen or gets worse New symptoms appear Fever of 100.4F (38C) or higher, or as directed by your healthcare provider [employer]. [address] [place] [address] 28067. All rights reserved. This information is not intended as asubstitute for professional medical care. Always follow your healthcare professional's instructions. You have been given the following additional information: Pain, Acute, Uncertain Cause(Electronically signed by ALEXANDRA Romero 02/26/2021 22:11) Name Value Range Interpretation Code Description Data Ethel rce(s) Supporting Document(s) ID Date Data Source [id number] 02/25/2021 10:28:00 AM EDT [facility] 1 Clinical Report - Nurses [facility] Emergency Department [address] [place] [address] Phone #: ext- [phone] 02/25/2021 10:28 Patient: CELIA GUTIÉRREZ Sex: M : 1990 Age: 30yTRIAGEArrived by private vehicle. Historian: patient.Acuity: LEVEL 4.Chief Complaint: Infection around Feeding Tube.10:35 02/25/21. Alert. No acute distress.( Patient reports he has a feeding tube; over last two months he has been having increased drainagearound tube. States he normally only changed dressing once per day but has been changing it 10-15 timesper day. Unsure if he has had fevers. Has appt scheduled with wound care but unable to see them untiloctober.).SEPSIS SCREEN: SIRS SCREEN NEGATIVE. SEPSIS SCREEN NEGATIVE. No suspected or confirmedsigns of infection present. --10:35 02/25/21 Sheila Faria R.N.10:35 02/25/2021 BP: 122/72. HR: 81. RR: 18. O2 saturation: 97%. Temp: 98.0 F. Pain level now 0/10.--10:35 02/25/21 Sheila Faria R.N.Weight: 108.8 kg. Height/Length: 71 inches. BMI: 33.5. --10:34 02/25/21 Sheila Faria R.N.MedicationsAlbuterol Sulfate HFA Inhalation. --10:32 02/25/21 Sheila Faria R.N. Keppra Oral (unknown dose). --10:32 02/25/21 Sheila Faria R.N. Pt unsure of medication list. --10:33 02/25/21 Sheila Faria R.N.AllergiesPROzac. --10:33 02/25/21 Sheila Faria R.N.Latex. --10:33 02/25/21 Sheila Faria R.N.Codeine Phosphate. --10:33 02/25/21 Sheila Faria R.N.PROBLEMS:CVA - Cerebrovascular Accident.Cough.Anxiety Reaction.Asthma.Seizure.Hypertension. --10:34 02/25/21 Sheila Faria R.N.ADDITIONAL SURGERIES:Feeding Tube Placement. 2 Clinical Report - Nurses [facility] Emergency Department [address] [place] [address] Phone #: ext- [phone] 02/25/2021 10:28 Patient: CELIA GUTIÉRREZ Sex: M : 1990 Age: 30y Shoulder Surgery (Left). --10:34 02/25/21 Sheila Faria R.N. History 10:35 02/25/21. SOCIAL HX: Current every day heavy tobacco smoker (cigarette)- 1 pack per day. No alcohol use or drug use. He was offered HIV testing but declined and hepatitis C testing but declined. He has not traveled outside the [place] Infectious disease exposure: The patient was not exposed to Coronavirus. (has not had covid shot). SELF HARM ASSESSMENT: Self harm assessment was performed. The patient answered "no" to the question(s) "Have you recently felt down, depressed, or hopeless?", "Do you have thoughts of harming or killing yourself?", "Do you have a plan for harming or killing yourself?" and "Have you recently had thoughts about harming or killing others?". ABUSE ASSESSMENT: No report of abuse. NUTRITIONAL RISK ASSESSMENT: The nutritional risk assessment revealed no deficiencies. FUNCTIONAL ASSESSMENT: Functional assessment: no impairments noted. LEARNING NEEDS ASSESSMENT: The learning needs assessment revealed no barriers. FALL RISK ASSESSMENT: Fall risk assessment completed. Risk factors identified include patient diagnosis of stroke. SKIN INTEGRITY ASSESS MENT: Skin integrity risk assessment completed. No skin integrity risk identified. --10:35 02/25/21 Sheila Faria R.N.NURSING PROGRESS NOTESPatient gowned. Reassurance given. Two patient identifiers checked. Call light placed in reach. Siderails up x 2. Bed placed in lowest position. Brakes of bed on. Patient ready for evaluation. --11: Daisy Mcgill R.N. Patient ID band checked for patient name and birthdate: patient confirmed. Wound swabbed for aerobic culture; collected by nurse. Specimen labeled in the presence of the patient (gtube). --11:07 02/25/21 Daisy Mcgill R.N.DISPOSITION / DISCHARGE 11:40 02/25/21. BP: 109/75. HR: 90. RR: 18. O2 saturation: 99%. Temp: 98.8 F. Pain level now 0/10. --11:40 02/25/21 [facility] RAINER COTO Delma Condition at departure: unchanged. No learning barriers present. Discharge instructions provided and reviewed with the patient. Reviewed medication(s) side effects, precautions, dosing and course information. Prescription(s) given to the patient and sent electronically to pharmacy. Patient verbalized 3 Clinical Report - Nurses [facility] Emergency Department [address] [place] [address] Phone #: ext- [phone] 02/25/2021 10:28 Patient: CELIA GUTIÉRREZ Sex: M : 1990 Age: 30y understanding. Written instructions provided in American. The patient was discharged home and accompanied by parent. He left ambulatory and via private vehicle. Parent driving. --11:45 02/25/21 Daisy Mcgill R.N. Departure time: 11:45 02/25/2021. --11:45 02/25/21 Daisy Mcgill R.N.Locked/Released at 02/25/2021 11:47 by Daisy Mcgill R.N. Name Value Range Interpretation Code Description Data Ethel rce(s) Supporting Document(s) ID Date Data Source [id number] 02/25/2021 10:28:00 AM EDT [facility] 1 Clinical Report - Physicians/Mid Levels [facility] Emergency Department [address] [place] [address] Phone #: ext- [phone] 02/25/2021 10:28 Patient: CELIA GUTIÉRREZ Sex: M : 1990 Age: 30y Time Seen: 11:20 02/25/2021. Arrived- By private vehicle. Historian- patient.HISTORY OF PRESENT ILLNESS Chief Complaint: drainage from feeding tube. This started 2 months ago; Patient reports he has a feeding tube; over last two months he has been having increased drainage around tube. States he normally only changed dressing once per day but has been changing it 10-15 times per day. Unsure if he has had fevers. Has appt scheduled with wound care but unable to see them until february. and is still present. It was gradual in onset and has been constant. At its maximum, severity described as mild. When seen in the E.D., severity described as mild. No loss of appetite, weight loss, headache, visual disturbance or fatigue. No muscle aches or weakness. Denies sleep problem. No decreased urine output. Similar symptoms previously. Patient has had similar symptoms several times. Recent medical care: The patient was seen recently at another facility in the emergency department and a clinic.REVIEW OF SYSTEMSNo fever, sore throat, sinus drainage, nasal congestion or cough. No difficulty breathing, chest pain,abdominal pain, nausea or vomiting. No diarrhea, black stools, bloody stools, chills or difficulty withurination. No skin rash, back pain, calf pain, headache or blackouts. No double vision. No difficulty withambulation.PAST HISTORYProblems:CVA - Cerebrovascular Accident.Cough.Anxiety Reaction.Asthma.Seizure.Hypertension. Additional Surgeries: Feeding Tube Placement. Shoulder Surgery. (Left). Medications: Pt unsure of medication list. Keppra Oral (unknown dose). Albuterol Sulfate HFA Inhalation. Allergies: 2 Clinical Report - Physicians/Mid Levels [facility] Emergency Department [address] [place] [address] Phone #: ext- [phone] 02/25/2021 10:28 Patient: CELIA GUTIÉRREZ Sex: M : 1990 Age: 30y Codeine Phosphate. Latex. PROzac.SOCIAL HISTORYHeavy tobacco smoker (cigarette)- 1 pack per day. No alcohol use or drug use.PHYSICAL EXAMVital Signs: 02/25/2021 10:35 BP: 122/72. MAP: 88. HR: 81. RR: 18. O2 saturation: 97%. Temp: 98.0 F.Have been reviewed as normal. Oxygen saturation normal.Appearance: Alert. No acute distress.Eyes: Pupils equal, round and reactive to light. Eyes normal inspection.ENT: Ears normal. Nose normal. Pharynx normal.Neck: Normal inspection.CVS: Normal heart rate and rhythm.Respiratory: No respiratory distress.Abdomen: No visible injury. Soft and nontender. Bowel sounds normal. No mass. (scant drainagesurrounding peg tube).Back: Normal inspection.Skin: Skin warm and dry. Normal skin color. No rash. Normal skin turgor.Extremities: Extremities exhibit normal ROM. No lower extremity edema.Neuro: Oriented X 3.PROGRESS AND PROCEDURESCourse of Care: Feb 25 2021. (Discussed risks, benefits, options will treat with PO abx penidngculture). Patient counseled in person regarding the patient's stable condition, diagnosis and need for follow- up. Patient agrees with plan of care. Feb 25 2021. Disposition: Discharged home in good and improved condition (Feb 25 2021).CLINICAL IMPRESSION Acute nontraumatic pain in the left upper quadrant of the abdomen(Peg Tube Drainage).INSTRUCTIONS Warnings: Further evaluation is necessary. It is very important to follow up with a healthcare provider. GENERAL WARNINGS: Return or contact your physician immediately if your condition worsens or changes unexpectedly, if not improving as expected, or if other problems arise. Specifically return if fever. 3 Clinical Report - Physicians/Mid Levels [facility] Emergency Department [address] [place] [address] Phone #: ext- [phone] 02/25/2021 10:28 Patient: CELIA GUTIÉRREZ Sex: M : 1990 Age: 30y Your Current Medications: Your current home medications have been reviewed. CONTINUE TAKING THE FOLLOWING MEDICATIONS: Albuterol Sulfate HFA Inhalation. Keppra Oral : unknown dose. Pt unsure of medication list*. Prescription Medications: cefdinir 250 mg/5 mL oral suspension Take 5 ml twice a day for 7 days -- Dispense 70 ml. Refills: 0. Substitution permitted. Note to Pharmacy - USE Rx DISCOUNT CARD: $20.2, BIN:[id number], PCN:MONIQUE, Group:[id number], ID:[id number]. Pharmacy - [facility] - [address] ; [place], [place] [id number]. . cefdinir 250 mg/5 mL oral suspension Take 5 ml twice a day for 7 days -- Dispense 70 ml. Refills: 0. Substitution permitted. Pharmacy - [facility] [id number] [address] [facility] [address] [address] ; [place] [address]. . Follow-up: Follow up with your doctor. Call for the next available appointment. Reason for referral: evaluation and treatment. Summary of care provided to patient. Understanding of the discharge instructions verbalized by patient.(Electronically signed by ALEXANDRA Romero 02/26/2021 22:11) Name Value Range Interpretation Code Description Data Ethel rce(s) Supporting Document(s) ID Date Data Source [id number] 02/25/2021 10:28:00 AM EDT [facility] for LABARGECELIA VisitID: [id number] Date: 18:33Lab results reviewed, by Srinath MORRIS. Final g-tube site wound culture shows Beta hemolyticStrep group C Heavy Growth, Organism #2Diphtheroids Patient was prescribed Cefdinir, no changes needed.(Electronically signed by Erika Mack RN - 03/02/2021 18:33) Name Value Range Interpretation Code Description Data Ethel rce(s) Supporting Document(s) ID Date Data Source [id number] 03/01/2021 12:51:08 PM EDT [facility] IR G-J TUBE INSERTION CHANGE REMOVALFINA L RESULTInterpreted by:JARETH MartinSTROSTOMY TUBE ExchangeIndication: 30-year-old male is with esophageal dysphagia, gastrostomy tube dependent, now presents for an exchange of his JUAN PABLO- TYLER gastrostomy tube.Medications: NoneContrast: 5 mL of Omnipaque 300 Fluoroscopy time: 0.2 minutes.Radiation dose: 3 mGyComplications: NoneProcedure and Findings:After written informed consent was obtained and patient was placed supine in IR suite. Spot fluoroscopic image demonstrated the existing G-tube to be in the projection of left upper quadrant. Contrast injection of the an existing 20 Fr x 3.5 cm JUAN PABLO-TYLER Gastrostomy tube demonstrated patent, functional gastrostomy tube in the appropriate location. A new 20 Fr x 4 cm JUAN PABLO-TYLER Gastrostomy tube was advanced to position its tip within the gastric lumen under fluoroscopy. Intraluminal position was confirmed with the injection of Omnipaque 300 contrast. The balloon of the new 20 Fr x 4 cm JUAN PABLO-TYLER Gastrostomy tube was inflated with a 8 ml of sterile water. The patient tolerated the procedure well, without complication. Vitals were monitored prior, during and after the procedure and were stable.Impression: Successful exchange of a gastrostomy tube with a new 20 Fr x 4 cm JUAN PABLO-TYLER Gastrostomy tube under fluoroscopy as described above.This document has been electronically signed by PEPE Martin on 03/01/2021 12:49 PM Name Value Range Interpretation Code Description Data Ethel rce(s) Supporting Document(s) ID Date Data Source [id number] 02/26/2021 12:15:00 PM EDT [facility] Name Value Range Interpretation Code Description Data Ethel rce(s) Supporting Document(s) SARS-CoV-2 RNA Resp Ql PERCY+probe NOT DETECTED [facility] This lab was ordered by FAYE lara and reported by FAYE Fragoso. ID Date Data Source [id number] 03/02/2021 06:19:00 AM EDT [facility] Name Value Range Interpretation Code Description Data Ethel rce(s) Supporting Document(s) CULTURE WOUND [facility] spital _CULTURE WOUND_$$[id number]$$[id number]$$[id number]$$[id number]$$[id number]$$[id number] DATE/TIME: 03/01/2021 18:06Culture: CULTURE WOUND Status: FinalIsolate 1 Beta hemolytic Streptococcus, group C Flag: A . . . . . . .8Heavy growthPenicillin and ampicillin are drugs of choice for treatment ofbeta-hemolytic streptococcal infections. Susceptibility testing ofpenicillins and other beta-lactam agents approved by the FDA fortreatment of beta-hemolytic streptococcal infections need not beperformed routinely because nonsusceptible isolates are extremelyrare in any beta-hemolytic streptococcus and have not been reportedfor Streptococcus pyogenes (group A). (CLSI) Previous result entered on 02/27/2021 10:46 ET Beta hemolytic Streptococcus, group CAerobic Bacterial Culture: P1Beta hemolytic Streptococcus, group C Flag: AIsolate 2 Diphtheroids Flag: . . . . . . .5Heavy growthSusceptibility not normally performed on this organism. -- Continued on next page --Patient: MARLA Lawrence Order: [id number] Page 2Culture: CULTURE WOUND Status: Final ====DiphtheroidsP1 Test performed by: Herlinda Lopez BONILLA #: [id number] [address] [place] [id number] [facility] [id number] Director : Romario Jordan MD NPI #:Airline Reservation Agent : 02/27/21.1151.XMT.SENT REF 03/02/21.0619.XMT.SENT REF ID Date Data Source [id number] 12/17/2020 03:59:24 PM EDT [facility] IR G-J TUBE INSERTION CHANGE REMOVALFINA L RESULTInterpreted by:Anamika Jeter MBBSEVALUATION OF JUAN PABLO-TYLER GASTROSTOMY TUBEIndication: 30-year-old male is with esophageal dysphagia, gastrostomy tube dependent, now presents for an evaluation of JUAN PABLO-TYLER gastrostomy tube.Contrast: 5 mL of Omnipaque 300 Fluoroscopy time: 0.3 minutes.Radiation dose: 7 mGyComplications: NoneProcedure and Findings:After written informed consent was obtained and patient was placed supine in IR suite. Spot fluoroscopic image demonstrated the existing G-tube to be in the projection of left upper quadrant. Contrast injection of the an existing 20 Fr x 3.5 cm JUAN PABLO-TYLER Gastrostomy tube demonstrated patent, functional gastrostomy tube in the appropriate location. The tube was flushed and capped. The patient tolerated the procedure well without immediate complication.IMPRESSION: Patent, functional 20 Fr x 3.5 cm JUAN PABLO-TYLER Gastrostomy tube in the appropriate location.This document has been electronically signed by Rodolfo Lainez MD on 12/17/2020 3:57 PM Name Value Range Interpretation Code Description Data Ethel rce(s) Supporting Document(s) ID Date Data Source [id number] 12/08/2020 02:28:06 PM T [facility] IR G-J TUBE INSERTION CHANGE REMOVALFINA L RESULTInterpreted by:Anamika Zhao MBBSCONVERSION OF GASTROSTOMY TUBE TO AYDE BUTTON TUBEIndication: 30-year-old male is with esophageal dysphagia, gastrostomy tube dependent, now presents for an exchange to a new JUAN PABLO-TYLER gastrostomy tube.Medications: Deep sedation as per anesthesiaContrast: 15 mL of Omnipaque 300 Fluoroscopy time: 20 minutes.Radiation dose: 7.6 mGyComplications: NoneProcedure and Findings:After written informed consent was obtained and patient was sedated by an anesthesiologist. The patient's mid and left upper abd omen with existing catheter were prepped and draped in the usual sterile fashion. A spot fluoroscopy image demonstrated existing gastrostomy tube in the projection of in the expected location of stomach. Contrast injection through the existing gastrostomy tube demonstrated intragastric location of the existing gastrostomy tube. A 0.035 inch Amplatz wire was advanced through the existing gastrostomy tube. Then a disc type existing gastrostomy tube was removed over an Amplatz wire and a stoma length was measured. A new 20 Fr x 3.5 cm JUAN PABLO-TYLER Gastrostomy tube was advanced to position its tip within the gastric lumen under fluoroscopy. Intraluminal position was confirmed with the injection of Omnipaque 300 contrast. The balloon of the new 20 Fr x 3.5 cm JUAN PABLO-TYLER Gastrostomy tube was inflated with a 5 ml of normal saline mixed with contrast. The patient tolerated the procedure well, without complication. Vitals were monitored prior, during and after the procedure and were stable.Impression: Technically successful exchange of a gastrostomy tube with a new 20 Fr x 3.5 cm JUAN PABLO-TYLER Gastrostomy tube under fluoroscopy as described above.This document has been electronically signed by Rose Figueroa MD on 12/08/2020 2:25 PM Name Value Range Interpretation Code Description Data Ethel rce(s) Supporting Document(s) ID Date Data Source [id number] 12/08/2020 10:16:29 AM [facility] Name Value Range Interpretation Code Description Data Ethel rce(s) Supporting Document(s) Progress Note [facility] QQKFMe3zOjRIHdHp91/GJUhsRUOir9WmYAheFAc0ASthXWByP9XyJHF9pS1uAJB2HCkISeCyTxJyYiZz [facility] [file] [id number] ID Date Data Source [id number] 12/08/2020 10:02:09 AM EDT [facility] Name Value Range Interpretation Code Description Data Ethel rce(s) Supporting Document(s) Progress Note [facility] VOSFEo1bZpVHIkUz33/UNCwyOJCmg0DlQAybANx8QJtlYCDlZ2HzKZT1eZ9pWLY8XKpPHwSzJyPjHcUb lbm AcZouTNuErEYCaLmpZQjXfDQngYhchqTOmRZ2GzYC8GQMfN02zFSHhELXwH3OxFWH1FOR+Ea4JUWZjyF AjDD6IDshD8Hvbc2q6ZR7ohF9RJEECPlyDprepqH4bexBdRwV2GpViHXt+aNiAulH32neRrpqnG9vhKA 7aRx5KzJPpXQ4qTL3Anz1g1QsTzI0Z8G//SQk1Yp5n O76a1Xwe5pr5U39VjHElVP+aA/jzLD1zpGeoisdenS8gVuKOmcqFPmuWqDxr8kQ16td1kCscQalrkb3H 0rJ9RrMLWQO32wDbi5cdV9o+HHp0rem65Cs73My6lrmA8qRJwa1ydOGmWO4LXK64HGgOCKu4diqOD5zQ yvFrdhJxhFA5wBIeUWdose/o3jJGlKw/h2YmXpFDhl K0EeGySu6vvw0LZ+SExJd3hgg9rGvrLeuf9o0rpWRHZobQYV7MBFbGL7YXIyEDKp9XprHicR1Ea1ZgDA iyL+RTj17DzAM4318ssmb3QXJRzaD5aR8lp6Ju5Jr074qvkhQBqacQF8DrU24EW2/zeSCFQ3N4mdASsC iab0ZXCKUsj+QCVBVpUFerQiR4ZywAKV+wCjzBXqvZ KYQwiIRGgLP6EyD2bwgGPs+3EqEweIGhCgOZpl96pxiZRm53aAYGrCFBhkK5yiEfaSVONalh+ToiK2lM Wo00A+FLd2FzumMar+MwULs5MnZOzTz67QdOWo+/XKl7jk/v3fTr8gQoJxgpcoRrHYQ9tVepsRjpI/FIELDS [file] QvIS4FLUq= ID Date Data Source [id number] 12/08/2020 07:03:00 AM EDT [facility] Name Value Range Interpretation Code Description Data Ethel rce(s) Supporting Document(s) SARS coronavirus 2 RdRp gene https://www.fda.gov/media/860080/ivan jimenez [place] This lab was ordered by [facility] and reported by [facility]. ID Date Data Source [id number] 12/08/2020 09:06:12 AM EDT [facility] Name Value Range Interpretation Code Description Data Ethel rce(s) Supporting Document(s) SARS coronavirus [address] [facility] Test performed using the Núñez ID NOW C OVID-19 assay. This test is only for use under the Food and Drug Administration's Emergency Use Authorization. Additional information is available on the following FDA websites for health care providers and patients.https://www.fda.gov/media/638960/downloadhttps://www.fda.gov/media/1365 24/download Patients first test for [facility] Patient employed in healthcare setting [facility] Patient has symptoms related to condition [facility] When did you start to experience these symptoms [Date and time] [Phen X] [facility] Patient was hospitalized because of this condition [facility] patient was admitted to ICU for [facility] Patient resides in a congregate care setting [facility] status [facility] ID Date Data Source [id number] 12/02/2020 01:20:00 PM EDT [facility] Name Value Range Interpretation Code Description Data Ethel rce(s) Supporting Document(s) SARS-CoV-2 RNA Resp Ql PERCY+probe NOT DETECTED [facility] This lab was ordered by FAYE lara and reported by FAYE Fragoso. ID Date Data Source [id number] 11/17/2020 12:25:17 PM EDT [facility] Name Value Range Interpretation Code Description Data Ethel rce(s) Supporting Document(s) Progress Note [facility] UEJCYx2eIlSZMrDg86/RFRfkNADgv1DwALczHTd6SNdjHMLpH7NyGVE2jV3qMJT0DFiNYxTdJdXuDuJw lbm [file] AgICAgICAgICAgICAgICAgICAgICAgICAgICAgICAgICAgICAgICAgICAgICAgICAgICAgICAgICAgIC AgICAgICAgICAgICAgICAgICAgICAgICAgICAgICAgICAgICANCiAgICAgICAgICAgICAgICAgICAgIC AgICAgICAgICAgICAgICAgICAgICAgICAgICAgICAg ICAgICAgICAgICAgICAgICAgICAgICAgICAgICAgICAgICAgICAgICAgICAgICANCiAgICAgICAgICAg ICAgICAgICAgICAgICAgICAgICAgICAgICAgICAgICAgICAgICAgICAgICAgICAgICAgICAgICAgICAg ICAgICAgICAgICAgICAgICAgICAgICAgICAgICANCi AgICAgICAgICAgICAgICAgICAgICAgICAgICAgICAgICAgICAgICAgICAgICAgICAgICAgICAgICAgIC AgICAgICAgICAgICAgICAgICAgICAgICAgICAgICAgICAgICAgICANCiAgICAgICAgICAgICAgICAgIC AgICAgICAgICAgICAgICAgICAgICAgICAgICAgICAg ICAgICAgICAgICAgICAgICAgICAgICAgICAgICAgICAgICAgICAgICAgICAgICAgICANCiAgICAgICAg ICAgICAgICAgICAgICAgICAgICAgICAgICAgICAgICAgICAgICAgICAgICAgICAgICAgICAgICAgICAg ICAgICAgICAgICAgICAgICAgICAgICAgICAgICAgIC ANCiAgICAgICAgICAgICAgICAgICAgICAgICAgICAgICAgICAgICAgICAgICAgICAgICAgICAgICAgIC AgICAgICAgICAgICAgICAgICAgICAgICAgICAgICAgICAgICAgICAgICANCiAgICAgICAgICAgICAgIC AgICAgICAgICAgICAgICAgICAgICAgICAgICAgICAg ICAgICAgICAgICAgICAgICAgICAgICAgICAgICAgICAgICAgICAgICAgICAgICAgICAgICANCiAgICAg ICAgICAgICAgICAgICAgICAgICAgICAgICAgICAgICAgICAgICAgICAgICAgICAgICAgICAgICAgICAg ICAgICAgICAgICAgICAgICAgICAgICAgICAgICAgIC AgICANCiAgICAgICAgICAgICAgICAgICAgICAgICAgICAgICAgICAgICAgICAgICAgICAgICAgICAgIC AgICAgICAgICAgICAgICAgICAgICAgICAgICAgICAgICAgICAgICAgICAgICANCjw/fEGsL8yzpGIicn S2R7fwDh1TSp2FYQ7ih5RcDOJfXBwowvAuQdtXJcSm FBFjFlnKEhz7SLuiQA6GlQItQ7AzT1CxDBpwBC7KVVIeMJUpcTTyBXTlHKMlDxR9VDMhIOswXS4VqIMu UGnvUZOwTBObMpXoEGZtRZEgSANqHVEyVGOGNG1LHsJpX2HfjK50ITRSFe8+VJfkcdEiTgbHMcG4GZWu k9MnAAi7CQ2VCCMsLukkm4NwZkfyVRKSSCyaGX2UTZ R7BJP1GPBeXw8VJLUwN257boSqDU9FPj3OIvAbCH6rpd3TUeqzITKmFavIDhy2RMnlWE8DiPCtJKgIoa 7mpgUlteYNe3GxcwGowCVHaVBot9NjkmGnOxLUkJG6IRW9KGAEIGYftDU8SdOzTjAeKlLzPIJ8YRQwXC 5pFYuiIW5AEOV6QCgzYRMtDFJvU6zGUoAcOZOfCWYc xMggCP2GUxPzM7WmnqJxaPSrGNUqXYJPXf7+RJngavFsSccUTrCvYNSwm9GkNSs6DD3PYWPrUVsyUC1Z FJDiwJ8xKQxqBP3JRmMqFxYgYQWDNnTtB94weMTsJCr0R9YyPtBdXXIjLpnhQGWcXIafZfNsBMGjWbEa DQogID4+ID4+SXwlPF0FXUumxdFuLRXtRk1XZNNqUW OxZI6uNSTlOZKeK6N2rZvjBELYVsQzB6uuwkjqXM4dONYeR209dFhszsYwCYY9GJYbHt0WPCFtNFW3VK XrmNAhEmilOTWTYBmdGC7ZtYPxOSA7dI7wDNxgQLDxNOAxN5sXFpFcoZzvIC81vYmvaxZqpFSxEJg+Pg 4DMC0qc3NrSRx6fhJsJIklSWDyXDcsTNEnXJOwQZAf SBD1GOL0LSCZSmQbNGTpBFSqJLdrEXCkZDNcng9WDZOcQVEdKXU6BhAwMVXdFTYuRHcdTLBqYYHjMoE2 CNNxSVDsMC1VGeZuTHXgFXNzGHnzOUFaTQEesq0DSTGeJXChGKM7QGOkWCTyVMDnRUafBNZvDYW5UmZ3 LGFjRZJpKN0OHiVaOSJpJMleLAlaJBXkZNDoiv9KRX QjNEVaNhE3TwDkPAIiMJGbFRuaOSYkQVDdAhAnUBEvDGGnFF0GYhUnBQMpNUR3FAyfEXXgUMEdoc8UIV TaCEArIwj2QJAuNMMfHKRsTTjyDZNuZKRbXHsmOYUyPJKaRJ8WXmEvVNYeOMWnCGGuGIStHLKkwj9PKG IjZDEaKCZ3DOBqXTSsNQGjKZphNLLwIFZ7KHSsKDZv XHWtFP6NVgGaHTVlYXJvMFQkMVKuCYTxim5ZSLPqXSItOCX1VeQoZVOtGHNsQIsvOWAdCIG1FzcjQBGl ICNfFK2HMmDkNCSyYgyaWELyOHUtHFXqtn1VHNPfEHRxQrIkREZyXEMaHYJsQNvoLJFlTOY3HvL7SNEt IDRkYT3AQbRdJXWhTwe4UEPdXXCxZPUdpb8WJEZwLR OzHON3GAEiDHPwQFIqDNofAHBtBZB8WCa1RQMyLIFbOA5TGcLbGELeVneuOpIhAXYcQXJlpu5YZOAjNF YdXXW4GEYnZXFjCRPgMTxhDBRrKCJ0HEG5GKMxDKWnPC0ZEtDjCZLcJvDaLxAzUJItPNZglb3EGKCrLR EvNJC6TBKcUTRzBQFlPMhmHTTkGAMgLRJ0QKEuNIKm ZN3MCkNuPAnaHKMRDys3JSksR4g2UAYkEJ6ON8Luj4BeAiHgBMGOEYwtLG1kwxIdLXGfGn1QM2qMUhvy JUFzIfV4QFXfLyG2VTY7MJU7KPiqQGUcBFG5FGYfWk1bTOLiIGN9ZfN3RETfYpAmQcmnEeAiTZEbDASi CyTsVHI2FnTiBK5KAo4USgF7SIN8zIItAt5QXpZ5HIBBVfXqPL7HWRn= ID Date Data Source [id number] 08/06/2020 11:42:00 AM EST [facility] Name Value Range Interpretation Code Description Data Ethel rce(s) Supporting Document(s) SARS coronavirus 2 RNA panel NEG N [facility] This lab was ordered by [facility] and repor augusto by [facility]. ID Date Data Source [id number] 08/01/2020 06:44:00 AM EST [facility] Name Value Range Interpretation Code Description Data Ethel rce(s) Supporting Document(s) BHD COVID-19 RT-PCR AOC [employer] SWAB Not Detected Not Detected [facility] This test has received Emergency Use Aut horization (EUA). We willcontinue to follow federal and state requirements for COVID-19reporting. This test was developed and its performance characteristicsdetermined by [facility]. It has not been cleared orapproved by the U.S. Food and Drug Administration but has been givenemergency use authorization. Results should be used in conjunctionwith clinical findings and should not form the sole basis for adiagnosis or treatment decision. Methods: SARS-CoV-2 Multiplex RT-PCRAssayA not detected (negative) test result for this test means that SARS-CoV-2 RNA was not present in the specimen above the limit ofdetection. Laboratory test results should always be considered in thecontext of clinical observations and epidemiological data in making afinal diagnosis and patient management decisions. Results will bereported to government agencies as required. ID Date Data Source [id number] 07/31/2020 02:00:00 PM EST [facility] Name Value Range Interpretation Code Description Data Ethel rce(s) Supporting Document(s) SARS coronavirus 2 RNA [Presence] in Res piratory specimen by [facility] with probe detection NEGATIVE [facility] This lab was ordered by [facility] and reported by [facility]. ID Date Data Source [id number] 07/26/2020 11:54:00 AM EST [place] ([facility]) Name Value Range Interpretation Code Description Data Ethel rce(s) Supporting Document(s) amylase 52 U/L 25-115 Amylase [facility] ([facility]) ID Date Data Source [id number] 07/26/2020 11:54:00 AM EST [facility] ([facility]) Name Value Range Interpretation Code Description Data Ethel rce(s) Supporting Document(s) glucose, fasting 95 mg/dL 70-100 Glucose, Fasting AT [facility]) blood urea nitrogen 10 mg/dL 7-18 Blood Urea Nitro gen ME[facility] ([facility]) glomerular filtration rate > 60.0 >60 Glomerula r Filtration Rate ME[facility] ([facility]) sodium level 140 mEq/L 136-145 Sodium Level MEY (No [facility]) creatinine for GFR 0.81 mg/dL 0.70-1.30 Creatinine for GF R MEY ([facility]) chloride level 107 mEq/L 98-107 Chloride Level MEY ([facility]) potassium serum 4.1 mEq/L 3.5-5.1 Potassium Serum ATHE NA ([facility]) anion gap 5 mEq/L 8-16 Below low normal Anion Gap MEY ( [facility]) carbon dioxide level 28 mEq/L 21-32 Carbon Dioxide Level ME[facility] ([facility]) ALT/SGPT 24 U/L 12-78 ALT/SGPT [facility] ([facility]) calcium level 8.7 mg/dL 8.5-10.1 Calcium Level MEY ( [facility]) alkaline phosphatase 76 U/L 45-117 Alkaline Phosph atase ME[facility] ([facility]) AST/SGOT 11 U/L 7-37 AST/SGOT ME[facility] ([facility]) bilirubin,total 0.4 mg/dL 0.2-1.0 Bilirubin,total ATHE NA ([facility]) albumin/globulin ratio Albumin/globu gibran Ratio MEY ([facility]) albumin 3.7 gm/dL 3.2-5.2 Albumin ME[facility] ([facility]) total protein 6.9 gm/dL 6.4-8.2 Total Protein ME[facility] ( [facility]) ID Date Data Source [id number] 07/26/2020 11:54:00 AM EST [place] ([facility]) Name Value Range Interpretation Code Description Data Ethel rce(s) Supporting Document(s) red blood count 5.22 10 4.30-6.10 Red Blood Count ATHE NA ([facility]) white blood count 7.1 10 4.0-10.0 White Blood Count ME[facility] ([facility]) mean corpuscular volume 86.4 fL 80.0-96.0 Mean Corpusc ular Volume MEY ([facility]) hemoglobin 15.2 g/dL 13.5-17.5 Hemoglobin ME[facility] ([facility]) mean corpuscular hemoglobin 29.1 pg 27.0-33.0 Mean Cor puscular Hemoglobin ME[facility] ([facility]) hematocrit 45.1 % 42.0-52.0 Hematocrit [facility] ([facility]) platelet count, automated 312 10 150-450 Platelet C ount, Automated ME[facility] ([facility]) neutrophils % 45.1 % 36.0-66.0 Neutrophils % [place] ( [facility]) red cell distribution width 12.7 % 11.5-14.5 Red Cell Distribution Width ME[facility] ([facility]) mean corpuscular HGB conc 33.7 g/dL 32.0-36.5 Mean Corpu scular HGB Conc ME[facility] ([facility]) eos % 2.4 % 0.0-3.0 Eos % ME[facility] ([facility]) baso % 1.0 % 0.0-1.0 Baso % ME[facility] ([facility]) lymph % 41.7 % 24.0-44.0 Lymph % ME[facility] ([facility]) mono % 9.5 % 2.0-8.0 Above high normal [place] % MEY ([facility]) nucleated red blood cell % 0.0 % 0-0 Nucleated Red Blood Cell % ME[facility] ([facility]) immature granulocyte % 0.3 % 0-3.0 Immature Gran ulocyte % MEY ([facility]) neutrophils # 3.2 10 1.5-8.5 Neutrophils # [facility] ( [facility]) lymph # 3.0 10 1.5-5.0 Lymph # MEY ([facility]) mono # 0.7 10 0.0-0.8 [place] # MEY ([facility]) baso # 0.1 10 0.0-0.2 Baso # ME[facility] ([facility]) eos # 0.2 10 0.0-0.5 Eos # [facility] ([facility]) ID Date Data Source [id number] 07/26/2020 11:54:00 AM EST [place] ([facility]) Name Value Range Interpretation Code Description Data Ethel rce(s) Supporting Document(s) tissue transglutaminase IgA <2 0-3 Tissue T ransglutaminase IgA [place] ([facility]) ID Date Data Source [id number] 07/26/2020 11:54:00 AM EST [place] ([facility]) Name Value Range Interpretation Code Description Data Ethel rce(s) Supporting Document(s) C reactive protein quantitativ 0.30 mg/dL 0.00-0.30 C Reactive Protein Quantitativ [place] ([facility]) ID Date Data Source [id number] 07/26/2020 11:54:00 AM EST [place] ([facility]) Name Value Range Interpretation Code Description Data Ethel rce(s) Supporting Document(s) lipase 87 U/L 73-393 Lipase [facility] ([facility]) ID Date Data Source [id number] 07/26/2020 11:54:00 AM EST [place] ([facility]) Name Value Range Interpretation Code Description Data Ethel rce(s) Supporting Document(s) amylase 52 U/L 25-115 Amylase [facility] ([facility]) ID Date Data Source [id number] 07/26/2020 11:54:00 AM EST [place] ([facility]) Name Value Range Interpretation Code Description Data Ethel rce(s) Supporting Document(s) glucose, fasting 95 mg/dL 70-100 Glucose, Fasting AT [facility] ([facility]) blood urea nitrogen 10 mg/dL 7-18 Blood Urea Nitro gen [facility] ([facility]) glomerular filtration rate > 60.0 >60 Glomerula r Filtration Rate [facility] ([facility]) chloride level 107 mEq/L 98-107 Chloride Level [facility] ([facility]) sodium level 140 mEq/L 136-145 Sodium Level [facility] (No [facility]) creatinine for GFR 0.81 mg/dL 0.70-1.30 Creatinine for GF R ME[facility] ([facility]) potassium serum 4.1 mEq/L 3.5-5.1 Potassium Serum ATHE ([facility]) calcium level 8.7 mg/dL 8.5-10.1 Calcium Level [facility] ( [facility]) ALT/SGPT 24 U/L 12-78 ALT/SGPT [facility] ([facility]) carbon dioxide level 28 mEq/L 21-32 Carbon Dioxide Level [facility] ([facility]) AST/SGOT 11 U/L 7-37 AST/SGOT [facility] ([facility]) anion gap 5 mEq/L 8-16 Below low normal Anion Gap [facility] ( [facility]) bilirubin,total 0.4 mg/dL 0.2-1.0 Bilirubin,total ATHE NA ([facility]) alkaline phosphatase 76 U/L 45-117 Alkaline Phosph atase [facility] ([facility]) albumin/globulin ratio Albumin/globu gibran Ratio [facility] ([facility]) albumin 3.7 gm/dL 3.2-5.2 Albumin [facility] ([facility]) total protein 6.9 gm/dL 6.4-8.2 Total Protein [facility] ( [facility]) ID Date Data Source [id number] 07/26/2020 11:54:00 AM EST [place] ([facility]) Name Value Range Interpretation Code Description Data Ethel rce(s) Supporting Document(s) white blood count 7.1 10 4.0-10.0 White Blood Count [facility] ([facility]) hemoglobin 15.2 g/dL 13.5-17.5 Hemoglobin [facility] ([facility]) red blood count 5.22 10 4.30-6.10 Red Blood Count ATHE NA ([facility]) mean corpuscular HGB conc 33.7 g/dL 32.0-36.5 Mean Corpu scular HGB Conc [facility] ([facility]) mean corpuscular volume 86.4 fL 80.0-96.0 Mean Corpusc ular Volume ME[facility] ([facility]) hematocrit 45.1 % 42.0-52.0 Hematocrit [facility] ([facility]) mean corpuscular hemoglobin 29.1 pg 27.0-33.0 Mean Cor puscular Hemoglobin [facility] ([facility]) red cell distribution width 12.7 % 11.5-14.5 Red Cell Distribution Width [facility] ([facility]) neutrophils % 45.1 % 36.0-66.0 Neutrophils % [place] ( [facility]) platelet count, automated 312 10 150-450 Platelet C ount, Automated [place] ([facility]) lymph % 41.7 % 24.0-44.0 Lymph % [facility] ([facility]) eos % 2.4 % 0.0-3.0 Eos % [facility] ([facility]) baso % 1.0 % 0.0-1.0 Baso % [facility] ([facility]) mono % 9.5 % 2.0-8.0 Above high normal [place] % ME[facility] ([facility]) neutrophils # 3.2 10 1.5-8.5 Neutrophils # [place] ( [facility]) immature granulocyte % 0.3 % 0-3.0 Immature Gran ulocyte % [facility] ([facility]) nucleated red blood cell % 0.0 % 0-0 Nucleated Red Blood Cell % [facility] ([facility]) mono # 0.7 10 0.0-0.8 [place] # MEY ([facility]) lymph # 3.0 10 1.5-5.0 Lymph # [facility] ([facility]) baso # 0.1 10 0.0-0.2 Baso # [facility] ([facility]) eos # 0.2 10 0.0-0.5 Eos # [facility] ([facility]) ID Date Data Source [id number] 07/26/2020 11:54:00 AM EST [place] ([facility]) Name Value Range Interpretation Code Description Data Ethel rce(s) Supporting Document(s) tissue transglutaminase IgA <2 0-3 Tissue T ransglutaminase IgA [facility] ([facility]) ID Date Data Source [id number] 07/26/2020 11:54:00 AM EST [facility] ([facility]) Name Value Range Interpretation Code Description Data Ethel rce(s) Supporting Document(s) C reactive protein quantitativ 0.30 mg/dL 0.00-0.30 C Reactive Protein Quantitativ [facility] ([facility]) ID Date Data Source [id number] 07/26/2020 11:54:00 AM EST [place] ([facility]) Name Value Range Interpretation Code Description Data Ethel rce(s) Supporting Document(s) lipase 87 U/L 73-393 Lipase [facility] ([facility]) ID Date Data Source [id number] 07/26/2020 11:54:00 AM EST [place] ([facility]) Name Value Range Interpretation Code Description Data Ethel rce(s) Supporting Document(s) amylase 52 U/L 25-115 Amylase [facility] ([facility]) ID Date Data Source [id number] 07/26/2020 11:54:00 AM EST [facility] ([facility]) Name Value Range Interpretation Code Description Data Ethel rce(s) Supporting Document(s) glucose, fasting 95 mg/dL 70-100 Glucose, Fasting AT [facility] ([facility]) blood urea nitrogen 10 mg/dL 7-18 Blood Urea Nitro gen [facility] ([facility]) glomerular filtration rate > 60.0 >60 Glomerula r Filtration Rate ME[facility] ([facility]) creatinine for GFR 0.81 mg/dL 0.70-1.30 Creatinine for GF R ME[facility] ([facility]) sodium level 140 mEq/L 136-145 Sodium Level ME[facility] ([facility]) chloride level 107 mEq/L 98-107 Chloride Level ME[facility] ([facility]) potassium serum 4.1 mEq/L 3.5-5.1 Potassium Serum ATHE NA ([facility]) carbon dioxide level 28 mEq/L 21-32 Carbon Dioxide Level [facility] ([facility]) AST/SGOT 11 U/L 7-37 AST/SGOT [facility] ([facility]) anion gap 5 mEq/L 8-16 Below low normal Anion Gap ME[facility] ( [facility]) calcium level 8.7 mg/dL 8.5-10.1 Calcium Level ME[facility] ( [facility]) bilirubin,total 0.4 mg/dL 0.2-1.0 Bilirubin,total ATHE ([facility]) total protein 6.9 gm/dL 6.4-8.2 Total Protein [facility] ( [facility]) alkaline phosphatase 76 U/L 45-117 Alkaline Phosph atase [facility] ([facility]) albumin 3.7 gm/dL 3.2-5.2 Albumin [facility] ([facility]) ALT/SGPT 24 U/L 12-78 ALT/SGPT [facility] ([facility]) albumin/globulin ratio Albumin/globu gibran Ratio [facility] ([facility]) ID Date Data Source [id number] 07/26/2020 11:54:00 AM EST [place] ([facility]) Name Value Range Interpretation Code Description Data Ethel rce(s) Supporting Document(s) white blood count 7.1 10 4.0-10.0 White Blood Count [facility] ([facility]) hemoglobin 15.2 g/dL 13.5-17.5 Hemoglobin [facility] ([facility]) hematocrit 45.1 % 42.0-52.0 Hematocrit [facility] ([facility]) red blood count 5.22 10 4.30-6.10 Red Blood Count ATHE NA ([facility]) mean corpuscular hemoglobin 29.1 pg 27.0-33.0 Mean Cor puscular Hemoglobin [facility] ([facility]) mean corpuscular volume 86.4 fL 80.0-96.0 Mean Corpusc ular Volume [facility] ([facility]) mean corpuscular HGB conc 33.7 g/dL 32.0-36.5 Mean Corpu scular HGB Conc [facility] ([facility]) red cell distribution width 12.7 % 11.5-14.5 Red Cell Distribution Width [facility] ([facility]) platelet count, automated 312 10 150-450 Platelet C ount, Automated [place] ([facility]) neutrophils % 45.1 % 36.0-66.0 Neutrophils % [place] ( [facility]) lymph % 41.7 % 24.0-44.0 Lymph % [facility] ([facility]) eos % 2.4 % 0.0-3.0 Eos % [facility] ([facility]) mono % 9.5 % 2.0-8.0 Above high normal [place] % MEY ([facility]) nucleated red blood cell % 0.0 % 0-0 Nucleated Red Blood Cell % [facility] ([facility]) baso % 1.0 % 0.0-1.0 Baso % [facility] ([facility]) immature granulocyte % 0.3 % 0-3.0 Immature Gran ulocyte % [facility] ([facility]) lymph # 3.0 10 1.5-5.0 Lymph # [facility] ([facility]) eos # 0.2 10 0.0-0.5 Eos # [facility] ([facility]) mono # 0.7 10 0.0-0.8 [place] # MEY ([facility]) neutrophils # 3.2 10 1.5-8.5 Neutrophils # [place] ( [facility]) baso # 0.1 10 0.0-0.2 Baso # [facility] ([facility]) ID Date Data Source [id number] 07/26/2020 11:54:00 AM EST [place] ([facility]) Name Value Range Interpretation Code Description Data Ethel rce(s) Supporting Document(s) tissue transglutaminase IgA <2 0-3 Tissue T ransglutaminase IgA [facility] ([facility]) ID Date Data Source [id number] 07/26/2020 11:54:00 AM EST [place] ([facility]) Name Value Range Interpretation Code Description Data Ethel rce(s) Supporting Document(s) C reactive protein quantitativ 0.30 mg/dL 0.00-0.30 C Reactive Protein Quantitativ [facility] ([facility]) ID Date Data Source [id number] 07/26/2020 11:54:00 AM EST [place] ([facility]) Name Value Range Interpretation Code Description Data Ethel rce(s) Supporting Document(s) lipase 87 U/L 73-393 Lipase [facility] ([facility]) ID Date Data Source [id number] 07/26/2020 11:54:00 AM EST [place] ([facility]) Name Value Range Interpretation Code Description Data Ethel rce(s) Supporting Document(s) amylase 52 U/L 25-115 Amylase [facility] ([facility]) ID Date Data Source [id number] 07/26/2020 11:54:00 AM EST [place] ([facility]) Name Value Range Interpretation Code Description Data Ethel rce(s) Supporting Document(s) creatinine for GFR 0.81 mg/dL 0.70-1.30 Creatinine for GF R [facility] ([facility]) glucose, fasting 95 mg/dL 70-100 Glucose, Fasting AT [facility] ([facility]) glomerular filtration rate > 60.0 >60 Glomerula r Filtration Rate [facility] ([facility]) blood urea nitrogen 10 mg/dL 7-18 Blood Urea Nitro gen [facility] ([facility]) chloride level 107 mEq/L 98-107 Chloride Level [facility] ([facility]) carbon dioxide level 28 mEq/L 21-32 Carbon Dioxide Level [facility] ([facility]) sodium level 140 mEq/L 136-145 Sodium Level ME[facility] ([facility]) potassium serum 4.1 mEq/L 3.5-5.1 Potassium Serum ATHE ([facility]) AST/SGOT 11 U/L 7-37 AST/SGOT [facility] ([facility]) ALT/SGPT 24 U/L 12-78 ALT/SGPT [facility] ([facility]) calcium level 8.7 mg/dL 8.5-10.1 Calcium Level [facility] ( [facility]) anion gap 5 mEq/L 8-16 Below low normal Anion Gap [facility] ( [facility]) total protein 6.9 gm/dL 6.4-8.2 Total Protein [facility] ( [facility]) alkaline phosphatase 76 U/L 45-117 Alkaline Phosph atase [facility] ([facility]) bilirubin,total 0.4 mg/dL 0.2-1.0 Bilirubin,total AT[facility] ([facility]) albumin 3.7 gm/dL 3.2-5.2 Albumin [facility] ([facility]) albumin/globulin ratio Albumin/globu gibran Ratio [facility] ([facility]) ID Date Data Source [id number] 07/26/2020 11:54:00 AM EST [place] ([facility]) Name Value Range Interpretation Code Description Data Ethel rce(s) Supporting Document(s) white blood count 7.1 10 4.0-10.0 White Blood Count [facility] ([facility]) red blood count 5.22 10 4.30-6.10 Red Blood Count ATHE NA ([facility]) hemoglobin 15.2 g/dL 13.5-17.5 Hemoglobin ME[facility] ([facility]) hematocrit 45.1 % 42.0-52.0 Hematocrit [facility] ([facility]) mean corpuscular volume 86.4 fL 80.0-96.0 Mean Corpusc ular Volume [facility] ([facility]) mean corpuscular hemoglobin 29.1 pg 27.0-33.0 Mean Cor puscular Hemoglobin [facility] ([facility]) mean corpuscular HGB conc 33.7 g/dL 32.0-36.5 Mean Corpu scular HGB Conc [facility] ([facility]) red cell distribution width 12.7 % 11.5-14.5 Red Cell Distribution Width [facility] ([facility]) platelet count, automated 312 10 150-450 Platelet C ount, Automated [place] ([facility]) lymph % 41.7 % 24.0-44.0 Lymph % [facility] ([facility]) mono % 9.5 % 2.0-8.0 Above high normal [place] % MEY ([facility]) eos % 2.4 % 0.0-3.0 Eos % [facility] ([facility]) neutrophils % 45.1 % 36.0-66.0 Neutrophils % [facility] ( [facility]) nucleated red blood cell % 0.0 % 0-0 Nucleated Red Blood Cell % [facility] ([facility]) immature granulocyte % 0.3 % 0-3.0 Immature Gran ulocyte % [facility] ([facility]) baso % 1.0 % 0.0-1.0 Baso % [facility] ([facility]) lymph # 3.0 10 1.5-5.0 Lymph # [facility] ([facility]) mono # 0.7 10 0.0-0.8 [place] # MEY ([facility]) eos # 0.2 10 0.0-0.5 Eos # [facility] ([facility]) neutrophils # 3.2 10 1.5-8.5 Neutrophils # [place] ( [facility]) baso # 0.1 10 0.0-0.2 Baso # [facility] ([facility]) ID Date Data Source [id number] 07/26/2020 11:54:00 AM EST [place] ([facility]) Name Value Range Interpretation Code Description Data Ethel rce(s) Supporting Document(s) tissue transglutaminase IgA <2 0-3 Tissue T ransglutaminase IgA [facility] ([facility]) ID Date Data Source [id number] 07/26/2020 11:54:00 AM EST [facility] ([facility]) Name Value Range Interpretation Code Description Data Ethel rce(s) Supporting Document(s) C reactive protein quantitativ 0.30 mg/dL 0.00-0.30 C Reactive Protein Quantitativ [facility] ([facility]) ID Date Data Source [id number] 07/26/2020 11:54:00 AM EST [place] ([facility]) Name Value Range Interpretation Code Description Data Ethel rce(s) Supporting Document(s) lipase 87 U/L 73-393 Lipase [facility] ([facility]) Procedure Social History Code Duration Value Status Description Data Source(s ) Alcohol intake 12/08/2020 12:00:00 AM EDT Current non-d no of alcohol (finding) completed Current non-drinker of alcohol (finding) [facility] Tobacco use and exposure 12/08/2020 12:00:00 AM EDT Current user co mpleted Current user [facility] Cigarette pack-years 12/08/2020 12:00:00 AM EDT UNK completed [facility] Cigarettes smoked current (pack per day) - Reported 12/09/19 12:00:00 AM EDT UNK completed [facility] Smoking 12/08/2020 12:00:00 AM EDT Current every day smoker co mpleted Current every day smoker [facility] Smoking 11/18/2020 12:00:00 AM EDT Current Smoker completed [facility] Smoking 11/18/2020 12:00:00 AM EDT Current Smoker completed [facility] Smoker [facility]) Alcohol intake 11/17/2020 12:00:00 AM EDT Current non-d no of alcohol (finding) completed Current non-drinker of alcohol (finding) [facility] Vital Signs ID Date Data Source [id number] Name Value Range Interpretation Code Description Data Source(s) Diastolic blood pressure 83 mm[Hg] 83 mm[Hg] [facility] ([facility]) Body height 70 [in_i] 70 [in_i] [place] ([facility]) Body mass index (BMI) [Ratio] 37 kg/m2 37 kg/ m2 [facility] ([facility]) Systolic blood pressure 116 mm[Hg] 116 mm[Hg] [facility] THENA ([facility]) Body weight 4128 [oz_av] 4128 [oz_av] MEY ([facility]) Respiratory rate 16 /min 16 /min eCW1 [facility] Body weight 255 [lb_av] 255 [lb_av] eCW1 ([facility]) Body height 70 [in_i] 70 [in_i] eCW1 ([facility]) Body mass index (BMI) [Ratio] 36.58 kg/m2 36.58 kg/m2 W1 ([facility]) Heart rate 98 /min 98 /min eCW1 ([facility]) Body temperature 98.6 [degF] 98.6 [degF] eCW[facility] ( [facility] Systolic blood pressure 163 mm[Hg] 163 mm[Hg] e CW1 ([facility]) Diastolic blood pressure 91 mm[Hg] 91 mm[Hg] eCW1 ([facility]) Diastolic blood pressure 71 mm[Hg] 71 mm[Hg] MEY ([facility]) Body height 70 [in_i] 70 [in_i] MEY ([facility]) Body mass index (BMI) [Ratio] 36.6 kg/m2 36.6 k g/m2 MEY ([facility]) Systolic blood pressure 118 mm[Hg] 118 mm[Hg] A TYLERA ([facility]) Body weight 4086.4 [oz_av] 4086.4 [oz_av] ATHEN A ([facility]) Diastolic blood pressure 71 mm[Hg] 71 mm[Hg] MEY ([facility]) Body height 70 [in_i] 70 [in_i] MEY ([facility]) Body mass index (BMI) [Ratio] 36.6 kg/m2 36.6 k g/m2 MEY ([facility]) Systolic blood pressure 118 mm[Hg] 118 mm[Hg] A ESTIVEN ([facility]) Body weight 4086.4 [oz_av] 4086.4 [oz_av] ATHEN A ([facility]) Diastolic blood pressure 76 mm[Hg] 76 mm[Hg] MEY ([facility]) Body height 70 [in_i] 70 [in_i] MEY ([facility]) Body mass index (BMI) [Ratio] 38.2 kg/m2 38.2 k g/m2 MEY ([facility]) Systolic blood pressure 116 mm[Hg] 116 mm[Hg] A ESTIVEN ([facility]) Body weight 4259.2 [oz_av] 4259.2 [oz_av] ATHEN A ([facility]) Diastolic blood pressure 76 mm[Hg] 76 mm[Hg] MEY ([facility]) Body height 70 [in_i] 70 [in_i] MEY ([facility]) Body mass index (BMI) [Ratio] 38.2 kg/m2 38.2 k g/m2 MEY ([facility]) Systolic blood pressure 116 mm[Hg] 116 mm[Hg] A TYLERA ([facility]) Body weight 4259.2 [oz_av] 4259.2 [oz_av] ATHEN A ([facility]) Diastolic blood pressure 76 mm[Hg] 76 mm[Hg] MEY ([facility]) Body height 70 [in_i] 70 [in_i] MEY ([facility]) Body mass index (BMI) [Ratio] 38.2 kg/m2 38.2 k g/m2 MEY ([facility]) Systolic blood pressure 116 mm[Hg] 116 mm[Hg] Melinda SCOTTA ([facility]) Body weight 4259.2 [oz_av] 4259.2 [oz_av] ATHVANDANA A ([facility]) Body height 70 [in_i] 70 [in_i] MEY ([facility]) Body height 70 [in_i] 70 [in_i] MEY ([facility]) Body height 70 [in_i] 70 [in_i] MEY ([facility]) Body height 70 [in_i] 70 [in_i] MEY ([facility]) Body height 70 [in_i] 70 [in_i] MEY ([facility]) Heart rate 74 /min 74 /min MEDENT ([facility]) Systolic blood pressure 126 mm[Hg] 126 mm[Hg] M EDENT ([facility]) Diastolic blood pressure 51 mm[Hg] 51 mm[Hg] MEDENT ([facility]) Body temperature 97.4 [degF] 97.4 [degF] MEDENT ([facility]) Respiratory rate 16 /min 16 /min MEDENT ( [facility]) Body weight 260.00 [lb_av] 260.00 [lb_av] MEDEN T ([facility]) Body weight 117.936 kg 117.936 kg MEDENT ([facility]) Body height 71 [in_i] 71 [in_i] MEDENT ([facility]) 5'11" Body mass index (BMI) [Ratio] 36.3 kg/m2 36.3 k g/m2 MEDENT ([facility]) Body surface area 2.36 m2 2.36 m2 [facility] ([facility]) ID Date Data Source [id number] 12/08/2020 02:28:06 PM EDT [facility] Name Value Range Interpretation Code Description Data Source(s) WEIGHT RECORDED 250 lb 250 lb [facility] Body height Measured 70 in 70 in [facility] Patient Treatment Plan of Care Planned Activity Planned Date Details Description Data Source (s) sodium chloride (preservative free) 0.9 % flush 3 mL 021 09:00:00 AM T [facility] sodium chloride 0.9 % bag 3-20 mL 12/08/2020 07:00:46 AM T [facility] Acetaminophen 160 MG/5ML 08/11/2020 01:00:00 AM EDT [facility]) Ensure Enlive 08/11/2020 01:00:00 AM EDT [facility]) Folvite 08/11/2020 01:00:00 AM EDT N [facility] ([facility]) Omeprazole+Syrspend SF Liss 2 MG/ML 08/11/2020 01:00:00 AM EDT [facility]) Thiamine HCl 100 MG/ML 08/11/2020 01:00:00 AM EDT [facility]) levETIRAcetam 100 MG/ML 08/11/2020 01:00:00 AM EDT [facility] ([facility]) Albuterol Sulfate HFA 108 (90 Base) MCG/ACT 08/11/2020 01:00:00 AM EDT [facility] ([facility]) Albuterol Sulfate 0.63 MG/3ML 08/11/2020 01:00:00 AM EDT [facility]) Pepcid 08/11/2020 01:00:00 AM EDT N [facility] ([facility]) Flonase 50 MCG/ACT 08/11/2020 01:00:00 AM EDT [facility] ([facility]) Doxycycline Monohydrate 100 MG Oral Capsule [place] ([facility]) 12 HR dextromethorphan polistirex 6 MG/ML Extended Release Suspensi on MEY ([facility]) Cephalexin 50 MG/ML Oral Suspension [place] ([facility]) cefdinir 300 MG Oral Capsule MEY ([facility]) Azithromycin 250 MG Oral Tablet [place] ([facility]) Amoxicillin 80 MG/ML Oral Suspension MEY ([facility]) Pseudoephedrine Hydrochloride 30 MG Oral Tablet [Sudogest] MEY ([facility]) Prazosin 1 MG Oral Capsule A THENA ([facility]) Metronidazole 250 MG Oral Tablet MEY ([facility]) Doxycycline Monohydrate 100 MG Oral Capsule MEY ([facility]) 12 HR dextromethorphan polistirex 6 MG/ML Extended Release Suspensi on MEY ([facility]) cefdinir 300 MG Oral Capsule MEY ([facility]) Azithromycin 250 MG Oral Tablet MEY ([facility]) Amoxicillin 80 MG/ML Oral Suspension MEY ([facility]) Azithromycin 250 MG Oral Tablet MEY ([facility]) Pseudoephedrine Hydrochloride 30 MG Oral Tablet [Sudogest] MEY ([facility]) Metronidazole 250 MG Oral Tablet MEY ([facility]) Doxycycline Monohydrate 100 MG Oral Capsule MEY ([facility]) 12 HR dextromethorphan polistirex 6 MG/ML Extended Release Suspensi on MEY ([facility]) cefdinir 300 MG Oral Capsule MEY ([facility]) Azithromycin 250 MG Oral Tablet MEY ([facility]) Pseudoephedrine Hydrochloride 30 MG Oral Tablet [Sudogest] MEY ([facility]) Metronidazole 250 MG Oral Tablet MEY ([facility]) Doxycycline Monohydrate 100 MG Oral Capsule MEY ([facility]) 12 HR dextromethorphan polistirex 6 MG/ML Extended Release Suspensi on MEY ([facility]) cefdinir 300 MG Oral Capsule MEY ([facility]) Azithromycin 250 MG Oral Tablet MEY ([facility]) Pseudoephedrine Hydrochloride 30 MG Oral Tablet [Sudogest] MEY ([facility]) Prazosin 1 MG Oral Capsule A THENA ([facility]) Metronidazole 250 MG Oral Tablet MEY ([facility]) Pseudoephedrine Hydrochloride 30 MG Oral Tablet [Sudogest] MEY ([facility]) Metronidazole 250 MG Oral Tablet MEY ([facility]) Doxycycline Monohydrate 100 MG Oral Capsule MEY ([facility]) 12 HR dextromethorphan polistirex 6 MG/ML Extended Release [place] on [place] ([facility]) cefdinir 300 MG Oral Capsule [place] ([facility])
--- OUTSIDE RECORDS SUMMARY | 2021-03-21 16:23 | CCD ---
Author Author [facility] Organization [facility] Address Unknown Phone Unavailable Care Team Providers Care Head Librarian Name Role Phone Abid, Chris Unavailable Unavailable [...] Unavailable Unavailable Mounika Pineda MD Unavailable Unavailable Monuika Pineda MD Unavailable Unavailable Mounika Pineda MD [...] Unavailable Peter Bloom MD Unavailable Unavailable Evelyn RACHEL Unavailable Unavailable Olivia, Babita Unavailable Unavailable Olivia, [...] Unavailable Unavailable Francisco YI MD Unavailable Unavailable Fracnisco YI MD Unavailable Unavailable Francisco YI MD Unavailable Unavailable Francisco YI MD Unavailable Unavailable Francisco YI MD Unavailable Unavailable Francisco YI MD Unavailable Unavailable Francisco YI MD Unavailable Unavailable Francisco YI MD Unavailable Unavailable Francisco YI MD Unavailable Unavailable Francisco YI MD Unavailable Unavailable Francisco YI MD Unavailable Unavailable Francisco YI MD Unavailable Unavailable Francisco YI MD Unavailable Unavailable Bandar HASSAN Unavailable Unavailable Evelyn MARTINEZEB PA Unavailable Unavailable MARTINEZ J OMAYRA PA Unavailable Unavailable MARTINEZ J OMAYRA PA Unavailable Unavailable MARTINEZ J OMAYRA PA Unavailable Unavailable MARTINEZ, J [...] Unavailable MARTINEZ, J OMAYRA PA Unavailable Unavailable MRATINEZ, J OMAYRA PA Unavailable Unavailable MARTINEZ, J [...] Unavailable Unavailable Ray Virk MD Unavailable Unavailable Rya Virk MD Unavailable Unavailable Ray Virk MD [...] Unavailable Unavailable Karis SORTO PA-C Unavailable Unavailable Karis SORTO PA-C Unavailable Unavailable Karis SORTO PA-C Unavailable Unavailable Karis SORTO PA-C Unavailable Unavailable Karis SORTO PA-C Unavailable Unavailable NOREEN, Karis PA-C Unavailable [...] Alejandra PA Unavailable Unavailable Servage, L Jami HEEL SEATER Unavailable Unavailable Servage, L Jami HEEL SEATER Unavailable Unavailable Servage, L Jami HEEL SEATER Unavailable Unavailable Servage, L Jami HEEL SEATER Unavailable Unavailable Servage, L Jami HEEL SEATER Unavailable Unavailable Servage, L Jami HEEL SEATER Unavailable Unavailable Servage, L Jami HEEL SEATER Unavailable Unavailable Servage, L Jami HEEL SEATER Unavailable Unavailable Servage, L Jami HEEL SEATER Unavailable Unavailable Servage, L Jami HEEL SEATER Unavailable Unavailable Servage, L Jami HEEL SEATER Unavailable Unavailable Servage, L Jami HEEL SEATER Unavailable Unavailable Servage, L Jami HEEL SEATER Unavailable Unavailable Servage, L Jami HEEL SEATER Unavailable Unavailable Servage, L Jami HEEL SEATER Unavailable Unavailable Servage, L Jami HEEL SEATER Unavailable Unavailable Servage, L Jami HEEL SEATER Unavailable Unavailable Servage, L Jami HEEL SEATER Unavailable Unavailable Servage, L Jami HEEL SEATER Unavailable Unavailable Servage, L Jami HEEL SEATER Unavailable Unavailable Servage, L Jami HEEL SEATER Unavailable Unavailable Servage, L Jami HEEL SEATER Unavailable Unavailable Servage, L Jami HEEL SEATER Unavailable Unavailable Servage, L Jami HEEL SEATER Unavailable Unavailable Servage, L Jami HEEL SEATER Unavailable Unavailable Servage, L Jami HEEL SEATER Unavailable Unavailable Servage, L Jami HEEL SEATER Unavailable Unavailable Servage, L Jami HEEL SEATER Unavailable Unavailable Servage, L Jami HEEL SEATER Unavailable Unavailable Servage, L Jami HEEL SEATER Unavailable Unavailable Servage, L Jami HEEL SEATER Unavailable Unavailable Servage, L Jami HEEL SEATER Unavailable Unavailable Servage, L Jami HEEL SEATER Unavailable Unavailable Servage, L Jami HEEL SEATER Unavailable Unavailable Servage, L Jami HEEL SEATER Unavailable Unavailable Servage, L Jami HEEL SEATER Unavailable Unavailable Servage, L Jami HEEL SEATER Unavailable Unavailable Servage, L Jami HEEL SEATER Unavailable Unavailable Servage, L Jami HEEL SEATER Unavailable Unavailable Servage, L Jami HEEL SEATER Unavailable Unavailable Servage, L Jami HEEL SEATER Unavailable Unavailable Servage, L Jami HEEL SEATER Unavailable Unavailable Servage, L Jami HEEL SEATER Unavailable Unavailable Servage, L Jami HEEL SEATER Unavailable Unavailable Servage, L Jami HEEL SEATER Unavailable Unavailable Servage, L Jami HEEL SEATER Unavailable Unavailable Servage, L Jami HEEL SEATER Unavailable Unavailable Servage, L Jami HEEL SEATER Unavailable Unavailable Servage, L Jami HEEL SEATER Unavailable Unavailable Servage, L Jami HEEL SEATER Unavailable Unavailable Servage, L Jami HEEL SEATER Unavailable Unavailable Servage, L Jami HEEL SEATER Unavailable Unavailable Servage, L Jami HEEL SEATER Unavailable Unavailable Servage, L Jami HEEL SEATER Unavailable Unavailable Servage, L Jami HEEL SEATER Unavailable Unavailable Servage, L Jami HEEL SEATER Unavailable Unavailable Servage, L Jami HEEL SEATER Unavailable Unavailable Servage, L Jami HEEL SEATER Unavailable Unavailable Servage, L Jami HEEL SEATER Unavailable Unavailable Servage, L Jami HEEL SEATER Unavailable Unavailable Servage, L Jami HEEL SEATER Unavailable Unavailable Servage, L Jami HEEL SEATER Unavailable Unavailable Servage, L Jami HEEL SEATER Unavailable Unavailable Servage, L Jami HEEL SEATER Unavailable Unavailable Servage, L Jami HEEL SEATER Unavailable Unavailable GILES, SUNDEEP CATARINO RPA-C Unavailable Unavailable GILES, SUNDEEP CATARINO RPA-C Unavailable Unavailable GILES, SUNDEEP CATARINO RPA-C Unavailable Unavailable GILES, SUNDEEP CATARINO RPA-C Unavailable Unavailable GILES, SUNDEEP CATARINO RPA-C Unavailable Unavailable GILES, SUNDEEP CATARINO RPA-C Unavailable Unavailable GILES, SUNDEEP CATARINO RPA-C Unavailable Unavailable GILES, SUNDEEP CATARINO RPA-C Unavailable Unavailable GILES, SUNDEEP CATARINO RPA-C Unavailable Unavailable GILES, SUNDEEP CATARINO RPA-C Unavailable Unavailable GILES, SUNDEEP CATARINO RPA-C Unavailable Unavailable GILES, SUNDEEP CATARINO RPA-C Unavailable Unavailable GILES, SUNDEEP CATARINO RPA-C Unavailable Unavailable GILES, SUNDEEP CATARINO RPA-C Unavailable Unavailable GILES, SUNDEEP CATARINO RPA-C Unavailable Unavailable GILES, SUNDEEP CATARINO RPA-C Unavailable Unavailable GILES, SUNDEEP CATARINO RPA-C Unavailable Unavailable GILES, SUNDEEP CATARINO RPA-C Unavailable Unavailable GILES, SUNDEEP CATARINO RPA-C Unavailable Unavailable GILES, SUNDEEP CATARINO RPA-C Unavailable Unavailable GILES, SUNDEEP CATARINO RPA-C Unavailable Unavailable GILES, SUNDEEP CATARINO RPA-C Unavailable Unavailable GILES, SUNDEEP CATARINO RPA-C Unavailable Unavailable GILES, SUNDEEP CATARINO RPA-C Unavailable Unavailable GILES, SUNDEEP CATARINO RPA-C Unavailable Unavailable GILES, SUNDEEP CATARINO RPA-C Unavailable Unavailable GILES, SUNDEEP CATARINO RPA-C Unavailable Unavailable GILES, SUNDEEP CATARINO RPA-C Unavailable Unavailable GILES, SUNDEEP CATARINO RPA-C Unavailable Unavailable GILES, SUNDEEP CATARINO RPA-C Unavailable Unavailable GILES, SUNDEEP CATARINO RPA-C Unavailable Unavailable GILES, SUNDEEP CATARINO RPA-C Unavailable Unavailable GILES, SUNDEEP CATARINO RPA-C Unavailable Unavailable GILES, SUNDEEP CATARINO RPA-C Unavailable Unavailable GILES, SUNDEEP CATARINO RPA-C Unavailable Unavailable GILES, SUNDEEP CATARINO RPA-C Unavailable Unavailable GILES, SUNDEEP CATARINO RPA-C Unavailable Unavailable GILES, SUNDEEP CATARINO RPA-C Unavailable Unavailable GILES, SUNDEEP CATARINO RPA-C Unavailable Unavailable GILES, SUNDEEP CATARINO RPA-C Unavailable Unavailable GILES, SUNDEEP CATARINO RPA-C Unavailable Unavailable GILES, SUNDEEP CATARINO RPA-C Unavailable Unavailable GILES, SUNDEEP CATARINO RPA-C Unavailable Unavailable TROVATO, M PIETRO HEEL SEATER Unavailable Unavailable TROVATO, M PIETRO HEEL SEATER Unavailable Unavailable TROVATO, M PIETRO HEEL SEATER Unavailable Unavailable TROVATO, M PIETRO HEEL SEATER Unavailable Unavailable TROVATO, M PIETRO HEEL SEATER Unavailable Unavailable TROVATO, M PIETRO HEEL SEATER Unavailable Unavailable TROVATO, M PIETRO HEEL SEATER Unavailable Unavailable TROVATO, M PIETRO HEEL SEATER Unavailable Unavailable TROVATO, M PIETRO HEEL SEATER Unavailable Unavailable TROVATO, M PIETRO HEEL SEATER Unavailable Unavailable TROVATO, M PIETRO HEEL SEATER Unavailable Unavailable TROVATO, M PIETRO HEEL SEATER Unavailable Unavailable TROVATO, M PIETRO HEEL SEATER Unavailable Unavailable TROVATO, M PIETRO HEEL SEATER Unavailable Unavailable TROVATO, M PIETRO HEEL SEATER Unavailable Unavailable TROVATO, M PIETRO HEEL SEATER Unavailable Unavailable TROVATO, M PIETRO HEEL SEATER Unavailable Unavailable TROVATO, M PIETRO HEEL SEATER Unavailable Unavailable TROVATO, M PIETRO HEEL SEATER Unavailable Unavailable TROVATO, M PIETRO HEEL SEATER Unavailable Unavailable TROVATO, M PIETRO HEEL SEATER Unavailable Unavailable TROVATO, M PIETRO HEEL SEATER Unavailable Unavailable TROVATO, M PIETRO HEEL SEATER Unavailable Unavailable TROVATO, M PIETRO HEEL SEATER Unavailable Unavailable TROVATO, M PIETRO HEEL SEATER Unavailable Unavailable TROVATO, M PIETRO HEEL SEATER Unavailable Unavailable TROVATO, M PIETRO HEEL SEATER Unavailable Unavailable TROVATO, M PIETRO HEEL SEATER Unavailable Unavailable TROVATO, M PIETRO HEEL SEATER Unavailable Unavailable TROVATO, M PIETRO HEEL SEATER Unavailable Unavailable TROVATO, M PIETRO HEEL SEATER Unavailable Unavailable TROVATO, M PIETRO HEEL SEATER Unavailable Unavailable TROVATO, M PIETRO HEEL SEATER Unavailable Unavailable TROVATO, M PIETRO HEEL SEATER Unavailable Unavailable TROVATO, M PIETRO HEEL SEATER Unavailable Unavailable TROVATO, M PIETRO HEEL SEATER Unavailable Unavailable JAYLEN S AMSHANNA GUZMÁN Unavailable Unavailable HOLLYARNGENA, S AMAR MD Unavailable Unavailable SWARNGENA, S AMAR MD Unavailable Unavailable SWARNKAR, S AMAR MD Unavailable Unavailable SWARNKAR, S AMAR MD Unavailable Unavailable SWARNKAR, S AMAR MD Unavailable Unavailable SWARNGENA, S AMAR MD Unavailable Unavailable SWARNGENA, S AMAR MD Unavailable Unavailable SWARNKAR, S AMAR MD Unavailable Unavailable SWARNGENA, S AMAR MD Unavailable Unavailable JAWED, MOHAMMED [...] Unavailable Unavailable JAWED, MOHAMMED MD Unavailable Unavailable Kevin Hassan Unavailable Re-disclosure Warning The records that [...] is protected by Article 27-F of the [facility] Public Health law. If you continue you may have access to information: Regarding HIV / AIDS; Provided by facilities licensed or operated by the [facility] Office of Mental Health; or Provided by the [facility] Office for People With Developmental Disabilities. If such information is present, then the following [facility] mandated warning applies: This information has been [...] law may result in a fine or custodial sentence or both. A general authorization for the release of medical or other information is NOT sufficient authorization for further disc losure. Allergies and Adverse Reactions Type Description Substance Reaction Status Data Source(s ) Propensity to adverse reactions BEE POLLEN BEE POLLEN Anaphylaxis [facility] Propensity to adverse reactions LATEX Latex [facility] Bee venom Bee venom Bee venom active [facility] ([facility]) Codeine Codeine Codeine active [facility] ([facility]) Gonzalez Gonzalez Gonzalez active [facility] ([facility]) Fluoxetine Fluoxetine Fluoxetine active [facility] ([facility]) Family History Family Member Name Family Member Gender Family Member Status Date o f Status Description Data Source(s) Unknown Male Problem MEDENT ([facility]) Unknown Unknown Problem [facility] Unknown Male Problem MEDENT ([facility]) Encounters Encounter Providers Location Date Indications Data Source(s ) Outpatient Attender: Karis SORTO PA-C 05/19/2021 12: 00:00 AM [facility] Outpatient Attender: Karis SORTO PA-C 05/14/2021 12: 00:00 AM [facility] Outpatient Attender: Chris Cartereferrer: Karis SORTO PA-C 03/09/2021 12:00:[address] [facility] Outpatient Attender: Chris Mckeonerrer: Karis SORTO PA-C 03/05/2021 12:00:00 AM EDT [facility] Outpatient Attender: Chris Arshader: Karis SORTO PA-C 03/05/2021 12:00:00 AM EDT [facility] Outpatient Attender: TONY Moore mitter: Chris Mckeonerrer: Karis SORTO PA-C 03/01/2021 12:00:00 AM EDT - 03/01/2021 01:00:00 PM EDT Gastrostomy [facility] Gastrostomy status Patient discharged. Outpatient 02/26/2021 11:41:08 AM EDT - 021 12:53:07 PM EDT [facility] ([facility]) Emergency Attender: Peter Bloom MDConsultant: Jami Shine P 02/25/2021 10:28:00 AM EDT - 02/25/2021 11:47:00 AM EDT [facility] Patient discharged. Unknown [address] [facility] [address] 02/17/2021 12:00:00 AM EDT eCW1 ([facility]) Catarino Giles RPA-C: [address] [address], Ph. Attender: CATARINO BRITOC [facility] 02/11/2021 12:00:00 AM EDT [facility] ([facility]) Outpatient Attender: Karis SORTO PA-C 12/30/2020 12: 00:[address] [facility] Outpatient Referrer: Karis SORTO PA-C 12/15/2020 12: 00:00 AM T [facility] Outpatient Attender: TONY Moore mitter: RODOLFO RACHELReferrer: Karis SORTO PA-C 12/14/2020 12:00:00 AM EDT - 12/14/2020 09:28:00 AM EDT Gastrostomy [facility] Gastrostomy status Patient discharged. Outpatient Attender: ROSE FIGUEROA MDA ttender: TONY YORK MDAttender: Kevin Beniteztender: KEVIN MIRAMONTESdmitter: ROSE FIGUEROA MDReferrer: Karis SORTO PA-C [id number] 12/08/2020 07:12:51 AM EDT - 12/08/2020 10:04:00 AM EDT Dysphagia, unspecified [facility] Dysphagia, unspecified Patient discharged. Outpatient Attender: PIETRO MERRILL NP 12/04/2020 12:00:0 0 AM EDT [facility] Outpatient Attender: Joseph MORRIS 12/03/19 02:07:44 PM EDT - 12/02/2020 02:56:52 PM EDT [facility] ([facility] ) Outpatient Attender: Karis SORTO PA-C 11/23/2020 12: 00:00 AM EDT [facility] (WND NP120) New Patient 120 [address] [place] [address] 11/18/2020 12:00:00 AM EDT eCW1 ([facility]) Outpatient Attender: Karis SORTO PA-C [id number] 11/17/2020 12:00:00 AM EDT - 11/17/2020 03:58:53 PM EDT [facility] Outpatient Attender: Karis SORTO PA-C 11/13/2020 12: 00:00 AM EDT [facility] Unknown [address] [facility] [address] 11/09/2020 12:00:00 AM EDT eCW1 ([facility]) Outpatient Attender: PIETRO MERRILL NP 10/29/2020 12:00:0 0 AM EDT [facility] Claribel Baker MD: [address] [place] [address], Ph. Attender: Claribel Baker [facility] Medical 10/28/2020 12:00:00 AM EDT MEY ([facility]) Claribel Baker MD: [address] [place] [address], Ph. Attender: Claribel Baker [facility] Medical 10/28/2020 12:00:00 AM EDT [facility] ([facility]) Unknown [address] [facility] [address] 10/27/2020 12:00:00 AM EDT eCW1 ([facility]) Alissa Garnett PA-C: [address] [place] [address], Ph. Attender: Alissa MORRIS [facility] Medical 08/18/2020 12:00:00 AM EDT MEY ([facility]) Alissa Garnett PA-C: [address] [place] [address], Ph. Attender: Alissa MORRIS [facility] Medical 08/18/2020 12:00:00 AM EDT MEY ([facility]) Alissa Garnett PA-C: [address] [place] [address], Ph. Attender: Alissa MORRIS [facility] Medical 08/18/2020 12:00:00 AM EDT [facility] ([facility]) 08/11/2020 01:00:00 AM EDT - 021 03:19:23 PM EDT NETSM[facility] ([facility]) Outpatient Attender: Alejandra MORRIS 09/2020 01:41:05 PM EST - 07/31/2020 02:14:07 PM EST [facility] ([facility]) Alissa Garnett PA-C: [address], [place] [address], Ph. Attender: Alissa MORRIS [facility] Medical 07/14/2020 12:00:00 AM EST [facility] ([facility]) Alissa Garnett PA-C: [address], [place] [address], Ph. Attender: Alissa MORRIS [facility] Medical 07/14/2020 12:00:00 AM EST [facility] ([facility]) Alissa Garnett PA-C: [address], [place] [address], Ph. Attender: Alissa MORRIS [facility] Medical 07/14/2020 12:00:00 AM EST [facility] ([facility]) Alissa Garnett PA-C: [address], [place] [address], Ph. Attender: Alissa MORRIS [facility] Medical 07/14/2020 12:00:00 AM EST [facility] ([facility]) Alissa Garnett PA-C: [address], [place] [address], Ph. Attender: Alissa MORRIS [facility] Medical 07/14/2020 12:00:00 AM EST [facility] ([facility]) Ray Pineda MD: [address], [place] [address], Ph. Attender: Ray Pineda MD [facility] Medical 07/01/2020 12:00:00 AM EST [facility] ([facility]) Ray Pineda MD: [address], [place] [address], Ph. Attender: Ray Pineda MD [facility] Medical 07/01/2020 12:00:00 AM EST [facility] ([facility]) Ray Pineda MD: [address], [place] [address], Ph. Attender: Ray Pineda MD [facility] Medical 07/01/2020 12:00:00 AM EST [facility] ([facility]) Ray Pineda MD: [address], [place] [address], Ph. Attender: Ray Pineda MD [facility] Medical 07/01/2020 12:00:00 AM EST [facility] ([facility]) Ray Pineda MD: [address], [place] [address], Ph. Attender: Ray Pineda MD [facility] Medical 07/01/2020 12:00:00 AM EST ME[facility] ([facility]) Outpatient Attender: FELICE YI MDConsultant: Jami johnson HEEL SEATER 01/23/2020 02:08:00 PM EDT - 01/23/2020 02:08:00 PM [facility] Outpatient Attender: OMAYRA Sanders munoz: Refugio Virk MDConsultant: Jami Tenorio HEEL SEATER 01/14/2020 02:42:00 PM EDT - 01/14/2020 02:42: [facility] OMAYRA carpenterr: Refugio Virk MDConsultant: Jami Tenorio NP 01/14/2020 02:09:00 PM EDT - 01/14/2020 02:09: 00 PM [facility] Medications Medication Brand Name Start Date Product [...] For 1 occurrence
Pre-op [Order 4 End] [facility] Medication administered onsite sodium chloride 0.9 % bag 3-20 mL [id number] 12/08/2020 07:00:46 AM EDT mL Intravenous active 3-20 mL, Intr avenous, at 1-999 mL/hr, PRN, For Medication Administration and Line Clearance, Starting on Mon12/08/20 at 0700, For 30 days, Pre-op
Flush line with sufficient amount of fluid needed based on ad copy writer recommendation for specific line size. Rate should be run at the same rate as medication in the line being flushed.
[facility] Medication administered onsite Acetaminophen 160 MG/5ML Acetaminophen 08/11/2020 01:00:00 AM EDT completed [facility] ([facility]) Ensure Enlive Ensure Enlive 08/11/2020 01:00:00 AM EDT completed [facility] ([facility] ) Folvite Folvite 08/11/2020 01:00:00 AM EDT 1.0 {ml} com pleted [facility] ([facility]) Omeprazole+Syrspend SF Liss 2 MG/ML Omeprazole+Syrspend SF A lka 08/11/2020 01:00:00 AM EDT 20.0 {ml} completed [facility] ([facility]) Thiamine HCl 100 MG/ML Thiamine HCl 08/11/2020 01:00:00 AM EDT 1 .0 {ml} completed [facility] ([facility]) levETIRAcetam 100 MG/ML levETIRAcetam 08/11/2020 01:00:00 AM EDT 10.0 {ml} completed [facility] ([facility]) Albuterol Sulfate HFA 108 (90 Base) MCG/ACT Albuterol Sulfat e HFA 08/11/2020 01:00:00 AM EDT completed [facility] ([facility]) Albuterol Sulfate 0.63 MG/3ML Albuterol Sulfate 08/11/2020 01:00:00 A M EDT completed [facility] ( [facility]) Pepcid Pepcid 08/11/2020 01:00:00 AM EDT 5.0 {ml} compl eted [facility] ([facility]) Flonase 50 MCG/ACT Flonase 08/11/2020 01:00:00 AM EDT completed [facility] ([facility]) Pseudoephedrine Hydrochloride 30 MG Oral Tablet [Sudogest] Sudogest 30 mg tablet TAKE ONE TABLET BY MOUTH FOUR TIMES DAILY NEEDED FOR 10 DAYS Sudogest 30 mg tablet TAKE ONE TABLET BY MOUTH FOUR TIMES DAILY NEEDED FOR 10 DAYS completed pseudoephedrine hydrochlo ride 30 MG Oral Tablet [Sudogest] MEY ([facility]) Azithromycin 250 MG Oral Tablet azithrom ycin 250 mg tablet TAKE 2 TABLETS BY MOUTH ON DAY 1, THEN TAKE 1 TABLET DAILY ON DAYS 2-5 azithromycin 250 mg tablet TAKE 2 TABLETS BY MOUTH ON DAY 1, THEN TAKE 1 TABLET DAILY ON DAYS 2-5 completed azithromycin 250 MG Oral Tablet MEY ([facility]) Metronidazole 250 MG Oral Tablet metroni dazole 250 mg tablet TAKE ONE TABLET BY MOUTH FOUR TIMES DAILY AFTER MEALS AND NIGHTLY FOR 14 DAYS. AVOID ALCOHOL metronidazole 250 mg tablet TAKE ONE TABLET BY MOUTH FOUR TIMES DAILY AFTER MEALS AND NIGHTLY FOR 14 DAYS. AVOID ALCOHOL completed metronidazole 250 MG Oral Tablet MEY ([facility] er) 12 HR dextromethorphan polistirex 6 MG/M L Extended Release Suspension Cough DM ER 30 mg/5 mL oral suspension,extended release TAKE FIVE MILLILITERS EVERY 12 HOURS FOR 10 DAYS Cough DM ER 30 mg/5 mL oral suspension,e xtended release TAKE FIVE MILLILITERS EVERY 12 HOURS FOR 10 DAYS completed 12 HR dextromethorphan polistirex 6 MG/ML Extended Release Suspension MEY ([facility]) Prazosin 1 MG Oral Capsule prazosin 1 mg capsule TAKE ONE CAPSULE BY MOUTH AT BEDTIME prazosin 1 mg capsule TAKE ONE CAPSULE BY MOUTH AT BEDTIME completed prazosin 1 MG Oral Capsule ATH A ([facility]) Azithromycin 250 MG Oral Tablet azithrom ycin 250 mg tablet TAKE 2 TABLETS BY MOUTH ON DAY 1, THEN TAKE 1 TABLET DAILY ON DAYS 2-5 azithromycin 250 mg tablet TAKE 2 TABLETS BY MOUTH ON DAY 1, THEN TAKE 1 TABLET DAILY ON DAYS 2-5 completed azithromycin 250 MG Oral Tablet MEY ([facility]) Doxycycline Monohydrate 100 MG Oral Caps ule doxycycline monohydrate 100 mg capsule TAKE ONE CAPSULE BY MOUTH TWICE DAILY FOR 14 DAYS doxycycline monohydrate 100 mg capsule TAKE ONE CAPSULE BY MOUTH TWICE DAILY FOR 14 DAYS completed doxycycline mo nohydrate 100 MG Oral Capsule MEY ([facility]) cefdinir 300 MG Oral Capsule cefdinir 30 0 mg capsule TAKE TWO CAPSULES BY MOUTH ONCE DAILY FOR 10 DAYS may open AND sprinkle in feeding tube cefdinir 300 mg capsule TAKE TWO CAPSULES BY MOUTH ONCE DAILY FOR 10 DAYS may open AND sprinkle in feeding tube completed cefdin ir 300 MG Oral Capsule MEY ([facility]) cefdinir 300 MG Oral Capsule cefdinir 30 0 mg capsule TAKE TWO CAPSULES BY MOUTH ONCE DAILY FOR 10 DAYS may open AND sprinkle in feeding tube cefdinir 300 mg capsule TAKE TWO CAPSULES BY MOUTH ONCE DAILY FOR 10 DAYS may open AND sprinkle in feeding tube completed cefdin ir 300 MG Oral Capsule MEY ([facility]) 12 HR dextromethorphan polistirex 6 MG/M L Extended Release Suspension Cough DM ER 30 mg/5 mL oral suspension,extended release TAKE FIVE MILLILITERS EVERY 12 HOURS FOR 10 DAYS Cough DM ER 30 mg/5 mL oral suspension,e xtended release TAKE FIVE MILLILITERS EVERY 12 HOURS FOR 10 DAYS completed 12 HR dextromethorphan polistirex 6 MG/ML Extended Release Suspension [place] ([facility]) Pseudoephedrine Hydrochloride 30 MG Oral Tablet [Sudogest] Sudogest 30 mg tablet TAKE ONE TABLET BY MOUTH FOUR TIMES DAILY NEEDED FOR 10 DAYS Sudogest 30 mg tablet TAKE ONE TABLET BY MOUTH FOUR TIMES DAILY NEEDED FOR 10 DAYS completed pseudoephedrine hydrochlo ride 30 MG Oral Tablet [Sudogest] [facility] [place] ([facility]) 12 HR dextromethorphan polistirex 6 MG/M L Extended Release Suspension Cough DM ER 30 mg/5 mL oral suspension,extended release TAKE FIVE MILLILITERS EVERY 12 HOURS FOR 10 DAYS Cough DM ER 30 mg/5 mL oral suspension,e xtended release TAKE FIVE MILLILITERS EVERY 12 HOURS FOR 10 DAYS completed 12 HR dextromethorphan polistirex 6 MG/ML Extended Release Suspension [facility] ([facility]) Pseudoephedrine Hydrochloride 30 MG Oral Tablet [Sudogest] Sudogest 30 mg tablet TAKE ONE TABLET BY MOUTH FOUR TIMES DAILY NEEDED FOR 10 DAYS Sudogest 30 mg tablet TAKE ONE TABLET BY MOUTH FOUR TIMES DAILY NEEDED FOR 10 DAYS completed pseudoephedrine hydrochlo ride 30 MG Oral Tablet [Sudogest] [place] ([facility]) Doxycycline Monohydrate 100 MG Oral Caps ule doxycycline monohydrate 100 mg capsule TAKE ONE CAPSULE BY MOUTH TWICE DAILY FOR 14 DAYS doxycycline monohydrate 100 mg capsule TAKE ONE CAPSULE BY MOUTH TWICE DAILY FOR 14 DAYS completed doxycycline mo nohydrate 100 MG Oral Capsule [facility] [place] ([facility]) Cephalexin 50 MG/ML Oral Suspension cephalexin 250 mg/ 5 mL oral suspension cephalexin 250 mg/5 mL oral suspension completed cephalexin 50 MG/ML Oral Suspension [facility]) Pseudoephedrine Hydrochloride 30 MG Oral Tablet [Sudogest] Sudogest 30 mg tablet TAKE ONE TABLET BY MOUTH FOUR TIMES DAILY NEEDED FOR 10 DAYS Sudogest 30 mg tablet TAKE ONE TABLET BY MOUTH FOUR TIMES DAILY NEEDED FOR 10 DAYS completed pseudoephedrine hydrochlo ride 30 MG Oral Tablet [Sudogest] [place] ([facility]) Azithromycin 250 MG Oral Tablet azithrom ycin 250 mg tablet TAKE 2 TABLETS BY MOUTH ON DAY 1, THEN TAKE 1 TABLET DAILY ON DAYS 2-5 azithromycin 250 mg tablet TAKE 2 TABLETS BY MOUTH ON DAY 1, THEN TAKE 1 TABLET DAILY ON DAYS 2-5 completed azithromycin 250 MG Oral Tablet [facility] [place] ([facility]) cefdinir 300 MG Oral Capsule cefdinir 30 0 mg capsule TAKE TWO CAPSULES BY MOUTH ONCE DAILY FOR 10 DAYS may open AND sprinkle in feeding tube cefdinir 300 mg capsule TAKE TWO CAPSULES BY MOUTH ONCE DAILY FOR 10 DAYS may open AND sprinkle in feeding tube completed cefdin ir 300 MG Oral Capsule [facility] ([facility]) Doxycycline Monohydrate 100 MG Oral Caps ule doxycycline monohydrate 100 mg capsule TAKE ONE CAPSULE BY MOUTH TWICE DAILY FOR 14 DAYS doxycycline monohydrate 100 mg capsule TAKE ONE CAPSULE BY MOUTH TWICE DAILY FOR 14 DAYS completed doxycycline mo nohydrate 100 MG Oral Capsule [facility] ([facility]) Pseudoephedrine Hydrochloride 30 MG Oral Tablet [Sudogest] Sudogest 30 mg tablet TAKE ONE TABLET BY MOUTH FOUR TIMES DAILY NEEDED FOR 10 DAYS Sudogest 30 mg tablet TAKE ONE TABLET BY MOUTH FOUR TIMES DAILY NEEDED FOR 10 DAYS completed pseudoephedrine hydrochlo ride 30 MG Oral Tablet [Sudogest] [facility] ([facility]) Amoxicillin 80 MG/ML Oral Suspension amoxicillin 400 m g/5 mL oral suspension amoxicillin 400 mg/5 mL oral suspension completed amoxicillin 80 MG/ML Oral Suspension [facility] ([facility]) Metronidazole 250 MG Oral Tablet metroni dazole 250 mg tablet TAKE ONE TABLET BY MOUTH FOUR TIMES DAILY AFTER MEALS AND NIGHTLY FOR 14 DAYS. AVOID ALCOHOL metronidazole 250 mg tablet TAKE ONE TABLET BY MOUTH FOUR TIMES DAILY AFTER MEALS AND NIGHTLY FOR 14 DAYS. AVOID ALCOHOL completed metronidazole 250 MG Oral Tablet [facility] ([facility]) Amoxicillin 80 MG/ML Oral Suspension amoxicillin 400 m g/5 mL oral suspension amoxicillin 400 mg/5 mL oral suspension completed amoxicillin 80 MG/ML Oral Suspension [facility] ([facility]) 12 HR dextromethorphan polistirex 6 MG/M L Extended Release Suspension Cough DM ER 30 mg/5 mL oral suspension,extended release TAKE FIVE MILLILITERS EVERY 12 HOURS FOR 10 DAYS Cough DM ER 30 mg/5 mL oral suspension,e xtended release TAKE FIVE MILLILITERS EVERY 12 HOURS FOR 10 DAYS completed 12 HR dextromethorphan polistirex 6 MG/ML Extended Release Suspension [facility] [place] ([facility]) 12 HR dextromethorphan polistirex 6 MG/M L Extended Release Suspension Cough DM ER 30 mg/5 mL oral suspension,extended release TAKE FIVE MILLILITERS EVERY 12 HOURS FOR 10 DAYS Cough DM ER 30 mg/5 mL oral suspension,e xtended release TAKE FIVE MILLILITERS EVERY 12 HOURS FOR 10 DAYS completed 12 HR dextromethorphan polistirex 6 MG/ML Extended Release Suspension [facility] [place] ([facility]) Doxycycline Monohydrate 100 MG Oral Caps ule doxycycline monohydrate 100 mg capsule TAKE ONE CAPSULE BY MOUTH TWICE DAILY FOR 14 DAYS doxycycline monohydrate 100 mg capsule TAKE ONE CAPSULE BY MOUTH TWICE DAILY FOR 14 DAYS completed doxycycline mo nohydrate 100 MG Oral Capsule [facility] [place] ([facility]) cefdinir 300 MG Oral Capsule cefdinir 30 0 mg capsule TAKE TWO CAPSULES BY MOUTH ONCE DAILY FOR 10 DAYS may open AND sprinkle in feeding tube cefdinir 300 mg capsule TAKE TWO CAPSULES BY MOUTH ONCE DAILY FOR 10 DAYS may open AND sprinkle in feeding tube completed cefdin ir 300 MG Oral Capsule [facility] ([facility]) Azithromycin 250 MG Oral Tablet azithrom ycin 250 mg tablet TAKE 2 TABLETS BY MOUTH ON DAY 1, THEN TAKE 1 TABLET DAILY ON DAYS 2-5 azithromycin 250 mg tablet TAKE 2 TABLETS BY MOUTH ON DAY 1, THEN TAKE 1 TABLET DAILY ON DAYS 2-5 completed azithromycin 250 MG Oral Tablet [facility] [place] ([facility]) Metronidazole 250 MG Oral Tablet metroni dazole 250 mg tablet TAKE ONE TABLET BY MOUTH FOUR TIMES DAILY AFTER MEALS AND NIGHTLY FOR 14 DAYS. AVOID ALCOHOL metronidazole 250 mg tablet TAKE ONE TABLET BY MOUTH FOUR TIMES DAILY AFTER MEALS AND NIGHTLY FOR 14 DAYS. AVOID ALCOHOL completed metronidazole 250 MG Oral Tablet [facility]) cefdinir 300 MG Oral Capsule cefdinir 30 0 mg capsule TAKE TWO CAPSULES BY MOUTH ONCE DAILY FOR 10 DAYS may open AND sprinkle in feeding tube cefdinir 300 mg capsule TAKE TWO CAPSULES BY MOUTH ONCE DAILY FOR 10 DAYS may open AND sprinkle in feeding tube completed cefdin ir 300 MG Oral Capsule [place] ([facility]) Azithromycin 250 MG Oral Tablet azithrom ycin 250 mg tablet TAKE 2 TABLETS BY MOUTH ON DAY 1, THEN TAKE 1 TABLET DAILY ON DAYS 2-5 azithromycin 250 mg tablet TAKE 2 TABLETS BY MOUTH ON DAY 1, THEN TAKE 1 TABLET DAILY ON DAYS 2-5 completed azithromycin 250 MG Oral Tablet [facility] ([facility]) Metronidazole 250 MG Oral Tablet metroni dazole 250 mg tablet TAKE ONE TABLET BY MOUTH FOUR TIMES DAILY AFTER MEALS AND NIGHTLY FOR 14 DAYS. AVOID ALCOHOL metronidazole 250 mg tablet TAKE ONE TABLET BY MOUTH FOUR TIMES DAILY AFTER MEALS AND NIGHTLY FOR 14 DAYS. AVOID ALCOHOL completed metronidazole 250 MG Oral Tablet [facility] ([facility]) Prazosin 1 MG Oral Capsule prazosin 1 mg capsule TAKE ONE CAPSULE BY MOUTH AT BEDTIME prazosin 1 mg capsule TAKE ONE CAPSULE BY MOUTH AT BEDTIME completed prazosin 1 MG Oral Capsule [facility] ([facility]) Metronidazole 250 MG Oral Tablet metroni dazole 250 mg tablet TAKE ONE TABLET BY MOUTH FOUR TIMES DAILY AFTER MEALS AND NIGHTLY FOR 14 DAYS. AVOID ALCOHOL metronidazole 250 mg tablet TAKE ONE TABLET BY MOUTH FOUR TIMES DAILY AFTER MEALS AND NIGHTLY FOR 14 DAYS. AVOID ALCOHOL completed metronidazole 250 MG Oral Tablet [place] ([facility]) Doxycycline Monohydrate 100 MG Oral Caps ule doxycycline monohydrate 100 mg capsule TAKE ONE CAPSULE BY MOUTH TWICE DAILY FOR 14 DAYS doxycycline monohydrate 100 mg capsule TAKE ONE CAPSULE BY MOUTH TWICE DAILY FOR 14 DAYS completed doxycycline mo nohydrate 100 MG Oral Capsule [facility] ([facility]) Insurance Providers Payer name Policy type / Coverage type Policy ID Covered libertarian ID Covered libertarian's relationship to sharif Policy Sharif Plan Information Medicaid [facility] Part B [id number] Family Dependent [id number] Medicaid S [id number] S [id number] Managed Care - Community Plan [facility] P [id number] S [id number] Managed Care - Community Plan [facility] P [id number] S [id number] Medicaid S [id number] S [id number] Medicaid P [id number] S [id number] [facility] COMMUNITY PLAN [facility] [id number] SP [id number] [facility] COMMUNITY PLAN [facility] [id number] SP [id number] [facility] COMMUNITY [facility] [id number] SP [id number] [facility] COMMUNITY PLAN MCDO [id number] SP [id number] [facility] I [id number] Self [id number] Medicaid S [id number] S [id number] Managed Care - [facility] Community Plan P [id number] S [id number] [facility] Commercial Insurance Co. [id number] Self [id number] [facility] Commercial Insurance Co. [id number] Self [id number] ANSI-Medicaid [id number] ANSI-Medicaid [id number] ANSI-Medicaid [id number] [facility] Community Plan Commercial [id number] Self [id number] [facility] Community Plan Commercial [id number] Self [id number] [facility] Communty Plan Medicaid [id number] Self [id number] [facility] Community Plan Commercial [id number] Self 1 [id number] [facility] Communty Plan Medicaid [id number] Self [id number] [facility] Community Plan Commercial [id number] Self 1 [id number] [facility] Communty Plan Medicaid [id number] Self [id number] [facility] Health Maintenance Organization (HMO) [id number] Self [id number] [facility] Health Maintenance Organization (O) [id number] Self [id number] [facility] Health Maintenance Organization (O) [id number] Self [id number] [facility] Community Plan Commercial [id number] Self [id number] [facility] Communty Plan Medicaid [id number] Self [id number] [facility] Community Plan Commercial [id number] Self 1 [id number] [facility] Communty Plan Medicaid [id number] Self [id number] [facility] Communty Plan Medicaid [id number] Self [id number] [facility] Community Plan Commercial [id number] Self 1 [id number] [facility] Communty Plan Medicaid [id number] Self [id number] [facility] Community Plan Commercial [id number] Self 1 [id number] [employer] -HMO [id number] 18 [id number] [facility] Communty Plan Medicaid [id number] Self [id number] [facility] Community Plan Commercial [id number] Self 1 [id number] [facility] O [id number] S [id number] [facility] [id number] SP [id number] [facility] Health Maintenance Organization (HMO) [id number] Self [id number] [employer] [id number] SP [id number] MEDICAID [id number] SP [id number] MEDICAID -O/P [id number] [facility] COMMUNITY PLAN MCDO [id number] SP [id number] [facility]) P [id number] S [id number] Self Pay O na S na Self Pay P UNAVAILABLE S UNAVAILA BLE Managed Care - Community Plan [facility] P [id number] S [id number] [facility] COMMUNITY PLAN MCDO [id number] SP [id number] [place] CAS[employer] NOT IN EFFECT SP NO T IN EFFECT [facility] COMMUNITY PLAN MCDHMO [id number] SP [id number] [facility] COMMUNITY PLAN XIX [id number] 18 [id number] [facility] COMMUNITY PLAN XIX [id number] 18 [id number] [facility] COMMUNITY PLAN MCDO [id number] SP [id number] [facility] COMMUNTY PLAN MC [id number] 18 [id number] [facility] [place] [facility] [id number] 18 [id number] [facility]) O [id number] S [id number] [facility] [id number] SP [id number] [facility] [id number] SP [id number] [facility] [id number] SP [id number] ANSI-Medicaid [id number] ANSI-Medicaid [id number] ANSI-Medicaid [id number] ANSI-Medicaid [id number] ANSI-Medicaid [id number] Problems, Conditions, and Diagnoses Code Display Name Description Problem Type Effective Dates Data Source(s) I00896 Latex allergy status Latex allergy status Diagnosis 02/25/2021 10:[facility] Personal history of transien t ischemic attack (TIA), 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 (TIA), and cerebral infarction without residual deficits Diagnosis 02/25/2021 10:28:00 AM T [facility] G03853 Nicotine dependence, cigarettes, uncompl icated Nicotine dependence, cigarettes, uncomplicated Diagnosis 02/25/2021 10:28:00 AM EDT [facility] L13373 Unspecified asthma, uncomplicated Unspecified as thma, uncomplicated Diagnosis 02/25/2021 10:28:00 AM T [facility] I10 Essential (primary) hypertension Essential (primary) h ypertension Diagnosis 02/25/2021 10:28:00 AM T [facility] R1012 Left upper quadrant pain Left upper quadrant pain Diag nosis 02/25/2021 10:28:00 AM [facility] K9429 Other complications of gastrostomy Other complic ations of gastrostomy Diagnosis 02/25/2021 10:28:00 AM EDT [facility] R13.10 Dysphagia, unspecified Dysphagia, unspecified Diagnosi s 12/08/2020 07:00:[address] [facility] Z93.1 Gastrostomy status Gastrostomy status Diagnosis 12:18:[address] [facility] Z931 Gastrostomy status Gastrostomy status Diagnosis 0 02:08:00 PM EDT [facility] Z4659 Encounter for fitting and ad justment of other gastrointestinal appliance and device Encounter for fitting and adjustment of other gastrointestinal appliance and device Diagnosis 01/23/2020 02:08:00 PM EDT [facility] K224 Dyskinesia of esophagus Dyskinesia of esophagus Diagno sis 01/23/2020 02:08:00 PM EDT [facility] [id number] Tube feeding diet Tube Feeding Diet Problem 08/17/2020 12:00:00 AM EDT [place] ([facility]) [id number] Tube feeding diet Tube Feeding Diet Problem 08/17/2020 12:00:00 AM EDT [facility]) [id number] Tube feeding diet Tube Feeding Diet Problem 08/17/2020 12:00:00 AM EDT [place] ([facility]) [id number] Tube feeding diet Tube Feeding Diet Problem 08/17/2020 12:00:00 AM EDT [facility]) K29.90 Gastroduodenitis, unspecified, without b leeding Gastroduodenitis, unspecified, without bleeding Problem 08/11/2020 01:00:00 AM EDT [facility] ([facility]) E46 Unspecified protein-calorie malnutrition Unspecified protein-calorie malnutrition Problem 08/11/2020 01:00:00 AM EDT [facility] ([facility]) R13.10 Dysphagia, unspecified Dysphagia, unspecified Problem 08/11/2020 01:00:00 AM EDT [facility] ([facility] ) J45.909 Unspecified asthma, uncomplicated Unspecified as thma, uncomplicated Problem 08/11/2020 01:00:00 AM EDT [facility] ([facility]) G40.909 Epilepsy, unspecified, not intractable, without status epilepticus Epilepsy, unspecified, not intractable, without status epilepticus Problem 08/11/2020 01:00:00 AM EDT [facility] ([facility] ) I10 Essential (primary) hypertension Essential (primary) h ypertension Problem 08/11/2020 01:00:00 AM EDT [facility] ([facility] ) F31.9 Bipolar disorder, unspecified Bipolar disorder, unspec ified Problem 08/11/2020 01:00:00 AM EDT [facility] ([facility] ) F10.10 Alcohol abuse, uncomplicated Alcohol abuse, uncomplica augusto Problem 08/11/2020 01:00:00 AM EDT [facility] ([facility] ) F14.10 Cocaine abuse, uncomplicated Cocaine abuse, uncomplica augusto Problem 08/11/2020 01:00:00 AM EDT [facility] ([facility] ) F12.10 Cannabis abuse, uncomplicated Cannabis abuse, uncompli cated Problem 08/11/2020 01:00:00 AM EDT [facility] ([facility] ) Z43.1 Encounter for attention to gastrostomy E ncounter for attention to gastrostomy Problem 08/11/2020 01:00:00 AM EDT [facility] ([facility]) Z91.81 History of falling History of falling Problem 01:00:00 AM EDT [facility] ([facility]) K20.80 Other esophagitis without bleeding Other esophag itis without bleeding Problem 08/11/2020 01:00:00 AM EDT [facility] ([facility]) Z43.1 Encounter for attention to gastrostomy E ncounter for attention to gastrostomy Problem 08/05/2020 12:00:00 AM EST [facility] ([facility]) [id number] Fitting procedure Fitting Procedure Problem 03/12 06:40:32 PM EDT [facility] ([facility]) [id number] Asthma Asthma Problem 03/12/2020 06:40:32 PM ED T [facility] ([facility]) 49079016 Hypertensive disorder Hypertensive Disorder Problem 03/12/2020 06:40:32 PM EDT [facility] ([facility]) 51154946 Depressive disorder Depressive Disorder Problem 1 06:40:32 PM EDT [facility] ([facility]) [id number] Fitting procedure Fitting Procedure Problem 03/12 06:40:32 PM EDT [facility] ([facility]) [id number] Asthma Asthma Problem 03/12/2020 06:40:32 PM ED T [facility] ([facility]) 22709124 Hypertensive disorder Hypertensive Disorder Problem 03/12/2020 06:40:32 PM EDT [facility] ([facility]) 53592349 Depressive disorder Depressive Disorder Problem 1 06:40:32 PM EDT [facility] ([facility]) [id number] Fitting procedure Fitting Procedure Problem 03/12 06:40:32 PM EDT [facility] ([facility]) 633188227 Asthma Asthma Problem 03/12/2020 06:40:32 PM ED T [facility] ([facility]) 32858505 Hypertensive disorder Hypertensive Disorder Problem 03/12/2020 06:40:32 PM EDT [facility] ([facility]) 52869695 Depressive disorder Depressive Disorder Problem 1 06:40:32 PM EDT [facility] ([facility]) [id number] Fitting procedure Fitting Procedure Problem 03/12 06:40:32 PM EDT [facility] ([facility]) [id number] Asthma Asthma Problem 03/12/2020 06:40:32 PM ED T [facility] ([facility]) 50550948 Hypertensive disorder Hypertensive Disorder Problem 03/12/2020 06:40:32 PM EDT [facility] ([facility]) 78877342 Depressive disorder Depressive Disorder Problem 1 06:40:32 PM EDT [facility] ([facility]) [id number] Fitting procedure Fitting Procedure Problem 03/12 06:40:32 PM EDT [facility] ([facility]) [id number] Asthma Asthma Problem 03/12/2020 06:40:32 PM ED T [facility] ([facility]) 20511670 Hypertensive disorder Hypertensive Disorder Problem 03/12/2020 06:40:32 PM EDT [facility] ([facility]) 46546351 Depressive disorder Depressive Disorder Problem 1 06:40:32 PM EDT [facility] ([facility]) [id number] Finding by site Finding by Site Problem 0 12:00:00 AM EDT - 07/14/2020 12:00:00 AM EST [facility] ([facility]) [id number] Finding by site Finding by Site Problem 0 12:00:00 AM EDT - 07/14/2020 12:00:00 AM EST [facility] ([facility]) [id number] Finding by site Finding by Site Problem 0 12:00:00 AM EDT - 07/14/2020 12:00:00 AM EST [facility] ([facility]) [id number] Finding by site Finding by Site Problem 0 12:00:00 AM EDT - 07/14/2020 12:00:00 AM EST [facility] ([facility]) [id number] Finding by site Finding by Site Problem 0 12:00:00 AM EDT - 07/14/2020 12:00:00 AM EST [facility] ([facility]) [id number] Finding by site Finding by Site Problem 0 12:00:00 AM EDT - 07/14/2020 12:00:00 AM EST [facility] ([facility]) [id number] Finding by site Finding by Site Problem 0 12:00:00 AM EDT - 07/14/2020 12:00:00 AM EST [facility] ([facility]) [id number] Finding by site Finding by Site Problem 0 12:00:00 AM EDT - 07/14/2020 12:00:00 AM EST [facility] ([facility]) [id number] Finding by site Finding by Site Problem 0 12:00:00 AM EDT - 07/14/2020 12:00:00 AM EST [facility] ([facility]) [id number] Finding by site Finding by Site Problem 0 12:00:00 AM EDT - 07/14/2020 12:00:00 AM EST [facility] ([facility]) 10790051 Screening for cancer Screening for Cancer Problem 07/24/2013 12:00:00 AM EST - 07/14/2020 12:00:00 AM EST [facility] ([facility]) 89025659 Screening for cancer Screening for Cancer Problem 07/24/2013 12:00:00 AM EST - 07/14/2020 12:00:00 AM EST [facility] ([facility]) 50488732 Screening for cancer Screening for Cancer Problem 07/24/2013 12:00:00 AM EST - 07/14/2020 12:00:00 AM EST [facility] ([facility]) 81790712 Screening for cancer Screening for Cancer Problem 07/24/2013 12:00:00 AM EST - 07/14/2020 12:00:00 AM EST [facility] ([facility]) [id number] Screening for cancer Screening for Cancer Problem 07/24/2013 12:00:00 AM EST - 07/14/2020 12:00:00 AM EST [facility] ([facility]) 76945334 Sinusitis Sinusitis Problem 06/24/2013 12:0 0:00 AM EST - 07/14/2020 12:00:00 AM EST [facility] ([facility]) 72732648 Sinusitis Sinusitis Problem 06/24/2013 12:0 0:00 AM EST - 07/14/2020 12:00:00 AM EST [facility] ([facility]) 24391019 Sinusitis Sinusitis Problem 06/24/2013 12:0 0:00 AM EST - 07/14/2020 12:00:00 AM EST [facility] ([facility]) [id number] Sinusitis Sinusitis Problem 06/24/2013 12:0 0:00 AM EST - 07/14/2020 12:00:00 AM EST MEY ([facility] er) [id number] Sinusitis Sinusitis Problem 06/24/2013 12:0 0:00 AM EST - 07/14/2020 12:00:00 AM EST MEY ([facility] er) [id number] Evaluation procedure Evaluation Procedure Problem 04/24/2013 12:00:00 AM EST - 07/14/2020 12:00:00 AM EST MEY ([facility] er) [id number] SNOMED CT Concept SNOMED CT Concept Problem 04/24 12:00:00 AM EST - 07/14/2020 12:00:00 AM EST MEY ([facility] er) [id number] Evaluation procedure Evaluation Procedure Problem 04/24/2013 12:00:00 AM EST - 07/14/2020 12:00:00 AM EST MEY ([facility] er) [id number] SNOMED CT Concept SNOMED CT Concept Problem 04/24 12:00:00 AM EST - 07/14/2020 12:00:00 AM EST MEY ([facility] er) [id number] Evaluation procedure Evaluation Procedure Problem 04/24/2013 12:00:00 AM EST - 07/14/2020 12:00:00 AM EST MEY ([facility] er) [id number] SNOMED CT Concept SNOMED CT Concept Problem 04/24 12:00:00 AM EST - 07/14/2020 12:00:00 AM EST MEY ([facility] er) [id number] Evaluation procedure Evaluation Procedure Problem 04/24/2013 12:00:00 AM EST - 07/14/2020 12:00:00 AM EST MEY ([facility] er) [id number] SNOMED CT Concept SNOMED CT Concept Problem 04/24 12:00:00 AM EST - 07/14/2020 12:00:00 AM EST MEY ([facility] er) [id number] Evaluation procedure Evaluation Procedure Problem 04/24/2013 12:00:00 AM EST - 07/14/2020 12:00:00 AM EST MEY ([facility] er) [id number] SNOMED CT Concept SNOMED CT Concept Problem 04/24 12:00:00 AM EST - 07/14/2020 12:00:00 AM EST MEY ([facility] er) Surgeries/Procedures Procedure Description Date Indications Data Source(s) REPLACE GASTROSTOMY/CECOSTOMY TUBE PERCUTANEOUS <td>IR G-J TUBE INSERTION CHANGE REMOVAL</td><td>Routine</td><td>12/08/2020 9:02 AM EDT</td><td> Esophageal dysphagia Gastrostomy tube dependent</td><td></td> 12/08/2020 09:02:00 AM EDT Gastrostomy tube dependentEsophageal dysphagia [facility] Gastrostomy tube dependent Esophageal dysphagia POCT ID NOW COVID-19 <td>POCT ID NOW COVID-19</td ><td>Routine</td><td>12/08/2020 7:03 AM EDT</td><td></td><td> </td> 12/08/2020 07:03:00 AM EDT [facility] Results ID Date Data Source [id number] 02/25/2021 10:28:00 AM EDT [facility] 1 OrderSheet [facility] Emergency Department [address] [place] [address] Phone #: ext- [phone] 02/25/2021 10:28 Patient: CELIA GUTIÉRRZE Sex: M : 1990 Age: 30yWEIGHT:108.8 kg [...] rce(s) Supporting Document(s) ID Date Data Source [id number] 02/25/2021 10:28:00 AM EDT [facility] 1 Medication Reconciliation Report [facility] Emergency Department [address] [place] [address] Phone #: ext- [phone] 02/25/2021 10:28 Patient: CELIA GUTIÉRREZ Sex: M [...] Pharmacy - USE Rx DISCOUNT CARD: $20.2, BIN:[id number],PCN:MONIQUE, Group:EMR, ID:[id number].Pharmacy - [facility] - [address] ; [place], [place] [id number]. .cefdinir 250 mg/5 mL oral suspension Take 5 ml twice a day for 7 days -- Dispense 70 ml. Refills: 0.Substitution permitted.Pharmacy - [facility] [address] - [address] ; [place] [address]. . -- ALEXANDRA Romero Name Value Range Interpretation Code Description Data Ethel rce(s) Supporting Document(s) ID Date Data Source [id number] 02/25/2021 10:28:00 AM EDT [place] [address] Medication Administration Record [facility] Emergency Department [address] [place] [address] Phone #: ext [phone] 02/25/2021 10:28 Patient: CELIA GUTIÉRREZ Sex: M : 1990 Age: 30yWeight: 108.8 kgHeight/Length: 71 inBMI: 33.5ALLERGIES: Codeine Phosphate, Latex, PROzacDate/Time Medication Administered Medication Ordered Name Value Range Interpretation Code Description Data Ethel e(s) Supporting Document(s) ID Date Data Source [id number] 02/25/2021 10:28:00 AM EDT [facility] 1 General Instructions [facility] Emergency Department [address] [place] [address] Phone #: ext [phone] 02/25/2021 10:28 Patient: CELIA GUTIÉRREZ Sex: M [...] Pharmacy - USE Rx DISCOUNT CARD: $20.2, BIN:[id number],PCN:MONIQUE, Group:EMR, ID:[id number].Pharmacy - [facility] - [address] ; [place], [place] [id number]. .cefdinir 250 mg/5 mL oral suspension Take 5 ml twice a day for 7 days -- Dispense 70 ml. Refills: 0.Substitution permitted.Pharmacy - [facility] [address] ; [place] [address]. .Follow-up:Follow up with your doctor. Call for the next available appointment. Reason for referral: evaluation andtreatment. Summary of care provided to patient.Understanding of the discharge instructions verbalized by patient. ADDITIONAL INFORMATIONAcute Pain, Uncertain CausePain can be caused by many conditions that range from very minor to very serious. In some cases, 2 General Instructions [facility] Emergency Department [address] [place] [address] Phone #: ext- [phone] 02/25/2021 10:28 Patient: CELIA GUTIÉRREZ Sex: M [...] not prescribed for pain, you can take igmyur-uuj-jzvecys pain medicine such as ibuprofen or acetaminophen. Use these as directed on thelabel.Follow-up careFollow up with your healthcare provider or our staff as directed.When to seek medical adviceCall your healthcare provider for any of the following: Pain changes in pattern Pain doesn't lessen or gets worse New symptoms appear Fever of 100.4F (38C) or higher, or as directed by your healthcare provider [phone] [employer]. [address] [place] [address], [place] [address]. All rights reserved. This information is not intended as asubstitute for professional medical care. Always follow your healthcare professional's instructions. You have been given the following additional information: Pain, Acute, Uncertain Cause(Electronically signed by ALEXANDRA Romero 02/26/2021 22:11) Name Value Range Interpretation Code Description Data Ethel rce(s) Supporting Document(s) ID Date Data Source [id number] 02/25/2021 10:28:00 AM EDT [facility] 1 Clinical Report - Nurses [facility] Emergency Department [address] [place] [address] Phone #: ext- [phone] 02/25/2021 10:28 Patient: [...] Tube Placement. 2 Clinical Report - Nurses [facility] Emergency Department [address] [place] [address] Phone #: ext- [phone] 02/25/2021 10:28 Patient: [...] F. Pain level now 0/10. --11:40 02/25/21 Delma Melchor ED Condition at departure: unchanged. No learning barriers present. Discharge instructions provided and reviewed with the patient. Reviewed medication(s) side effects, precautions, dosing and course information. Prescription(s) given to the patient and sent electronically to pharmacy. Patient verbalized 3 Clinical Report - Nurses [facility] Emergency Department [address] [place] [address] Phone #: ext- [phone] 02/25/2021 10:28 Patient: CELIA GUTIÉRREZ Sex: M : 1990 Age: 30y understanding. Written instructions provided in Azeri. The patient was discharged home and accompanied by parent. He left ambulatory and via private vehicle. Parent driving. --11:45 02/25/21 Daisy Mcgill R.N. Departure time: 11:45 02/25/2021. --11:45 02/25/21 Daisy Mcgill R.N.Locked/Released at 02/25/2021 11:47 by Daisy Mcgill R.N. Name Value Range Interpretation Code Description Data Ethel rce(s) Supporting Document(s) ID Date Data Source [id number] 02/25/2021 10:28:00 AM EDT [facility] 1 Clinical Report - Physicians/Mid Levels [facility] Emergency Department [address] [place] [address] Phone #: ext- [phone] 02/25/2021 10:28 Patient: [...] Allergies: 2 Clinical Report - Physicians/Mid Levels [facility] Emergency Department [address] [place] [address] Phone #: ext- [phone] 02/25/2021 10:28 Patient: CELIA GUTIÉRREZ Sex: M [...] fever. 3 Clinical Report - Physicians/Mid Levels [facility] Emergency Department [address] [place] [address] Phone #: ext- [phone] 02/25/2021 10:28 Patient: [...] Pharmacy - USE Rx DISCOUNT CARD: $20.2, BIN:[id number], PCN:MONIQUE, Group:EMR, ID:[id number]. Pharmacy - [facility] - [address] [place] [address] ; [place], [place] [phone]. . cefdinir 250 mg/5 mL oral suspension Take 5 ml twice a day for 7 days -- Dispense 70 ml. Refills: 0. Substitution permitted. Pharmacy - [facility] [address] ; [place] [address]. . Follow-up: Follow up with your doctor. Call for the next available appointment. Reason for referral: evaluation and treatment. Summary of care provided to patient. Understanding of the discharge instructions verbalized by patient.(Electronically signed by ALEXANDRA Romero 02/26/2021 22:11) Name Value Range Interpretation Code Description Data Ethel rce(s) Supporting Document(s) ID Date Data Source [id number] 02/25/2021 10:28:00 AM EDT [facility]ECELIA VisitID: [id number] Date: 18:33Lab results reviewed, by Srinath MORRIS. Final g-tube site wound culture shows Beta hemolyticStrep group C Heavy Growth, Organism #2Diphtheroids Patient was prescribed Cefdinir, no changes needed.(Electronically signed by Erika Mack RN - 03/02/2021 18:33) Name Value Range Interpretation Code Description Data Ethel rce(s) Supporting Document(s) ID Date Data Source [id number] 03/01/2021 12:51:08 PM EDT [facility] IR G-J TUBE INSERTION CHANGE REMOVALFINA L RESULTInterpreted by:PEPE MartinGASTROSTOMY TUBE ExchangeIndication: 30-year-old male is with esophageal [...] rce(s) Supporting Document(s) ID Date Data Source [id number] 02/26/2021 12:15:00 PM EDT [facility] Name Value Range Interpretation Code Description Data Ethel rce(s) Supporting Document(s) SARS-CoV-2 RNA Resp Ql PERCY+probe NOT DETECTED [place] This lab was ordered by FAYE lara and reported by FAYE Fragoso. ID Date Data Source [id number] 03/02/2021 06:19:00 AM EDT [facility] Name Value Range Interpretation Code Description Data Ethel rce(s) Supporting Document(s) CULTURE WOUND 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 [place]amp : 02/27/21.1151.XMT.SENT REF 03/02/21.0619.XMT.SENT REF ID Date Data Source [id number] 12/17/2020 03:59:24 PM EDT [facility] IR G-J TUBE INSERTION CHANGE REMOVALFINA L [...] document has been electronically signed by Rodolfo Rachel MD on 12/17/2020 3:57 PM Name Value Range Interpretation Code Description Data Ethel rce(s) Supporting Document(s) ID Date Data Source [id number] 12/08/2020 02:28:06 PM T [facility] IR G-J TUBE INSERTION CHANGE REMOVALFINA L [...] rce(s) Supporting Document(s) ID Date Data Source [id number] 12/08/2020 10:16:29 AM [facility] Name Value Range Interpretation Code Description Data [facility] rce(s) Supporting Document(s) Progress Note [facility] QVHASk7mMeXJBlKk70/PFOoqCLEyq1TeMJxaBQe4DAviUICsE8RxPKY9oE1xSRJ9PRaCBkYnKpSxMuTb m [file] [id number] ID Date Data Source [id number] 12/08/2020 10:02:09 AM EDT [facility] Name Value Range Interpretation Code Description Data Ethel rce(s) Supporting Document(s) Progress Note [facility] NLXNPq6pRlLJTyHp28/RNHtnZANtz1TgSCviAWv2XCshFWNvE5JoWIG6zT9wBQM5PXhTZqWuTvNzYpPj lbm CsHifAOxXvNIMqKuxLDgPbTPrvDyeqiESjXE5JkXS9INXcN46yRPWzCNXgH0MtOFU5WBD+Pr1DXHPqnL MhBX4LYzlT4Pslh1x3OL6coL3GFOTQVqsDobqgxZ1wetJgBiO0YkAcUYt+pHqHgaN17tjKcfqfJ7nzPI 9mCo6PkYPhIB2eHO0Gur0k7LfKuA2H7Z//CVt4Cb8z U95p5Edd6nq8Q08MpKLcPL+aA/jqED1qvRwtrabwfB1uFbIVjtzPDfzYuMxj9aG35ra2qTvzGxbvbc0H 6tS3NaQMSVO67qRdk3qnE4t+RSn7cfn82Il45Lk6uujK3dRDzn1tvZKyXK3BQO01WMzFNAf3vomHQ2hN sxBgxhOuyNJ8rMJrIKzhzl/o4mCPnYe/k7QiDdMUjn B2ZjSiSn7imx3SZ+QXhSz9fjj5iBmdEjkh0d9wpWICHeeYGZ6KFCfUI0YZHfPBBt7HrxYotB8Zn9DyZD iyL+GXm69NoLN6140fzoy4ZLWMdwC0fU4ej3Ip7Ii490rajfVImvyDG9ZvJ79RA5/jrZVVI0Y9emMKgX gej8DGLJFlg+LKETQfIPzlJzN2UvzSLH+wCjzBXqvZ NWXlhIDAgNT6NrB2wijBVy+6ThTiiQTeXnOPic06bhwNDi90jOVTbDZCcoW1zxTarCHYBxez+KmdP6gK Wo00A+KSc5TpmdThv+SpBQa3XlMWlZr16KsBAm+/XKl7jk/v9qRc8hAiXgcstkTkNXR0xQthwKdbW/FIELDS [file] XrAP4VYVv= ID Date Data Source [id number] 12/08/2020 07:03:00 AM EDT [facility] Name Value Range Interpretation Code Description Data Ethel rce(s) Supporting Document(s) SARS coronavirus 2 RdRp gene https://www.fda.gov/media/231487/downflynna mounika [facility] This lab was ordered by [facility] and reported by [facility]. ID Date Data Source [id number] 12/08/2020 09:06:12 AM EDT [facility] Name Value Range Interpretation Code Description Data Ethel rce(s) Supporting Document(s) SARS coronavirus 2 RdRp gene Negative [facility] Test performed using the Núñez ID NOW C OVID-19 assay. This test is only for use under the Food and Drug Administration's Emergency Use Authorization. 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 [facility] Patient has symptoms related to condition [facility] When did you start to experience these symptoms [Date and time] [Phen X] [facility] Patient was hospitalized because of this condition [facility] patient was admitted to ICU for condition [facility] Patient resides in a congregate care setting [facility] status [facility] ID Date Data Source [id number] 12/02/2020 01:20:00 PM EDT [facility] Name Value Range Interpretation Code Description Data Ethel rce(s) Supporting Document(s) SARS-CoV-2 RNA Resp Ql PERCY+probe NOT DETECTED [facility] This lab was ordered by FAYE lara and reported by FAYE Fragoso. ID Date Data Source [id number] 11/17/2020 12:25:17 PM EDT [facility] Name Value Range Interpretation Code Description Data Ethel rce(s) Supporting Document(s) Progress Note [facility] IDXRJb6pOhFZViYn42/SDAouFAYms8NzVXxlHJb0BJrdSPYrN2WzSAY7xQ5iYLG5XJmHPiQnVyZvZrGr lbm [file] AgICAgICAgICAgICAgICAgICAgICAgICAgICAgICAgICAgICAgICAgICAgICAgICAgICAgICAgICAgIC AgICAgICAgICAgICAgICAgICAgICAgICAgICAgICAgICAgICANCiAgICAgICAgICAgICAgICAgICAgIC AgICAgICAgICAgICAgICAgICAgICAgICAgICAgICAg ICAgICAgICAgICAgICAgICAgICAgICAgICAgICAgICAgICAgICAgICAgICAgICANCiAgICAgICAgICAg ICAgICAgICAgICAgICAgICAgICAgICAgICAgICAgICAgICAgICAgICAgICAgICAgICAgICAgICAgICAg ICAgICAgICAgICAgICAgICAgICAgICAgICAgICANCi AgICAgICAgICAgICAgICAgICAgICAgICAgICAgICAgICAgICAgICAgICAgICAgICAgICAgICAgICAgIC AgICAgICAgICAgICAgICAgICAgICAgICAgICAgICAgICAgICAgICANCiAgICAgICAgICAgICAgICAgIC AgICAgICAgICAgICAgICAgICAgICAgICAgICAgICAg ICAgICAgICAgICAgICAgICAgICAgICAgICAgICAgICAgICAgICAgICAgICAgICAgICANCiAgICAgICAg ICAgICAgICAgICAgICAgICAgICAgICAgICAgICAgICAgICAgICAgICAgICAgICAgICAgICAgICAgICAg ICAgICAgICAgICAgICAgICAgICAgICAgICAgICAgIC ANCiAgICAgICAgICAgICAgICAgICAgICAgICAgICAgICAgICAgICAgICAgICAgICAgICAgICAgICAgIC AgICAgICAgICAgICAgICAgICAgICAgICAgICAgICAgICAgICAgICAgICANCiAgICAgICAgICAgICAgIC AgICAgICAgICAgICAgICAgICAgICAgICAgICAgICAg ICAgICAgICAgICAgICAgICAgICAgICAgICAgICAgICAgICAgICAgICAgICAgICAgICAgICANCiAgICAg ICAgICAgICAgICAgICAgICAgICAgICAgICAgICAgICAgICAgICAgICAgICAgICAgICAgICAgICAgICAg ICAgICAgICAgICAgICAgICAgICAgICAgICAgICAgIC AgICANCiAgICAgICAgICAgICAgICAgICAgICAgICAgICAgICAgICAgICAgICAgICAgICAgICAgICAgIC AgICAgICAgICAgICAgICAgICAgICAgICAgICAgICAgICAgICAgICAgICAgICANCjw/sAXaT9uooYLzrw R4N7qhPk8MKv6THX0wn6WyJEPxLUjaygQzGfaUEdIc BIGtAffXTeu9XBejJG6ZwBCuI3ZyG1CpIDprMV3VKAQjMNCsrVHjJZPwXUXjOdQ8FAUdQEdcSF4LnNVx AAaiREZsULQuVlYyVKNkAZNgAMUaCKKsQTDVUX5MYhRtD6MkyJ51HHVXOp7+DLjcmvXrZqoVIrH2LNSa x9DkPEa4MW5CFBDfZgndd9EiPzghXUNCTVdmQZ3KAZ F6UMK0VRAeVk0LSTCmJ122txErQC2SNm0LBfAlPH9ykp9ULkajIAVwXatNXsl3QIvxDX6FdGIxXLcGkg 9gleUmspKJp2LugoRmvJLPrTTda6QvzoZmAqDOtLP7BOZ3ZZRLGISauEA8KrOgSaIvEeFrHDM4ACPtTQ 5aZAymSE3DILK3BJbzKMNwGDXkA9sMOjZoVKIgNIEs uFowRQ4NCrVkN7VykpVsfNSzYFMuLAXYIz9+JWrmyrYtPcfHKmPnVTIyh5YkVDr0PU8AZXBnEUzgOB2U QBHtvR2kPDbrLI6OQlXnAdIhSHPARvFeP96xuVSsUPa6I8MaWiLzQAQxUdpqSHIpRZcvZtQpOIYhCqHm DQogID4+ID4+CAwbPQ6ASNestjDgIVEsRz7RBHKlCI MsUI2gXNNsGSEpJ7A6xHdaQIZYDsXnN4qtysraZS5lFZUbH660uKnbozCjJHF6NKKxBm2RWGBsVXZ9RI WffBMdTutgQUXVXCtnTA1IyGNfCQE1hQ1jZGnmXEBpHMOkH9tVBxYmkLvsAC79kUkzsqOqeDTmRKy+Pg 8VEY1ox3IwRXn3brIvRHgvRYHhBSudCAMqWRRmNKAr UKG8GRP0JHKEIaDdDYLlLEEtZGmmIAIjFEHxfd8SWNCpVGQtXQU5XjYrFMNhFIIcXQpwZAOiTYDtEvY6 YPVpRWEcIV7YHbWwGRRzLJFsIMccYSHkTLFlur7SAMQdLZLvDVN4XLIeROZhXCAbLEwwXBEkQVT2XzU8 XLUcYVRbBY7ZVnThDPJpKVxzQRtcXXCvHCUqmb2LGE HhFDPnRqZ5CzJhLDIyWNUxAWcbQGYaAYFmZmCuXXIqKIWzRM0XViUzFWToVTR2ITknCEYnDWAbnu2IQC JhDQXfEic8OVAeTYAbDNWuLCgkNMDwQAEhSTsaEFTaMQPsDQ7NHyWzRZYbAFWhSMUzMRCuXQPtbk9JHM QgKYCxHQB8RCLsIDNsLJVxNAotFJJlBPA4MPLaQOAr FSTlGX1TNtNnAXIgTNUoFETwBJNmRAFzpb3PNVCqLBBeAVX5ZvGbZXBmAPZfMCmiVNLwUFD3XvvaCUEx DAMuQC0AMkUuYUPdTgxaPVYhCNMaYTVydu3XULSoFZRcNpJySYMgVQWbKZVtTUgwQXWbDKS3HkJ8SIXw WOEjFL8ZRsGzMRUjWlt4VXBpCDJkSSBpsl5MYUPhTG TaJBJ6CCYfSGLiBLQfFQdqXOWtBMY9ARh9FLPmMIOtOW2HLaXlXIYtMitlHuAtZTCtRPEqly9EWXYsLS ZsASW9GGTrWAFfJKEeOXabHIJhZVD7EGV4KHPmMZSxBA4UGzKsYTAdReZiAhHsRPXeDYOpwm5YCUWrCY QvPFF6EEXfVUCpNHXoWOanTVVsDSYsWFD4WRCaFXGj NF1QDcOgKMnnQDYLQtp8BTvnD9t7TWObOK2HO5Zhm3IeFaNkULDAMYlyAB7rfkOyDPSrKj1XD8fOJgyd YSOnSeR3QAIeSqT0ERE0DQV0EUalYWVzNJT5FOVzLc1vZIEfJPX5HsL9FAGiJbXrCfavOcUgPJMoWDKy ReYtDMZ6RxNfLF7KDz4ODzH1UVT1fXBtKz8FFnJ6KMAKCrBmPO8ZDLw= ID Date Data Source [id number] 08/06/2020 11:42:00 AM EST [facility] Name Value Range Interpretation Code Description Data Ethel rce(s) Supporting Document(s) SARS coronavirus 2 RNA panel NEG N [facility] augusto by [facility]. ID Date Data Source [id number] 08/01/2020 06:44:00 AM EST [facility] Name Value Range Interpretation Code Description Data Ethel rce(s) Supporting Document(s) BHD COVID-19 RT-PCR HEEL SEATER SWAB Not Detected Not Detected [employer] This test has received Emergency Use Aut horization (EUA). We willcontinue to follow federal and state requirements for COVID-19reporting. This test was developed and its performance characteristicsdetermined by [employer]. It has not been cleared orapproved by [...] agencies as required. ID Date Data Source [id number] 07/31/2020 02:00:00 PM EST [facility] Name Value Range Interpretation Code Description Data Ethel rce(s) Supporting Document(s) SARS coronavirus 2 RNA [Presence] in Res piratory specimen by PERCY with probe detection NEGATIVE [facility] This lab was ordered by [facility] and reported by [employer]. ID Date Data Source [id number] 07/26/2020 11:54:00 AM EST [facility] ([facility]) Name Value Range Interpretation Code Description Data Ethel rce(s) Supporting Document(s) amylase 52 U/L 25-115 Amylase ME[facility] ([facility]) ID Date Data Source [id number] 07/26/2020 11:54:00 AM EST [facility] ([facility]) Name Value Range Interpretation Code Description Data Ethel rce(s) Supporting Document(s) glucose, fasting 95 mg/dL 70-100 Glucose, Fasting AT [facility]) blood urea nitrogen 10 mg/dL 7-18 Blood Urea Nitro gen MEY ([facility]) glomerular filtration rate > 60.0 >60 Glomerula r Filtration Rate MEY ([facility]) sodium level 140 mEq/L 136-145 Sodium Level MEY ([facility]) creatinine for GFR 0.81 mg/dL 0.70-1.30 Creatinine for GF R MEY ([facility]) chloride level 107 mEq/L 98-107 Chloride Level [place] ([facility]) potassium serum 4.1 mEq/L 3.5-5.1 Potassium Serum ATHE ([facility]) anion gap 5 mEq/L 8-16 Below low normal Anion Gap MEY ( [facility]) carbon dioxide level 28 mEq/L 21-32 Carbon Dioxide Level MEY ([facility]) ALT/SGPT 24 U/L 12-78 ALT/SGPT ME[facility] ([facility]) calcium level 8.7 mg/dL 8.5-10.1 Calcium Level MEY ( [facility]) alkaline phosphatase 76 U/L 45-117 Alkaline Phosph atase MEY ([facility]) AST/SGOT 11 U/L 7-37 AST/SGOT MEY ([facility]) bilirubin,total 0.4 mg/dL 0.2-1.0 Bilirubin,total ATHE ([facility]) albumin/globulin ratio Albumin/globu gibran Ratio MEY ([facility]) albumin 3.7 gm/dL 3.2-5.2 Albumin ME[facility] ([facility]) total protein 6.9 gm/dL 6.4-8.2 Total Protein MEY ( [facility]) ID Date Data Source [id number] 07/26/2020 11:54:00 AM EST MEY ([facility]) Name Value Range Interpretation Code Description Data Ethel rce(s) Supporting Document(s) red blood count 5.22 10 4.30-6.10 Red Blood Count ATHE NA ([facility]) white blood count 7.1 10 4.0-10.0 White Blood Count MEY ([facility]) mean corpuscular volume 86.4 fL 80.0-96.0 Mean Corpusc ular Volume MEY ([facility]) hemoglobin 15.2 g/dL 13.5-17.5 Hemoglobin MEY ([facility]) mean corpuscular hemoglobin 29.1 pg 27.0-33.0 Mean Cor puscular Hemoglobin MEY ([facility]) hematocrit 45.1 % 42.0-52.0 Hematocrit MEY ([facility]) platelet count, automated 312 10 150-450 Platelet C ount, Automated MEY ([facility]) neutrophils % 45.1 % 36.0-66.0 Neutrophils % MEY ( [facility]) red cell distribution width 12.7 % 11.5-14.5 Red Cell Distribution Width MEY ([facility]) mean corpuscular HGB conc 33.7 g/dL 32.0-36.5 Mean Corpu scular HGB Conc MEY ([facility]) eos % 2.4 % 0.0-3.0 Eos % MEY ([facility]) baso % 1.0 % 0.0-1.0 Baso % MEY ([facility]) lymph % 41.7 % 24.0-44.0 Lymph % MEY ([facility]) mono % 9.5 % 2.0-8.0 Above high normal [place] % MEY ([facility]) nucleated red blood cell % 0.0 % 0-0 Nucleated Red Blood Cell % MEY ([facility]) immature granulocyte % 0.3 % 0-3.0 Immature Gran ulocyte % MEY ([facility]) neutrophils # 3.2 10 1.5-8.5 Neutrophils # ME[facility] ( [facility]) lymph # 3.0 10 1.5-5.0 Lymph # [facility] ([facility]) mono # 0.7 10 0.0-0.8 [place] # MEY ([facility]) baso # 0.1 10 0.0-0.2 Baso # [facility] ([facility]) eos # 0.2 10 0.0-0.5 Eos # [facility] ([facility]) ID Date Data Source [id number] 07/26/2020 11:54:00 AM EST ME[facility] ([facility]) Name Value Range Interpretation Code Description Data Ethel rce(s) Supporting Document(s) tissue transglutaminase IgA <2 0-3 Tissue T ransglutaminase IgA [place] ([facility]) ID Date Data Source [id number] 07/26/2020 11:54:00 AM EST MEY ([facility]) Name Value Range Interpretation Code Description Data Ethel rce(s) Supporting Document(s) C reactive protein quantitativ 0.30 mg/dL 0.00-0.30 C Reactive Protein Quantitativ MEY ([facility]) ID Date Data Source [id number] 07/26/2020 11:54:00 AM EST MEY ([facility]) Name Value Range Interpretation Code Description Data Ethel rce(s) Supporting Document(s) lipase 87 U/L 73-393 Lipase MEY ([facility]) ID Date Data Source [id number] 07/26/2020 11:54:00 AM EST MEY ([facility]) Name Value Range Interpretation Code Description Data Ethel rce(s) Supporting Document(s) amylase 52 U/L 25-115 Amylase MEY ([facility]) ID Date Data Source [id number] 07/26/2020 11:54:00 AM EST MEY ([facility]) Name Value Range Interpretation Code Description Data Ethel rce(s) Supporting Document(s) glucose, fasting 95 mg/dL 70-100 Glucose, Fasting AT [facility]) blood urea nitrogen 10 mg/dL 7-18 Blood Urea Nitro gen MEY ([facility]) glomerular filtration rate > 60.0 >60 Glomerula r Filtration Rate MEY ([facility]) chloride level 107 mEq/L 98-107 Chloride Level MEY ([facility]) sodium level 140 mEq/L 136-145 Sodium Level MEY ([facility]) creatinine for GFR 0.81 mg/dL 0.70-1.30 Creatinine for GF R MEY ([facility]) potassium serum 4.1 mEq/L 3.5-5.1 Potassium Serum ATHE ([facility]) calcium level 8.7 mg/dL 8.5-10.1 Calcium Level MEY ( [facility]) ALT/SGPT 24 U/L 12-78 ALT/SGPT MEY ([facility]) carbon dioxide level 28 mEq/L 21-32 Carbon Dioxide Level MEY ([facility]) AST/SGOT 11 U/L 7-37 AST/SGOT MEY ([facility]) anion gap 5 mEq/L 8-16 Below low normal Anion Gap MEY ( [facility]) bilirubin,total 0.4 mg/dL 0.2-1.0 Bilirubin,total ATHE ([facility]) alkaline phosphatase 76 U/L 45-117 Alkaline Phosph atase MEY ([facility]) albumin/globulin ratio Albumin/globu gibran Ratio MEY ([facility]) albumin 3.7 gm/dL 3.2-5.2 Albumin MEY ([facility]) total protein 6.9 gm/dL 6.4-8.2 Total Protein MEY ( [facility]) ID Date Data Source [id number] 07/26/2020 11:54:00 AM EST MEY ([facility]) Name Value Range Interpretation Code Description Data Ethel rce(s) Supporting Document(s) white blood count 7.1 10 4.0-10.0 White Blood Count MEY ([facility]) hemoglobin 15.2 g/dL 13.5-17.5 Hemoglobin MEY ([facility]) red blood count 5.22 10 4.30-6.10 Red Blood Count ATHE NA ([facility]) mean corpuscular HGB conc 33.7 g/dL 32.0-36.5 Mean Corpu scular HGB Conc MEY ([facility]) mean corpuscular volume 86.4 fL 80.0-96.0 Mean Corpusc ular Volume MEY ([facility]) hematocrit 45.1 % 42.0-52.0 Hematocrit MEY ([facility]) mean corpuscular hemoglobin 29.1 pg 27.0-33.0 Mean Cor puscular Hemoglobin MEY ([facility]) red cell distribution width 12.7 % 11.5-14.5 Red Cell Distribution Width MEY ([facility]) neutrophils % 45.1 % 36.0-66.0 Neutrophils % MEY ( [facility]) platelet count, automated 312 10 150-450 Platelet C ount, Automated MEY ([facility]) lymph % 41.7 % 24.0-44.0 Lymph % MEY ([facility]) eos % 2.4 % 0.0-3.0 Eos % MEY ([facility]) baso % 1.0 % 0.0-1.0 Baso % MEY ([facility]) mono % 9.5 % 2.0-8.0 Above high normal [place] % MEY ([facility]) neutrophils # 3.2 10 1.5-8.5 Neutrophils # EMY ( [facility]) immature granulocyte % 0.3 % 0-3.0 Immature Gran ulocyte % MEY ([facility]) nucleated red blood cell % 0.0 % 0-0 Nucleated Red Blood Cell % MEY ([facility]) mono # 0.7 10 0.0-0.8 [place] # MEY ([facility]) lymph # 3.0 10 1.5-5.0 Lymph # MEY ([facility]) baso # 0.1 10 0.0-0.2 Baso # MEY ([facility]) eos # 0.2 10 0.0-0.5 Eos # MEY ([facility]) ID Date Data Source [id number] 07/26/2020 11:54:00 AM EST MEY ([facility]) Name Value Range Interpretation Code Description Data Ethel rce(s) Supporting Document(s) tissue transglutaminase IgA <2 0-3 Tissue T ransglutaminase IgA MEY ([facility]) ID Date Data Source [id number] 07/26/2020 11:54:00 AM EST MEY ([facility]) Name Value Range Interpretation Code Description Data Ethel rce(s) Supporting Document(s) C reactive protein quantitativ 0.30 mg/dL 0.00-0.30 C Reactive Protein Quantitativ MEY ([facility]) ID Date Data Source [id number] 07/26/2020 11:54:00 AM EST MEY ([facility]) Name Value Range Interpretation Code Description Data Ethel rce(s) Supporting Document(s) lipase 87 U/L 73-393 Lipase MEY ([facility]) ID Date Data Source [id number] 07/26/2020 11:54:00 AM EST MEY ([facility]) Name Value Range Interpretation Code Description Data Ethel rce(s) Supporting Document(s) amylase 52 U/L 25-115 Amylase MEY ([facility]) ID Date Data Source [id number] 07/26/2020 11:54:00 AM EST MEY ([facility]) Name Value Range Interpretation Code Description Data Ethel rce(s) Supporting Document(s) glucose, fasting 95 mg/dL 70-100 Glucose, Fasting AT ABBEY ([facility]) blood urea nitrogen 10 mg/dL 7-18 Blood Urea Nitro gen MEY ([facility]) glomerular filtration rate > 60.0 >60 Glomerula r Filtration Rate MEY ([facility]) creatinine for GFR 0.81 mg/dL 0.70-1.30 Creatinine for GF R MEY ([facility]) sodium level 140 mEq/L 136-145 Sodium Level MEY ([facility]) chloride level 107 mEq/L 98-107 Chloride Level MEY ([facility]) potassium serum 4.1 mEq/L 3.5-5.1 Potassium Serum ATHE NA ([facility]) carbon dioxide level 28 mEq/L 21-32 Carbon Dioxide Level EMY ([facility]) AST/SGOT 11 U/L 7-37 AST/SGOT MEY ([facility]) anion gap 5 mEq/L 8-16 Below low normal Anion Gap MEY ( [facility]) calcium level 8.7 mg/dL 8.5-10.1 Calcium Level MEY ( [facility]) bilirubin,total 0.4 mg/dL 0.2-1.0 Bilirubin,total ATHE NA ([facility]) total protein 6.9 gm/dL 6.4-8.2 Total Protein MEY ( [facility]) alkaline phosphatase 76 U/L 45-117 Alkaline Phosph atase MEY ([facility]) albumin 3.7 gm/dL 3.2-5.2 Albumin MEY ([facility]) ALT/SGPT 24 U/L 12-78 ALT/SGPT MEY ([facility]) albumin/globulin ratio Albumin/globu gibran Ratio MEY ([facility]) ID Date Data Source [id number] 07/26/2020 11:54:00 AM EST MEY ([facility]) Name Value Range Interpretation Code Description Data Ethel rce(s) Supporting Document(s) white blood count 7.1 10 4.0-10.0 White Blood Count MEY ([facility]) hemoglobin 15.2 g/dL 13.5-17.5 Hemoglobin MEY ([facility]) hematocrit 45.1 % 42.0-52.0 Hematocrit MEY ([facility]) red blood count 5.22 10 4.30-6.10 Red Blood Count ATHE NA ([facility]) mean corpuscular hemoglobin 29.1 pg 27.0-33.0 Mean Cor puscular Hemoglobin MEY ([facility]) mean corpuscular volume 86.4 fL 80.0-96.0 Mean Corpusc ular Volume MEY ([facility]) mean corpuscular HGB conc 33.7 g/dL 32.0-36.5 Mean Corpu scular HGB Conc MEY ([facility]) red cell distribution width 12.7 % 11.5-14.5 Red Cell Distribution Width MEY ([facility]) platelet count, automated 312 10 150-450 Platelet C ount, Automated MEY ([facility]) neutrophils % 45.1 % 36.0-66.0 Neutrophils % MEY ( [facility]) lymph % 41.7 % 24.0-44.0 Lymph % MEY ([facility]) eos % 2.4 % 0.0-3.0 Eos % MEY ([facility]) mono % 9.5 % 2.0-8.0 Above high normal [place] % MEY ([facility]) nucleated red blood cell % 0.0 % 0-0 Nucleated Red Blood Cell % MEY ([facility]) baso % 1.0 % 0.0-1.0 Baso % MEY ([facility]) immature granulocyte % 0.3 % 0-3.0 Immature Gran ulocyte % MEY ([facility]) lymph # 3.0 10 1.5-5.0 Lymph # MEY ([facility]) eos # 0.2 10 0.0-0.5 Eos # MEY ([facility]) mono # 0.7 10 0.0-0.8 [place] # MEY ([facility]) neutrophils # 3.2 10 1.5-8.5 Neutrophils # MEY ( [facility]) baso # 0.1 10 0.0-0.2 Baso # MEY ([facility]) ID Date Data Source [id number] 07/26/2020 11:54:00 AM EST MEY ([facility]) Name Value Range Interpretation Code Description Data Ethel rce(s) Supporting Document(s) tissue transglutaminase IgA <2 0-3 Tissue T ransglutaminase IgA MEY ([facility]) ID Date Data Source [id number] 07/26/2020 11:54:00 AM EST MEY ([facility]) Name Value Range Interpretation Code Description Data Ethel rce(s) Supporting Document(s) C reactive protein quantitativ 0.30 mg/dL 0.00-0.30 C Reactive Protein Quantitativ MEY ([facility]) ID Date Data Source [id number] 07/26/2020 11:54:00 AM EST MEY ([facility]) Name Value Range Interpretation Code Description Data Ethel rce(s) Supporting Document(s) lipase 87 U/L 73-393 Lipase MEY ([facility]) ID Date Data Source [id number] 07/26/2020 11:54:00 AM EST MEY ([facility]) Name Value Range Interpretation Code Description Data Ethel rce(s) Supporting Document(s) amylase 52 U/L 25-115 Amylase MEY ([facility]) ID Date Data Source [id number] 07/26/2020 11:54:00 AM EST MEY ([facility]) Name Value Range Interpretation Code Description Data Ethel rce(s) Supporting Document(s) creatinine for GFR 0.81 mg/dL 0.70-1.30 Creatinine for GF R MEY ([facility]) glucose, fasting 95 mg/dL 70-100 Glucose, Fasting AT [facility] ([facility]) glomerular filtration rate > 60.0 >60 Glomerula r Filtration Rate MEY ([facility]) blood urea nitrogen 10 mg/dL 7-18 Blood Urea Nitro gen MEY ([facility]) chloride level 107 mEq/L 98-107 Chloride Level MEY ([facility]) carbon dioxide level 28 mEq/L 21-32 Carbon Dioxide Level MEY ([facility]) sodium level 140 mEq/L 136-145 Sodium Level MEY ([facility]) potassium serum 4.1 mEq/L 3.5-5.1 Potassium Serum ATHE ([facility]) AST/SGOT 11 U/L 7-37 AST/SGOT MEY ([facility]) ALT/SGPT 24 U/L 12-78 ALT/SGPT MEY ([facility]) calcium level 8.7 mg/dL 8.5-10.1 Calcium Level MEY ( [facility]) anion gap 5 mEq/L 8-16 Below low normal Anion Gap MEY ( [facility]) total protein 6.9 gm/dL 6.4-8.2 Total Protein MEY ( [facility]) alkaline phosphatase 76 U/L 45-117 Alkaline Phosph atase MEY ([facility]) bilirubin,total 0.4 mg/dL 0.2-1.0 Bilirubin,total ATHE NA ([facility]) albumin 3.7 gm/dL 3.2-5.2 Albumin MEY ([facility]) albumin/globulin ratio Albumin/globu gibran Ratio MEY ([facility]) ID Date Data Source [id number] 07/26/2020 11:54:00 AM EST MEY ([facility]) Name Value Range Interpretation Code Description Data Ethel rce(s) Supporting Document(s) white blood count 7.1 10 4.0-10.0 White Blood Count MEY ([facility]) red blood count 5.22 10 4.30-6.10 Red Blood Count ATHE NA ([facility]) hemoglobin 15.2 g/dL 13.5-17.5 Hemoglobin MEY ([facility]) hematocrit 45.1 % 42.0-52.0 Hematocrit MEY ([facility]) mean corpuscular volume 86.4 fL 80.0-96.0 Mean Corpusc ular Volume MEY ([facility]) mean corpuscular hemoglobin 29.1 pg 27.0-33.0 Mean Cor puscular Hemoglobin MEY ([facility]) mean corpuscular HGB conc 33.7 g/dL 32.0-36.5 Mean Corpu scular HGB Conc MEY ([facility]) red cell distribution width 12.7 % 11.5-14.5 Red Cell Distribution Width MEY ([facility]) platelet count, automated 312 10 150-450 Platelet C ount, Automated MEY ([facility]) lymph % 41.7 % 24.0-44.0 Lymph % MEY ([facility]) mono % 9.5 % 2.0-8.0 Above high normal [place] % MEY ([facility]) eos % 2.4 % 0.0-3.0 Eos % MEY ([facility]) neutrophils % 45.1 % 36.0-66.0 Neutrophils % MEY ( [facility]) nucleated red blood cell % 0.0 % 0-0 Nucleated Red Blood Cell % MEY ([facility]) immature granulocyte % 0.3 % 0-3.0 Immature Gran ulocyte % MEY ([facility]) baso % 1.0 % 0.0-1.0 Baso % MEY ([facility]) lymph # 3.0 10 1.5-5.0 Lymph # MEY ([facility]) mono # 0.7 10 0.0-0.8 [place] # MEY ([facility]) eos # 0.2 10 0.0-0.5 Eos # MEY ([facility]) neutrophils # 3.2 10 1.5-8.5 Neutrophils # MEY ( [facility]) baso # 0.1 10 0.0-0.2 Baso # MEY ([facility]) ID Date Data Source [id number] 07/26/2020 11:54:00 AM EST MEY ([facility]) Name Value Range Interpretation Code Description Data Ethel rce(s) Supporting Document(s) tissue transglutaminase IgA <2 0-3 Tissue T ransglutaminase IgA [place] ([facility]) ID Date Data Source [id number] 07/26/2020 11:54:00 AM EST MEY ([facility]) Name Value Range Interpretation Code Description Data Ethel rce(s) Supporting Document(s) C reactive protein quantitativ 0.30 mg/dL 0.00-0.30 C Reactive Protein Quantitativ [place] ([facility]) ID Date Data Source [id number] 07/26/2020 11:54:00 AM EST MEY ([facility]) Name Value Range Interpretation Code Description Data Ethel rce(s) Supporting Document(s) lipase 87 U/L 73-393 Lipase [place] ([facility]) Procedure Social History Code Duration Value Status Description Data Source(s ) Alcohol intake 12/08/2020 12:00:00 AM EDT Current non-d no of alcohol (finding) completed Current non-drinker of alcohol (finding) [facility] Tobacco use and exposure 12/08/2020 12:00:00 AM EDT Current user co mpleted Current user [facility] Cigarette pack-years 12/08/2020 12:00:00 AM EDT UNK [facility] Cigarettes smoked current (pack per day) - Reported 12/09/19 12:00:00 AM EDT UNK completed [facility] Smoking 12/08/2020 12:00:00 AM EDT Current every day smoker co mpleted Current every day smoker [facility] Smoking 11/18/2020 12:00:00 AM EDT Current Smoker completed Curre nt Smoker eCW1 ([facility]) Smoking 11/18/2020 12:00:00 AM EDT Current Smoker completed Curre nt Smoker eCW1 ([facility]) Alcohol intake 11/17/2020 12:00:00 AM EDT Current non-d no of alcohol (finding) completed Current non-drinker of alcohol (finding) [facility] Vital Signs ID Date Data Source UNK Name Value Range Interpretation Code Description Data Source(s) Diastolic blood pressure 83 mm[Hg] 83 mm[Hg] [place] ([facility]) Body height 70 [in_i] 70 [in_i] [place] ([facility]) Body mass index (BMI) [Ratio] 37 kg/m2 37 kg/ m2 MEY ([facility]) Systolic blood pressure 116 mm[Hg] 116 mm[Hg] A THENA ([facility]) Body weight 4128 [oz_av] 4128 [oz_av] MEY ([facility]) Body weight 255 [lb_av] 255 [lb_av] eCW1 ([facility]) Body height 70 [in_i] 70 [in_i] eCW1 ([facility]) Body mass index (BMI) [Ratio] 36.58 kg/m2 36.58 kg/m2 eCW1 ([facility]) Heart rate 98 /min 98 /min eCW1 ([facility]) Respiratory rate 16 /min 16 /min eCW1 ([facility]) Body temperature 98.6 [degF] 98.6 [degF] eCW1 ( [facility]) Systolic blood pressure 163 mm[Hg] 163 mm[Hg] e CW1 ([facility]) Diastolic blood pressure 91 mm[Hg] 91 mm[Hg] eCW1 ([facility]) Diastolic blood pressure 71 mm[Hg] 71 mm[Hg] MEY ([facility]) Body height 70 [in_i] 70 [in_i] MEY ([facility]) Body mass index (BMI) [Ratio] 36.6 kg/m2 36.6 k g/m2 MEY ([facility]) Systolic blood pressure 118 mm[Hg] 118 mm[Hg] [facility] Body weight 4086.4 [oz_av] 4086.4 [oz_av] ATHEN A ([facility]) Body height 70 [in_i] 70 [in_i] MEY ([facility]) Body mass index (BMI) [Ratio] 36.6 kg/m2 36.6 k g/m2 MEY ([facility]) Systolic blood pressure 118 mm[Hg] 118 mm[Hg] [facility] Body weight 4086.4 [oz_av] 4086.4 [oz_av] ATHEN A ([facility]) Diastolic blood pressure 71 mm[Hg] 71 mm[Hg] MEY ([facility]) Diastolic blood pressure 76 mm[Hg] 76 mm[Hg] MEY ([facility]) Body height 70 [in_i] 70 [in_i] MEY ([facility]) Body mass index (BMI) [Ratio] 38.2 kg/m2 38.2 k g/m2 MEY ([facility]) Systolic blood pressure 116 mm[Hg] 116 mm[Hg] A [place] ([facility]) Body weight 4259.2 [oz_av] 4259.2 [oz_av] ATHEN A ([facility]) Diastolic blood pressure 76 mm[Hg] 76 mm[Hg] MEY ([facility]) Body height 70 [in_i] 70 [in_i] MEY ([facility]) Body mass index (BMI) [Ratio] 38.2 kg/m2 38.2 k g/m2 MEY ([facility]) Systolic blood pressure 116 mm[Hg] 116 mm[Hg] [facility] Body weight 4259.2 [oz_av] 4259.2 [oz_av] ATHEN A ([facility]) Diastolic blood pressure 76 mm[Hg] 76 mm[Hg] MEY ([facility]) Body height 70 [in_i] 70 [in_i] MEY ([facility]) Body mass index (BMI) [Ratio] 38.2 kg/m2 38.2 k g/m2 MEY ([facility]) Systolic blood pressure 116 mm[Hg] 116 mm[Hg] A THENA ([facility]) Body weight 4259.2 [oz_av] 4259.2 [oz_av] ATHEN A ([facility]) Body height 70 [in_i] 70 [in_i] MEY ([facility]) Body height 70 [in_i] 70 [in_i] MEY ([facility]) Body height 70 [in_i] 70 [in_i] MEY ([facility]) Body height 70 [in_i] 70 [in_i] MEY ([facility]) Body height 70 [in_i] 70 [in_i] MEY ([facility]) Systolic blood pressure 126 mm[Hg] 126 mm[Hg] M EDENT ([facility]) Body temperature 97.4 [degF] 97.4 [degF] MEDENT ([facility]) Respiratory rate 16 /min 16 /min MEDENT ( [facility]) Body weight 260.00 [lb_av] 260.00 [lb_av] MEDEN T ([facility]) Body weight 117.936 kg 117.936 kg MEDENT ([facility]) Body height 71 [in_i] 71 [in_i] MEDENT ([facility]) 5'11" Body mass index (BMI) [Ratio] 36.3 kg/m2 36.3 k g/m2 MEDENT ([facility]) Body surface area 2.36 m2 2.36 m2 MEDENT ([facility]) Heart rate 74 /min 74 /min MEDENT ([facility]) Diastolic blood pressure 51 mm[Hg] 51 mm[Hg] MEDENT ([facility]) ID Date Data Source [id number] 12/08/2020 02:28:[address] [facility] Hospital Name Value Range Interpretation Code Description Data Source(s) WEIGHT RECORDED [address] [facility] Body height Measured 70 in 70 in [facility] Patient Treatment Plan of Care Planned Activity Planned Date Details Description Data Source (s) sodium chloride (preservative free) 0.9 % flush 3 mL 021 09:00:00 AM EDT [facility] sodium chloride 0.9 % bag 3-20 mL 12/08/2020 07:00:46 AM EDT [facility] Acetaminophen 160 MG/5ML 08/11/2020 01:00:00 AM EDT [facility] ([facility]) Ensure Enlive 08/11/2020 01:00:00 AM EDT [facility] ([facility]) Folvite 08/11/2020 01:00:00 AM EDT N [facility] ([facility]) Omeprazole+Syrspend SF Liss 2 MG/ML 08/11/2020 01:00:00 AM EDT [facility] ([facility]) Thiamine HCl 100 MG/ML 08/11/2020 01:00:00 AM EDT [facility] ([facility]) levETIRAcetam 100 MG/ML 08/11/2020 01:00:00 AM EDT [facility] ([facility]) Albuterol Sulfate HFA 108 (90 Base) MCG/ACT 08/11/2020 01:00:00 AM EDT [facility] ([facility]) Albuterol Sulfate 0.63 MG/3ML 08/11/2020 01:00:00 AM EDT [facility] ([facility]) Pepcid 08/11/2020 01:00:00 AM EDT N [facility] ([facility]) Flonase 50 MCG/ACT 08/11/2020 01:00:00 AM EDT [facility] ([facility]) Doxycycline Monohydrate 100 MG Oral Capsule MEY ([facility]) 12 HR dextromethorphan polistirex 6 MG/ML Extended Release Suspensi on MEY ([facility]) Cephalexin 50 MG/ML Oral Suspension MEY ([facility]) cefdinir 300 MG Oral Capsule MEY ([facility]) Azithromycin 250 MG Oral Tablet MEY ([facility]) Amoxicillin 80 MG/ML Oral Suspension MEY ([facility]) Pseudoephedrine Hydrochloride 30 MG Oral Tablet [Sudogest] MEY ([facility]) Prazosin 1 MG Oral Capsule A THENA ([facility]) Metronidazole 250 MG Oral Tablet MEY ([facility]) Doxycycline Monohydrate 100 MG Oral Capsule MEY ([facility]) 12 HR dextromethorphan polistirex 6 MG/ML Extended Release Suspensi on MEY ([facility]) cefdinir 300 MG Oral Capsule MEY ([facility]) Azithromycin 250 MG Oral Tablet MEY ([facility]) Amoxicillin 80 MG/ML Oral Suspension MEY ([facility]) Azithromycin 250 MG Oral Tablet MEY ([facility]) Pseudoephedrine Hydrochloride 30 MG Oral Tablet [Sudogest] MEY ([facility]) Metronidazole 250 MG Oral Tablet MEY ([facility]) Doxycycline Monohydrate 100 MG Oral Capsule MEY ([facility]) 12 HR dextromethorphan polistirex 6 MG/ML Extended Release Suspensi on MEY ([facility]) cefdinir 300 MG Oral Capsule MEY ([facility]) Azithromycin 250 MG Oral Tablet MEY ([facility]) Pseudoephedrine Hydrochloride 30 MG Oral Tablet [Sudogest] MYE ([facility]) Metronidazole 250 MG Oral Tablet MEY ([facility]) Doxycycline Monohydrate 100 MG Oral Capsule MEY ([facility]) 12 HR dextromethorphan polistirex 6 MG/ML Extended Release Suspensi on MEY ([facility]) cefdinir 300 MG Oral Capsule MEY ([facility]) Azithromycin 250 MG Oral Tablet MEY ([facility]) Pseudoephedrine Hydrochloride 30 MG Oral Tablet [Sudogest] MEY ([facility]) Prazosin 1 MG Oral Capsule A THENA ([facility]) Metronidazole 250 MG Oral Tablet MEY ([facility]) Pseudoephedrine Hydrochloride 30 MG Oral Tablet [Sudogest] MEY ([facility]) Metronidazole 250 MG Oral Tablet MEY ([facility]) Doxycycline Monohydrate 100 MG Oral Capsule MEY ([facility]) 12 HR dextromethorphan polistirex 6 MG/ML Extended Release Suspensi on MEY ([facility]) cefdinir 300 MG Oral Capsule MEY ([facility])
[2021-03-21] MEDS ORDERED: CLINDAMYCIN 600 MG in IV 1 EA IV ONE (16:40)
[2021-03-21 16:54] LABS: BASO # 0.1 10^3/uL (0.0-0.2); BASO % 0.7 % (0.0-1.0); EOS # 0.1 10^3/uL (0.0-0.5); EOS % 1.2 % (0.0-3.0); HEMATOCRIT 45.1 % (42.0-52.0); HEMOGLOBIN 15.2 g/dl (13.5-17.5); LYMPH % 27.5 % (24.0-44.0); MEAN CORPUSCULAR HEMOGLOBIN 29.5 pg (27.0-33.0); MEAN CORPUSCULAR HGB CONC 33.7 g/dl (32.0-36.5); MEAN CORPUSCULAR VOLUME 87.4 fl (80.0-96.0); MONO # 0.9 10^3/uL (0.0-0.8); MONO % 8.3 % (2.0-8.0); NEUTROPHILS # 6.8 10^3/uL (1.5-8.5); NEUTROPHILS % 61.9 % (36.0-66.0); PLATELET COUNT, AUTOMATED 319 10^3/uL (150-450); RED BLOOD COUNT 5.16 10^6/uL (4.30-6.10); WHITE BLOOD COUNT 11.1 10^3/uL (4.0-10.0)
[2021-03-21] MEDS ORDERED: CLIN1SOL24 PEG (17:23)
[2021-03-21 17:30] VITALS: BP 138/74
--- NOTE | 2021-03-21 17:37 | REP ---
INDICATION: pain at feeding tube site with discharge r/o fluid collection. COMPARISON: None. TECHNIQUE: Ultrasound evaluation of the area of interest was performed. FINDINGS: There are no ultrasound abnormalities in the area of interest. IMPRESSION: There are no ultrasound abnormalities in the area of interest. <Electronically signed by Frederick London > 03/21/21 1454
== END 2021-03-21 17:40 | disposition home or self-care (01) ==
LOC: M ED 15:16
DX: L03.311 Cellulitis of abdominal wall (principal); K94.22 Gastrostomy infection; G40.909 Epilepsy, unspecified, not intractable, without status epilepticus; Z87.820 Personal history of traumatic brain injury; F17.200 Nicotine dependence, unspecified, uncomplicated; Z88.6 Allergy status to analgesic agent; Z88.8 Allergy status to other drugs, medicaments and biological substances; Z91.030 Bee allergy status; Z79.899 Other long term (current) drug therapy

== ENCOUNTER 2021-03-24 15:08 | Emergency (ER) | payer OTHER ==
[~2021-03-24] VITALS: Ht 180.3 cm; Wt 117.8 kg
[~2021-03-24 15:08] MED LIST changes: +CLIN1SOL24 PEG
--- OUTSIDE RECORDS SUMMARY | 2021-03-24 15:18 | CCD ---
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 [employer] Name Role Phone Shelia Mulligan PCP Chief Complaint and Reason for Visit Chief Complaint Allergies, Adverse Reactions, Alerts No Data in Section Problem List Concept Problem Description Status Start Date Created Date Resolv ed Date Snomed Code F25.9 Schizoaffective disorder, unspecified Active Medications Rx Norm Medication Route Route Concept Start Date Stop Date Dosage Derek quency Duration Formula Strength Dosage Form Dosage Form Code Dosage Description Medication Id Account Npid Author First Name Author Last Name Taxonomy Code Taxonomy Desc Phone Number [id number] Depakote 09/21/2015 twice a day 500 m g tablet,delayed release (DR/EC) [id number] Oleksandr Lockwood [id number] [facility] [id number] Seroquel by mouth [id number] 10/01/2015 at bedtime [place] [address] [id number] Oleksandr Lockwood [id number] Psychiatric/Mental Health [id number] Social History Social History Element Description Concept Effective Date Smoking Status Current every day smoker [id number] Immunizations No Data in Section Vital Signs No Data in Section Procedures Date Concept Id Description Targeted Site Concept Targeted Site Concept Type 03/22/2021 44987 Extended Individual Psychotherapy - 45 min CPT Patient has no history of implantable de vices Encounters Encounter Start Date End Date Encounter Type Description Diagnosis Di agnosis Desc Location Author First Name Author Last Name Npid Taxonomy Cod e Taxonomy Desc Phone Number Location Addr1 Location Addr2 Location [facility] Location [facility] Location Zip [id number] 03/22/2021 03/22/2021 86309 Extended Individual Psych otherapy - 45 min F25.9 Schizoaffective disorder, unspecified [facility] [id number] 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
[2021-03-24] MEDS ORDERED: OMEP-221 (15:19)
[2021-03-24] MEDS ORDERED: SYST1SOL (15:19)
[2021-03-24] MEDS ORDERED: CYCL-707 (15:19)
--- OUTSIDE RECORDS SUMMARY | 2021-03-24 15:19 | CCD ---
Author Author [facility] Organization [facility] Address Unknown Phone Unavailable Care Team Providers Care Buffet Attendant Name Role Phone ED, TEST DEFAULT Unavailable Unavailable Abid, Chris Unavailable Unavailable Mounika Pineda MD [...] Unavailable Unavailable Mounika Pineda MD Unavailable Unavailable Shelia Mulligan Unavailable Peter Bloom MD Unavailable Unavailable Peter Bloom MD Unavailable Unavailable Peter Bloom MD Unavailable Unavailable Peter Bloom MD Unavailable Unavailable Peter Bloom MD Unavailable Unavailable Peetr Bloom MD Unavailable Unavailable Evelyn LAINEZ Unavailable [...] MD Unavailable Unavailable Bandar HASSAN Unavailable Unavailable Mary Garnett Unavailable Unavailable Scordo, M Alissa PA Unavailable [...] Alejandra PA Unavailable Unavailable Servage, L Jami ENERGY CONSERVATION DIRECTOR Unavailable Unavailable Servage, L Jami ENERGY CONSERVATION DIRECTOR Unavailable Unavailable Servage, L Jami ENERGY CONSERVATION DIRECTOR Unavailable Unavailable Servage, L Jami ENERGY CONSERVATION DIRECTOR Unavailable Unavailable Servage, L Jami ENERGY CONSERVATION DIRECTOR Unavailable Unavailable Servage, L Jami ENERGY CONSERVATION DIRECTOR Unavailable Unavailable Servage, L Jami ENERGY CONSERVATION DIRECTOR Unavailable Unavailable Servage, L Jami ENERGY CONSERVATION DIRECTOR Unavailable Unavailable Servage, L Jami ENERGY CONSERVATION DIRECTOR Unavailable Unavailable Servage, L Jami ENERGY CONSERVATION DIRECTOR Unavailable Unavailable Servage, L Jami ENERGY CONSERVATION DIRECTOR Unavailable Unavailable Servage, L Jami ENERGY CONSERVATION DIRECTOR Unavailable Unavailable Servage, L Jami ENERGY CONSERVATION DIRECTOR Unavailable Unavailable Servage, L Jami ENERGY CONSERVATION DIRECTOR Unavailable Unavailable Servage, L Jami ENERGY CONSERVATION DIRECTOR Unavailable Unavailable Servage, L Jami ENERGY CONSERVATION DIRECTOR Unavailable Unavailable Servage, L Jami ENERGY CONSERVATION DIRECTOR Unavailable Unavailable Servage, L Jami ENERGY CONSERVATION DIRECTOR Unavailable Unavailable Servage, L Jami ENERGY CONSERVATION DIRECTOR Unavailable Unavailable Servage, L Jami ENERGY CONSERVATION DIRECTOR Unavailable Unavailable Servage, L Jami ENERGY CONSERVATION DIRECTOR Unavailable Unavailable Servage, L Jami ENERGY CONSERVATION DIRECTOR Unavailable Unavailable Servage, L Jami ENERGY CONSERVATION DIRECTOR Unavailable Unavailable Servage, L Jami ENERGY CONSERVATION DIRECTOR Unavailable Unavailable Servage, L Jami ENERGY CONSERVATION DIRECTOR Unavailable Unavailable Servage, L Jami ENERGY CONSERVATION DIRECTOR Unavailable Unavailable Servage, L Jami ENERGY CONSERVATION DIRECTOR Unavailable Unavailable Servage, L Jami ENERGY CONSERVATION DIRECTOR Unavailable Unavailable Servage, L Jami ENERGY CONSERVATION DIRECTOR Unavailable Unavailable Servage, L Jami ENERGY CONSERVATION DIRECTOR Unavailable Unavailable Servage, L Jami ENERGY CONSERVATION DIRECTOR Unavailable Unavailable Servage, L Jami ENERGY CONSERVATION DIRECTOR Unavailable Unavailable Servage, L Jami ENERGY CONSERVATION DIRECTOR Unavailable Unavailable Servage, L Jami ENERGY CONSERVATION DIRECTOR Unavailable Unavailable Servage, L Jami ENERGY CONSERVATION DIRECTOR Unavailable Unavailable Servage, L Jami ENERGY CONSERVATION DIRECTOR Unavailable Unavailable Servage, L Jami ENERGY CONSERVATION DIRECTOR Unavailable Unavailable Servage, L Jami ENERGY CONSERVATION DIRECTOR Unavailable Unavailable Servage, L Jami ENERGY CONSERVATION DIRECTOR Unavailable Unavailable Servage, L Jami ENERGY CONSERVATION DIRECTOR Unavailable Unavailable Servage, L Jami ENERGY CONSERVATION DIRECTOR Unavailable Unavailable Servage, L Jami ENERGY CONSERVATION DIRECTOR Unavailable Unavailable Servage, L Jami ENERGY CONSERVATION DIRECTOR Unavailable Unavailable Servage, L Jami ENERGY CONSERVATION DIRECTOR Unavailable Unavailable Servage, L Jami ENERGY CONSERVATION DIRECTOR Unavailable Unavailable Servage, L Jami ENERGY CONSERVATION DIRECTOR Unavailable Unavailable Servage, L Jami ENERGY CONSERVATION DIRECTOR Unavailable Unavailable Servage, L Jami ENERGY CONSERVATION DIRECTOR Unavailable Unavailable Servage, L Jami ENERGY CONSERVATION DIRECTOR Unavailable Unavailable Servage, L Jami ENERGY CONSERVATION DIRECTOR Unavailable Unavailable Servage, L Jami ENERGY CONSERVATION DIRECTOR Unavailable Unavailable Servage, L Jami ENERGY CONSERVATION DIRECTOR Unavailable Unavailable Servage, L Jami ENERGY CONSERVATION DIRECTOR Unavailable Unavailable Servage, L Jami ENERGY CONSERVATION DIRECTOR Unavailable Unavailable Servage, L Jami ENERGY CONSERVATION DIRECTOR Unavailable Unavailable Servage, L Jami ENERGY CONSERVATION DIRECTOR Unavailable Unavailable Servage, L Jami ENERGY CONSERVATION DIRECTOR Unavailable Unavailable Servage, L Jami ENERGY CONSERVATION DIRECTOR Unavailable Unavailable Servage, L Jami ENERGY CONSERVATION DIRECTOR Unavailable Unavailable Servage, L Jami ENERGY CONSERVATION DIRECTOR Unavailable Unavailable Servage, L Jami ENERGY CONSERVATION DIRECTOR Unavailable Unavailable Servage, L Jami ENERGY CONSERVATION DIRECTOR Unavailable Unavailable Servage, L Jami ENERGY CONSERVATION DIRECTOR Unavailable Unavailable Servage, L Jami ENERGY CONSERVATION DIRECTOR Unavailable Unavailable Servage, L Jami ENERGY CONSERVATION DIRECTOR Unavailable Unavailable GILES, SUNDEEP CATARINO RPA-C Unavailable [...] CATARINO RPA-C Unavailable Unavailable TROVATO, M PIETRO ENERGY CONSERVATION DIRECTOR Unavailable Unavailable TROVATO, M PIETRO ENERGY CONSERVATION DIRECTOR Unavailable Unavailable TROVATO, M PIETRO ENERGY CONSERVATION DIRECTOR Unavailable Unavailable TROVATO, M PIETRO ENERGY CONSERVATION DIRECTOR Unavailable Unavailable TROVATO, M PIETRO ENERGY CONSERVATION DIRECTOR Unavailable Unavailable TROVATO, M PIETRO ENERGY CONSERVATION DIRECTOR Unavailable Unavailable TROVATO, M PIETRO ENERGY CONSERVATION DIRECTOR Unavailable Unavailable TROVATO, M PIETRO ENERGY CONSERVATION DIRECTOR Unavailable Unavailable TROVATO, M PIETRO ENERGY CONSERVATION DIRECTOR Unavailable Unavailable TROVATO, M PIETRO ENERGY CONSERVATION DIRECTOR Unavailable Unavailable TROVATO, M PIETRO ENERGY CONSERVATION DIRECTOR Unavailable Unavailable TROVATO, M PIETRO ENERGY CONSERVATION DIRECTOR Unavailable Unavailable TROVATO, M PIETRO ENERGY CONSERVATION DIRECTOR Unavailable Unavailable TROVATO, M PIETRO ENERGY CONSERVATION DIRECTOR Unavailable Unavailable TROVATO, M PIETRO ENERGY CONSERVATION DIRECTOR Unavailable Unavailable TROVATO, M PIETRO ENERGY CONSERVATION DIRECTOR Unavailable Unavailable TROVATO, M PIETRO ENERGY CONSERVATION DIRECTOR Unavailable Unavailable TROVATO, M PIETRO ENERGY CONSERVATION DIRECTOR Unavailable Unavailable TROVATO, M PIETRO ENERGY CONSERVATION DIRECTOR Unavailable Unavailable TROVATO, M PIETRO ENERGY CONSERVATION DIRECTOR Unavailable Unavailable TROVATO, M PIETRO ENERGY CONSERVATION DIRECTOR Unavailable Unavailable TROVATO, M PIETRO ENERGY CONSERVATION DIRECTOR Unavailable Unavailable TROVATO, M PIETRO ENERGY CONSERVATION DIRECTOR Unavailable Unavailable TROVATO, M PIETRO ENERGY CONSERVATION DIRECTOR Unavailable Unavailable TROVATO, M PIETRO ENERGY CONSERVATION DIRECTOR Unavailable Unavailable TROVATO, M PIETRO ENERGY CONSERVATION DIRECTOR Unavailable Unavailable TROVATO, M PIETRO ENERGY CONSERVATION DIRECTOR Unavailable Unavailable TROVATO, M PIETRO ENERGY CONSERVATION DIRECTOR Unavailable Unavailable TROVATO, M PIETRO ENERGY CONSERVATION DIRECTOR Unavailable Unavailable TROVATO, M PIETRO ENERGY CONSERVATION DIRECTOR Unavailable Unavailable TROVATO, M PIETRO ENERGY CONSERVATION DIRECTOR Unavailable Unavailable TROVATO, M PIETRO ENERGY CONSERVATION DIRECTOR Unavailable Unavailable TROVATO, M PIETRO ENERGY CONSERVATION DIRECTOR Unavailable Unavailable TROVATO, M PEITRO ENERGY CONSERVATION DIRECTOR Unavailable Unavailable TROVATO, M PIETRO ENERGY CONSERVATION DIRECTOR Unavailable Unavailable TROVATO, M PIETRO ENERGY CONSERVATION DIRECTOR Unavailable Unavailable Porsche YORK MD Unavailable Unavailable Porsche YORK MD Unavailable Unavailable Porsche YORK MD Unavailable Unavailable Porsche YORK MD Unavailable Unavailable Porsche YORK MD Unavailable Unavailable Porsche YORK MD Unavailable Unavailable Porsche YORK MD Unavailable Unavailable Porsche YORK MD Unavailable Unavailable Porsche YORK MD Unavailable Unavailable Porsche YORK AMSHANNA GUZMÁN Unavailable Unavailable JAWED, MOHAMMED MD Unavailable Unavailable [...] MOHAMMED MD Unavailable Unavailable Kevin Hassan Unavailable WILBUR VENTURA DO Unavailable Unavailable AUDREYWILBUR DO Unavailable Unavailable AUDREY WILBUR DO Unavailable Unavailable AUDREY WILBUR DO Unavailable Unavailable AUDREY, WILBUR DO Unavailable Unavailable AUDREY, WILBUR DO Unavailable Unavailable AUDREY, WILBUR DO Unavailable Unavailable AUDREY, WILBUR DO Unavailable Unavailable Re-disclosure Warning The records that you [...] is protected by Article 27-F of the [facility] Public Health law. If you continue you may have access to information: Regarding HIV / AIDS; Provided by facilities licensed or operated by the [facility] Office of Mental Health; or Provided by the [facility] Office for People With Developmental Disabilities. If such information is present, then the following [facility] mandated warning applies: This information has been [...] adverse reactions BEE POLLEN BEE POLLEN Anaphylaxis [facility] Propensity to adverse reactions LATEX Latex [facility] Bee venom Bee venom Bee venom active [facility] ([facility]) Codeine Codeine Codeine active [facility] ([facility]) Gonzalez Gonzalez Gonzalez active [facility] ([facility]) Fluoxetine Fluoxetine Fluoxetine active [facility] ([facility]) Family History Family Member Name Family Member Gender Family Member Status Date o f Status Description Data Source(s) Unknown Male Problem [facility] ([facility]) Unknown Unknown Problem [facility] ([facility]) Unknown Male Problem MEDENT ([facility]) Encounters Encounter Providers Location Date Indications Data Source(s ) Outpatient Attender: Karis SORTO PA-C 05/19/2021 12: 00:00 AM [facility] Outpatient Attender: Karis SORTO PA-C 05/14/2021 12: 00:00 AM EST [facility] Emergency Attender: DEFAULT EDAttender: WILBUR VENTURA DO 03/23/2021 12:00:00 AM EDT - 03/24/2021 12:00:00 AM EDT infection [facility] infection Patient discharged. Extended Individual Psychotherapy - 45 min Attender: Stephon Mulligan [facility] 03/22/2021 11:00:00 AM EDT - 03/22/2021 11:00:00 AM EDT [facility] ([facility]) Attender: Shelia Mulligan 03/22/2021 12:00:00 AM E DT [facility] ([facility]) Outpatient Attender: Chris Arshader: Karis SORTO PA-C 03/09/2021 12:00:00 AM EDT [facility] Outpatient Attender: Chris Arshader: Karis SORTO PA-C 03/05/2021 12:00:00 AM EDT [facility] Outpatient Attender: Chris Arshader: Karis SORTO PA-C 03/05/2021 12:00:00 AM EDT [facility] Outpatient Attender: TONY Moore mitter: Chris Juan: Karis SORTO PA-C 03/01/2021 12:00:00 AM EDT - 03/01/2021 01:00:00 PM EDT Gastrostomy status [facility] Gastrostomy status Patient discharged. Outpatient 02/26/2021 11:41:08 AM EDT - 021 12:53:07 PM EDT [facility] ([facility]) Emergency Attender: Peter Bloom MDConsultant: Jami Garcia 02/25/2021 10:28:00 AM EDT - 02/25/2021 11:47:00 AM EDT [facility] Patient discharged. [place] [address] [address] 02/17/2021 12:00:00 AM EDT [facility] ([facility]) Catarino Giles, RPA-C: [address], [place] [address], Ph. Attender: CATARINO SCHAEFFER [facility] Medical 02/11/2021 12:00:00 AM EDT [facility] ([facility]) Outpatient Attender: Karis SORTO PA-C 12/30/2020 12: 00:00 AM EDT [facility] Outpatient Referrer: Karis SORTO PA-C 12/15/2020 12: 00:00 AM EDT [facility] Outpatient Attender: TONY Moore mitter: RODOLFO LAINEZReferrer: Karis SORTO PA-C 12/14/2020 12:00:00 AM EDT - 12/14/2020 09:28:00 AM EDT Gastrostomy status [facility] Gastrostomy status Patient discharged. Outpatient Attender: ROSE FIGUEROA MDA ttender: TONY YORK MDAttender: Kevin Cookder: KEVIN MIRAMONTESdmitter: ROSE FIGUEROA MDReferrer: Karis SORTO PA-C [id number] 12/08/2020 07:12:51 AM EDT - 12/08/2020 10:04:00 AM EDT Dysphagia, unspecified [facility] Dysphagia, unspecified Patient discharged. Outpatient Attender: PIETRO MERRILL NP 12/04/2020 12:00:0 0 AM EDT [facility] Outpatient Attender: Joseph MORRIS 12/03/19 02:07:44 PM EDT - 12/02/2020 02:56:52 PM EDT [facility] ([facility] ) Outpatient Attender: Karis SORTO PA-C 11/23/2020 12: 00:00 AM EDT [facility] ([facility]ND NP120) New Patient 120 Min [address] [place] [address] 11/18/2020 12:00:00 AM EDT eCW1 ([facility]) Outpatient Attender: Karis SORTO PA-C [id number] 11/17/2020 12:00:00 AM EDT - 11/17/2020 03:58:53 PM EDT [facility] Outpatient Attender: Karis SORTO PA-C 11/13/2020 12: 00:00 AM EDT [facility] [place] [address] [address] 11/09/2020 12:00:00 AM EDT eCW1 ([facility]) Outpatient Attender: PIETRO MERRILL NP 10/29/2020 12:00:0 0 AM EDT [facility] Claribel Baker MD: [address], [facility] [place] [place] [address], Ph. Attender: Claribel Baker [facility] Medical 10/28/2020 12:00:00 AM EDT [facility] ([facility]) Claribel Baker MD: [address], [facility] [place] [place] [address], Ph. Attender: Claribel Baker [facility] Medical 10/28/2020 12:00:00 AM EDT [facility] ([facility]) [place] [address] [address] 10/27/2020 12:00:00 AM EDT eCW1 ([facility]) Alissa Garnett PA-C: [address], [facility] [place] [address], Ph. Attender: Alissa MORRIS [facility] Medical 08/18/2020 12:00:00 AM EDT [facility] ([facility]) Alissa Garnett PA-C: [address], [place] [facility] [address], Ph. Attender: Alissa MORRIS [facility] Medical 08/18/2020 12:00:00 AM EDT [facility] ([facility]) Alissa Garnett PA-C: [address], [place] [address], Ph. Attender: Alissa MORRIS [facility] Medical 08/18/2020 12:00:00 AM EDT [facility] ([facility]) 08/11/2020 01:00:00 AM EDT - 021 03:19:23 PM EDT [facility] ([facility]) Outpatient Attender: Alejandra MORRIS 09/2020 01:41:05 PM EST - 07/31/2020 02:14:07 PM EST [facility] ([facility]) MIKAELA DiazC: [address], [place] [address], Ph. Attender: Alissa MORRIS [facility] Medical 07/14/2020 12:00:00 AM EST [facility] ([facility]) Alissa Garnett PA-C: [address], [place] [address], Ph. Attender: Alissa MORRIS [facility] Medical 07/14/2020 12:00:00 AM EST [facility] ([facility]) Alissa Garnett PA-C: [address], [place] [address], Ph. Attender: Alissa MORRIS [facility] Medical 07/14/2020 12:00:00 AM EST [facility] ([facility]) Alissa Garnett PA-C: [address], [place] [address], Ph. Attender: Alissa MORRIS [facility] Medical 07/14/2020 12:00:00 AM EST [facility] ([facility]) Alissa Garnett PA-C: [address], [place] [address], Ph. Attender: Alissa MORRIS [facility] Medical 07/14/2020 12:00:00 AM EST [facility] ([facility]) Ray Pineda MD: [address], [place] [address], Ph. Attender: Ray Pineda MD [facility] Medical 07/01/2020 12:00:00 AM EST [facility] ([facility]) Ray Pineda MD: [address], [place] [address], Ph. Attender: Ray Pineda MD [facility] Medical 07/01/2020 12:00:00 AM EST [facility] ([facility]) Ray Pineda MD: [address], [place] [address], Ph. Attender: Ray Pineda MD [facility] Medical 07/01/2020 12:00:00 AM EST [facility] ([facility]) Ray Pineda MD: [address], [place] [address], Ph. Attender: Ray Pineda MD [facility] Medical 07/01/2020 12:00:00 AM EST [facility] ([facility]) Ray Pineda MD: [address], [place] [address], Ph. Attender: Ray Pineda MD [facility] Medical 07/01/2020 12:00:00 AM EST [facility] ([facility]) Outpatient Attender: FELICE YI MDConsultant: Jami Sterling age ENERGY CONSERVATION DIRECTOR 01/23/2020 02:08:00 PM EDT - 01/23/2020 02:08:00 PM EDT [facility] Medications Medication Brand Name Start Date Product [...] For 1 occurrence
Pre-op [Order 4 End] [facility] Medication administered onsite sodium chloride 0.9 % bag 3-20 mL 8867-4547-00 12/08/2020 07:00:46 AM EDT mL Intravenous active 3-20 mL, Intr avenous, at 1-999 mL/hr, PRN, For Medication Administration and Line Clearance, Starting on Mon12/08/20 at 0700, For 30 days, Pre-op
Flush line with sufficient amount of fluid needed based on director of speech pathology recommendation for specific line size. Rate should be run at the same rate as medication in the line being flushed.
[facility] Medication administered onsite Acetaminophen 160 MG/5ML Acetaminophen 08/11/2020 01:00:00 AM EDT completed [facility] ([facility]) Ensure Enlive Ensure Enlive 08/11/2020 01:00:00 AM EDT completed [facility] ([facility] ) Folvite Folvite 08/11/2020 01:00:00 AM EDT 1.0 {ml} com pleted [facility] ([facility]) Omeprazole+Syrspend SF Liss 2 MG/ML Omeprazole+Syrspend SF A lka 08/11/2020 01:00:00 AM EDT 20.0 {ml} completed [facility] ([facility]) Thiamine HCl 100 MG/ML Thiamine HCl 08/11/2020 01:00:00 AM EDT 1 .0 {ml} completed [facility] ([facility]) levETIRAcetam 100 MG/ML levETIRAcetam 08/11/2020 01:00:00 AM EDT 10.0 {ml} completed [facility] ([facility]) Albuterol Sulfate HFA 108 (90 Base) MCG/ACT Albuterol Sulfat e HFA 08/11/2020 01:00:00 AM EDT completed [facility] ([facility]) Albuterol Sulfate 0.63 MG/3ML Albuterol Sulfate 08/11/2020 01:00:00 A M EDT completed [facility] ( [facility]) Pepcid Pepcid 08/11/2020 01:00:00 AM EDT 5.0 {ml} compl eted [facility] ([facility]) Flonase 50 MCG/ACT Flonase 08/11/2020 01:00:00 AM EDT completed [facility] ([facility]) Pseudoephedrine Hydrochloride 30 MG Oral Tablet [Sudogest] Sudogest 30 mg tablet TAKE ONE TABLET BY MOUTH FOUR TIMES DAILY NEEDED FOR 10 DAYS Sudogest 30 mg tablet TAKE ONE TABLET BY MOUTH FOUR TIMES DAILY NEEDED FOR 10 DAYS completed pseudoephedrine hydrochlo ride 30 MG Oral Tablet [Sudogest] [facility] ([facility]) Azithromycin 250 MG Oral Tablet azithrom ycin 250 mg tablet TAKE 2 TABLETS BY MOUTH ON DAY 1, THEN TAKE 1 TABLET DAILY ON DAYS 2-5 azithromycin 250 mg tablet TAKE 2 TABLETS BY MOUTH ON DAY 1, THEN TAKE 1 TABLET DAILY ON DAYS 2-5 completed azithromycin 250 MG Oral Tablet [place] ([facility]) Metronidazole 250 MG Oral Tablet metroni dazole 250 mg tablet TAKE ONE TABLET BY MOUTH FOUR TIMES DAILY AFTER MEALS AND NIGHTLY FOR 14 DAYS. AVOID ALCOHOL metronidazole 250 mg tablet TAKE ONE TABLET BY MOUTH FOUR TIMES DAILY AFTER MEALS AND NIGHTLY FOR 14 DAYS. AVOID ALCOHOL completed metronidazole 250 MG Oral Tablet [place] ([facility]) 12 HR dextromethorphan polistirex 6 MG/M L Extended Release Suspension Cough DM ER 30 mg/5 mL oral suspension,extended release TAKE FIVE MILLILITERS EVERY 12 HOURS FOR 10 DAYS Cough DM ER 30 mg/5 mL oral suspension,e xtended release TAKE FIVE MILLILITERS EVERY 12 HOURS FOR 10 DAYS completed 12 HR dextromethorphan polistirex 6 MG/ML Extended Release Suspension [place] ([facility]) Prazosin 1 MG Oral Capsule prazosin 1 mg capsule TAKE ONE CAPSULE BY MOUTH AT BEDTIME prazosin 1 mg capsule TAKE ONE CAPSULE BY MOUTH AT BEDTIME completed prazosin 1 MG Oral Capsule [place] ([facility]) Azithromycin 250 MG Oral Tablet azithrom ycin 250 mg tablet TAKE 2 TABLETS BY MOUTH ON DAY 1, THEN TAKE 1 TABLET DAILY ON DAYS 2-5 azithromycin 250 mg tablet TAKE 2 TABLETS BY MOUTH ON DAY 1, THEN TAKE 1 TABLET DAILY ON DAYS 2-5 completed azithromycin 250 MG Oral Tablet [place] ([facility]) Doxycycline Monohydrate 100 MG Oral Caps ule doxycycline monohydrate 100 mg capsule TAKE ONE CAPSULE BY MOUTH TWICE DAILY FOR 14 DAYS doxycycline monohydrate 100 mg capsule TAKE ONE CAPSULE BY MOUTH TWICE DAILY FOR 14 DAYS completed doxycycline mo nohydrate 100 MG Oral Capsule [facility] ([facility]) cefdinir 300 MG Oral Capsule cefdinir 30 0 mg capsule TAKE TWO CAPSULES BY MOUTH ONCE DAILY FOR 10 DAYS may open AND sprinkle in feeding tube cefdinir 300 mg capsule TAKE TWO CAPSULES BY MOUTH ONCE DAILY FOR 10 DAYS may open AND sprinkle in feeding tube completed cefdin ir 300 MG Oral Capsule [place] ([facility]) cefdinir 300 MG Oral Capsule cefdinir 30 0 mg capsule TAKE TWO CAPSULES BY MOUTH ONCE DAILY FOR 10 DAYS may open AND sprinkle in feeding tube cefdinir 300 mg capsule TAKE TWO CAPSULES BY MOUTH ONCE DAILY FOR 10 DAYS may open AND sprinkle in feeding tube completed cefdin ir 300 MG Oral Capsule [facility]) 12 HR dextromethorphan polistirex 6 MG/M L Extended Release Suspension Cough DM ER 30 mg/5 mL oral suspension,extended release TAKE FIVE MILLILITERS EVERY 12 HOURS FOR 10 DAYS Cough DM ER 30 mg/5 mL oral suspension,e xtended release TAKE FIVE MILLILITERS EVERY 12 HOURS FOR 10 DAYS completed 12 HR dextromethorphan polistirex 6 MG/ML Extended Release Suspension [place] ([facility]) Pseudoephedrine Hydrochloride 30 MG Oral Tablet [Sudogest] Sudogest 30 mg tablet TAKE ONE TABLET BY MOUTH FOUR TIMES DAILY NEEDED FOR 10 DAYS Sudogest 30 mg tablet TAKE ONE TABLET BY MOUTH FOUR TIMES DAILY NEEDED FOR 10 DAYS completed pseudoephedrine hydrochlo ride 30 MG [facility] 12 HR dextromethorphan polistirex 6 MG/M L Extended Release Suspension Cough DM ER 30 mg/5 mL oral suspension,extended release TAKE FIVE MILLILITERS EVERY 12 HOURS FOR 10 DAYS Cough DM ER 30 mg/5 mL oral suspension,e xtended release TAKE FIVE MILLILITERS EVERY 12 HOURS FOR 10 DAYS completed 12 HR dextromethorphan polistirex 6 MG/ML Extended Release Suspension [place] ([facility]) Pseudoephedrine Hydrochloride 30 MG Oral Tablet [Sudogest] Sudogest 30 mg tablet TAKE ONE TABLET BY MOUTH FOUR TIMES DAILY NEEDED FOR 10 DAYS Sudogest 30 mg tablet TAKE ONE TABLET BY MOUTH FOUR TIMES DAILY NEEDED FOR 10 DAYS completed pseudoephedrine hydrochlo ride 30 MG Oral Tablet [Sudogest] [place] ([facility]) Doxycycline Monohydrate 100 MG Oral Caps ule doxycycline monohydrate 100 mg capsule TAKE ONE CAPSULE BY MOUTH TWICE DAILY FOR 14 DAYS doxycycline monohydrate 100 mg capsule TAKE ONE CAPSULE BY MOUTH TWICE DAILY FOR 14 DAYS completed doxycycline mo nohydrate 100 MG Oral Capsule [facility]) Cephalexin 50 MG/ML Oral Suspension cephalexin 250 mg/ 5 mL oral suspension cephalexin 250 mg/5 mL oral suspension completed cephalexin 50 MG/ML Oral Suspension [facility] ([facility]) Pseudoephedrine Hydrochloride 30 MG Oral Tablet [Sudogest] Sudogest 30 mg tablet TAKE ONE TABLET BY MOUTH FOUR TIMES DAILY NEEDED FOR 10 DAYS Sudogest 30 mg tablet TAKE ONE TABLET BY MOUTH FOUR TIMES DAILY NEEDED FOR 10 DAYS completed pseudoephedrine hydrochlo ride 30 MG Oral Tablet [Sudogest] [place] ([facility]) Azithromycin 250 MG Oral Tablet azithrom ycin 250 mg tablet TAKE 2 TABLETS BY MOUTH ON DAY 1, THEN TAKE 1 TABLET DAILY ON DAYS 2-5 azithromycin 250 mg tablet TAKE 2 TABLETS BY MOUTH ON DAY 1, THEN TAKE 1 TABLET DAILY ON DAYS 2-5 completed azithromycin 250 MG Oral Tablet [place] ([facility]) cefdinir 300 MG Oral Capsule cefdinir 30 0 mg capsule TAKE TWO CAPSULES BY MOUTH ONCE DAILY FOR 10 DAYS may open AND sprinkle in feeding tube cefdinir 300 mg capsule TAKE TWO CAPSULES BY MOUTH ONCE DAILY FOR 10 DAYS may open AND sprinkle in feeding tube completed cefdin ir 300 MG Oral Capsule [place] ([facility]) Doxycycline Monohydrate 100 MG Oral Caps ule doxycycline monohydrate 100 mg capsule TAKE ONE CAPSULE BY MOUTH TWICE DAILY FOR 14 DAYS doxycycline monohydrate 100 mg capsule TAKE ONE CAPSULE BY MOUTH TWICE DAILY FOR 14 DAYS completed doxycycline mo nohydrate 100 MG Oral Capsule [place] ([facility]) Pseudoephedrine Hydrochloride 30 MG Oral Tablet [Sudogest] Sudogest 30 mg tablet TAKE ONE TABLET BY MOUTH FOUR TIMES DAILY NEEDED FOR 10 DAYS Sudogest 30 mg tablet TAKE ONE TABLET BY MOUTH FOUR TIMES DAILY NEEDED FOR 10 DAYS completed pseudoephedrine hydrochlo ride 30 MG Oral Tablet [Sudogest] [place] ([facility]) Amoxicillin 80 MG/ML Oral Suspension amoxicillin 400 m g/5 mL oral suspension amoxicillin 400 mg/5 mL oral suspension completed amoxicillin 80 MG/ML Oral Suspension [place] ([facility]) Metronidazole 250 MG Oral Tablet metroni dazole 250 mg tablet TAKE ONE TABLET BY MOUTH FOUR TIMES DAILY AFTER MEALS AND NIGHTLY FOR 14 DAYS. AVOID ALCOHOL metronidazole 250 mg tablet TAKE ONE TABLET BY MOUTH FOUR TIMES DAILY AFTER MEALS AND NIGHTLY FOR 14 DAYS. AVOID ALCOHOL completed metronidazole 250 MG Oral Tablet [place] ([facility]) Amoxicillin 80 MG/ML Oral Suspension amoxicillin 400 m g/5 mL oral suspension amoxicillin 400 mg/5 mL oral suspension completed amoxicillin 80 MG/ML Oral Suspension [place] ([facility]) 12 HR dextromethorphan polistirex 6 MG/M L Extended Release Suspension Cough DM ER 30 mg/5 mL oral suspension,extended release TAKE FIVE MILLILITERS EVERY 12 HOURS FOR 10 DAYS Cough DM ER 30 mg/5 mL oral suspension,e xtended release TAKE FIVE MILLILITERS EVERY 12 HOURS FOR 10 DAYS completed 12 HR dextromethorphan polistirex 6 MG/ML Extended Release Suspension [place] ([facility]) 12 HR dextromethorphan polistirex 6 MG/M L Extended Release Suspension Cough DM ER 30 mg/5 mL oral suspension,extended release TAKE FIVE MILLILITERS EVERY 12 HOURS FOR 10 DAYS Cough DM ER 30 mg/5 mL oral suspension,e xtended release TAKE FIVE MILLILITERS EVERY 12 HOURS FOR 10 DAYS completed 12 HR dextromethorphan polistirex 6 MG/ML Extended Release Suspension [place] ([facility]) Doxycycline Monohydrate 100 MG Oral Caps ule doxycycline monohydrate 100 mg capsule TAKE ONE CAPSULE BY MOUTH TWICE DAILY FOR 14 DAYS doxycycline monohydrate 100 mg capsule TAKE ONE CAPSULE BY MOUTH TWICE DAILY FOR 14 DAYS completed doxycycline mo nohydrate 100 MG Oral Capsule [facility]) cefdinir 300 MG Oral Capsule cefdinir 30 0 mg capsule TAKE TWO CAPSULES BY MOUTH ONCE DAILY FOR 10 DAYS may open AND sprinkle in feeding tube cefdinir 300 mg capsule TAKE TWO CAPSULES BY MOUTH ONCE DAILY FOR 10 DAYS may open AND sprinkle in feeding tube completed cefdin ir 300 MG Oral Capsule [place] ([facility]) Azithromycin 250 MG Oral Tablet azithrom ycin 250 mg tablet TAKE 2 TABLETS BY MOUTH ON DAY 1, THEN TAKE 1 TABLET DAILY ON DAYS 2-5 azithromycin 250 mg tablet TAKE 2 TABLETS BY MOUTH ON DAY 1, THEN TAKE 1 TABLET DAILY ON DAYS 2-5 completed azithromycin 250 MG Oral Tablet [place] ([facility]) Metronidazole 250 MG Oral Tablet metroni dazole 250 mg tablet TAKE ONE TABLET BY MOUTH FOUR TIMES DAILY AFTER MEALS AND NIGHTLY FOR 14 DAYS. AVOID ALCOHOL metronidazole 250 mg tablet TAKE ONE TABLET BY MOUTH FOUR TIMES DAILY AFTER MEALS AND NIGHTLY FOR 14 DAYS. AVOID ALCOHOL completed metronidazole 250 MG Oral Tablet [place] ([facility]) cefdinir 300 MG Oral Capsule cefdinir 30 0 mg capsule TAKE TWO CAPSULES BY MOUTH ONCE DAILY FOR 10 DAYS may open AND sprinkle in feeding tube cefdinir 300 mg capsule TAKE TWO CAPSULES BY MOUTH ONCE DAILY FOR 10 DAYS may open AND sprinkle in feeding tube completed cefdin ir 300 MG Oral Capsule [place] ([facility]) Azithromycin 250 MG Oral Tablet azithrom ycin 250 mg tablet TAKE 2 TABLETS BY MOUTH ON DAY 1, THEN TAKE 1 TABLET DAILY ON DAYS 2-5 azithromycin 250 mg tablet TAKE 2 TABLETS BY MOUTH ON DAY 1, THEN TAKE 1 TABLET DAILY ON DAYS 2-5 completed azithromycin 250 MG Oral Tablet [place] ([facility]) Metronidazole 250 MG Oral Tablet metroni dazole 250 mg tablet TAKE ONE TABLET BY MOUTH FOUR TIMES DAILY AFTER MEALS AND NIGHTLY FOR 14 DAYS. AVOID ALCOHOL metronidazole 250 mg tablet TAKE ONE TABLET BY MOUTH FOUR TIMES DAILY AFTER MEALS AND NIGHTLY FOR 14 DAYS. AVOID ALCOHOL completed metronidazole 250 MG Oral Tablet [place] ([facility]) Prazosin 1 MG Oral Capsule prazosin 1 mg capsule TAKE ONE CAPSULE BY MOUTH AT BEDTIME prazosin 1 mg capsule TAKE ONE CAPSULE BY MOUTH AT BEDTIME completed prazosin 1 MG Oral Capsule [place] ([facility]) Metronidazole 250 MG Oral Tablet metroni dazole 250 mg tablet TAKE ONE TABLET BY MOUTH FOUR TIMES DAILY AFTER MEALS AND NIGHTLY FOR 14 DAYS. AVOID ALCOHOL metronidazole 250 mg tablet TAKE ONE TABLET BY MOUTH FOUR TIMES DAILY AFTER MEALS AND NIGHTLY FOR 14 DAYS. AVOID ALCOHOL completed metronidazole 250 MG Oral Tablet [place] ([facility]) Doxycycline Monohydrate 100 MG Oral Caps ule doxycycline monohydrate 100 mg capsule TAKE ONE CAPSULE BY MOUTH TWICE DAILY FOR 14 DAYS doxycycline monohydrate 100 mg capsule TAKE ONE CAPSULE BY MOUTH TWICE DAILY FOR 14 DAYS completed doxycycline mo nohydrate 100 MG Oral Capsule [place] ([facility]) Insurance Providers Payer name Policy type / Coverage type Policy ID Covered constitution party ID Covered constitution party's relationship to sharif Policy Sharif Plan Information Medicaid [place] Medigap Part B [id number] Family Dependent [id number] Medicaid S [id number] S [id number] Managed Care - Community Plan [facility] [id number] S [id number] Managed Care - Community Plan [facility] P [id number] S [id number] Medicaid S [id number] Medicaid P [id number] S [id number] UN COMMUNITY PLAN MCDHMO [id number] SP [id number] UNHC COMMUNITY PLAN MCDHMO [id number] SP [id number] UNHC COMMUNITY PLAN MCDHMO [id number] SP [id number] UN COMMUNITY PLAN MCDHMO [id number] SP [id number] [facility] I [id number] Self [id number] Medicaid S [id number] S [id number] Managed Care - [facility] Community Plan P [id number] S [id number] [employer] [id number] Self [id number] [place] [employer] [id number] Self [id number] ANSI-Medicaid [id number] ANSI-Medicaid [id number] ANSI-Medicaid [id number] [facility] Community Plan Commercial [id number] Self [id number] [facility] Community Plan Commercial [id number] Self [id number] [facility] Communty Plan Medicaid [id number] Self [id number] [facility] Community Plan Commercial [id number] Self [id number] [facility] Communty Plan Medicaid [id number] Self [id number] [facility] Community Plan Commercial [id number] Self [id number] [facility] Communty Plan Medicaid [id number] Self [id number] [facility] Health Maintenance Organization (HMO) [id number] Self [id number] [facility] Health Maintenance Organization (O) [id number] Self [id number] [facility] Health Maintenance Organization (O) [id number] Self [id number] [facility] Community Plan Commercial [id number] Self [id number] [facility] Communty Plan Medicaid [id number] Self [id number] [facility] Community Plan Commercial [id number] Self [id number] [facility] Communty Plan Medicaid [id number] Self [id number] [facility] Communty Plan Medicaid [id number] Self [id number] [facility] Community Plan Commercial [id number] Self [id number] [facility] Communty Plan Medicaid [id number] Self [id number] [facility] Community Plan Commercial [id number] Self [id number] [facility] AMERICHOICE XIX -HMO [id number] 18 [id number] [facility] Communty Plan Medicaid [id number] Self [id number] [facility] Community Plan Commercial [id number] Self [id number] [facility] O [id number] S [id number] UN COMMUNITY PLAN [facility] [id number] SP [id number] [facility] Health Maintenance Organization (HMO) [id number] Self [id number] [facility] 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 [id number] SP [id number] [facility](MCAID) P [id number] S [id number] Self Pay O na S na Self Pay P UNAVAILABLE S UNAVAILA BLE Managed Care - Community Plan [facility] P [id number] S [id number] UNHC COMMUNITY PLAN MCDO [id number] SP [id number] [place] [facility] NOT IN EFFECT SP NO T IN EFFECT UNHC COMMUNITY PLAN MCDO [id number] SP [id number] UNHC COMMUNITY PLAN XIX [id number] 18 [id number] UNHC COMMUNITY PLAN XIX [id number] 18 [id number] UN COMMUNITY PLAN MCDO [id number] SP [id number] [facility] COMMUNTY PLAN [id number] 18 [id number] [facility] [place]UNITY PL[place] [id number] 18 [id number] [facility](MCAID) O [id number] S [id number] [facility] [id number] SP [id number] [facility] [id number] SP [id number] [facility] [id number] SP [id number] ANS-Medicaid [id number] [facility]-Medicaid [id number] ANSI-Medicaid [id number] ANSI-Medicaid [id number] ANSI-Medicaid [id number] Problems, Conditions, and Diagnoses Code Display Name Description Problem Type Effective Dates Data Source(s) infection infection Diagnosis 03/23/2021 05:44:00 PM ED [facility] [id number] Latex allergy status Latex allergy status Diagnosis 02/25/2021 10:28:00 AM EDT [facility] Z8673 Personal history of transien t ischemic attack (TIA), 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 (TIA), and cerebral infarction without residual deficits Diagnosis 02/25/2021 10:28:00 AM T [facility] [id number] Nicotine dependence, cigarettes, uncompl icated Nicotine dependence, cigarettes, uncomplicated Diagnosis 02/25/2021 10:28:00 AM T [facility] [id number] Unspecified asthma, uncomplicated Unspecified as thma, uncomplicated Diagnosis 02/25/2021 10:28:00 AM [facility] I10 Essential (primary) hypertension Essential (primary) h ypertension Diagnosis 02/25/2021 10:28:00 AM EDT [facility] R1012 Left upper quadrant pain Left upper quadrant pain Diag nosis 02/25/2021 10:28:00 AM [facility] K9429 Other complications of gastrostomy Other complic ations of gastrostomy Diagnosis 02/25/2021 10:28:00 AM [facility] R13.10 Dysphagia, unspecified Dysphagia, unspecified Diagnosi s 12/08/2020 07:00:47 AM [facility] Z93.1 Gastrostomy status Gastrostomy status Diagnosis 12:18:40 PM [facility] F25.9 Schizoaffective disorder, unspecified Sc hizoaffective disorder, unspecified Condition 03/22/2021 12:00:00 AM EDT [facility]) [id number] Tube feeding diet Tube Feeding Diet Problem 08/17/2020 12:00:00 AM EDT [place] ([facility]) [id number] Tube feeding diet Tube Feeding Diet Problem 08/17/2020 12:00:00 AM EDT [place] ([facility]) [id number] Tube feeding diet Tube Feeding Diet Problem 08/17/2020 12:00:00 AM EDT [place] ([facility]) [id number] Tube feeding diet Tube Feeding Diet Problem 08/17/2020 12:00:00 AM EDT [facility]) K29.90 Gastroduodenitis, unspecified, without b leeding Gastroduodenitis, unspecified, without bleeding Problem 08/11/2020 01:00:00 AM EDT [facility] ([facility]) E46 Unspecified protein-calorie malnutrition Unspecified protein-calorie malnutrition Problem 08/11/2020 01:00:00 AM EDT [facility] ([facility]) R13.10 Dysphagia, unspecified Dysphagia, unspecified Problem 08/11/2020 01:00:00 AM EDT [facility] ([facility] ) J45.909 Unspecified asthma, uncomplicated Unspecified as thma, uncomplicated Problem 08/11/2020 01:00:00 AM EDT [facility] ([facility]) G40.909 Epilepsy, unspecified, not intractable, without status epilepticus Epilepsy, unspecified, not intractable, without status epilepticus Problem 08/11/2020 01:00:00 AM EDT [facility] ([facility] ) I10 Essential (primary) hypertension Essential (primary) h ypertension Problem 08/11/2020 01:00:00 AM EDT [facility] ([facility] ) F31.9 Bipolar disorder, unspecified Bipolar disorder, unspec ified Problem 08/11/2020 01:00:00 AM EDT [facility] ([facility] ) F10.10 Alcohol abuse, uncomplicated Alcohol abuse, uncomplica augusto Problem 08/11/2020 01:00:00 AM EDT [facility] ([facility] ) F14.10 Cocaine abuse, uncomplicated Cocaine abuse, uncomplica augusto Problem 08/11/2020 01:00:00 AM EDT [facility] ([facility] ) F12.10 Cannabis abuse, uncomplicated Cannabis abuse, uncompli cated Problem 08/11/2020 01:00:00 AM EDT [facility] ([facility] ) Z43.1 Encounter for attention to gastrostomy E ncounter for attention to gastrostomy Problem 08/11/2020 01:00:00 AM EDT [facility] ([facility]) Z91.81 History of falling History of falling Problem 01:00:00 AM EDT [facility] ([facility]) K20.80 Other esophagitis without bleeding Other esophag itis without bleeding Problem 08/11/2020 01:00:00 AM EDT [facility] ([facility]) Z43.1 Encounter for attention to gastrostomy E ncounter for attention to gastrostomy Problem 08/05/2020 12:00:00 AM EST [facility] ([facility]) [id number] Fitting procedure Fitting Procedure Problem 03/12 06:40:32 PM EDT [place] ([facility]) [id number] Asthma Asthma Problem 03/12/2020 06:40:32 PM ED T [place] ([facility]) 75070090 Hypertensive disorder Hypertensive Disorder Problem 03/12/2020 06:40:32 PM EDT [place] ([facility]) 98589209 Depressive disorder Depressive Disorder Problem 1 06:40:32 PM EDT [place] ([facility]) [id number] Fitting procedure Fitting Procedure Problem 03/12 06:40:32 PM EDT [place] ([facility]) 978008242 Asthma Asthma Problem 03/12/2020 06:40:32 PM ED T [place] ([facility]) 92744388 Hypertensive disorder Hypertensive Disorder Problem 03/12/2020 06:40:32 PM EDT [place] ([facility]) 39858781 Depressive disorder Depressive Disorder Problem 1 06:40:32 PM EDT [place] ([facility]) [id number] Fitting procedure Fitting Procedure Problem 03/12 06:40:32 PM EDT [place] ([facility]) 228565051 Asthma Asthma Problem 03/12/2020 06:40:32 PM ED T [place] ([facility]) 04061912 Hypertensive disorder Hypertensive Disorder Problem 03/12/2020 06:40:32 PM EDT [place] ([facility]) 32712003 Depressive disorder Depressive Disorder Problem 1 06:40:32 PM EDT [place] ([facility]) 616690041 Fitting procedure Fitting Procedure Problem 03/12 06:40:32 PM EDT [place] ([facility]) 397712030 Asthma Asthma Problem 03/12/2020 06:40:32 PM ED T [place] ([facility]) 96377249 Hypertensive disorder Hypertensive Disorder Problem 03/12/2020 06:40:32 PM EDT [place] ([facility]) 02253862 Depressive disorder Depressive Disorder Problem 1 06:40:32 PM EDT [place] ([facility]) 593660303 Fitting procedure Fitting Procedure Problem 03/12 06:40:32 PM EDT [place] ([facility]) [id number] Asthma Asthma Problem 03/12/2020 06:40:32 PM ED T [place] ([facility]) 80636666 Hypertensive disorder Hypertensive Disorder Problem 03/12/2020 06:40:32 PM EDT [place] ([facility]) 48577068 Depressive disorder Depressive Disorder Problem 1 06:40:32 PM EDT [place] ([facility]) [id number] Finding by site Finding by Site Problem 0 12:00:00 AM EDT - 07/14/2020 12:00:00 AM EST [place] ([facility]) [id number] Finding by site Finding by Site Problem 0 12:00:00 AM EDT - 07/14/2020 12:00:00 AM EST [place] ([facility]) [id number] Finding by site Finding by Site Problem 0 12:00:00 AM EDT - 07/14/2020 12:00:00 AM EST [place] ([facility]) [id number] Finding by site Finding by Site Problem 0 12:00:00 AM EDT - 07/14/2020 12:00:00 AM EST [place] ([facility]) [id number] Finding by site Finding by Site Problem 0 12:00:00 AM EDT - 07/14/2020 12:00:00 AM EST [place] ([facility]) [id number] Finding by site Finding by Site Problem 0 12:00:00 AM EDT - 07/14/2020 12:00:00 AM EST [place] ([facility]) [id number] Finding by site Finding by Site Problem 0 12:00:00 AM EDT - 07/14/2020 12:00:00 AM EST [place] ([facility]) [id number] Finding by site Finding by Site Problem 0 12:00:00 AM EDT - 07/14/2020 12:00:00 AM EST [place] ([facility]) [id number] Finding by site Finding by Site Problem 0 12:00:00 AM EDT - 07/14/2020 12:00:00 AM EST [place] ([facility]) [id number] Finding by site Finding by Site Problem 12:00:00 AM EDT - 07/14/2020 12:00:00 AM EST [place] ([facility]) [id number] Screening for cancer Screening for Cancer Problem 07/24/2013 12:00:00 AM EST - 07/14/2020 12:00:00 AM EST [place] ([facility]) 13546990 Screening for cancer Screening for Cancer Problem 07/24/2013 12:00:00 AM EST - 07/14/2020 12:00:00 AM EST [place] ([facility]) 38936383 Screening for cancer Screening for Cancer Problem 07/24/2013 12:00:00 AM EST - 07/14/2020 12:00:00 AM EST [place] ([facility]) [id number] Screening for cancer Screening for Cancer Problem 07/24/2013 12:00:00 AM EST - 07/14/2020 12:00:00 AM EST [place] ([facility]) [id number] Screening for cancer Screening for Cancer Problem 07/24/2013 12:00:00 AM EST - 07/14/2020 12:00:00 AM EST [place] ([facility]) 05948682 Sinusitis Sinusitis Problem 06/24/2013 12:0 0:00 AM EST - 07/14/2020 12:00:00 AM EST [place] ([facility]) 65711767 Sinusitis Sinusitis Problem 06/24/2013 12:0 0:00 AM EST - 07/14/2020 12:00:00 AM EST [place] ([facility]) 48231467 Sinusitis Sinusitis Problem 06/24/2013 12:0 0:00 AM EST - 07/14/2020 12:00:00 AM EST [place] ([facility]) 16934957 Sinusitis Sinusitis Problem 06/24/2013 12:0 0:00 AM EST - 07/14/2020 12:00:00 AM EST [place] ([facility]) 23697476 Sinusitis Sinusitis Problem 06/24/2013 12:0 0:00 AM EST - 07/14/2020 12:00:00 AM EST [place] ([facility]) [id number] Evaluation procedure Evaluation Procedure Problem 04/24/2013 12:00:00 AM EST - 07/14/2020 12:00:00 AM EST [place] ([facility]) [id number] SNOMED CT Concept SNOMED CT Concept Problem 04/24 12:00:00 AM EST - 07/14/2020 12:00:00 AM EST [place] ([facility]) [id number] Evaluation procedure Evaluation Procedure Problem 04/24/2013 12:00:00 AM EST - 07/14/2020 12:00:00 AM EST [place] ([facility]) [id number] SNOMED CT Concept SNOMED CT Concept Problem 04/24 12:00:00 AM EST - 07/14/2020 12:00:00 AM EST [place] ([facility]) [id number] Evaluation procedure Evaluation Procedure Problem 04/24/2013 12:00:00 AM EST - 07/14/2020 12:00:00 AM EST [place] ([facility]) [id number] SNOMED CT Concept SNOMED CT Concept Problem 04/24 12:00:00 AM EST - 07/14/2020 12:00:00 AM EST [place] ([facility]) [id number] Evaluation procedure Evaluation Procedure Problem 04/24/2013 12:00:00 AM EST - 07/14/2020 12:00:00 AM EST [place] ([facility]) [id number] SNOMED CT Concept SNOMED CT Concept Problem 04/24 12:00:00 AM EST - 07/14/2020 12:00:00 AM EST [place] ([facility]) [id number] Evaluation procedure Evaluation Procedure Problem 04/24/2013 12:00:00 AM EST - 07/14/2020 12:00:00 AM EST [place] ([facility]) [id number] SNOMED CT Concept SNOMED CT Concept Problem 04/24 12:00:00 AM EST - 07/14/2020 12:00:00 AM EST [place] ([facility]) Surgeries/Procedures Procedure Description Date Indications Data Source(s) Extended Individual Psychotherapy - 45 min 03/22/2021 12:00:00 AM EDT - 03/22/2021 12:00:00 AM EDT [facility] ([facility]) Extended Individual Psychotherapy - 45 min 12:00:00 AM EDT [facility] ([facility]) REPLACE GASTROSTOMY/CECOSTOMY TUBE PERCUTANEOUS <td>IR G-J TUBE INSERTION CHANGE REMOVAL</td><td>Routine</td><td>12/08/2020 9:02 AM EDT</td><td> Esophageal dysphagia Gastrostomy tube dependent</td><td></td> 12/08/2020 09:02:00 AM EDT Gastrostomy tube dependentEsophageal dysphagia [facility] [facility] Gastrost[facility] tube dependent Esophageal dysphagia POCT ID NOW COVID-19 <td>POCT ID NOW COVID-19</td ><td>Routine</td><td>12/08/2020 7:03 AM EDT</td><td></td><td> </td> 12/08/2020 07:03:00 AM [facility] Results ID Date Data Source [id number] 03/24/2021 12:06:14 AM [facility] CT ABDOMEN PELVIS WITH CONTRAST [id number] AL RESULTInterpreted by:Skip James, MDPROCEDURE INFORMATION: Exam: CT Abdomen And Pelvis With Contrast Exam date and time: 03/23/2021 11:07 PM Age: 30 years old Clinical indication: Other: G-tube problem, associated pain, please eval for abscess TECHNIQUE: Imaging protocol: Computed tomography of the abdomen and pelvis with contrast. Radiation optimization: All CT scans at this facility use at least one of these dose optimization techniques: automated exposure control; mA and/or kV adjustment per patient size (includes targeted exams where dose is matched to clinical indication); or iterative reconstruction. Contrast material: OMNI 300; Contrast volume: 100 ml; Contrast route: INTRAVENOUS (IV); COMPARISON: CT ABD PELV W/ORAL ONLY 07/07/2018 2:08 PM FINDINGS: Tubes, catheters and devices: Small collection, 11 x 9.3 mm medial and inferior to the PEG tube at the left rectus muscle concerning for possible infection, coronal image 104 series 7 correlate clinically. There is a percutaneous balloon tipped gastrostomy tube within the lumen of the stomach. Lungs: The lung bases are unremarkable with minimal dependent changes. Liver: The liver demonstrates normal contour and configuration. Gallbladder and bile ducts: The gallbladder demonstrates contracted contour and configuration without stones or evidence of inflammation. The intrahepatic and extrahepatic bile ducts are normal in contour. Pancreas: The pancreas demonstrates normal contour and configuration. The pancreatic duct is normal. Spleen: The spleen demonstrates normal contour and configuration. A drenal glands: The adrenal glands demonstrate normal contour and configuration bilaterally. Kidneys and ureters: The kidneys are nearly symmetric in size with normal contour and configuration. The collecting systems are normal. There are no significant renal calculi. Stomach and bowel: The colon and small bowel demonstrate normal contour and configuration. Appendix: There is no acute right lower quadrant inflammation or evidence of acute appendicitis. Intraperitoneal space: Unremarkable. No free air. No significant fluid collection. Retroperitoneal space: There is no retroperitoneal fluid. Vasculature: The abdominal aorta and inferior vena cava demonstrate normal contour and configuration. The mesenteric artery and veins demonstrates normal enhancement, contour, configuration and orientation. Lymph nodes: There are no abnormally enlarged retroperitoneal lymph nodes or masses. There are no abnormally enlarged mesenteric lymph nodes or masses. There are no significantly enlarged inguinal region lymph nodes or masses. Urinary bladder: The urinary bladder is decompressed. Reproductive: Unremarkable as visualized. Bones/joints: The skeletal structures demonstrate normal contour and configuration without significant lytic or blastic change. Soft tissues: See "Lymph nodes" finding. IMPRESSION: 1. Small collection, 11 x 9.3 mm medial and inferior to the PEG tube at the left rectus muscle concerning for possible infection, coronal image 104 series 7 correlate clinically. 2. In situ PEG tube. 3. No abdominal or pelvic masses. THIS DOCUMENT HAS BEEN ELECTRONICALLY SIGNED BY SKIP JAMES MDThis document has been electronically signed by Skip James MD on 03/24/2021 12:05 AM Name Value Range Interpretation Code Description Data Ethel rce(s) Supporting Document(s) ID Date Data Source [id number] 03/23/2021 10:38:21 PM [facility] Name Value Range Interpretation Code Description Data Ethel rce(s) Supporting Document(s) pH of Venous blood 7.39 7.36-7.41 [facility] Carbon dioxide [Partial pressure] in Venous blood 45 mmHg 40-45 [facility] Oxygen [Partial pressure] in Venous blood 51 mmHg [facility] Base excess standard in Venous blood by calculation 2 mmol/L [facility] Oxygen saturation Calculated from oxygen partial pressure in Venous blood 85 % 60-85 [facility] Lactate [Moles/volume] in Venous blood 0.7 mmol/L 0.5-2.2 [facility] Bicarbonate [Moles/volume] in Venous blood 29 mmol/L [facility] ID Date Data Source [id number] 03/24/2021 10:10:47 AM [facility] Name Value Range Interpretation Code Description Data Ethel rce(s) Supporting Document(s) pH of Venous blood 7.38 7.36-7.41 [facility] Carbon dioxide [Partial pressure] in Venous blood 44 mmHg 40-45 [facility] Oxygen [Partial pressure] in Venous blood 59 mmHg [facility] Base excess standard in Venous blood by calculation 1 mmol/L [facility] Oxygen saturation Calculated from oxygen partial pressure in Venous blood 90 % 60-85 H [facility] Lactate [Moles/volume] in Venous blood 0.8 mmol/L 0.5-2.2 [facility] Bicarbonate [Moles/volume] in Venous blood 28 mmol/L [facility] ID Date Data Source [id number] 03/23/2021 10:27:40 PM [facility] Name Value Range Interpretation Code Description Data Ethel rce(s) Supporting Document(s) Color of Urine [facility] Clarity of Urine [facility] Specific gravity of Urine by Refractometry automated 1.021 1.003 -1.030 [facility] pH of Urine by Automated test strip 5.0 5.0-8.0 [facility] Protein [Mass/volume] in Urine by Automated test strip Neg [facility] Glucose [Mass/volume] in Urine by Automated test strip Neg [facility] Ketones [Mass/volume] in Urine by Automated test strip 5 mg/dL Neg [facility] Bilirubin.total [Presence] in Urine by Automated test strip Negative [facility] Hemoglobin [Presence] in Urine by Automated test strip Neg [facility] Leukocyte esterase [Presence] in Urine by Automated test strip Negative [facility] Nitrite [Presence] in Urine by Automated test strip Negati [facility] Leukocytes [#/area] in Urine sediment by Automated count 0 /HPF 0 -5 [facility] Erythrocytes [#/area] in Urine sediment by Automated count 0 /HPF 0-3 [facility] Epithelial cells.squamous [#/area] in Urine sediment by Auto mated count 3 /HPF None A [facility] Mucus [#/area] in Urine sediment by Microscopy low power field None A [facility] ID Date Data Source [id number] 03/23/2021 10:34:48 PM EDT [facility] Name Value Range Interpretation Code Description Data Ethel rce(s) Supporting Document(s) Leukocytes [#/volume] in Blood by Automated count 9.6 10*3/uL 4-10 [facility] Erythrocytes [#/volume] in Blood by Automated count 5.06 10*6/uL 4.6- 6.1 [facility] Hemoglobin [Mass/volume] in Blood 15.1 g/dL 13.5-18 [facility] Hematocrit [Volume Fraction] of Blood by Automated count 44.4 % 4 1-53 [facility] Erythrocyte mean corpuscular volume [Entitic volume] by Auto mated count 87.7 fL 80-96 [facility] Erythrocyte mean corpuscular hemoglobin [Entitic mass] by Automated count 29.9 pg 27-33 [facility] Erythrocyte mean corpuscular hemoglobin concentration [Mass/volume] by Automated count 34.1 g/dL 32.0-36.0 [facility] width [Ratio] by Automated count 13.8 % 11.5-14.5 [facility] Platelets [#/volume] in Blood by Automated count 313 10*3/uL 150-400 [facility] Differential cell count method - Blood [facility] Neutrophils/100 leukocytes in Blood by Automated count 46 % [facility] Lymphocytes/100 leukocytes in Blood by Automated count 43 % [facility] Monocytes/100 leukocytes in Blood by Automated count 8 % [facility] Eosinophils/100 leukocytes in Blood by Automated count 2 % [facility] Basophils/100 leukocytes in Blood by Automated count 1 % [facility] Neutrophils [#/volume] in Blood by Automated count 4.43 10*3/uL 1.8-7 .0 [facility] Lymphocytes [#/volume] in Blood by Automated count 4.15 10*3/uL 1.2-4 .0 H [facility] Monocytes [#/volume] in Blood by Automated count 0.75 10*3/uL 0-0.8 [facility] Eosinophils [#/volume] in Blood by Automated count 0.20 10*3/uL 0-0.5 [facility] Basophils [#/volume] in Blood by Automated count 0.10 10*3/uL 0-0.2 [facility] Nucleated erythrocytes/100 leukocytes [Ratio] in Blood by Automated count 0 /100{WBCs} 0-0 [facility] ID Date Data Source [id number] 03/23/2021 10:47:11 PM [facility] Name Value Range Interpretation Code Description Data Ethel rce(s) Supporting Document(s) Lipase [Enzymatic activity/volume] in Serum or Plasma 22 U/L 13-6 0 [facility] ID Date Data Source [id number] 03/23/2021 10:47:11 PM [facility] Name Value Range Interpretation Code Description Data Ethel rce(s) Supporting Document(s) Albumin [Mass/volume] in Serum or Plasma by Bromocresol green (BCG) dye binding method 4.4 g/dL 3.5-5.2 [facility] Bilirubin.total [Mass/volume] in Serum or Plasma <1.2 [facility] Calcium [Mass/volume] in Serum or Plasma 9.0 mg/dL 8.6-10.0 [facility] Chloride [Moles/volume] in Serum or Plasma 102 mmol/L 98-107 [facility] Creatinine [Mass/volume] in Serum or Plasma 0.64 mg/dL 0.70-1.20 L [facility] Glucose [Mass/volume] in Serum or Plasma 91 mg/dL 70-140 [facility] Alkaline phosphatase [Enzymatic activity/volume] in Serum or Plasma 67 U/L 40-129 [facility] Potassium [Moles/volume] in Serum or Plasma 4.2 mmol/L 3.4-5.1 [facility] Hemolyzed Protein [Mass/volume] in Serum or Plasma 7.1 g/dL 6.4-8.3 [facility] Sodium [Moles/volume] in Serum or Plasma 137 mmol/L 136-145 [facility] Aspartate aminotransferase [Enzymatic activity/volume] in Serum or Plasma 21 U/L <40 [facility] Hemolyzed Urea nitrogen [Mass/volume] in Serum or Plasma 10 mg/dL 6-20 [facility] Osmolality of Serum or Plasma by calculation 283 mosm/kg 275-300 [facility] Creatinine/Urea nitrogen [Mass Ratio] in Serum or Plasma 16 [facility] Bicarbonate [Moles/volume] in Serum 23 mmol/L 22-29 [facility] Alanine aminotransferase [Enzymatic activity/volume] in Seru m or Plasma 20 U/L <41 [facility] Anion gap 3 in Serum or Plasma 12 mmol/L 8-15 [facility] Glomerular filtration rate/1.73 sq M pre dicted among non-blacks [Volume Rate/Area] in Serum or Plasma by Creatinine-based formula (MDRD) >6 0 [facility] Glomerular filtration rate/1.73 sq M pre dicted among blacks [Volume Rate/Area] in Serum or Plasma by Creatinine-based formula (MDRD) >60 [facility] ID Date Data Source [id number] 02/25/2021 10:28:00 AM EDT [facility] 1 OrderSheet [facility] Emergency Department [address] [place] [address] Phone #: ext- [phone] 02/25/2021 10:28 Patient: [...] rce(s) Supporting Document(s) ID Date Data Source [id number] 02/25/2021 10:28:00 AM EDT [facility] 1 Medication Reconciliation Report [facility] Emergency Department [address] [place] [address] Phone #: cvn- [phone] 02/25/2021 10:28 Patient: CELIA GUTIÉRREZ Sex: M [...] Pharmacy - USE Rx DISCOUNT CARD: $20.2, BIN:[id number],PCN:MONIQUE, Group:[id number], ID:[id number].Pharmacy - [facility] - [address] [place] [address] ; [place], [place] [phone]. .cefdinir 250 mg/5 mL oral suspension Take 5 ml twice a day for 7 days -- Dispense 70 ml. Refills: 0.Substitution permitted.Pharmacy - [facility] [address] [address] ; [place] [address]. . -- ALEXANDRA Romero Name Value Range Interpretation Code Description Data Ethel rce(s) Supporting Document(s) ID Date Data Source [id number] 02/25/2021 10:28:00 AM EDT [place] [address] Medication Administration Record [facility] Emergency Department [address] [place] [address] Phone #: ext- [phone] 02/25/2021 10:28 Patient: CELIA GUTIÉRREZ Sex: M : 1990 Age: 30yWeight: 108.8 kgHeight/Length: 71 inBMI: 33.5ALLERGIES: Codeine Phosphate, Latex, PROzacDate/Time Medication Administered Medication Ordered Name Value Range Interpretation Code Description Data [facility](s) Supporting Document(s) ID Date Data Source [id number] 02/25/2021 10:28:00 AM EDT [place] [address] General Instructions [facility] Emergency Department [address] [place] [address] Phone #: ext- [phone] 02/25/2021 10:28 Patient: CELIA GUTIÉRREZ Sex: M [...] Pharmacy - USE Rx DISCOUNT CARD: $20.2, BIN:[id number],PCN:MONIQUE, Group:[id number], ID:[id number].Pharmacy - [facility] - [address] [place] [address] ; [place], [place] [phone]. .cefdinir 250 mg/5 mL oral suspension Take 5 ml twice a day for 7 days -- Dispense 70 ml. Refills: 0.Substitution permitted.Pharmacy - [facility] [address] - [address] ; [place] [address]. .Follow-up:Follow up with your doctor. Call for the next available appointment. Reason for referral: evaluation andtreatment. Summary of care provided to patient.Understanding of the discharge instructions verbalized by patient. ADDITIONAL INFORMATIONAcute Pain, Uncertain CausePain can be caused by many conditions that range from very minor to very serious. In some cases, 2 General Instructions [facility] Emergency Department [address] [place] [address] Phone #: ext- [phone] 02/25/2021 10:28 Patient: CELIA GUTIÉRREZ Sex: M [...] not prescribed for pain, you can take btvzfu-nlj-bmejcsu pain medicine such as ibuprofen or acetaminophen. Use these as directed on thelabel.Follow-up careFollow up with your healthcare provider or our staff as directed.When to seek medical adviceCall your healthcare provider for any of the following: Pain changes in pattern Pain doesn't lessen or gets worse New symptoms appear Fever of 100.4F (38C) or higher, or as directed by your healthcare provider [phone] [employer]. [address] [place] [address]. All rights reserved. This information is not intended as asubstitute for professional medical care. Always follow your healthcare professional's instructions. You have been given the following additional information: Pain, Acute, Uncertain Cause(Electronically signed by ALEXANDRA Romreo 02/26/2021 22:11) Name Value Range Interpretation Code Description Data Ethel rce(s) Supporting Document(s) ID Date Data Source [id number] 02/25/2021 10:28:00 AM EDT [facility] 1 Clinical Report - Nurses [facility] Emergency Department [address] [place] [address] Phone #: ext- [phone] 02/25/2021 10:28 Patient: [...] 97%. Temp: 98.0 F. Pain level now 0.--10:35 02/25/21 Sheila Faria R.N.Weight: 108.8 kg. Height/Length: [...] Tube Placement. 2 Clinical Report - Nurses [facility] Emergency Department [address] [place] [address] Phone #: ext- [phone] 02/25/2021 10:28 [facility]: LAB[facility]GE[id number] Sex: M : 1990 Age: 30y Shoulder [...] of bed on. Patient ready for evaluation. --11:0702/25/21 Daisy Mcgill R.N. Patient ID band checked for patient name and birthdate: patient confirmed. Wound swabbed for aerobic culture; collected by nurse. Specimen labeled in the presence of the patient (gtube). --11:07 02/25/21 Daisy Mcgill R.N.DISPOSITION / DISCHARGE 11:40 02/25/21. BP: 109/75. HR: 90. RR: 18. O2 saturation: 99%. Temp: 98.8 F. Pain level now 0/10. --11:40 9/30/21 [facility] Delma COTO Condition at departure: unchanged. No learning barriers present. Discharge instructions provided and reviewed with the patient. Reviewed medication(s) side effects, precautions, dosing and course information. Prescription(s) given to the patient and sent electronically to pharmacy. Patient verbalized 3 Clinical Report - Nurses [facility] Emergency Department [address] [place] [address] Phone #: ext- [phone] 02/25/2021 10:28 Patient: CELIA GUTIÉRREZ Sex: M : 1990 Age: 30y understanding. Written instructions provided in Chilean. The patient was discharged home and accompanied by parent. He left ambulatory and via private vehicle. Parent driving. --11:45 02/25/21 Daisy Mcgill R.N. Departure time: 11:45 02/25/2021. --11:45 02/25/21 Daisy Mcgill R.N.Locked/Released at 02/25/2021 11:47 by Daisy Mcgill R.N. Name Value Range Interpretation Code Description Data Ethel rce(s) Supporting Document(s) ID Date Data Source [id number] 02/25/2021 10:28:00 AM EDT [facility] 1 Clinical Report - Physicians/Mid Levels [facility] Emergency Department [address] [place] [address] Phone #: ext- [phone] 02/25/2021 10:28 Patient: CELIA GUTIÉRREZ Sex: M [...] Allergies: 2 Clinical Report - Physicians/Mid Levels [facility] Emergency Department [address] [place] [address] Phone #: ext- [phone] 02/25/2021 10:28 Patient: CELIA GUTIÉRREZ Sex: M [...] fever. 3 Clinical Report - Physicians/Mid Levels [facility] Emergency Department [address] [place] [address] Phone #: ext- [phone] 02/25/2021 10:28 Patient: [...] Pharmacy - USE Rx DISCOUNT CARD: $20.2, BIN:[id number], PCN:MONIQUE, Group:EMR, ID:[id number]. Pharmacy - [facility] - [address] ; [place], [place] [phone]. . cefdinir 250 mg/5 mL oral suspension Take 5 ml twice a day for 7 days -- Dispense 70 ml. Refills: 0. Substitution permitted. Pharmacy - [facility] [address] ; [place] [address]. . Follow-up: Follow up with your doctor. Call for the next available appointment. Reason for referral: evaluation and treatment. Summary of care provided to patient. Understanding of the discharge instructions verbalized by patient.(Electronically signed by ALEXANDRA Romero 02/26/2021 22:11) Name Value Range Interpretation Code Description Data Ethel rce(s) Supporting Document(s) ID Date Data Source [id number] 02/25/2021 10:28:00 AM EDT [facility] Addenda for LABARGECELIA VisitID: [id number] Date: 18:33Lab results reviewed, by Srinath MORRIS. Final g-tube site wound culture shows Beta hemolyticStrep group C Heavy Growth, Organism #2Diphtheroids Patient was prescribed Cefdinir, no changes needed.(Electronically signed by Erika Mack RN - 03/02/2021 18:33) Name Value Range Interpretation Code Description Data Ethel rce(s) Supporting Document(s) ID Date Data Source [id number] 03/01/2021 12:51:08 PM EDT [facility] IR G-J TUBE INSERTION CHANGE REMOVALFINA [...] rce(s) Supporting Document(s) ID Date Data Source [id number] 02/26/2021 12:15:00 PM EDT [facility] Name Value Range Interpretation Code Description Data Ethel rce(s) Supporting Document(s) SARS-CoV-2 RNA Resp Ql PERCY+probe NOT [facility]ECTED [facility] This lab was ordered by FAYE lara and reported by FAYE Fragoso. ID Date Data Source [id number] 03/02/2021 06:19:00 AM EDT [facility] Name Value Range Interpretation Code Description Data Ethel rce(s) Supporting Document(s) CULTURE WOUND [facility] _CULTURE WOUND_$$[id number]$$[id number]$$[id number]$$[id number]$$[id number]$$[id number] DATE/TIME: 03/01/2021 18:06Culture: CULTURE WOUND Status: FinalIsolate [...] on next page --Patient: MARLA Lawrence Order: [id number] Page 2Culture: CULTURE WOUND Status: Final ====DiphtheroidsP1 Test performed by: [facility] #: [id number] [address] [place] [address] [id number] [facility] [id number] Director : Romario Jordan MD NPI #:Customer Care Manager : 02/27/21.1151.XMT.SENT REF 03/02/21.0619.XMT.SENT REF ID Date Data Source [id number] 12/17/2020 03:59:24 PM EDT [facility] IR G-J TUBE INSERTION CHANGE REMOVALFINA [...] rce(s) Supporting Document(s) ID Date Data Source [id number] 12/08/2020 02:28:06 PM EDT [facility] IR G-J TUBE INSERTION CHANGE REMOVALFINA [...] rce(s) Supporting Document(s) ID Date Data Source [id number] 12/08/2020 10:16:29 AM T [facility] Name Value Range Interpretation Code Description Data Ethel rce(s) Supporting Document(s) [facility] RXBYHd4eQnVMZlTy43/ICHieWOTdh4CmJGusPAm4QMgkYSMhE6HjYUR5wJ0iYQM3PJjTBhCkHbPhWmBj [facility] [file] [id number] ID Date Data Source [id number] 12/08/2020 10:02:09 AM EDT [facility] Name Value Range Interpretation Code Description Data Ethel rce(s) Supporting Document(s) [facility] TWKORt2sVaTWEiCj00/OZElaSZScy2WxCDelFCz7FWmcQNNkW7ErBVU6wS8pIJZ0KDdEQcUlEnEuMzRv lbm BrNymETuWrLEYhNrqSYtQaRTsePrxszTIrNK2DgPT8DQOgV56xHEQpYGBgC9KyEGD8RAT+Fd6KQXFahQ EmUZ3ZIxiH3Booi7s4JK5rhA2BTETRSauAdmkzvB2qkhVnXiX4IdXxVPw+lDhDsuO76blKdtccH1xsLB 1dOs4ZoFUkIO5oAF5Cjs1b6KbKuP1G0B//JRq3Iq5i Z60e0Srz5nk5E27KqFHwBD+aA/lfJS5rpZayekqarL8rHgXJcwvQHjtVmWap1oN04zp6eMhpYjdapf9E 9pP4YpUQUMQ77vHbj2cqY3j+FWg9ngs97Qa16Eu6ecsP8iULvf0kbKVjTW9ACM67XOuFOGa2nmzVU6eF htZpjaRmjRA8jYIdFXmjmx/l5cQWbSh/i9IjQxIWmc W7OyYkUz2bwp9VP+DDjMl6ubc4jHfuTswl6p8yfCKPQziWCL4ZJXnAO9IPNhGBIq6FhyJtvV8Rr6AfSW iyL+XKu17WwDO5472lxqn2YOMQmgA2mV6se4Be0Hn583qmetKYrokBR2RyN81NA7/zoQDST6E3agDFkR yfd6CRZLSjh+HFYTHlTBugHrW8WohQYQ+wCjzBXqvZ UYVkwNNWfXU7BvZ3lzqPNv+3JhTnrAUlNrOSqs02jdvKWg13iYIBrPMBclT9xyAuaKFTLzfc+TtiL5xM Wo00A+YYn9LaitBak+KdKBj7CeSZnNn26XiNPu+/XKl7jk/u1mHc5qGzRgngrgJvEMM1pUlocVcpG/FIELDS [file] [id number]= ID Date Data Source [id number] 12/08/2020 07:03:00 AM EDT [facility] Name Value Range Interpretation Code Description Data Ethel rce(s) Supporting Document(s) SARS coronavirus 2 RdRp gene https://www.fda.gov/media/871586/ivan GRAY This lab was ordered by [facility] and reported by [facility]. ID Date Data Source [id number] 12/08/2020 09:06:12 AM EDT [facility] Name Value Range Interpretation Code Description Data Ethel rce(s) Supporting Document(s) SARS coronavirus 2 RdRp gene Negative [facility] Test performed using the Núñez ID NOW C OVID-19 assay. This test is only for use under the Food and Drug Administration's Emergency Use Authorization. Additional information is available on the following FDA websites for health care providers and patients.https://www.fda.gov/media/184990/downloadhttps://www.fda.gov/media/1365 24/download Patients first test for [facility] Patient employed in healthcare setting [facility] Patient has symptoms related to [facility] When did you start to experience these symptoms [Date and time] [Phen X] [facility] Patient was hospitalized because of this condition [facility] patient was admitted to ICU for [facility] Patient resides in a congregate care setting [facility] status [facility] ID Date Data Source [id number] 12/02/2020 01:20:00 PM EDT [facility] Name Value Range Interpretation Code Description Data Ethel rce(s) Supporting Document(s) SARS-CoV-2 RNA Resp Ql PERCY+probe NOT DETECTED [facility] This lab was ordered by FAYE lara and reported by FAYE Fragoso. ID Date Data Source [id number] 11/17/2020 12:25:17 PM EDT [facility] Name Value Range Interpretation Code Description Data Ethel rce(s) Supporting Document(s) [facility] HBIOIl9vMoATZtJv88/NBKctISZco4NbKTqaKEd9QCegVLOsL4LiVCI5bW5pEYA2PGgTPjKhOgFlWjLy lbm [file] AgICAgICAgICAgICAgICAgICAgICAgICAgICAgICAgICAgICAgICAgICAgICAgICAgICAgICAgICAgIC AgICAgICAgICAgICAgICAgICAgICAgICAgICAgICAgICAgICANCiAgICAgICAgICAgICAgICAgICAgIC AgICAgICAgICAgICAgICAgICAgICAgICAgICAgICAg ICAgICAgICAgICAgICAgICAgICAgICAgICAgICAgICAgICAgICAgICAgICAgICANCiAgICAgICAgICAg ICAgICAgICAgICAgICAgICAgICAgICAgICAgICAgICAgICAgICAgICAgICAgICAgICAgICAgICAgICAg ICAgICAgICAgICAgICAgICAgICAgICAgICAgICANCi AgICAgICAgICAgICAgICAgICAgICAgICAgICAgICAgICAgICAgICAgICAgICAgICAgICAgICAgICAgIC AgICAgICAgICAgICAgICAgICAgICAgICAgICAgICAgICAgICAgICANCiAgICAgICAgICAgICAgICAgIC AgICAgICAgICAgICAgICAgICAgICAgICAgICAgICAg ICAgICAgICAgICAgICAgICAgICAgICAgICAgICAgICAgICAgICAgICAgICAgICAgICANCiAgICAgICAg ICAgICAgICAgICAgICAgICAgICAgICAgICAgICAgICAgICAgICAgICAgICAgICAgICAgICAgICAgICAg ICAgICAgICAgICAgICAgICAgICAgICAgICAgICAgIC ANCiAgICAgICAgICAgICAgICAgICAgICAgICAgICAgICAgICAgICAgICAgICAgICAgICAgICAgICAgIC AgICAgICAgICAgICAgICAgICAgICAgICAgICAgICAgICAgICAgICAgICANCiAgICAgICAgICAgICAgIC AgICAgICAgICAgICAgICAgICAgICAgICAgICAgICAg ICAgICAgICAgICAgICAgICAgICAgICAgICAgICAgICAgICAgICAgICAgICAgICAgICAgICANCiAgICAg ICAgICAgICAgICAgICAgICAgICAgICAgICAgICAgICAgICAgICAgICAgICAgICAgICAgICAgICAgICAg ICAgICAgICAgICAgICAgICAgICAgICAgICAgICAgIC AgICANCiAgICAgICAgICAgICAgICAgICAgICAgICAgICAgICAgICAgICAgICAgICAgICAgICAgICAgIC AgICAgICAgICAgICAgICAgICAgICAgICAgICAgICAgICAgICAgICAgICAgICANCjw/zGZkF7unxQKiaw B0C6fqPp3SNs4VXD1bu1JkXFSmKCapkoKgQguIBsZr EZOkWcnNMlb6YHilSG0AvCPzD1XlD6DyQYcqWX2MEYWtLWJizFOjLVXzMAZbDgV5NOVdVYfzWF5HqWJa VNswPHEiAOCxSrHpIJScUPQzPLCaNRPjKCJMYO2TPaMiL8FynQ44PFCFMn4+JDhokpNgIciKDpG7OIDw c4JsLFl3EQ5PWJAxQxunx3CzUzgxBIAXXSeaZD5PMT Q8OML1GMHtZv2RBEAtM124erGdLB1DUa5IOrQcOL7hsq2POqwsLVGmRcuVDox5INrzVQ9SpYWfCKxMup 8tmhHvemTFq8XxxbBclVCMaPIfk1VcikHcOiVMrMS7PKO2QIPBUZTuvMN3ZjDvUtMxLjZmCYZ3VTVmEH 3pXGzsFD2PKUF2ZBbdGHKcCKRfF2hYWjCdAKLoUWAj zBhnAH3MZhZtN4CoxeJwrSPdVVMdXCSVJo6+AWwjoaArRzwKBlAxSTWye7NzPOf3WT0EEERdCHaxQO0Y VMKntY0hNBhrNN0WBgYuBdFsMXYDNcCsP89emXAzCCt8M1RgCuYsVRTaSzjzLMHcDTngMgHkEODdUrCe DQogID4+ID4+JUnzBE3TNEejgdToXTRaYy1TBSQdLD PiUT6mFSSrFQQlO4A6lOczGABRYsYbE0npuopbVP0mMLHrX121eWixgaPzZEH2HDPhNx7FSNIhTQD6QT WhpSNfRjxaFOLLKDjtDP5AdZAnBHQ4fI0vBYtxPJEcRQCaQ3qMAbRmrEziXJ65zSioceMfxGTgQNh+Pg 9UHJ1mp0GqVDt6byYzECbyFTJbUNcjOJZrOKAcTFUn HCI1VPX0WXUDKxDdWPByAKAzJKkzGLBxPONcfc5DWMZpRZFvYCL2LaJoOPHnQTCwKKpsTAUoOYXsNnV1 DWNqSEHfCB7YVdFaXOGoZORyZBhpVALpEHKssk7DEDPrHNIqISB2YFKrHNVpQLWhACpfENWpFCJ2KiW9 WISnJYRsIJ9YVwUyWTYpDTccGLimPTUuEHFagu1DZC PzOMRcFjA3RkNhYKLeRLFhFOudNUWnYCMaIpXwDPRmXMMsJD0WEwRmOUNiNFO9RVeaAJWiXYUrbr9BJZ YmNNCnFgf4ICExPVAjFUEvKXdpQRSuFAXyNJusURAaGHNlKB0JJoSyGBMlTATuCAExGGDbLSKowv8YVY PhCKFiXLF4XRPhTAAvLKAuVDveBIHtAMI1YTReODUb FURoMU0UCyFyUTKaXANyNSYkEKNrHVTbdp9BHAMsWJHkBQD7JmSlFXZbKYCiTIygMTGuHDG6EwnnBHNx JICrMX3PIkShHGCxTehqQGQhCOSxIKVmeo4AUIZmRYRwIhVrRTGtPMPpFCZtZVqsLWUwOCQ8CmA8QDZj CZHyDJ6LWyWoSAYoJaa8RZMhQJGcLWLkks8MTMMuWR VqYPI1FWAbKKTfBQJeMLtdLXRkIFX5QEo3RBRyBMLaPZ1RDoFeMMAzPdtkIhDvPGFnNVWwty2EAKJoMC JnYPC3CXGlNKUqUUIaGAqjDZMyRSU5YYU0EOLuALPeUL3AKuWlISEqMrWoVrJjNCHjWPSaqg2CJREbJE RhYKM4AIRzTMKrQMGdVDchIWGbBBPoTJK9UKCvYJHl IK0ACbPsOHhuHSHUKvm6IJryY5x0PLVgYD7QV7Jih0FdLjNwHMKEBCyrZE0kocSqAVDkBa5NZ5hIJjgc SVJsZfC8HGOnBrD3OFB8FAS1GQzoBABvHST8WFOhBu9cGUKuSJO4XzD8QZCuDcJxInhwFtPbWDJcLCKo FpLuXEH3StJkOW6SZs3NHuT5HIY3tDUvLk8BGhG2OVWHEaHtUM7NZEw= ID Date Data Source [id number] 08/06/2020 11:42:00 AM EST [place] Name Value Range Interpretation Code Description Data Ethel rce(s) Supporting Document(s) SARS coronavirus 2 RNA panel NEG N [facility] This lab was ordered by [facility] and repor augusto by [facility]. ID Date Data Source [id number] 08/01/2020 06:44:00 AM EST [facility] Name Value Range Interpretation Code Description Data Ethel rce(s) Supporting Document(s) [facility] COVID-19 RT-PCR [employer] SWAB Not Detected Not Detected [facility] This test has received Emergency Use Aut horization (EUA). We willcontinue to follow federal and state requirements for COVID-19reporting. This test was developed and its performance characteristicsdetermined by [facility]. It has not been cleared orapproved by [...] agencies as required. ID Date Data Source [id number] 07/31/2020 02:00:00 PM EST [facility] Name Value Range Interpretation Code Description Data Ethel rce(s) Supporting Document(s) SARS coronavirus 2 RNA [Presence] in Res piratory specimen by [facility] with probe detection NEGATIVE [facility] This lab was ordered by [facility] and reported by [facility]. ID Date Data Source [id number] 07/26/2020 11:54:00 AM EST [place] ([facility]) Name Value Range Interpretation Code Description Data Ethel rce(s) Supporting Document(s) amylase 52 U/L 25-115 Amylase [place] ([facility]) ID Date Data Source [id number] 07/26/2020 11:54:00 AM EST [place] ([facility]) Name Value Range Interpretation Code Description Data Ethel rce(s) Supporting Document(s) glucose, fasting 95 mg/dL 70-100 Glucose, Fasting AT [facility]) blood urea nitrogen 10 mg/dL 7-18 Blood Urea Nitro gen [place] ([facility]) glomerular filtration rate > 60.0 >60 Glomerula r Filtration Rate [place] ([facility]) sodium level 140 mEq/L 136-145 Sodium Level [facility] (No [facility]) creatinine for GFR 0.81 mg/dL 0.70-1.30 Creatinine for GF R [place] ([facility]) chloride level 107 mEq/L 98-107 Chloride Level [place] ([facility]) potassium serum 4.1 mEq/L 3.5-5.1 Potassium Serum [facility] NA ([facility]) anion gap 5 mEq/L 8-16 Below low normal Anion Gap [place] ( [facility]) carbon dioxide level 28 mEq/L 21-32 Carbon Dioxide Level [facility] ([facility]) ALT/SGPT 24 U/L 12-78 ALT/SGPT [place] ([facility]) calcium level 8.7 mg/dL 8.5-10.1 Calcium Level [place] ( [facility]) alkaline phosphatase 76 U/L 45-117 Alkaline Phosph atase [facility] ([facility]) AST/SGOT 11 U/L 7-37 AST/SGOT [place] ([facility]) bilirubin,total 0.4 mg/dL 0.2-1.0 Bilirubin,total [facility] NA ([facility]) albumin/globulin ratio Albumin/globu gibran Ratio [facility] ([facility]) albumin 3.7 gm/dL 3.2-5.2 Albumin [place] ([facility]) total protein 6.9 gm/dL 6.4-8.2 Total Protein [place] ( [facility]) ID Date Data Source [id number] 07/26/2020 11:54:00 AM EST [place] ([facility]) Name Value Range Interpretation Code Description Data Ethel rce(s) Supporting Document(s) red blood count 5.22 10 4.30-6.10 Red Blood Count [facility] NA ([facility]) white blood count 7.1 10 4.0-10.0 White Blood Count [place] ([facility]) mean corpuscular volume 86.4 fL 80.0-96.0 Mean Corpusc ular Volume [facility] ([facility]) hemoglobin 15.2 g/dL 13.5-17.5 Hemoglobin [place] ([facility]) mean corpuscular hemoglobin 29.1 pg 27.0-33.0 Mean Cor puscular Hemoglobin [facility] ([facility]) hematocrit 45.1 % 42.0-52.0 Hematocrit [facility] ([facility]) platelet count, automated 312 10 150-450 Platelet C ount, Automated [place] ([facility]) neutrophils % 45.1 % 36.0-66.0 Neutrophils % [place] ( [facility]) red cell distribution width 12.7 % 11.5-14.5 Red Cell Distribution Width [facility] ([facility]) mean corpuscular HGB conc 33.7 g/dL 32.0-36.5 Mean Corpu scular HGB Conc [place] ([facility]) eos % 2.4 % 0.0-3.0 Eos % [place] ([facility]) baso % 1.0 % 0.0-1.0 Baso % [place] ([facility]) lymph % 41.7 % 24.0-44.0 Lymph % [facility] ([facility]) mono % 9.5 % 2.0-8.0 Above high normal [place] % [place] ([facility]) nucleated red blood cell % 0.0 % 0-0 Nucleated Red Blood Cell % [facility] ([facility]) immature granulocyte % 0.3 % 0-3.0 Immature Gran ulocyte % [facility] ([facility]) neutrophils # 3.2 10 1.5-8.5 Neutrophils # [place] ( [facility]) lymph # 3.0 10 1.5-5.0 Lymph # [place] ([facility]) mono # 0.7 10 0.0-0.8 [place] # [place] ([facility]) baso # 0.1 10 0.0-0.2 Baso # [place] ([facility]) eos # 0.2 10 0.0-0.5 Eos # [place] ([facility]) ID Date Data Source [id number] 07/26/2020 11:54:00 AM EST [place] ([facility]) Name Value Range Interpretation Code Description Data Ethel rce(s) Supporting Document(s) tissue transglutaminase IgA <2 0-3 Tissue T ransglutaminase IgA [place] ([facility]) ID Date Data Source [id number] 07/26/2020 11:54:00 AM EST [place] ([facility]) Name Value Range Interpretation Code Description Data Ethel rce(s) Supporting Document(s) C reactive protein quantitativ 0.30 mg/dL 0.00-0.30 C Reactive Protein Quantitativ [place] ([facility]) ID Date Data Source [id number] 07/26/2020 11:54:00 AM EST [place] ([facility]) Name Value Range Interpretation Code Description Data Ethel rce(s) Supporting Document(s) lipase 87 U/L 73-393 Lipase [place] ([facility]) ID Date Data Source [id number] 07/26/2020 11:54:00 AM EST [place] ([facility]) Name Value Range Interpretation Code Description Data Ethel rce(s) Supporting Document(s) amylase 52 U/L 25-115 Amylase [place] ([facility]) ID Date Data Source [id number] 07/26/2020 11:54:00 AM EST [place] ([facility]) Name Value Range Interpretation Code Description Data Ethel rce(s) Supporting Document(s) glucose, fasting 95 mg/dL 70-100 Glucose, Fasting AT [facility]) blood urea nitrogen 10 mg/dL 7-18 Blood Urea Nitro gen [place] ([facility]) glomerular filtration rate > 60.0 >60 Glomerula r Filtration Rate [place] ([facility]) chloride level 107 mEq/L 98-107 Chloride Level [place] ([facility]) sodium level 140 mEq/L 136-145 Sodium Level [place] (No [facility]) creatinine for GFR 0.81 mg/dL 0.70-1.30 Creatinine for GF R [place] ([facility]) potassium serum 4.1 mEq/L 3.5-5.1 Potassium Serum [place] ([facility]) calcium level 8.7 mg/dL 8.5-10.1 Calcium Level [place] ( [facility]) ALT/SGPT 24 U/L 12-78 ALT/SGPT [place] ([facility]) carbon dioxide level 28 mEq/L 21-32 Carbon Dioxide Level [place] ([facility]) AST/SGOT 11 U/L 7-37 AST/SGOT [place] ([facility]) anion gap 5 mEq/L 8-16 Below low normal Anion Gap [place] ( [facility]) bilirubin,total 0.4 mg/dL 0.2-1.0 Bilirubin,total [facility] ([facility]) alkaline phosphatase 76 U/L 45-117 Alkaline Phosph atase [place] ([facility]) albumin/globulin ratio Albumin/globu gibran Ratio [place] ([facility]) albumin 3.7 gm/dL 3.2-5.2 Albumin [place] ([facility]) total protein 6.9 gm/dL 6.4-8.2 Total Protein [place] ( [facility]) ID Date Data Source [id number] 07/26/2020 11:54:00 AM EST [place] ([facility]) Name Value Range Interpretation Code Description Data Ethel rce(s) Supporting Document(s) white blood count 7.1 10 4.0-10.0 White Blood Count [place] ([facility]) hemoglobin 15.2 g/dL 13.5-17.5 Hemoglobin [place] ([facility]) red blood count 5.22 10 4.30-6.10 Red Blood Count [facility] NA ([facility]) mean corpuscular HGB conc 33.7 g/dL 32.0-36.5 Mean Corpu scular HGB Conc [place] ([facility]) mean corpuscular volume 86.4 fL 80.0-96.0 Mean Corpusc ular Volume [facility] ([facility]) hematocrit 45.1 % 42.0-52.0 Hematocrit [facility] ([facility]) mean corpuscular hemoglobin 29.1 pg 27.0-33.0 Mean Cor puscular Hemoglobin [facility] ([facility]) red cell distribution width 12.7 % 11.5-14.5 Red Cell Distribution Width [place] ([facility]) neutrophils % 45.1 % 36.0-66.0 Neutrophils % [place] ( [facility]) platelet count, automated 312 10 150-450 Platelet C ount, Automated [place] ([facility]) lymph % 41.7 % 24.0-44.0 Lymph % [place] ([facility]) eos % 2.4 % 0.0-3.0 Eos % [place] ([facility]) baso % 1.0 % 0.0-1.0 Baso % [place] ([facility]) mono % 9.5 % 2.0-8.0 Above high normal [place] % [place] ([facility]) neutrophils # 3.2 10 1.5-8.5 Neutrophils # [place] ( [facility]) immature granulocyte % 0.3 % 0-3.0 Immature Gran ulocyte % [place] ([facility]) nucleated red blood cell % 0.0 % 0-0 Nucleated Red Blood Cell % [place] ([facility]) mono # 0.7 10 0.0-0.8 [place] # [place] ([facility]) lymph # 3.0 10 1.5-5.0 Lymph # [place] ([facility]) baso # 0.1 10 0.0-0.2 Baso # [place] ([facility]) eos # 0.2 10 0.0-0.5 Eos # [place] ([facility]) ID Date Data Source [id number] 07/26/2020 11:54:00 AM EST [place] ([facility]) Name Value Range Interpretation Code Description Data Ethel rce(s) Supporting Document(s) tissue transglutaminase IgA <2 0-3 Tissue T ransglutaminase IgA [place] ([facility]) ID Date Data Source [id number] 07/26/2020 11:54:00 AM EST [place] ([facility]) Name Value Range Interpretation Code Description Data Ethel rce(s) Supporting Document(s) C reactive protein quantitativ 0.30 mg/dL 0.00-0.30 C Reactive Protein Quantitativ [place] ([facility]) ID Date Data Source [id number] 07/26/2020 11:54:00 AM EST [place] ([facility]) Name Value Range Interpretation Code Description Data Ethel rce(s) Supporting Document(s) lipase 87 U/L 73-393 Lipase [place] ([facility]) ID Date Data Source [id number] 07/26/2020 11:54:00 AM EST [place] ([facility]) Name Value Range Interpretation Code Description Data Ethel rce(s) Supporting Document(s) amylase 52 U/L 25-115 Amylase [place] ([facility]) ID Date Data Source [id number] 07/26/2020 11:54:00 AM EST [place] ([facility]) Name Value Range Interpretation Code Description Data Ethel rce(s) Supporting Document(s) glucose, fasting 95 mg/dL 70-100 Glucose, Fasting AT [place] ([facility]) blood urea nitrogen 10 mg/dL 7-18 Blood Urea Nitro gen [facility] ([facility]) glomerular filtration rate > 60.0 >60 Glomerula r Filtration Rate [place] ([facility]) creatinine for GFR 0.81 mg/dL 0.70-1.30 Creatinine for GF R [place] ([facility]) sodium level 140 mEq/L 136-145 Sodium Level [facility] (No [facility]) chloride level 107 mEq/L 98-107 Chloride Level [facility] ([facility]) potassium serum 4.1 mEq/L 3.5-5.1 Potassium Serum [facility] ([facility]) carbon dioxide level 28 mEq/L 21-32 Carbon Dioxide Level [place] ([facility]) AST/SGOT 11 U/L 7-37 AST/SGOT [place] ([facility]) anion gap 5 mEq/L 8-16 Below low normal Anion Gap [place] ( [facility]) calcium level 8.7 mg/dL 8.5-10.1 Calcium Level [place] ( [facility]) bilirubin,total 0.4 mg/dL 0.2-1.0 Bilirubin,total [facility] ([facility]) total protein 6.9 gm/dL 6.4-8.2 Total Protein [place] ( [facility]) alkaline phosphatase 76 U/L 45-117 Alkaline Phosph atase [place] ([facility]) albumin 3.7 gm/dL 3.2-5.2 Albumin [place] ([facility]) ALT/SGPT 24 U/L 12-78 ALT/SGPT [place] ([facility]) albumin/globulin ratio Albumin/globu gibran Ratio [facility] ([facility]) ID Date Data Source [id number] 07/26/2020 11:54:00 AM EST [place] ([facility]) Name Value Range Interpretation Code Description Data Ethel rce(s) Supporting Document(s) white blood count 7.1 10 4.0-10.0 White Blood Count [place] ([facility]) hemoglobin 15.2 g/dL 13.5-17.5 Hemoglobin [place] ([facility]) hematocrit 45.1 % 42.0-52.0 Hematocrit [facility] ([facility]) red blood count 5.22 10 4.30-6.10 Red Blood Count [facility] NA ([facility]) mean corpuscular hemoglobin 29.1 pg 27.0-33.0 Mean Cor puscular Hemoglobin [place] ([facility]) mean corpuscular volume 86.4 fL 80.0-96.0 Mean Corpusc ular Volume [place] ([facility]) mean corpuscular HGB conc 33.7 g/dL 32.0-36.5 Mean Corpu scular HGB Conc [place] ([facility]) red cell distribution width 12.7 % 11.5-14.5 Red Cell Distribution Width [place] ([facility]) platelet count, automated 312 10 150-450 Platelet C ount, Automated [place] ([facility]) neutrophils % 45.1 % 36.0-66.0 Neutrophils % [place] ( [facility]) lymph % 41.7 % 24.0-44.0 Lymph % [place] ([facility]) eos % 2.4 % 0.0-3.0 Eos % [place] ([facility]) mono % 9.5 % 2.0-8.0 Above high normal [place] % [place] ([facility]) nucleated red blood cell % 0.0 % 0-0 Nucleated Red Blood Cell % [place] ([facility]) baso % 1.0 % 0.0-1.0 Baso % [place] ([facility]) immature granulocyte % 0.3 % 0-3.0 Immature Gran ulocyte % [facility] ([facility]) lymph # 3.0 10 1.5-5.0 Lymph # [place] ([facility]) eos # 0.2 10 0.0-0.5 Eos # [place] ([facility]) mono # 0.7 10 0.0-0.8 [place] # [place] ([facility]) neutrophils # 3.2 10 1.5-8.5 Neutrophils # [place] ( [facility]) baso # 0.1 10 0.0-0.2 Baso # [place] ([facility]) ID Date Data Source [id number] 07/26/2020 11:54:00 AM EST [place] ([facility]) Name Value Range Interpretation Code Description Data Ethel rce(s) Supporting Document(s) tissue transglutaminase IgA <2 0-3 Tissue T ransglutaminase IgA [place] ([facility]) ID Date Data Source [id number] 07/26/2020 11:54:00 AM EST [place] ([facility]) Name Value Range Interpretation Code Description Data Ethel rce(s) Supporting Document(s) C reactive protein quantitativ 0.30 mg/dL 0.00-0.30 C Reactive Protein Quantitativ [place] ([facility]) ID Date Data Source [id number] 07/26/2020 11:54:00 AM EST [place] ([facility]) Name Value Range Interpretation Code Description Data Ethel rce(s) Supporting Document(s) lipase 87 U/L 73-393 Lipase [place] ([facility]) ID Date Data Source [id number] 07/26/2020 11:54:00 AM EST [place] ([facility]) Name Value Range Interpretation Code Description Data Ethel rce(s) Supporting Document(s) amylase 52 U/L 25-115 Amylase [place] ([facility]) ID Date Data Source [id number] 07/26/2020 11:54:00 AM EST [place] ([facility]) Name Value Range Interpretation Code Description Data Ethel rce(s) Supporting Document(s) creatinine for GFR 0.81 mg/dL 0.70-1.30 Creatinine for GF R [place] ([facility]) glucose, fasting 95 mg/dL 70-100 Glucose, Fasting AT [facility]) glomerular filtration rate > 60.0 >60 Glomerula r Filtration Rate [facility] ([facility]) blood urea nitrogen 10 mg/dL 7-18 Blood Urea Nitro gen [facility] ([facility]) chloride level 107 mEq/L 98-107 Chloride Level [place] ([facility]) carbon dioxide level 28 mEq/L 21-32 Carbon Dioxide Level [facility] ([facility]) sodium level 140 mEq/L 136-145 Sodium Level [facility] ([facility]) potassium serum 4.1 mEq/L 3.5-5.1 Potassium Serum [facility] NA ([facility]) AST/SGOT 11 U/L 7-37 AST/SGOT [place] ([facility]) ALT/SGPT 24 U/L 12-78 ALT/SGPT [place] ([facility]) calcium level 8.7 mg/dL 8.5-10.1 Calcium Level [place] ( [facility]) anion gap 5 mEq/L 8-16 Below low normal Anion Gap [place] ( [facility]) total protein 6.9 gm/dL 6.4-8.2 Total Protein [place] ( [facility]) alkaline phosphatase 76 U/L 45-117 Alkaline Phosph atase [place] ([facility]) bilirubin,total 0.4 mg/dL 0.2-1.0 Bilirubin,total [facility] NA ([facility]) albumin 3.7 gm/dL 3.2-5.2 Albumin [place] ([facility]) albumin/globulin ratio Albumin/globu gibran Ratio [place] ([facility]) ID Date Data Source [id number] 07/26/2020 11:54:00 AM EST [place] ([facility]) Name Value Range Interpretation Code Description Data Ethel rce(s) Supporting Document(s) white blood count 7.1 10 4.0-10.0 White Blood Count [place] ([facility]) red blood count 5.22 10 4.30-6.10 Red Blood Count [facility] NA ([facility]) hemoglobin 15.2 g/dL 13.5-17.5 Hemoglobin [place] ([facility]) hematocrit 45.1 % 42.0-52.0 Hematocrit [place] ([facility]) mean corpuscular volume 86.4 fL 80.0-96.0 Mean Corpusc ular Volume [place] ([facility]) mean corpuscular hemoglobin 29.1 pg 27.0-33.0 Mean Cor puscular Hemoglobin [facility] ([facility]) mean corpuscular HGB conc 33.7 g/dL 32.0-36.5 Mean Corpu scular HGB Conc [place] ([facility]) red cell distribution width 12.7 % 11.5-14.5 Red Cell Distribution Width [place] ([facility]) platelet count, automated 312 10 150-450 Platelet C ount, Automated [place] ([facility]) lymph % 41.7 % 24.0-44.0 Lymph % [place] ([facility]) mono % 9.5 % 2.0-8.0 Above high normal [place] % [place] ([facility]) eos % 2.4 % 0.0-3.0 Eos % [place] ([facility]) neutrophils % 45.1 % 36.0-66.0 Neutrophils % [place] ( [facility]) nucleated red blood cell % 0.0 % 0-0 Nucleated Red Blood Cell % [place] ([facility]) immature granulocyte % 0.3 % 0-3.0 Immature Gran ulocyte % [facility] ([facility]) baso % 1.0 % 0.0-1.0 Baso % [place] ([facility]) lymph # 3.0 10 1.5-5.0 Lymph # [place] ([facility]) mono # 0.7 10 0.0-0.8 [place] # [place] ([facility]) eos # 0.2 10 0.0-0.5 Eos # [place] ([facility]) neutrophils # 3.2 10 1.5-8.5 Neutrophils # [place] ( [facility]) baso # 0.1 10 0.0-0.2 Baso # [place] ([facility]) ID Date Data Source [id number] 07/26/2020 11:54:00 AM EST [place] ([facility]) Name Value Range Interpretation Code Description Data Ethel rce(s) Supporting Document(s) tissue transglutaminase IgA <2 0-3 Tissue T ransglutaminase IgA [place] ([facility]) ID Date Data Source [id number] 07/26/2020 11:54:00 AM EST [place] ([facility]) Name Value Range Interpretation Code Description Data Ethel rce(s) Supporting Document(s) C reactive protein quantitativ 0.30 mg/dL 0.00-0.30 C Reactive Protein Quantitativ [place] ([facility]) ID Date Data Source [id number] 07/26/2020 11:54:00 AM EST [place] ([facility]) Name Value Range Interpretation Code Description Data Ethel rce(s) Supporting Document(s) lipase 87 U/L [id number] Lipase [place] ([facility]) Procedure Social History Code Duration Value Status Description Data Source(s ) Smoking 03/22/2021 12:00:00 AM EDT Current every day smoker co mpleted Current every day smoker [place] ([facility]) Alcohol intake 12/08/2020 12:00:00 AM EDT Current non-d no of alcohol (finding) completed Current non-drinker of alcohol (finding) [facility] Tobacco use and exposure 12/08/2020 12:00:00 AM EDT Current user co mpleted Current user [facility] Cigarette pack-years 12/08/2020 12:00:00 AM EDT UNK completed [facility] Cigarettes smoked current (pack per day) - Reported 12/09/19 12:00:00 AM EDT UNK completed [employer] [facility] 12/08/2020 12:00:00 AM EDT Current every day smoker co mpleted Current every day smoker [facility] Smoking 11/18/2020 12:00:00 AM EDT Current Smoker completed Curre nt Smoker eCW1 ([facility]) Smoking 11/18/2020 12:00:00 AM EDT Current Smoker completed Curre nt Smoker eCW1 ([facility]) Alcohol intake 11/17/2020 12:00:00 AM EDT Current non-d no of alcohol (finding) completed Current non-drinker of alcohol (finding) [facility] Vital Signs ID Date Data Source UNK Name Value Range Interpretation Code Description Data Source(s) Diastolic blood pressure 83 mm[Hg] 83 mm[Hg] MEY ([facility]) Body height 70 [in_i] 70 [in_i] MEY ([facility]) Body mass index (BMI) [Ratio] 37 kg/m2 37 kg/ m2 MEY ([facility]) Systolic blood pressure 116 mm[Hg] 116 mm[Hg] A THENA ([facility]) Body weight 4128 [oz_av] 4128 [oz_av] MEY ([facility]) Respiratory rate 16 /min 16 /min eCW1 ([facility]) Body temperature 98.6 [degF] 98.6 [degF] eCW1 ( [facility]) Systolic blood pressure 163 mm[Hg] 163 mm[Hg] e CW1 ([facility]) Diastolic blood pressure 91 mm[Hg] 91 mm[Hg] eCW1 ([facility]) Body weight 255 [lb_av] 255 [lb_av] W1 ([facility]) Body height 70 [in_i] 70 [in_i] eCW1 ([facility]) Body mass index (BMI) [Ratio] 36.58 kg/m2 36.58 kg/m2 eCW1 ([facility]) Heart rate 98 /min 98 /min W1 ([facility]) Diastolic blood pressure 71 mm[Hg] 71 mm[Hg] MEY ([facility]) Body height 70 [in_i] 70 [in_i] MEY ([facility]) Body mass index (BMI) [Ratio] 36.6 kg/m2 36.6 k g/m2 MEY ([facility]) Systolic blood pressure 118 mm[Hg] 118 mm[facility]Hg] [facility] Body weight 4086.4 [oz_av] 4086.4 [oz_av] ATHEN A ([facility]) Diastolic blood pressure 71 mm[Hg] 71 mm[Hg] MEY ([facility]) Body height 70 [in_i] 70 [in_i] MEY ([facility]) Body mass index (BMI) [Ratio] 36.6 kg/m2 36.6 k g/m2 MEY ([facility]) Systolic blood pressure 118 mm[Hg] 118 mm[Hg] A THENA ([facility]) Body weight 4086.4 [oz_av] 4086.4 [oz_av] ATHEN A ([facility]) Diastolic blood pressure 76 mm[Hg] 76 mm[Hg] MEY ([facility]) Body height 70 [in_i] 70 [in_i] MEY ([facility]) Body mass index (BMI) [Ratio] 38.2 kg/m2 38.2 k g/m2 MEY ([facility]) Systolic blood pressure 116 mm[Hg] 116 mm[Hg] A THENA ([facility]) Body weight 4259.2 [oz_av] 4259.2 [oz_av] ATHEN A ([facility]) Diastolic blood pressure 76 mm[Hg] 76 mm[Hg] MEY ([facility]) Body height 70 [in_i] 70 [in_i] MEY ([facility]) Body mass index (BMI) [Ratio] 38.2 kg/m2 38.2 k g/m2 MEY ([facility]) Systolic blood pressure 116 mm[Hg] 116 mm[Hg] A ESTIVEN ([facility]) Body weight 4259.2 [oz_av] 4259.2 [oz_av] ALEXANDER Lawrence ([facility]) Diastolic blood pressure 76 mm[Hg] 76 mm[Hg] MEY ([facility]) Body height 70 [in_i] 70 [in_i] MEY ([facility]) Body mass index (BMI) [Ratio] 38.2 kg/m2 38.2 k g/m2 MEY ([facility]) Systolic blood pressure 116 mm[Hg] 116 mm[Hg] A ESTIVEN ([facility]) Body weight 4259.2 [oz_av] 4259.2 [oz_av] ALEXANDER Lawrence ([facility]) Body height 70 [in_i] 70 [in_i] MEY ([facility]) Body height 70 [in_i] 70 [in_i] MEY ([facility]) Body height 70 [in_i] 70 [in_i] MEY ([facility]) Body height 70 [in_i] 70 [in_i] MEY ([facility]) Body height 70 [in_i] 70 [in_i] MEY ([facility]) ID Date Data Source [id number] 12/08/2020 02:28:06 PM [facility] Name Value Range Interpretation Code Description Data Source(s) WEIGHT RECORDED 250 lb 250 lb [facility] Body height Measured 70 in 70 in [facility] Patient Treatment Plan of Care Planned Activity Planned Date Details Description Data Source (s) sodium chloride (preservative free) 0.9 % flush 3 mL 021 09:00:00 AM [facility] sodium chloride 0.9 % bag 3-20 mL 12/08/2020 07:00:46 AM [facility] Acetaminophen 160 MG/5ML 08/11/2020 01:00:00 AM [facility]) [facility] 08/11/2020 01:00:00 AM EDT N [facility] ([facility]) Omeprazole+Syrspend SF Liss 2 MG/ML 08/11/2020 01:00:00 AM EDT [facility] ([facility]) Thiamine HCl 100 MG/ML 08/11/2020 01:00:00 AM EDT [facility] ([facility]) levETIRAcetam 100 MG/ML 08/11/2020 01:00:00 AM EDT [facility] ([facility]) Albuterol Sulfate HFA 108 (90 Base) MCG/ACT 08/11/2020 01:[facility] Albuterol Sulfate 0.63 MG/3ML 08/11/2020 01:00:00 AM [facility] Pepcid 08/11/2020 01:00:00 AM EDT N [facility] ([facility]) Flonase 50 MCG/ACT 08/11/2020 01:00:00 AM EDT [facility] ([facility]) Doxycycline Monohydrate 100 MG Oral Capsule MEY ([facility]) 12 HR dextromethorphan polistirex 6 MG/ML Extended Release Suspensi on [facility]) Cephalexin 50 MG/ML Oral Suspension MEY ([facility]) [facility] Amoxicillin 80 MG/ML Oral Suspension MEY ([facility]) Pseudoephedrine Hydrochloride 30 MG Oral Tablet [Sudogest] MEY ([facility]) Prazosin 1 MG Oral Capsule A THENA ([facility]) Metronidazole 250 MG Oral Tablet MEY ([facility]) Doxycycline Monohydrate 100 MG Oral Capsule MEY ([facility]) 12 HR dextromethorphan polistirex 6 MG/ML Extended Release Suspensi on MEY ([facility]) cefdinir 300 MG Oral Capsule MEY ([facility]) Azithromycin 250 MG Oral Tablet MEY ([facility]) Amoxicillin 80 MG/ML Oral Suspension MEY ([facility]) Azithromycin 250 MG Oral Tablet MEY ([facility]) Pseudoephedrine Hydrochloride 30 MG Oral Tablet [Sudogest] MEY ([facility]) Metronidazole 250 MG Oral Tablet MEY ([facility]) Doxycycline Monohydrate 100 MG Oral Capsule MEY ([facility]) 12 HR dextromethorphan polistirex 6 MG/ML Extended Release Suspensi on MEY ([facility]) cefdinir 300 MG Oral Capsule MEY ([facility]) Azithromycin 250 MG Oral Tablet MEY ([facility]) Pseudoephedrine Hydrochloride 30 MG Oral Tablet [Sudogest] MEY ([facility]) Metronidazole 250 MG Oral Tablet MEY ([facility]) Doxycycline Monohydrate 100 MG Oral Capsule MEY ([facility]) 12 HR dextromethorphan polistirex 6 MG/ML Extended Release Suspensi on MEY ([facility]) cefdinir 300 MG Oral Capsule MEY ([facility]) Azithromycin 250 MG Oral Tablet MEY ([facility]) Pseudoephedrine Hydrochloride 30 MG Oral Tablet [Sudogest] MEY ([facility]) Prazosin 1 MG Oral Capsule A THENA ([facility]) Metronidazole 250 MG Oral Tablet MEY ([facility]) Pseudoephedrine Hydrochloride 30 MG Oral Tablet [Sudogest] MEY ([facility]) Metronidazole 250 MG Oral Tablet MEY ([facility]) Doxycycline Monohydrate 100 MG Oral Capsule MEY ([facility]) 12 HR dextromethorphan polistirex 6 MG/ML Extended Release Suspensi on MEY ([facility]) cefdinir 300 MG Oral Capsule MEY ([facility])
--- OUTSIDE RECORDS SUMMARY | 2021-03-24 18:47 | CCD ---
Author Author [facility] Organization [facility] Address Unknown Phone Unavailable Care Team Providers Care Loan Officer Name Role Phone ED, TEST DEFAULT Unavailable [...] Unavailable Mounika Pineda MD Unavailable Unavailable Mounika Pnieda MD Unavailable Unavailable Mounika Pineda MD Unavailable [...] Unavailable Mounika Pineda MD Unavailable Unavailable Mounika Pindea MD Unavailable Unavailable Mounika Pineda MD Unavailable [...] Babita Unavailable Unavailable Olivia, Babita Unavailable Unavailable Oliiva, Babita Unavailable Unavailable Olivia, Babita Unavailable Unavailable [...] Alejandra PA Unavailable Unavailable Servage, L Jami DELINEATOR Unavailable Unavailable Servage, L Jami DELINEATOR Unavailable Unavailable Servage, L Jami DELINEATOR Unavailable Unavailable Servage, L Jami DELINEATOR Unavailable Unavailable Servage, L Jami DELINEATOR Unavailable Unavailable Servage, L Jami DELINEATOR Unavailable Unavailable Servage, L Jami DELINEATOR Unavailable Unavailable Servage, L Jami DELINEATOR Unavailable Unavailable Servage, L Jami DELINEATOR Unavailable Unavailable Servage, L Jami DELINEATOR Unavailable Unavailable Servage, L Jami DELINEATOR Unavailable Unavailable Servage, L Jami DELINEATOR Unavailable Unavailable Servage, L Jami DELINEATOR Unavailable Unavailable Servage, L Ajmi DELINEATOR Unavailable Unavailable Servage, L Jami DELINEATOR Unavailable Unavailable Servage, L Jami DELINEATOR Unavailable Unavailable Servage, L Jami DELINEATOR Unavailable Unavailable Servage, L Jami DELINEATOR Unavailable Unavailable Servage, L Jami DELINEATOR Unavailable Unavailable Servage, L Jami DELINEATOR Unavailable Unavailable Servage, L Jami DELINEATOR Unavailable Unavailable Servage, L Jami DELINEATOR Unavailable Unavailable Servage, L Jami DELINEATOR Unavailable Unavailable Servage, L Jami DELINEATOR Unavailable Unavailable Servage, L Jami DELINEATOR Unavailable Unavailable Servage, L Jami DELINEATOR Unavailable Unavailable Servage, L Jami DELINEATOR Unavailable Unavailable Servage, L Jami DELINEATOR Unavailable Unavailable Servage, L Jami DELINEATOR Unavailable Unavailable Servage, L Jami DELINEATOR Unavailable Unavailable Servage, L Jami DELINEATOR Unavailable Unavailable Servage, L Jami DELINEATOR Unavailable Unavailable Servage, L Jami DELINEATOR Unavailable Unavailable Servage, L Jami DELINEATOR Unavailable Unavailable Servage, L Jami DELINEATOR Unavailable Unavailable Servage, L Jami DELINEATOR Unavailable Unavailable Servage, L Jami DELINEATOR Unavailable Unavailable Servage, L Jami DELINEATOR Unavailable Unavailable Servage, L Jami DELINEATOR Unavailable Unavailable Servage, L Jami DELINEATOR Unavailable Unavailable Servage, L Jami DELINEATOR Unavailable Unavailable Servage, L Jami DELINEATOR Unavailable Unavailable Servage, L Jami DELINEATOR Unavailable Unavailable Servage, L Jami DELINEATOR Unavailable Unavailable Servage, L Jami DELINEATOR Unavailable Unavailable Servage, L Jami DELINEATOR Unavailable Unavailable Servage, L Jami DELINEATOR Unavailable Unavailable Servage, L Jami DELINEATOR Unavailable Unavailable Servage, L Jami DELINEATOR Unavailable Unavailable Servage, L Jami DELINEATOR Unavailable Unavailable Servage, L Jami DELINEATOR Unavailable Unavailable Servage, L Jami DELINEATOR Unavailable Unavailable Servage, L Jami DELINEATOR Unavailable Unavailable Servage, L Jami DELINEATOR Unavailable Unavailable Servage, L Jami DELINEATOR Unavailable Unavailable Servage, L Jami DELINEATOR Unavailable Unavailable Servage, L Jami DELINEATOR Unavailable Unavailable Servage, L Jami DELINEATOR Unavailable Unavailable Servage, L Jami DELINEATOR Unavailable Unavailable Servage, L Jami DELINEATOR Unavailable Unavailable Servage, L Jami DELINEATOR Unavailable Unavailable Servage, L Jami DELINEATOR Unavailable Unavailable Servage, L Jami DELINEATOR Unavailable Unavailable Servage, L Jami DELINEATOR Unavailable Unavailable Servage, L Jami DELINEATOR Unavailable Unavailable GILES, SUNDEEP CATARINO RPA-C Unavailable Unavailable GILES, SUNDEEP CATARINO RPA-C Unavailable Unavailable GILES, SUNDEEP CATARINO RPA-C Unavailable Unavailable GILES, SUNDEEP CATARINO RPA-C Unavailable Unavailable GILES, SUDNEEP CATARINO RPA-C Unavailable Unavailable GILES, SUNDEEP CATARINO [...] CATARINO RPA-C Unavailable Unavailable TROVATO, M PIETRO DELINEATOR Unavailable Unavailable TROVATO, M PIETRO DELINEATOR Unavailable Unavailable TROVATO, M PIETRO DELINEATOR Unavailable Unavailable TROVATO, M PIETRO DELINEATOR Unavailable Unavailable TROVATO, M PIETRO DELINEATOR Unavailable Unavailable TROVATO, M PIETRO DELINEATOR Unavailable Unavailable TROVATO, M PIETRO DELINEATOR Unavailable Unavailable TROVATO, M PIETRO DELINEATOR Unavailable Unavailable TROVATO, M PIETRO DELINEATOR Unavailable Unavailable TROVATO, M PIETRO DELINEATOR Unavailable Unavailable TROVATO, M PIETRO DELINEATOR Unavailable Unavailable TROVATO, M PIETRO DELINEATOR Unavailable Unavailable TROVATO, M PIETRO DELINEATOR Unavailable Unavailable TROVATO, M PIETRO DELINEATOR Unavailable Unavailable TROVATO, M PIETRO DELINEATOR Unavailable Unavailable TROVATO, M PIETRO DELINEATOR Unavailable Unavailable TROVATO, M PIETRO DELINEATOR Unavailable Unavailable TROVATO, M PIETRO DELINEATOR Unavailable Unavailable TROVATO, M PIETRO DELINEATOR Unavailable Unavailable TROVATO, M PIETRO DELINEATOR Unavailable Unavailable TROVATO, M PIETRO DELINEATOR Unavailable Unavailable TROVATO, M PIETRO DELINEATOR Unavailable Unavailable TROVATO, M PIETRO DELINEATOR Unavailable Unavailable TROVATO, M PIETRO DELINEATOR Unavailable Unavailable TROVATO, M PIETRO DELINEATOR Unavailable Unavailable TROVATO, M PIETRO DELINEATOR Unavailable Unavailable TROVATO, M PIETRO DELINEATOR Unavailable Unavailable TROVATO, M PIETRO DELINEATOR Unavailable Unavailable TROVATO, M PIETRO DELINEATOR Unavailable Unavailable TROVATO, M PIETRO DELINEATOR Unavailable Unavailable TROVATO, M PIETRO DELINEATOR Unavailable Unavailable TROVATO, M PIETRO DELINEATOR Unavailable Unavailable TROVATO, M PIETRO DELINEATOR Unavailable Unavailable TROVATO, M PIETRO DELINEATOR Unavailable Unavailable TROVATO, M PIETRO DELINEATOR Unavailable Unavailable TROVATO, M PIETRO DELINEATOR Unavailable Unavailable Porsche YORK MD Unavailable Unavailable [...] is protected by Article 27-F of the [facility] Public Health law. If you continue you may have access to information: Regarding HIV / AIDS; Provided by facilities licensed or operated by the [facility] Office of Mental Health; or Provided by the [facility] Office for People With Developmental Disabilities. If such information is present, then the following [facility] mandated warning applies: This information has [...] law may result in a fine or senior care sentence or both. A general authorization for the release of medical or other information is NOT sufficient authorization for further disc losure. Allergies and Adverse Reactions Type Description Substance Reaction Status Data Source(s ) Propensity to adverse reactions BEE POLLEN BEE POLLEN Anaphylaxis [facility] Propensity to adverse reactions LATEX Latex [facility] Bee venom Bee venom Bee venom active [facility] ([facility]) Codeine Codeine Codeine active [facility] ([facility]) Gonzalez Gonzalez Gonzalez active [facility] ([facility]) Fluoxetine Fluoxetine Fluoxetine active [facility] ([facility]) Family History Family Member Name Family Member Gender Family Member Status Date o f Status Description Data Source(s) Unknown Male Problem MEDENT ([facility]) Unknown Unknown Problem [facility] ([facility]) Unknown Male Problem [facility]ENT ([facility]) Encounters Encounter Providers Location Date Indications Data Source(s ) Outpatient Attender: Karis SORTO PA-C 05/19/2021 12: 00:00 AM [facility] Outpatient Attender: Karis SORTO PA-C 05/14/2021 12: 00:00 AM [facility] Emergency Attender: DEFAULT EDAttender: WILBUR VENTURA DO [id number] 03/23/2021 12:00:00 AM EDT - 03/24/2021 12:25:00 AM EDT infection [facility] infection Patient discharged. Extended Individual Psychotherapy - 45 min Attender: Stephon Mulligan [facility] 03/22/2021 11:00:00 AM EDT - 03/22/2021 11:00:00 AM EDT [facility] ([facility]) Attender: Shelia Mulligan 03/22/2021 12:00:00 AM E DT [facility] ([facility]) Outpatient Attender: Chris Juan: Karis SORTO PA-C 03/09/2021 12:00:00 AM [facility] Outpatient Attender: Chris Arshader: Karis SORTO PA-C 03/05/2021 12:00:00 AM EDT [facility] Outpatient Attender: Chris Arshader: Karis SORTO PA-C [facility] TONY Moore mitter: Chris Juan: Karis SORTO PA-C 03/01/2021 12:00:00 AM EDT - 03/01/2021 01:00:00 PM EDT Gastrostomy status [facility] Gastrostomy status Patient discharged. Outpatient 02/26/2021 11:41:08 AM EDT - 021 12:53:07 PM EDT [facility] ([facility]) Emergency Attender: Peter Bloom MDConsultant: Jami Shine P 02/25/2021 10:28:00 AM EDT - 02/25/2021 11:47:00 AM EDT [facility] Patient discharged. Unknown [address] [facility] [address] 02/17/2021 12:00:00 AM EDT [facility] ([facility]) Catarino Giles, RPA-C: [address], [place] [address], Ph. Attender: CATARINO SCHAEFFER [facility] Medical 02/11/2021 12:00:00 AM EDT [facility] ([facility]) Outpatient Attender: Karis SORTO PA-C 12/30/2020 12: 00:00 AM EDT [facility] Outpatient Referrer: Karis SORTO PA-C 12/15/2020 12: 00:00 AM EDT [facility] Outpatient Attender: TONY Moore mitter: RODOLFO LAINEZReferrer: Karis SORTO PA-C 12/14/2020 12:00:00 AM EDT - 12/14/2020 09:28:00 AM EDT Gastrostomy status [facility] Gastrostomy status Patient discharged. Outpatient Attender: ROSE FIGUEROA MDA ttender: TONY YORK MDAttender: Kevin Cookder: KEVIN MIRAMONTESdmitter: ROSE FIGUEROA MDReferrer: Karis SORTO PA-C [id number] 12/08/2020 07:12:51 AM EDT - 12/08/2020 10:04:00 AM EDT Dysphagia, unspecified [facility] Dysphagia, unspecified Patient discharged. Outpatient Attender: PIETRO MERRILL NP 12/04/2020 12:00:0 0 AM EDT [facility] Outpatient Attender: Joseph MORRIS 12/03/19 02:07:44 PM EDT - 12/02/2020 02:56:52 PM EDT [facility] ([facility] ) Outpatient Attender: Karis SORTO PA-C 11/23/2020 12: 00:00 AM EDT [facility] (WND [id number]) New Patient 120 Min [address] [place] [address] 11/18/2020 12:00:00 AM EDT eCW1 (Replaced by [facility]) Outpatient Attender: Karis SORTO PA-C [id number] 11/17/2020 12:00:00 AM EDT - 11/17/2020 03:58:53 PM EDT [facility] Outpatient Attender: Karis SORTO PA-C 11/13/2020 12: 00:00 AM EDT [facility] Unknown [address] [facility] [address] 11/09/2020 12:00:00 AM EDT eCW1 ([facility]) Outpatient Attender: PIETRO MERRILL NP 10/29/2020 12:00:0 0 AM EDT [facility] Claribel Baker MD: [address], [place] [address], Ph. Attender: Claribel Baker [facility] Medical 10/28/2020 12:00:00 AM EDT [facility] ([facility]) Claribel Baker MD: [address], [place] [address], Ph. Attender: Claribel Baker [facility] Medical 10/28/2020 12:00:00 AM EDT [facility] ([facility]) Unknown [address] [facility] [address] 10/27/2020 12:00:00 AM EDT eCW1 ([facility]) Alissa Garnett PA-C: [address], [place] [address], Ph. Attender: Alissa MORRIS [facility] Medical 08/18/2020 12:00:00 AM EDT [facility] ([facility]) Alissa Garnett PA-C: [address], [place] [address], Ph. Attender: Alissa MORRIS [facility] Medical 08/18/2020 12:00:00 AM EDT [facility] ([facility]) Alissa Garnett PA-C: [address], [place] [address], Ph. Attender: Alissa MORRIS [facility] Medical 08/18/2020 12:00:00 AM EDT [facility] ([facility]) 08/11/2020 01:00:00 AM EDT - 021 03:19:23 PM EDT [facility] ([facility]) Outpatient Attender: Alejandra MORRIS 09/2020 01:41:05 PM EST - 07/31/2020 02:14:07 PM EST [facility] ([facility]) MIKAELA DiazC: [address], [place] [address], Ph. Attender: Alissa MORRIS [facility] Medical 07/14/2020 12:00:00 AM EST [facility] ([facility]) Alissa Garnett PA-C: [address], [place] [address], Ph. Attender: Alissa MORRIS [facility] Medical 07/14/2020 12:00:00 AM EST [facility] ([facility]) Alissa Garnett PA-C: [address], [place] [address], Ph. Attender: Alissa MORRIS [facility] Medical 07/14/2020 12:00:00 AM EST [facility] ([facility]) Alissa Garnett PA-C: [address], [address], [place] [address], Ph. Attender: Alissa MORRIS [facility] Medical 07/14/2020 12:00:00 AM EST [facility] ([facility]) Alissa Garnett PA-C: [address], [place] [address], Ph. Attender: Alissa MORRIS [facility] Medical 07/14/2020 12:00:00 AM EST [facility] ([facility]) Ray Pineda MD: [address], [address], [place] [address], Ph. Attender: Ray Pineda MD [facility] Medical 07/01/2020 12:00:00 AM EST [facility] ([facility]) Ray Pineda MD: [address], [address], [place] [address], Ph. Attender: Ray Pineda MD [facility] Medical 07/01/2020 12:00:00 AM EST [facility] ([facility]) Ray Pineda MD: [address], [address], [place] [address], Ph. Attender: Ray Pineda MD [facility] Medical 07/01/2020 12:00:00 AM EST [facility] ([facility]) Ray Pineda MD: [address], [address], [place] [address], Ph. Attender: Ray Pineda MD [facility] Medical 07/01/2020 12:00:00 AM EST [facility] ([facility]) Ray Pineda MD: [address], [address], [place] [address], Ph. Attender: Ray Pineda MD [facility] Medical 07/01/2020 12:00:00 AM EST [facility] ([facility]) Outpatient Attender: FELICE YI MDConsultant: Jami johnson DELINEATOR 01/23/2020 02:08:00 PM EDT - 01/23/2020 02:08:00 PM EDT [facility] Medications Medication Brand Name Start Date Product [...] For 1 occurrence
Pre-op [Order 4 End] [facility] Medication administered onsite sodium chloride 0.9 % bag 3-20 mL 0155-5544-80 12/08/2020 07:00:46 AM EDT mL Intravenous active 3-20 mL, Intr avenous, at 1-999 mL/hr, PRN, For Medication Administration and Line Clearance, Starting on Mon12/08/20 at 0700, For 30 days, Pre-op
Flush line with sufficient amount of fluid needed based on equal opportunity counselor recommendation for specific line size. Rate should be run at the same rate as medication in the line being flushed.
[facility] Medication administered onsite Acetaminophen 160 MG/5ML Acetaminophen 08/11/2020 01:00:00 AM EDT completed [facility] ([facility]) Ensure Enlive Ensure Enlive 08/11/2020 01:00:00 AM EDT completed [facility] ([facility] ) Folvite Folvite 08/11/2020 01:00:00 AM EDT 1.0 {ml} com pleted [facility] ([facility]) Omeprazole+Syrspend SF Liss 2 MG/ML Omeprazole+Syrspend SF A lka 08/11/2020 01:00:00 AM EDT 20.0 {ml} completed [facility] ([facility]) Thiamine HCl 100 MG/ML Thiamine HCl 08/11/2020 01:00:00 AM EDT 1 .0 {ml} completed [facility] ([facility]) levETIRAcetam 100 MG/ML levETIRAcetam 08/11/2020 01:00:00 AM EDT 10.0 {ml} completed [facility] ([facility]) Albuterol Sulfate HFA 108 (90 Base) MCG/ACT Albuterol Sulfat e HFA 08/11/2020 01:00:00 AM EDT completed [facility] ([facility]) Albuterol Sulfate 0.63 MG/3ML Albuterol Sulfate 08/11/2020 01:00:00 A M EDT completed [facility] ( [facility]) Pepcid Pepcid 08/11/2020 01:00:00 AM EDT 5.0 {ml} compl eted [facility] ([facility]) Flonase 50 MCG/ACT Flonase 08/11/2020 01:00:00 AM EDT completed [facility] ([facility]) Pseudoephedrine Hydrochloride 30 MG Oral Tablet [Sudogest] Sudogest 30 mg tablet TAKE ONE TABLET BY MOUTH FOUR TIMES DAILY NEEDED FOR 10 DAYS Sudogest 30 mg tablet TAKE ONE TABLET BY MOUTH FOUR TIMES DAILY NEEDED FOR 10 DAYS completed pseudoephedrine hydrochlo ride 30 MG Oral Tablet [Sudogest] [facility] ([facility]) Azithromycin 250 MG Oral Tablet azithrom ycin 250 mg tablet TAKE 2 TABLETS BY MOUTH ON DAY 1, THEN TAKE 1 TABLET DAILY ON DAYS 2-5 azithromycin 250 mg tablet TAKE 2 TABLETS BY MOUTH ON DAY 1, THEN TAKE 1 TABLET DAILY ON DAYS 2-5 completed azithromycin 250 MG Oral Tablet [facility] ([facility]) Metronidazole 250 MG Oral Tablet metroni dazole 250 mg tablet TAKE ONE TABLET BY MOUTH FOUR TIMES DAILY AFTER MEALS AND NIGHTLY FOR 14 DAYS. AVOID ALCOHOL metronidazole 250 mg tablet TAKE ONE TABLET BY MOUTH FOUR TIMES DAILY AFTER MEALS AND NIGHTLY FOR 14 DAYS. AVOID ALCOHOL completed metronidazole 250 MG Oral Tablet [facility] ([facility] er) 12 HR dextromethorphan polistirex 6 MG/M L Extended Release Suspension Cough DM ER 30 mg/5 mL oral suspension,extended release TAKE FIVE MILLILITERS EVERY 12 HOURS FOR 10 DAYS Cough DM ER 30 mg/5 mL oral suspension,e xtended release TAKE FIVE MILLILITERS EVERY 12 HOURS FOR 10 DAYS completed 12 HR dextromethorphan polistirex 6 MG/ML Extended Release Suspension [facility] ([facility]) Prazosin 1 MG Oral Capsule prazosin 1 mg capsule TAKE ONE CAPSULE BY MOUTH AT BEDTIME prazosin 1 mg capsule TAKE ONE CAPSULE BY MOUTH AT BEDTIME completed prazosin 1 MG Oral Capsule ALEXANDER A ([facility]) Azithromycin 250 MG Oral Tablet azithrom ycin 250 mg tablet TAKE 2 TABLETS BY MOUTH ON DAY 1, THEN TAKE 1 TABLET DAILY ON DAYS 2-5 azithromycin 250 mg tablet TAKE 2 TABLETS BY MOUTH ON DAY 1, THEN TAKE 1 TABLET DAILY ON DAYS 2-5 completed azithromycin 250 MG Oral Tablet [facility] ([facility]) Doxycycline Monohydrate 100 MG Oral Caps ule doxycycline monohydrate 100 mg capsule TAKE ONE CAPSULE BY MOUTH TWICE DAILY FOR 14 DAYS doxycycline monohydrate 100 mg capsule TAKE ONE CAPSULE BY MOUTH TWICE DAILY FOR 14 DAYS completed doxycycline mo nohydrate 100 MG Oral Capsule [facility] ([facility]) cefdinir 300 MG Oral Capsule cefdinir 30 0 mg capsule TAKE TWO CAPSULES BY MOUTH ONCE DAILY FOR 10 DAYS may open AND sprinkle in feeding tube cefdinir 300 mg capsule TAKE TWO CAPSULES BY MOUTH ONCE DAILY FOR 10 DAYS may open AND sprinkle in feeding tube completed cefdin ir 300 MG Oral Capsule [facility] ([facility]) cefdinir 300 MG Oral Capsule cefdinir 30 0 mg capsule TAKE TWO CAPSULES BY MOUTH ONCE DAILY FOR 10 DAYS may open AND sprinkle in feeding tube cefdinir 300 mg capsule TAKE TWO CAPSULES BY MOUTH ONCE DAILY FOR 10 DAYS may open AND sprinkle in feeding tube completed cefdin ir 300 MG Oral Capsule [facility]) 12 HR dextromethorphan polistirex 6 MG/M L Extended Release Suspension Cough DM ER 30 mg/5 mL oral suspension,extended release TAKE FIVE MILLILITERS EVERY 12 HOURS FOR 10 DAYS Cough DM ER 30 mg/5 mL oral suspension,e xtended release TAKE FIVE MILLILITERS EVERY 12 HOURS FOR 10 DAYS completed 12 HR dextromethorphan polistirex 6 MG/ML Extended Release Suspension [facility] ([facility]) Pseudoephedrine Hydrochloride 30 MG Oral Tablet [Sudogest] Sudogest 30 mg tablet TAKE ONE TABLET BY MOUTH FOUR TIMES DAILY NEEDED FOR 10 DAYS Sudogest 30 mg tablet TAKE ONE TABLET BY MOUTH FOUR TIMES DAILY NEEDED FOR 10 DAYS completed pseudoephedrine hydrochlo ride 30 MG Oral Tablet [Sudogest] [facility]) 12 HR dextromethorphan polistirex 6 MG/M L Extended Release Suspension Cough DM ER 30 mg/5 mL oral suspension,extended release TAKE FIVE MILLILITERS EVERY 12 HOURS FOR 10 DAYS Cough DM ER 30 mg/5 mL oral suspension,e xtended release TAKE FIVE MILLILITERS EVERY 12 HOURS FOR 10 DAYS completed 12 HR dextromethorphan polistirex 6 MG/ML Extended Release Suspension [facility] ([facility]) Pseudoephedrine Hydrochloride 30 MG Oral Tablet [Sudogest] Sudogest 30 mg tablet TAKE ONE TABLET BY MOUTH FOUR TIMES DAILY NEEDED FOR 10 DAYS Sudogest 30 mg tablet TAKE ONE TABLET BY MOUTH FOUR TIMES DAILY NEEDED FOR 10 DAYS completed pseudoephedrine hydrochlo ride 30 MG Oral Tablet [Sudogest] [facility] ([facility]) Doxycycline Monohydrate 100 MG Oral Caps ule doxycycline monohydrate 100 mg capsule TAKE ONE CAPSULE BY MOUTH TWICE DAILY FOR 14 DAYS doxycycline monohydrate 100 mg capsule TAKE ONE CAPSULE BY MOUTH TWICE DAILY FOR 14 DAYS completed doxycycline mo nohydrate 100 MG Oral Capsule [facility]) Cephalexin 50 MG/ML Oral Suspension cephalexin 250 mg/ 5 mL oral suspension cephalexin 250 mg/5 mL oral suspension completed cephalexin 50 MG/ML Oral Suspension [facility] ([facility]) Pseudoephedrine Hydrochloride 30 MG Oral Tablet [Sudogest] Sudogest 30 mg tablet TAKE ONE TABLET BY MOUTH FOUR TIMES DAILY NEEDED FOR 10 DAYS Sudogest 30 mg tablet TAKE ONE TABLET BY MOUTH FOUR TIMES DAILY NEEDED FOR 10 DAYS completed pseudoephedrine hydrochlo ride 30 MG Oral Tablet [Sudogest] [facility] ([facility]) Azithromycin 250 MG Oral Tablet azithrom ycin 250 mg tablet TAKE 2 TABLETS BY MOUTH ON DAY 1, THEN TAKE 1 TABLET DAILY ON DAYS 2-5 azithromycin 250 mg tablet TAKE 2 TABLETS BY MOUTH ON DAY 1, THEN TAKE 1 TABLET DAILY ON DAYS 2-5 completed azithromycin 250 MG Oral Tablet [facility] ([facility]) cefdinir 300 MG Oral Capsule cefdinir 30 0 mg capsule TAKE TWO CAPSULES BY MOUTH ONCE DAILY FOR 10 DAYS may open AND sprinkle in feeding tube cefdinir 300 mg capsule TAKE TWO CAPSULES BY MOUTH ONCE DAILY FOR 10 DAYS may open AND sprinkle in feeding tube completed cefdin ir 300 MG Oral Capsule [facility] ([facility]) Doxycycline Monohydrate 100 MG Oral Caps ule doxycycline monohydrate 100 mg capsule TAKE ONE CAPSULE BY MOUTH TWICE DAILY FOR 14 DAYS doxycycline monohydrate 100 mg capsule TAKE ONE CAPSULE BY MOUTH TWICE DAILY FOR 14 DAYS completed doxycycline mo nohydrate 100 MG Oral Capsule [facility] ([facility]) Pseudoephedrine Hydrochloride 30 MG Oral Tablet [Sudogest] Sudogest 30 mg tablet TAKE ONE TABLET BY MOUTH FOUR TIMES DAILY NEEDED FOR 10 DAYS Sudogest 30 mg tablet TAKE ONE TABLET BY MOUTH FOUR TIMES DAILY NEEDED FOR 10 DAYS completed pseudoephedrine hydrochlo ride 30 MG Oral Tablet [Sudogest] [facility] ([facility]) Amoxicillin 80 MG/ML Oral Suspension amoxicillin 400 m g/5 mL oral suspension amoxicillin 400 mg/5 mL oral suspension completed amoxicillin 80 MG/ML Oral Suspension [facility] ([facility]) Metronidazole 250 MG Oral Tablet metroni dazole 250 mg tablet TAKE ONE TABLET BY MOUTH FOUR TIMES DAILY AFTER MEALS AND NIGHTLY FOR 14 DAYS. AVOID ALCOHOL metronidazole 250 mg tablet TAKE ONE TABLET BY MOUTH FOUR TIMES DAILY AFTER MEALS AND NIGHTLY FOR 14 DAYS. AVOID ALCOHOL completed metronidazole 250 MG Oral Tablet [facility] ([facility]) Amoxicillin 80 MG/ML Oral Suspension amoxicillin 400 m g/5 mL oral suspension amoxicillin 400 mg/5 mL oral suspension completed amoxicillin 80 MG/ML Oral Suspension [facility]) 12 HR dextromethorphan polistirex 6 MG/M L Extended Release Suspension Cough DM ER 30 mg/5 mL oral suspension,extended release TAKE FIVE MILLILITERS EVERY 12 HOURS FOR 10 DAYS Cough DM ER 30 mg/5 mL oral suspension,e xtended release TAKE FIVE MILLILITERS EVERY 12 HOURS FOR 10 DAYS completed 12 HR dextromethorphan polistirex 6 MG/ML Extended Release Suspension [facility] ([facility]) 12 HR dextromethorphan polistirex 6 MG/M L Extended Release Suspension Cough DM ER 30 mg/5 mL oral suspension,extended release TAKE FIVE MILLILITERS EVERY 12 HOURS FOR 10 DAYS Cough DM ER 30 mg/5 mL oral suspension,e xtended release TAKE FIVE MILLILITERS EVERY 12 HOURS FOR 10 DAYS completed 12 HR dextromethorphan polistirex 6 MG/ML Extended Release Suspension [facility] ([facility]) Doxycycline Monohydrate 100 MG Oral Caps ule doxycycline monohydrate 100 mg capsule TAKE ONE CAPSULE BY MOUTH TWICE DAILY FOR 14 DAYS doxycycline monohydrate 100 mg capsule TAKE ONE CAPSULE BY MOUTH TWICE DAILY FOR 14 DAYS completed doxycycline mo nohydrate 100 MG Oral Capsule [facility]) cefdinir 300 MG Oral Capsule cefdinir 30 0 mg capsule TAKE TWO CAPSULES BY MOUTH ONCE DAILY FOR 10 DAYS may open AND sprinkle in feeding tube cefdinir 300 mg capsule TAKE TWO CAPSULES BY MOUTH ONCE DAILY FOR 10 DAYS may open AND sprinkle in feeding tube completed cefdin ir 300 MG Oral Capsule [facility] ([facility]) Azithromycin 250 MG Oral Tablet azithrom ycin 250 mg tablet TAKE 2 TABLETS BY MOUTH ON DAY 1, THEN TAKE 1 TABLET DAILY ON DAYS 2-5 azithromycin 250 mg tablet TAKE 2 TABLETS BY MOUTH ON DAY 1, THEN TAKE 1 TABLET DAILY ON DAYS 2-5 completed azithromycin 250 MG Oral Tablet [facility]) Metronidazole 250 MG Oral Tablet metroni dazole 250 mg tablet TAKE ONE TABLET BY MOUTH FOUR TIMES DAILY AFTER MEALS AND NIGHTLY FOR 14 DAYS. AVOID ALCOHOL metronidazole 250 mg tablet TAKE ONE TABLET BY MOUTH FOUR TIMES DAILY AFTER MEALS AND NIGHTLY FOR 14 DAYS. AVOID ALCOHOL completed metronidazole 250 MG Oral Tablet MEY ([facility]) cefdinir 300 MG Oral Capsule cefdinir 30 0 mg capsule TAKE TWO CAPSULES BY MOUTH ONCE DAILY FOR 10 DAYS may open AND sprinkle in feeding tube cefdinir 300 mg capsule TAKE TWO CAPSULES BY MOUTH ONCE DAILY FOR 10 DAYS may open AND sprinkle in feeding tube completed cefdin ir 300 MG Oral Capsule ME[facility] ([facility]) Azithromycin 250 MG Oral Tablet azithrom ycin 250 mg tablet TAKE 2 TABLETS BY MOUTH ON DAY 1, THEN TAKE 1 TABLET DAILY ON DAYS 2-5 azithromycin 250 mg tablet TAKE 2 TABLETS BY MOUTH ON DAY 1, THEN TAKE 1 TABLET DAILY ON DAYS 2-5 completed azithromycin 250 MG Oral Tablet ME[facility] ([facility]) Metronidazole 250 MG Oral Tablet metroni dazole 250 mg tablet TAKE ONE TABLET BY MOUTH FOUR TIMES DAILY AFTER MEALS AND NIGHTLY FOR 14 DAYS. AVOID ALCOHOL metronidazole 250 mg tablet TAKE ONE TABLET BY MOUTH FOUR TIMES DAILY AFTER MEALS AND NIGHTLY FOR 14 DAYS. AVOID ALCOHOL completed metronidazole 250 MG Oral Tablet MEY ([facility]) Prazosin 1 MG Oral Capsule prazosin 1 mg capsule TAKE ONE CAPSULE BY MOUTH AT BEDTIME prazosin 1 mg capsule TAKE ONE CAPSULE BY MOUTH AT BEDTIME completed prazosin 1 MG Oral Capsule ATHEN A ([facility]) Metronidazole 250 MG Oral Tablet metroni dazole 250 mg tablet TAKE ONE TABLET BY MOUTH FOUR TIMES DAILY AFTER MEALS AND NIGHTLY FOR 14 DAYS. AVOID ALCOHOL metronidazole 250 mg tablet TAKE ONE TABLET BY MOUTH FOUR TIMES DAILY AFTER MEALS AND NIGHTLY FOR 14 DAYS. AVOID ALCOHOL completed metronidazole 250 MG Oral Tablet ME[facility] ([facility]) Doxycycline Monohydrate 100 MG Oral Caps ule doxycycline monohydrate 100 mg capsule TAKE ONE CAPSULE BY MOUTH TWICE DAILY FOR 14 DAYS doxycycline monohydrate 100 mg capsule TAKE ONE CAPSULE BY MOUTH TWICE DAILY FOR 14 DAYS completed doxycycline mo nohydrate 100 MG Oral Capsule ME[facility] ([facility]) Insurance Providers Payer name Policy type / Coverage type Policy ID Covered republican ID Covered republican's relationship to sharif Policy Sharif Plan Information Medicaid [place] Medigap Part B [id number] Family Dependent [id number] Medicaid S [id number] S [id number] Managed Care - Community Plan [facility] [id number] S [id number] Managed Care - Community Plan [facility] P [id number] S [id number] Medicaid S [id number] S [id number] Medicaid P [id number] S [id number] UNHC COMMUNITY PLAN MCDHMO [id number] SP [id number] UNHC COMMUNITY PLAN MCDHMO [id number] SP [id number] UNHC COMMUNITY PLAN MCDHMO [id number] SP [id number] UN COMMUNITY PLAN MCDHMO [id number] SP [id number] [facility] I [id number] Self [id number] Medicaid S [id number] S [id number] Managed Care - [facility] Community Plan P [id number] S [id number] [employer] [id number] Self [id number] [place] [employer] [id number] Self [id number] ANSI-Medicaid [id number] ANSI-Medicaid [id number] ANSI-Medicaid [id number] [facility] Community Plan Commercial [id number] Self [id number] [facility] Community Plan Commercial [id number] Self 1 [id number] [facility] Communty Plan Medicaid [id number] Self [id number] [facility] Community Plan Commercial [id number] Self 1 [id number] [facility] Communty Plan Medicaid [id number] Self [id number] [facility] Community Plan Commercial [id number] Self 1 [id number] [facility] Communty Plan Medicaid [id number] [facility] Health Maintenance Organization (HMO) [id number] [facility] Health Maintenance Organization (O) [id number] [facility] Health Maintenance Organization (O) [id number] Self [id number] [facility] Community Plan Commercial [id number] Self 1 [id number] [facility] Communty Plan Medicaid [id number] Self [id number] [facility] Community Plan Commercial [id number] Self 1 [id number] [facility] Communty Plan Medicaid [id number] Self [id number] [facility] Communty Plan Medicaid [id number] Self [id number] [facility] Community Plan Commercial [id number] Self 1 [id number] [facility] Communty Plan Medicaid [id number] Self [id number] [facility] Community Plan Commercial [id number] Self 1 [id number] [facility] AMERICHOICE XIX -HMO [id number] 18 [id number] [facility] Communty Plan Medicaid [id number] Self [id number] [facility] Community Plan Commercial [id number] Self 1 [id number] [facility] O [id number] S [id number] [facility] COMMUNITY PLAN [facility] [id number] SP [id number] [facility] Health Maintenance Organization (HMO) [id number] Self [id number] [facility] SEAM RUBBER DEP [id number] SP [id number] MEDICAID [id number] SP [id number] MEDICAID -O/P [id number] UN COMMUNITY PLAN [facility] [id number] SP [id number] [facility] P [id number] S [id number] Self Pay O na S na Self Pay P UNAVAILABLE S UNAVAILA BLE Managed Care - Community Plan [facility] P [id number] S [id number] UNHC COMMUNITY PLAN MCDO [id number] SP [id number] [place] NOT IN EFFECT SP NO T IN EFFECT UNHC COMMUNITY PLAN MCDO [id number] SP [id number] UNHC COMMUNITY PLAN XIX [id number] 18 [id number] UN COMMUNITY PLAN XIX [id number] 18 [id number] UN COMMUNITY PLAN MCDO [id number] SP [id number] [facility] COMMUNTY PLAN [id number] 18 [id number] [facility] COMMUNITY PLAN CO [id number] 18 [id number] [facility] O [id number] S [id number] [facility] [id number] SP [id number] [facility] [id number] SP [id number] [facility] [id number] SP [id number] [facility]-Medicaid [id number] [facility]-Medicaid [id number] ANSI-Medicaid [id number] ANSI-Medicaid [id number] ANSI-Medicaid [id number] Problems, Conditions, and Diagnoses Code Display Name Description Problem Type Effective Dates Data Source(s) infection infection Diagnosis 03/23/2021 05:44:00 PM ED [facility] [id number] Latex allergy status Latex allergy status Diagnosis 02/25/2021 10:28:00 AM EDT [facility] Z8673 Personal history of transien t ischemic attack (TIA), 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 (TIA), and cerebral infarction without residual deficits Diagnosis 02/25/2021 10:28:00 AM [facility] [id number] Nicotine dependence, cigarettes, uncompl icated Nicotine dependence, cigarettes, uncomplicated Diagnosis 02/25/2021 10:28:00 AM T [facility] P09697 Unspecified asthma, uncomplicated Unspecified as thma, uncomplicated Diagnosis 02/25/2021 10:28:00 AM [facility] I10 Essential (primary) hypertension Essential (primary) h ypertension Diagnosis 02/25/2021 10:28:00 AM EDT [facility] R1012 Left upper quadrant pain Left upper quadrant pain Diag nosis 02/25/2021 10:28:00 AM [facility] K9429 Other complications of gastrostomy Other complic ations of gastrostomy Diagnosis 02/25/2021 10:28:00 AM [facility] R13.10 Dysphagia, unspecified Dysphagia, unspecified Diagnosi s 12/08/2020 07:00:47 AM [facility] Z93.1 Gastrostomy status Gastrostomy status Diagnosis 12:18:40 PM [facility] F25.9 Schizoaffective disorder, unspecified Sc hizoaffective disorder, unspecified Condition 03/22/2021 12:00:00 AM EDT [facility]) [id number] Tube feeding diet Tube Feeding Diet Problem 08/17/2020 12:00:00 AM EDT ME[facility] ([facility]) 84003626 Tube feeding diet Tube Feeding Diet Problem 08/17/2020 12:00:00 AM EDT MEY ([facility]) [id number] Tube feeding diet Tube Feeding Diet Problem 08/17/2020 12:00:00 AM EDT W[facility]UN ([facility]) [id number] Tube feeding diet Tube Feeding Diet Problem 08/17/2020 12:00:[facility] K29.90 Gastroduodenitis, unspecified, without b leeding Gastroduodenitis, unspecified, without bleeding Problem 08/11/2020 01:00:00 AM EDT [facility] ([facility]) E46 Unspecified protein-calorie malnutrition Unspecified protein-calorie malnutrition Problem 08/11/2020 01:00:00 AM EDT [facility] ([facility]) R13.10 Dysphagia, unspecified Dysphagia, unspecified Problem 08/11/2020 01:00:00 AM EDT [facility] ([facility] ) J45.909 Unspecified asthma, uncomplicated Unspecified as thma, uncomplicated Problem 08/11/2020 01:00:00 AM EDT [facility] ([facility]) G40.909 Epilepsy, unspecified, not intractable, without status epilepticus Epilepsy, unspecified, not intractable, without status epilepticus Problem 08/11/2020 01:00:00 AM EDT [facility] ([facility] ) I10 Essential (primary) hypertension Essential (primary) h ypertension Problem 08/11/2020 01:00:00 AM EDT [facility] ([facility] ) F31.9 Bipolar disorder, unspecified Bipolar disorder, unspec ified Problem 08/11/2020 01:00:00 AM EDT [facility] ([facility] ) F10.10 Alcohol abuse, uncomplicated Alcohol abuse, uncomplica augusto Problem 08/11/2020 01:00:00 AM EDT [facility] ([facility] ) F14.10 Cocaine abuse, uncomplicated Cocaine abuse, uncomplica augusto Problem 08/11/2020 01:00:00 AM EDT [facility] ([facility] ) F12.10 Cannabis abuse, uncomplicated Cannabis abuse, uncompli cated Problem 08/11/2020 01:00:00 AM EDT [facility] ([facility] ) Z43.1 Encounter for attention to gastrostomy E ncounter for attention to gastrostomy Problem 08/11/2020 01:00:00 AM EDT [facility] ([facility]) Z91.81 History of falling History of falling Problem 01:00:00 AM EDT [facility] ([facility]) K20.80 Other esophagitis without bleeding Other esophag itis without bleeding Problem 08/11/2020 01:00:00 AM EDT [facility] ([facility]) Z43.1 Encounter for attention to gastrostomy E ncounter for attention to gastrostomy Problem 08/05/2020 12:00:00 AM EST [facility] ([facility]) [id number] Fitting procedure Fitting Procedure Problem 03/12 06:40:32 PM EDT ME[facility] ([facility]) [id number] Asthma Asthma Problem 03/12/2020 06:40:32 PM ED T MEY ([facility]) 66960818 Hypertensive disorder Hypertensive Disorder Problem 03/12/2020 06:40:32 PM EDT [facility] ([facility]) 99458491 Depressive disorder Depressive Disorder Problem 1 06:40:32 PM EDT [facility] ([facility]) 401373053 Fitting procedure Fitting Procedure Problem 03/12 06:40:32 PM EDT [facility] ([facility]) 232394216 Asthma Asthma Problem 03/12/2020 06:40:32 PM ED T ME[facility] ([facility]) 27413540 Hypertensive disorder Hypertensive Disorder Problem 03/12/2020 06:40:32 PM EDT [facility] ([facility]) 54632893 Depressive disorder Depressive Disorder Problem 1 06:40:32 PM EDT [facility] ([facility]) 193064757 Fitting procedure Fitting Procedure Problem 03/12 06:40:32 PM EDT ME[facility] ([facility]) 259316726 Asthma Asthma Problem 03/12/2020 06:40:32 PM ED T ME[facility] ([facility]) 10890109 Hypertensive disorder Hypertensive Disorder Problem 03/12/2020 06:40:32 PM EDT ME[facility] ([facility]) 71115187 Depressive disorder Depressive Disorder Problem 1 06:40:32 PM EDT [facility] ([facility]) [id number] Fitting procedure Fitting Procedure Problem 03/12 06:40:32 PM EDT ME[facility] ([facility]) 992513695 Asthma Asthma Problem 03/12/2020 06:40:32 PM ED T ME[facility] ([facility]) 80427528 Hypertensive disorder Hypertensive Disorder Problem 03/12/2020 06:40:32 PM EDT ME[facility] ([facility]) 18913355 Depressive disorder Depressive Disorder Problem 1 06:40:32 PM EDT ME[facility] ([facility]) 709144127 Fitting procedure Fitting Procedure Problem 03/12 06:40:32 PM EDT ME[facility] ([facility]) 870073622 Asthma Asthma Problem 03/12/2020 06:40:32 PM ED T ME[facility] ([facility]) 49930370 Hypertensive disorder Hypertensive Disorder Problem 03/12/2020 06:40:32 PM EDT [facility] ([facility]) 12203203 Depressive disorder Depressive Disorder Problem 1 06:40:32 PM EDT [facility] ([facility]) [id number] Finding by site Finding by Site Problem 0 12:00:00 AM EDT - 07/14/2020 12:00:00 AM EST [facility] ([facility]) [id number] Finding by site Finding by Site Problem 0 12:00:00 AM EDT - 07/14/2020 12:00:00 AM EST [facility] ([facility]) [id number] Finding by site Finding by Site Problem 0 12:00:00 AM EDT - 07/14/2020 12:00:00 AM EST [facility] ([facility]) [id number] Finding by site Finding by Site Problem 0 12:00:00 AM EDT - 07/14/2020 12:00:00 AM EST [facility] ([facility]) [id number] Finding by site Finding by Site Problem 0 12:00:00 AM EDT - 07/14/2020 12:00:00 AM EST [facility] ([facility]) [id number] Finding by site Finding by Site Problem 0 12:00:00 AM EDT - 07/14/2020 12:00:00 AM EST [facility] ([facility]) [id number] Finding by site Finding by Site Problem 0 12:00:00 AM EDT - 07/14/2020 12:00:00 AM EST [facility] ([facility]) [id number] Finding by site Finding by Site Problem 0 12:00:00 AM EDT - 07/14/2020 12:00:00 AM EST [facility] ([facility]) [id number] Finding by site Finding by Site Problem 0 12:00:00 AM EDT - 07/14/2020 12:00:00 AM EST [facility] ([facility]) [id number] Finding by site Finding by Site Problem 12:00:00 AM EDT - 07/14/2020 12:00:00 AM EST [facility] ([facility]) 20128720 Screening for cancer Screening for Cancer Problem 07/24/2013 12:00:00 AM EST - 07/14/2020 12:00:00 AM EST [facility] ([facility]) 03394705 Screening for cancer Screening for Cancer Problem 07/24/2013 12:00:00 AM EST - 07/14/2020 12:00:00 AM EST [facility] ([facility]) 81322040 Screening for cancer Screening for Cancer Problem 07/24/2013 12:00:00 AM EST - 07/14/2020 12:00:00 AM EST [facility] ([facility]) 45240865 Screening for cancer Screening for Cancer Problem 07/24/2013 12:00:00 AM EST - 07/14/2020 12:00:00 AM EST [facility] ([facility]) 02792071 Screening for cancer Screening for Cancer Problem 07/24/2013 12:00:00 AM EST - 07/14/2020 12:00:00 AM EST [facility] ([facility]) 18013251 Sinusitis Sinusitis Problem 06/24/2013 12:0 0:00 AM EST - 07/14/2020 12:00:00 AM EST [facility] ([facility]) 43448758 Sinusitis Sinusitis Problem 06/24/2013 12:0 0:00 AM EST - 07/14/2020 12:00:00 AM EST [facility] ([facility]) 47596560 Sinusitis Sinusitis Problem 06/24/2013 12:0 0:00 AM EST - 07/14/2020 12:00:00 AM EST [facility] ([facility]) 58775258 Sinusitis Sinusitis Problem 06/24/2013 12:0 0:00 AM EST - 07/14/2020 12:00:00 AM EST [facility] ([facility]) 17880672 Sinusitis Sinusitis Problem 06/24/2013 12:0 0:00 AM EST - 07/14/2020 12:00:00 AM EST [facility] ([facility]) [id number] Evaluation procedure Evaluation Procedure Problem 04/24/2013 12:00:00 AM EST - 07/14/2020 12:00:00 AM EST [facility] ([facility]) 204512429 SNOMED CT Concept SNOMED CT Concept Problem 04/24 12:00:00 AM EST - 07/14/2020 12:00:00 AM EST [facility] ([facility]) 736597486 Evaluation procedure Evaluation Procedure Problem 04/24/2013 12:00:00 AM EST - 07/14/2020 12:00:00 AM EST [facility] ([facility]) 848422034 SNOMED CT Concept SNOMED CT Concept Problem 04/24 12:00:00 AM EST - 07/14/2020 12:00:00 AM EST [facility] ([facility]) 232294618 Evaluation procedure Evaluation Procedure Problem 04/24/2013 12:00:00 AM EST - 07/14/2020 12:00:00 AM EST [facility] ([facility]) 648544867 SNOMED CT Concept SNOMED CT Concept Problem 04/24 12:00:00 AM EST - 07/14/2020 12:00:00 AM EST [facility] ([facility]) 474946111 Evaluation procedure Evaluation Procedure Problem 04/24/2013 12:00:00 AM EST - 07/14/2020 12:00:00 AM EST [facility] ([facility]) 992839194 SNOMED CT Concept SNOMED CT Concept Problem 04/24 12:00:00 AM EST - 07/14/2020 12:00:00 AM EST [facility] ([facility]) 912944906 Evaluation procedure Evaluation Procedure Problem 04/24/2013 12:00:00 AM EST - 07/14/2020 12:00:00 AM EST [facility] ([facility]) 722777994 SNOMED CT Concept SNOMED CT Concept Problem 04/24 12:00:00 AM EST - 07/14/2020 12:00:00 AM EST [facility] ([facility]) Surgeries/Procedures Procedure Description Date Indications Data Source(s) Extended Individual Psychotherapy - 45 min 03/22/2021 12:00:00 AM EDT - 03/22/2021 12:00:00 AM EDT [facility] ([facility]) Extended Individual Psychotherapy - 45 min 12:00:00 AM EDT [facility] ([facility]) REPLACE GASTROSTOMY/CECOSTOMY TUBE PERCUTANEOUS <td>IR G-J TUBE INSERTION CHANGE REMOVAL</td><td>Routine</td><td>12/08/2020 9:02 AM EDT</td><td> Esophageal dysphagia Gastrostomy tube dependent</td><td></td> 12/08/2020 09:02:00 AM EDT Gastrostomy tube dependentEsophageal dysphagia [facility] Gastrostomy tube dependent Esophageal dysphagia POCT ID NOW COVID-19 <td>POCT ID NOW COVID-19</td ><td>Routine</td><td>12/08/2020 7:03 AM EDT</td><td></td><td> </td> 12/08/2020 07:03:00 AM EDT [facility] Results ID Date Data Source [id number] 03/24/2021 06:06:16 PM EDT [facility] Name Value Range Interpretation Code Description Data Ethel rce(s) Supporting Document(s) ED Provider Note [facility] [id number] [facility] [file] [facility]//[id number] [file] [id number]= ID Date Data Source [id number] 03/24/2021 12:06:14 AM T [facility] CT ABDOMEN PELVIS WITH CONTRAST [id number] AL RESULTInterpreted by:Skip James, MDPROCEDURE INFORMATION: Exam: [...] rce(s) Supporting Document(s) ID Date Data Source [id number] 03/23/2021 10:38:21 PM [facility] Name Value Range Interpretation Code Description Data [facility] rce(s) Supporting Document(s) pH of Venous blood 7.39 7.36-7.41 [facility] Carbon dioxide [Partial pressure] in Venous blood 45 mmHg 40-45 [facility] Oxygen [Partial pressure] in Venous blood 51 mmHg [facility] Base excess standard in Venous blood by calculation 2 mmol/L [facility] Oxygen saturation Calculated from oxygen partial pressure in Venous blood 85 % 60-85 [facility] Lactate [Moles/volume] in Venous blood 0.7 mmol/L 0.5-2.2 [facility] Bicarbonate [Moles/volume] in Venous blood 29 mmol/L [facility] ID Date Data Source [id number] 03/24/2021 10:10:47 AM EDT [facility] Name Value Range Interpretation Code Description Data Ethel rce(s) Supporting Document(s) pH of Venous blood 7.38 7.36-7.41 [facility] Carbon dioxide [Partial pressure] in Venous blood 44 mmHg 40-45 [facility] Oxygen [Partial pressure] in Venous blood 59 mmHg [facility] Base excess standard in Venous blood by calculation 1 mmol/L [facility] Oxygen saturation Calculated from oxygen partial pressure in Venous blood 90 % 60-85 H [facility] Lactate [Moles/volume] in Venous blood 0.8 mmol/L 0.5-2.2 [facility] Bicarbonate [Moles/volume] in Venous blood 28 mmol/L [facility] ID Date Data Source [id number] 03/23/2021 10:27:40 PM EDT [facility] Name Value Range Interpretation Code Description Data Ethel rce(s) Supporting Document(s) Color of Urine [facility] Clarity of Urine [facility] Specific gravity of Urine by Refractometry automated 1.021 1.003 -1.030 [facility] pH of Urine by Automated test strip 5.0 5.0-8.0 [facility] Protein [Mass/volume] in Urine by Automated test strip Neg [facility] Glucose [Mass/volume] in Urine by Automated test strip Neg [facility] Ketones [Mass/volume] in Urine by Automated test strip 5 mg/dL Neg [facility] A [facility] Bilirubin.total [Presence] in Urine by Automated test strip Negative [facility] Hemoglobin [Presence] in Urine by Automated test strip Neg [facility] Leukocyte esterase [Presence] in Urine by Automated test strip Negative [facility] Nitrite [Presence] in Urine by Automated test strip Negati [facility] Leukocytes [#/area] in Urine sediment by Automated count 0 /HPF 0 -5 [facility] Erythrocytes [#/area] in Urine sediment by Automated count 0 /HPF 0-3 [facility] Epithelial cells.squamous [#/area] in Urine sediment by Auto mated count 3 /HPF None [facility] Mucus [#/area] in Urine sediment by Microscopy low power field None [facility] ID Date Data Source [id number] 03/23/2021 10:34:48 PM EDT [facility] Name Value Range Interpretation Code Description Data Ethel rce(s) Supporting Document(s) Leukocytes [#/volume] in Blood by Automated count 9.6 10*3/uL 4-10 [facility] Erythrocytes [#/volume] in Blood by Automated count 5.06 10*6/uL 4.6- 6.1 [facility] Hemoglobin [Mass/volume] in Blood 15.1 g/dL 13.5-18 [facility] Hematocrit [Volume Fraction] of Blood by Automated count 44.4 % 4 1-53 [facility] Erythrocyte mean corpuscular volume [Entitic volume] by Auto mated count 87.7 fL 80-96 [facility] Erythrocyte mean corpuscular hemoglobin [Entitic mass] by Automated count 29.9 pg 27-33 [facility] Erythrocyte mean corpuscular hemoglobin concentration [Mass/volume] by Automated count 34.1 g/dL 32.0-36.0 [facility] distribution width [Ratio] by Automated count 13.8 % 11.5-14.5 [facility] Platelets [#/volume] in Blood by Automated count 313 10*3/uL 150-400 [facility] Differential cell count method - Blood [facility] Neutrophils/100 leukocytes in Blood by Automated count 46 % [facility] Lymphocytes/100 leukocytes in Blood by Automated count 43 % [facility] Monocytes/100 leukocytes in Blood by Automated count 8 % [facility] Eosinophils/100 leukocytes in Blood by Automated count 2 % [facility] Basophils/100 leukocytes in Blood by Automated count 1 % [facility] Neutrophils [#/volume] in Blood by Automated count 4.43 10*3/uL 1.8-7 .0 [facility] Lymphocytes [#/volume] in Blood by Automated count 4.15 10*3/uL 1.2-4 .0 H [facility] Monocytes [#/volume] in Blood by Automated count 0.75 10*3/uL 0-0.8 [facility] Eosinophils [#/volume] in Blood by Automated count 0.20 10*3/uL 0-0.5 [facility] Basophils [#/volume] in Blood by Automated count 0.10 10*3/uL 0-0.2 [facility] Nucleated erythrocytes/100 leukocytes [Ratio] in Blood by Automated count 0 /100{WBCs} 0-0 [facility] ID Date Data Source [id number] 03/23/2021 10:47:11 PM [facility] Name Value Range Interpretation Code Description Data Ethel rce(s) Supporting Document(s) Lipase [Enzymatic activity/volume] in Serum or Plasma 22 U/L 13-6 0 [facility] ID Date Data Source [id number] 03/23/2021 10:47:11 PM [facility] Name Value Range Interpretation Code Description Data Ethel rce(s) Supporting Document(s) Albumin [Mass/volume] in Serum or Plasma by Bromocresol green (BCG) dye binding method 4.4 g/dL 3.5-5.2 [facility] Bilirubin.total [Mass/volume] in Serum or Plasma <1.2 [facility] Calcium [Mass/volume] in Serum or Plasma 9.0 mg/dL 8.6-10.0 [facility] Chloride [Moles/volume] in Serum or Plasma 102 mmol/L 98-107 [facility] Creatinine [Mass/volume] in Serum or Plasma 0.64 mg/dL 0.70-1.20 L [facility] Glucose [Mass/volume] in Serum or Plasma 91 mg/dL 70-140 [facility] Alkaline phosphatase [Enzymatic activity/volume] in Serum or Plasma 67 U/L 40-129 [facility] Potassium [Moles/volume] in Serum or Plasma 4.2 mmol/L 3.4-5.1 [facility] Hemolyzed Protein [Mass/volume] in Serum or Plasma 7.1 g/dL 6.4-8.3 [facility] Sodium [Moles/volume] in Serum or Plasma 137 mmol/L 136-145 [facility] Aspartate aminotransferase [Enzymatic activity/volume] in Serum or Plasma 21 U/L <40 [facility] Hemolyzed Urea nitrogen [Mass/volume] in Serum or Plasma 10 mg/dL 6-20 [facility] Osmolality of Serum or Plasma by calculation 283 mosm/kg 275-300 [facility] Creatinine/Urea nitrogen [Mass Ratio] in Serum or Plasma 16 [facility] Bicarbonate [Moles/volume] in Serum 23 mmol/L 22-29 [facility] Alanine aminotransferase [Enzymatic activity/volume] in Seru m or Plasma 20 U/L <41 [facility] Anion gap 3 in Serum or Plasma 12 mmol/L 8-15 [facility] Glomerular filtration rate/1.73 sq M pre dicted among non-blacks [Volume Rate/Area] in Serum or Plasma by Creatinine-based formula (MDRD) >6 0 [facility] Glomerular filtration rate/1.73 sq M pre dicted among blacks [Volume Rate/Area] in Serum or Plasma by Creatinine-based formula (MDRD) >60 [facility] ID Date Data Source [id number] 02/25/2021 10:28:00 AM EDT [facility] 1 OrderSheet [facility] Emergency Department [address] [place] [address] Phone #: ext- [phone] 02/25/2021 10:28 Patient: CELIA GUTIÉRREZ Sex: M : 1990 Age: 30yWEIGHT:108.8 kg HEIGHT:71 inches BMI:33.5ALLERGIES: Codeine Phosphate, Latex, PROzacDIAGNOSIS: Acute painLAB ORDERSOrder Description Priority Entered Acknowledged InitialedCulture, Wound STAT 11:07 02/25/2021 11:07 Daisy Mcgill(around gtube) Dasiy Mcgill R.N.; R.N. Verbal order per; Srinath [...] rce(s) Supporting Document(s) ID Date Data Source [id number] 02/25/2021 10:28:00 AM EDT [facility] 1 Medication Reconciliation Report [facility] Emergency Department [address] [place] [address] Phone #: [phone] 02/25/2021 10:28 Patient: CELIA GUTIÉRREZ Sex: M [...] Pharmacy - USE Rx DISCOUNT CARD: $20.2, BIN:[id number],PCN:MONIQUE, Group:[facility], ID:[id number].Pharmacy - [facility] - [address] [place] [address] ; [place], [place] [id number]. .cefdinir 250 mg/5 mL oral suspension Take 5 ml twice a day for 7 days -- Dispense 70 ml. Refills: 0.Substitution permitted.Pharmacy - [facility] [address] [address] [facility] [address] ; [place] [address]. . -- ALEXANDRA Romero Name Value Range Interpretation Code Description Data [facility](s) Supporting Document(s) ID Date Data Source [id number] 02/25/2021 10:28:00 AM EDT [facility] 1 Medication Administration Record [facility] Emergency Department [address] [place] [address] Phone #: ext- [phone] 02/25/2021 10:28 Patient: CELIA GUTIÉRREZ Sex: M : 1990 Age: 30yWeight: 108.8 kgHeight/Length: 71 inBMI: 33.5ALLERGIES: Codeine Phosphate, Latex, PROzacDate/Time Medication Administered Medication Ordered Name Value Range Interpretation Code Description Data [facility](s) Supporting Document(s) ID Date Data Source [id number] 02/25/2021 10:28:00 AM EDT [facility] 1 General Instructions [facility] Emergency Department [address] [place] [address] Phone #: ext- [phone] 02/25/2021 10:28 Patient: CELIA GUTIÉRREZ Sex: M [...] Pharmacy - USE Rx DISCOUNT CARD: $20.2, BIN:[id number],PCN:MONIQUE, Group:[id number], ID:[id number].Pharmacy - [facility] - [address] [place] [address] ; [place], [place] [id number]. .cefdinir 250 mg/5 mL oral suspension Take 5 ml twice a day for 7 days -- Dispense 70 ml. Refills: 0.Substitution permitted.Pharmacy - [facility] [address] [address] [facility] [address] ; [place] [address]. .Follow-up:Follow up with your doctor. Call for the next available appointment. Reason for referral: evaluation andtreatment. Summary of care provided to patient.Understanding of the discharge instructions verbalized by patient. ADDITIONAL INFORMATIONAcute Pain, Uncertain CausePain can be caused by many conditions that range from very minor to very serious. In some cases, 2 General Instructions [facility] Emergency Department [address] [place] [address] Phone #: ext- [phone] 02/25/2021 10:28 Patient: [...] not prescribed for pain, you can take zfhhoi-dcy-lfsibeo pain medicine such as ibuprofen or acetaminophen. Use these as directed on thelabel.Follow-up careFollow up with your healthcare provider or our staff as directed.When to seek medical adviceCall your healthcare provider for any of the following: Pain changes in pattern Pain doesn't lessen or gets worse New symptoms appear Fever of 100.4F (38C) or higher, or as directed by your healthcare provider [employer]. [address] [place] [address]. All rights reserved. This information is not intended as asubstitute for professional medical care. Always follow your healthcare professional's instructions. You have been given the following additional information: Pain, Acute, Uncertain Cause(Electronically signed by ALEXANDRA Romero 02/26/2021 22:11) Name Value Range Interpretation Code Description Data Ethel rce(s) Supporting Document(s) ID Date Data Source [id number] 02/25/2021 10:28:00 AM EDT [facility] 1 Clinical Report - Nurses [facility] Emergency Department [address] [place] [address] Phone #: ext- [phone] 02/25/2021 10:28 Patient: CELIA GUTIÉRREZ Sex: M [...] 02/25/21 Sheila Faria R.N.AllergiesPROzac. --10:33 02/25/21 Sheila Faira R.N.Latex. --10:33 02/25/21 Sheila Faria R.N.Codeine Phosphate. --10:33 02/25/21 Sheila Faria R.N.PROBLEMS:CVA - Cerebrovascular Accident.Cough.Anxiety Reaction.Asthma.Seizure.Hypertension. --10:34 02/25/21 Sheila Faria R.N.ADDITIONAL SURGERIES:Feeding Tube Placement. 2 Clinical Report - Nurses [facility] Emergency Department [address] [place] [address] Phone #: ext- [phone] 02/25/2021 10:28 Patient: [...] F. Pain level now 0/10. --11:40 02/25/21 [facility] TECHDelma Condition at departure: unchanged. No learning barriers present. Discharge instructions provided and reviewed with the patient. Reviewed medication(s) side effects, precautions, dosing and course information. Prescription(s) given to the patient and sent electronically to pharmacy. Patient verbalized 3 Clinical Report - Nurses [facility] Emergency Department [address] [place] [address] Phone #: ext- [phone] 02/25/2021 10:28 Patient: CELIA GUTIÉRREZ Sex: M : 1990 Age: 30y understanding. Written instructions provided in Rwandan. The patient was discharged home and accompanied by parent. He left ambulatory and via private vehicle. Parent driving. --11:45 02/25/21 Daisy Mcgill R.N. Departure time: 11:45 02/25/2021. --11:45 02/25/21 Daisy Mcgill R.N.Locked/Released at 02/25/2021 11:47 by Daisy Mcgill R.N. Name Value Range Interpretation Code Description Data Ethel rce(s) Supporting Document(s) ID Date Data Source [id number] 02/25/2021 10:28:00 AM EDT [facility] 1 Clinical Report - Physicians/Mid Levels [facility] Emergency Department [address] [place] [address] Phone #: ext- [phone] 02/25/2021 10:28 Patient: CELIA GUTIÉRREZ Sex: M [...] Inhalation. Allergies: 2 Clinical Report - Physicians/Mid [facility] Emergency Department [address] [place] [address] Phone #: ext- [phone] 02/25/2021 10:28 Patient: [...] fever. 3 Clinical Report - Physicians/Mid Levels [facility] Emergency Department [address] [place] [address] Phone #: ext- [phone] 02/25/2021 10:28 Patient: [...] Pharmacy - USE Rx DISCOUNT CARD: $20.2, BIN:[id number], PCN:MONIQUE, Group:[facility], ID:[id number]. Pharmacy - [facility] - [address] [place] [address] ; [place], [place] [phone]. . cefdinir 250 mg/5 mL oral suspension Take 5 ml twice a day for 7 days -- Dispense 70 ml. Refills: 0. Substitution permitted. Pharmacy - [facility] [address] [address] [facility] [address] ; [place] [address]. . Follow-up: Follow up with your doctor. Call for the next available appointment. Reason for referral: evaluation and treatment. Summary of care provided to patient. Understanding of the discharge instructions verbalized by patient.(Electronically signed by ALEXANDRA Romero 02/26/2021 22:11) Name Value Range Interpretation Code Description Data Ethel rce(s) Supporting Document(s) ID Date Data Source [id number] 02/25/2021 10:28:00 AM EDT [facility]RE[facility] VisitID: [id number] Date: 18:33Lab results reviewed, by Srinath MORRIS. Final g-tube site wound culture shows Beta hemolyticStrep group C Heavy Growth, Organism #2Diphtheroids Patient was prescribed Cefdinir, no changes needed.(Electronically signed by Erika Mack RN - 03/02/2021 18:33) Name Value Range Interpretation Code Description Data Ethel rce(s) Supporting Document(s) ID Date Data Source [id number] 03/01/2021 12:51:08 PM EDT [facility] IR G-J TUBE INSERTION CHANGE REMOVALFINA [...] rce(s) Supporting Document(s) ID Date Data Source [id number] 02/26/2021 12:15:00 PM EDT [facility] Name Value Range Interpretation Code Description Data Ethel rce(s) Supporting Document(s) SARS-CoV-2 RNA Resp Ql PERCY+probe NOT DETECTED [facility] This lab was ordered by FAYE lara and reported by FAYE Fragoso. ID Date Data Source [id number] 03/02/2021 06:19:00 AM EDT [facility] Name Value Range Interpretation Code Description Data Ethel rce(s) Supporting Document(s) CULTURE WOUND [facility] Ho spital _CULTURE WOUND_$$[id number]$$[id number]$$[id number]$$[id number]$$[id number]$$[id number] DATE/TIME: 03/01/2021 18:06Culture: CULTURE WOUND Status: FinalIsolate [...] on next page --Patient: MARLA Lawrence Order: [id number] Page 2Culture: CULTURE WOUND Status: Final ====DiphtheroidsP1 Test performed by: Herlinda Armstrongrohit MACKENZIE #: [id number] [address] [place] [address] [id number] [facility] [id number] Director : Romario Jordan MD NPI #:Special Delivery Carrier : 02/27/21.1151.XMT.SENT REF 03/02/21.0619.XMT.SENT REF ID Date Data Source [id number] 12/17/2020 03:59:24 PM EDT [facility] IR G-J TUBE INSERTION CHANGE REMOVALCHEIKH Villagran RESULTInterpreted by:Anamika Jeter MBBSEVALUATION OF JUAN PABLO-TYLER [...] rce(s) Supporting Document(s) ID Date Data Source [id number] 12/08/2020 02:28:06 PM EDT [facility] IR G-J TUBE INSERTION CHANGE REMOVALFINA [...] rce(s) Supporting Document(s) ID Date Data Source [id number] 12/08/2020 10:16:29 AM [facility] Name Value Range Interpretation Code Description Data [facility] rce(s) Supporting Document(s) Progress Note [facility] [id number]/OPZxmFXQbm1XjLOsvSVf2CSriWJRaI3JaLDO7fT3zZIU3XKoFYtYiScLyQjMi [facility] [file] [id number] ID Date Data Source [id number] 12/08/2020 10:02:09 AM EDT [facility] Name Value Range Interpretation Code Description Data Ethel rce(s) Supporting Document(s) Progress Note [facility] PISQOq1uSfHQYmWi93/PXLkbRGDqt3PkXCyhDYy2YIoqXAJwW8FrARX7bY8pGDU1CHwPAuKsJcYiSqHy lbm LwBntYZfMkIRHnFpfUPcVgAQiqOzhnjCXkHI9PsMK6GZYcY78vFQYeCIRaC0VrROP9TFP+Hc5RXLYbtC ZbJY3RKdjZ9Ygzg9y0LP6mqS4KPKAOTqiWdiwjyB2claOqBsL3AnLdKEv+uAaIazC69ngOxddaN4axSZ 6dDv1OlMVfIR0oDE5Meo5a3HqQoS0K7S//EOi1Rt5x R79u6Tbk4hq3X30GvWZxTZ+aA/dvVS2nnJacspaqfJ9nOnXNpyhSTufZjFre3bH11mr7zBteKrciwm7G 0rT7MgVBDYY03bQve9dmL2p+TSw2upb59Sv60Wf3zplB4aBWhh6mvWJqJX9PDM28ELgWATg4fzkGW9oY ecNdxwHtyVV0qTZtOEqcmb/m5kXHtOz/o5GlIjVJey R6EpZsLw8aft4EV+NOrBd2soy3aFvlDoie1l4lsRASOqnIPI0WDIeOT7DYLcBABy5LueTzvP0Mn8AeKD iyL+EOf79QvIP7753ymzw4IURBbmK0jQ4aa1Nr4Dt545yocnXBdnhIL9RiK80JC3/ebZWTI4Q4ksZLsF lur3DGDZOpk+NHVQSlIZviBoQ6RuaOHS+wCjzBXqvZ KWRgzPVFtUB2OpC3bsaLEc+0KdHhnNFdBsUNbv56vvqPOh11aXXSzKRBrnF3ozLgrGTHZucx+OxtL3yA Wo00A+IUj5TmyyQcz+QrTJx2PeBQgCm41QeBUt+/XKl7jk/w5dBk6aAcWfljbnIvXTP2jJdajOnnF/FIELDS [file] MwDQ5TVGb= ID Date Data Source [id number] 12/08/2020 07:03:00 AM EDT [facility] Name Value Range Interpretation Code Description Data Ethel rce(s) Supporting Document(s) SARS coronavirus 2 RdRp gene [email or web address].gov/media/[email or web address] This lab was ordered by [facility] and reported by [facility]. ID Date Data Source [id number] 12/08/2020 09:06:12 AM EDT [facility] Name Value Range Interpretation Code Description Data Ethel rce(s) Supporting Document(s) SARS coronavirus [address] [facility] Test performed using the Núñez ID NOW C OVID-19 assay. This test is only for use under the Food and Drug Administration's Emergency Use Authorization. Additional information is available on the following FDA websites for health care providers and patients.https://www.fda.gov/media/302862/downloadhttps://www.fda.gov/media/1365 24/download Patients first test for [facility] Patient employed in healthcare setting [facility] Patient has symptoms related to condition [facility] When did you start to experience these symptoms [Date and time] [Phen X] [facility] Patient was hospitalized because of this condition [facility] patient was admitted to ICU for condition [facility] Patient resides in a congregate care setting [facility] status [facility] ID Date Data Source [id number] 12/02/2020 01:20:00 PM EDT [facility] Name Value Range Interpretation Code Description Data Ethel rce(s) Supporting Document(s) SARS-CoV-2 RNA Resp Ql PERCY+probe NOT DETECTED [facility] This lab was ordered by FAYE lara and reported by FAYE Fragoso. ID Date Data Source [id number] 11/17/2020 12:25:17 PM EDT [facility] Name Value Range Interpretation Code Description Data Ethel rce(s) Supporting Document(s) Progress Note [facility] ACWTMo3cYoOXViRy63/WEFmmJTWhl9DzOTzzPUy9RWioTRAgF3XnSVM5cB9vQLM5URyGBbOsGfViGeSh lbm [file] AgICAgICAgICAgICAgICAgICAgICAgICAgICAgICAgICAgICAgICAgICAgICAgICAgICAgICAgICAgIC AgICAgICAgICAgICAgICAgICAgICAgICAgICAgICAgICAgICANCiAgICAgICAgICAgICAgICAgICAgIC AgICAgICAgICAgICAgICAgICAgICAgICAgICAgICAg ICAgICAgICAgICAgICAgICAgICAgICAgICAgICAgICAgICAgICAgICAgICAgICANCiAgICAgICAgICAg ICAgICAgICAgICAgICAgICAgICAgICAgICAgICAgICAgICAgICAgICAgICAgICAgICAgICAgICAgICAg ICAgICAgICAgICAgICAgICAgICAgICAgICAgICANCi AgICAgICAgICAgICAgICAgICAgICAgICAgICAgICAgICAgICAgICAgICAgICAgICAgICAgICAgICAgIC AgICAgICAgICAgICAgICAgICAgICAgICAgICAgICAgICAgICAgICANCiAgICAgICAgICAgICAgICAgIC AgICAgICAgICAgICAgICAgICAgICAgICAgICAgICAg ICAgICAgICAgICAgICAgICAgICAgICAgICAgICAgICAgICAgICAgICAgICAgICAgICANCiAgICAgICAg ICAgICAgICAgICAgICAgICAgICAgICAgICAgICAgICAgICAgICAgICAgICAgICAgICAgICAgICAgICAg ICAgICAgICAgICAgICAgICAgICAgICAgICAgICAgIC ANCiAgICAgICAgICAgICAgICAgICAgICAgICAgICAgICAgICAgICAgICAgICAgICAgICAgICAgICAgIC AgICAgICAgICAgICAgICAgICAgICAgICAgICAgICAgICAgICAgICAgICANCiAgICAgICAgICAgICAgIC AgICAgICAgICAgICAgICAgICAgICAgICAgICAgICAg ICAgICAgICAgICAgICAgICAgICAgICAgICAgICAgICAgICAgICAgICAgICAgICAgICAgICANCiAgICAg ICAgICAgICAgICAgICAgICAgICAgICAgICAgICAgICAgICAgICAgICAgICAgICAgICAgICAgICAgICAg ICAgICAgICAgICAgICAgICAgICAgICAgICAgICAgIC AgICANCiAgICAgICAgICAgICAgICAgICAgICAgICAgICAgICAgICAgICAgICAgICAgICAgICAgICAgIC AgICAgICAgICAgICAgICAgICAgICAgICAgICAgICAgICAgICAgICAgICAgICANCjw/mBVpF5zvdXEypo X2N4utXb1RRl1WFI2fd7KwEEZwFIdnseSzWowUGwAs QSDgLqjROgp8GDhcPB0FsUTgO3VeN1TdLPrkZS2ROKZpUYUaoAUlJFJtFXFmKgY8FUNxXUnsOF7WfUCp AYayQHKtOEIfSeLgZGLjSZGpCCOcYIObRHAIFM2TOmBuH8EtrM47ONGGMp2+IUsykiKpPcmYUuJ5CVPg w7LyVQq5UQ3MSXTkSbbio2OqGuawVJCTDIerHQ3TTF X2CHX5VETzYr5HFXFmQ480nrVfQF7FXv0ROdXlNE0scs8SWhpwEHRvJhhWAml1FKytXH8SrOGyLFxUbw 3zpeApnkEBs4JfvuQieIQUjEWfh9YawuKvPcLNgSB0SCA4HOEJZXNlgLW4CtDiIxDfRpKrWGM5WYMkZZ 1eCVfaFU3IJZB8HDkkGKMvTUXgJ8xPPpQtTQBzMXOl rHykVR6GYkOwJ6PhlmJgoADnWDHrPUWENs8+ACbcgcTbWclVFhXbRLOky2HxMVi2UJ4RWGYzHCatMD2X IAFciM4cBNqlYV3CLqAdUtFuVJFNEoKwG10ovTPiJEk4S4VeAiQzHDAzBlnjGNZdZBniHaVnQEUuZiKe DQogID4+ID4+VOfiZP8UDWtqyzDbTAZhVe3UGLYgFG UwMD9kPEKjOPAuX5B4nNshWBIUIjFxU4byfmgiOK4bVIBzF492pGddrjKfHHC3HHYhAj9HSAAiOQG8MH LwtRIfWxcvQNWYEPxyGL6HuUTnIRR2dO8qXGgqRMGmSIQoN9oTTlOhoSsqTF03oJvkfnLiwVAeWIp+Pg 0ZXX0pn4OlAHi9fhQwNFmyOLEzICzsMCXmHMKaZUSj YWA7YWM4QJCNKhUkVZSpEBSiGHetDGSuLHKaze2IKALgMAEoFMP2MsMrXYPmXTZtXWinTSWaZHWaIwH8 TFWcOCZjXO8JXlTlYHFiWSCwKCesZFQgXPEmxp1JEHYqOGQkVXR3PTZkGJZgJFXnICzqRFRlWMZ9MxL2 SMZaXURqLZ5QRgUqWVOrHTluGRhkGIEzZMXkse6STI BiEIJvZiP8IfXjXIEfIQMvLRmbOPQiBOIqDlVcLQZkPSTmUZ7ZIcBqEIKwCHS1JByrLJWeXFEdll9HIR PvMQJpXkr1CKLaSCPaSJYhKTcgOLRnWPUoAFbkTMQbMWMmRE7HUpWyIBZnQJZlTUApKVAcNVPehd3KQR BcMCCtHWT3YEQnUNZmAAMoRFjlMIXcHBA1QQZyYEWn IPHoQY1GAeOdVVWfAURuRTAqCSUxRPUvtw5DXNNhIJZpDAD6ScYtVRKeKTFfDWnlTAPrKTC9HpgjUMHk YCPpBJ2AWsQsXBUgTlabKUHqVOPcBTIbfb2ZCAIkFWGbVxVuLSWoJGKxYDDjHArxOJDzDMT7NmD8TPHw EJKyXE6PPyPsJTCbSct8KTViJMCzAIZknx1FPDBjRX PmYTZ9KQXuCYPoLHWpMNrrJTIsQVC6APv6WZQhYLEjFX6IAhTqDAGoToeyWfHpEUMlKOSeun8GOWAuCP SeJQX2FZBaEIVqYVGjPPqjYJKnCAI7ORG4PHKnUMRuXW8DItTuLNRnZiGeTcEiDSTwFLLbsc1ZOAHnQC WiTPN7FQGvNWEfSWOoYCfeHZWgRXUhVHH6NAPaLSPy [id number]pzpXlXuEMPtCEUr [id number]JL9BHNs= ID Date Data Source [id number] 08/06/2020 11:42:00 AM EST [facility] Name Value Range Interpretation Code Description Data Ethel rce(s) Supporting Document(s) SARS coronavirus 2 RNA panel NEG N [facility] This lab was ordered by [facility] and repor augusto by [facility]. ID Date Data Source [id number] 08/01/2020 06:44:00 AM EST [facility] Name Value Range Interpretation Code Description Data Ethel rce(s) Supporting Document(s) BHD COVID-19 RT-PCR DELINEATOR SWAB Not Detected Not Detected [facility] This test has received Emergency Use Aut horization (EUA). We willcontinue to follow federal and state requirements for COVID-19reporting. This test was developed and its performance characteristicsdetermined by [facility]. It has not been cleared orapproved by [...] agencies as required. ID Date Data Source [id number] 07/31/2020 02:00:00 PM EST [facility] Name Value Range Interpretation Code Description Data Ethel rce(s) Supporting Document(s) SARS coronavirus 2 RNA [Presence] in Res piratory specimen by [facility] with probe detection NEGATIVE [facility] This lab was ordered by [facility] and reported by [facility]. ID Date Data Source [id number] 07/26/2020 11:54:00 AM EST [facility] ([facility]) Name Value Range Interpretation Code Description Data Ethel rce(s) Supporting Document(s) amylase 52 U/L 25-115 Amylase MEY ([facility]) ID Date Data Source [id number] 07/26/2020 11:54:00 AM EST MEY ([facility]) Name Value Range Interpretation Code Description Data Ethel rce(s) Supporting Document(s) glucose, fasting 95 mg/dL 70-100 Glucose, Fasting AT [facility]) blood urea nitrogen 10 mg/dL 7-18 Blood Urea Nitro gen MEY ([facility]) glomerular filtration rate > 60.0 >60 Glomerula r Filtration Rate MEY ([facility]) sodium level 140 mEq/L 136-145 Sodium Level MEY ([facility]) creatinine for GFR 0.81 mg/dL 0.70-1.30 Creatinine for GF R MEY ([facility]) chloride level 107 mEq/L 98-107 Chloride Level MEY ([facility]) potassium serum 4.1 mEq/L 3.5-5.1 Potassium Serum ATHE ([facility]) anion gap 5 mEq/L 8-16 Below low normal Anion Gap WAUBUN ( [facility]) carbon dioxide level 28 mEq/L 21-32 Carbon Dioxide Level MEY ([facility]) ALT/SGPT 24 U/L 12-78 ALT/SGPT MEY ([facility]) calcium level 8.7 mg/dL 8.5-10.1 Calcium Level MEY ( [facility]) alkaline phosphatase 76 U/L 45-117 Alkaline Phosph atase MEY ([facility]) AST/SGOT 11 U/L 7-37 AST/SGOT MEY ([facility]) bilirubin,total 0.4 mg/dL 0.2-1.0 Bilirubin,total ATHE NA ([facility]) albumin/globulin ratio Albumin/globu gibran Ratio MEY ([facility]) albumin 3.7 gm/dL 3.2-5.2 Albumin MEY ([facility]) total protein 6.9 gm/dL 6.4-8.2 Total Protein MEY ( [facility]) ID Date Data Source [id number] 07/26/2020 11:54:00 AM EST MEY ([facility]) Name Value Range Interpretation Code Description Data Ethel rce(s) Supporting Document(s) red blood count 5.22 10 4.30-6.10 Red Blood Count ATHE NA ([facility]) white blood count 7.1 10 4.0-10.0 White Blood Count MEY ([facility]) mean corpuscular volume 86.4 fL 80.0-96.0 Mean Corpusc ular Volume MEY ([facility]) hemoglobin 15.2 g/dL 13.5-17.5 Hemoglobin MEY ([facility]) mean corpuscular hemoglobin 29.1 pg 27.0-33.0 Mean Cor puscular Hemoglobin MEY ([facility]) hematocrit 45.1 % 42.0-52.0 Hematocrit MEY ([facility]) platelet count, automated 312 10 150-450 Platelet C ount, Automated MEY ([facility]) neutrophils % 45.1 % 36.0-66.0 Neutrophils % MEY ( [facility]) red cell distribution width 12.7 % 11.5-14.5 Red Cell Distribution Width MEY ([facility]) mean corpuscular HGB conc 33.7 g/dL 32.0-36.5 Mean Corpu scular HGB Conc MEY ([facility]) eos % 2.4 % 0.0-3.0 Eos % MEY ([facility]) baso % 1.0 % 0.0-1.0 Baso % MEY ([facility]) lymph % 41.7 % 24.0-44.0 Lymph % MEY ([facility]) mono % 9.5 % 2.0-8.0 Above high normal [place] % MEY ([facility]) nucleated red blood cell % 0.0 % 0-0 Nucleated Red Blood Cell % MEY ([facility]) immature granulocyte % 0.3 % 0-3.0 Immature Gran ulocyte % MEY ([facility]) neutrophils # 3.2 10 1.5-8.5 Neutrophils # MEY ( [facility]) lymph # 3.0 10 1.5-5.0 Lymph # MEY ([facility]) mono # 0.7 10 0.0-0.8 [place] # MEY ([facility]) baso # 0.1 10 0.0-0.2 Baso # MEY ([facility]) eos # 0.2 10 0.0-0.5 Eos # MEY ([facility]) ID Date Data Source [id number] 07/26/2020 11:54:00 AM EST MEY ([facility]) Name Value Range Interpretation Code Description Data Ethel rce(s) Supporting Document(s) tissue transglutaminase IgA <2 0-3 Tissue T ransglutaminase IgA [facility] ([facility]) ID Date Data Source [id number] 07/26/2020 11:54:00 AM EST [facility] ([facility]) Name Value Range Interpretation Code Description Data Ethel rce(s) Supporting Document(s) C reactive protein quantitativ 0.30 mg/dL 0.00-0.30 C Reactive Protein Quantitativ [facility]BUN ([facility]) ID Date Data Source [id number] 07/26/2020 11:54:00 AM EST MEY ([facility]) Name Value Range Interpretation Code Description Data Ethel rce(s) Supporting Document(s) lipase 87 U/L 73-393 Lipase MEY ([facility]) ID Date Data Source [id number] 07/26/2020 11:54:00 AM EST MEY ([facility]) Name Value Range Interpretation Code Description Data Ethel rce(s) Supporting Document(s) amylase 52 U/L 25-115 Amylase MEY ([facility]) ID Date Data Source [id number] 07/26/2020 11:54:00 AM EST ME[facility] ([facility]) Name Value Range Interpretation Code Description Data Ethel rce(s) Supporting Document(s) glucose, fasting 95 mg/dL 70-100 Glucose, Fasting AT ABBEY ([facility]) blood urea nitrogen 10 mg/dL 7-18 Blood Urea Nitro gen MEY ([facility]) glomerular filtration rate > 60.0 >60 Glomerula r Filtration Rate MEY ([facility]) chloride level 107 mEq/L 98-107 Chloride Level MEY ([facility]) sodium level 140 mEq/L 136-145 Sodium Level MEY ([facility]) creatinine for GFR 0.81 mg/dL 0.70-1.30 Creatinine for GF R MEY ([facility]) potassium serum 4.1 mEq/L 3.5-5.1 Potassium Serum ATHE NA ([facility]) calcium level 8.7 mg/dL 8.5-10.1 Calcium Level MEY ( [facility]) ALT/SGPT 24 U/L 12-78 ALT/SGPT MEY ([facility]) carbon dioxide level 28 mEq/L 21-32 Carbon Dioxide Level MEY ([facility]) AST/SGOT 11 U/L 7-37 AST/SGOT MEY ([facility]) anion gap 5 mEq/L 8-16 Below low normal Anion Gap MEY ( [facility]) bilirubin,total 0.4 mg/dL 0.2-1.0 Bilirubin,total ATHE NA ([facility]) alkaline phosphatase 76 U/L 45-117 Alkaline Phosph atase MEY ([facility]) albumin/globulin ratio Albumin/globu gibran Ratio MEY ([facility]) albumin 3.7 gm/dL 3.2-5.2 Albumin MEY ([facility]) total protein 6.9 gm/dL 6.4-8.2 Total Protein MEY ( [facility]) ID Date Data Source [id number] 07/26/2020 11:54:00 AM EST ME[facility] ([facility]) Name Value Range Interpretation Code Description Data Ethel rce(s) Supporting Document(s) white blood count 7.1 10 4.0-10.0 White Blood Count MEY ([facility]) hemoglobin 15.2 g/dL 13.5-17.5 Hemoglobin MEY ([facility]) red blood count 5.22 10 4.30-6.10 Red Blood Count ATHE NA ([facility]) mean corpuscular HGB conc 33.7 g/dL 32.0-36.5 Mean Corpu scular HGB Conc MEY ([facility]) mean corpuscular volume 86.4 fL 80.0-96.0 Mean Corpusc ular Volume MEY ([facility]) hematocrit 45.1 % 42.0-52.0 Hematocrit MEY ([facility]) mean corpuscular hemoglobin 29.1 pg 27.0-33.0 Mean Cor puscular Hemoglobin MEY ([facility]) red cell distribution width 12.7 % 11.5-14.5 Red Cell Distribution Width MEY ([facility]) neutrophils % 45.1 % 36.0-66.0 Neutrophils % [facility]UN ( [facility]) platelet count, automated 312 10 150-450 Platelet C ount, Automated MEY ([facility]) lymph % 41.7 % 24.0-44.0 Lymph % MEY ([facility]) eos % 2.4 % 0.0-3.0 Eos % MEY ([facility]) baso % 1.0 % 0.0-1.0 Baso % MEY ([facility]) mono % 9.5 % 2.0-8.0 Above high normal [place] % [facility] ([facility]) neutrophils # 3.2 10 1.5-8.5 Neutrophils # WAU[facility]UN ( [facility]) immature granulocyte % 0.3 % 0-3.0 Immature Gran ulocyte % MEY ([facility]) nucleated red blood cell % 0.0 % 0-0 Nucleated Red Blood Cell % MEY ([facility]) mono # 0.7 10 0.0-0.8 [place] # MEY ([facility]) lymph # 3.0 10 1.5-5.0 Lymph # MEY ([facility]) baso # 0.1 10 0.0-0.2 Baso # MEY ([facility]) eos # 0.2 10 0.0-0.5 Eos # MEY ([facility]) ID Date Data Source [id number] 07/26/2020 11:54:00 AM EST ME[facility] ([facility]) Name Value Range Interpretation Code Description Data Ethel rce(s) Supporting Document(s) tissue transglutaminase IgA <2 0-3 Tissue T ransglutaminase IgA MEY ([facility]) ID Date Data Source [id number] 07/26/2020 11:54:00 AM EST MEY ([facility]) Name Value Range Interpretation Code Description Data Ethel rce(s) Supporting Document(s) C reactive protein quantitativ 0.30 mg/dL 0.00-0.30 C Reactive Protein Quantitativ MEY ([facility]) ID Date Data Source [id number] 07/26/2020 11:54:00 AM EST MEY ([facility]) Name Value Range Interpretation Code Description Data Ethel rce(s) Supporting Document(s) lipase 87 U/L 73-393 Lipase MEY ([facility]) ID Date Data Source [id number] 07/26/2020 11:54:00 AM EST ME[facility] ([facility]) Name Value Range Interpretation Code Description Data Ethel rce(s) Supporting Document(s) amylase 52 U/L 25-115 Amylase MEY ([facility]) ID Date Data Source [id number] 07/26/2020 11:54:00 AM EST ME[facility] ([facility]) Name Value Range Interpretation Code Description Data Ethel rce(s) Supporting Document(s) glucose, fasting 95 mg/dL 70-100 Glucose, Fasting AT [facility] ([facility]) blood urea nitrogen 10 mg/dL 7-18 Blood Urea Nitro gen MEY ([facility]) glomerular filtration rate > 60.0 >60 Glomerula r Filtration Rate MEY ([facility]) creatinine for GFR 0.81 mg/dL 0.70-1.30 Creatinine for GF R MEY ([facility]) sodium level 140 mEq/L 136-145 Sodium Level MEY ([facility]) chloride level 107 mEq/L 98-107 Chloride Level MEY ([facility]) potassium serum 4.1 mEq/L 3.5-5.1 Potassium Serum ATHE NA ([facility]) carbon dioxide level 28 mEq/L 21-32 Carbon Dioxide Level MEY ([facility]) AST/SGOT 11 U/L 7-37 AST/SGOT ME[facility] ([facility]) anion gap 5 mEq/L 8-16 Below low normal Anion Gap MEY ( [facility]) calcium level 8.7 mg/dL 8.5-10.1 Calcium Level MEY ( [facility]) bilirubin,total 0.4 mg/dL 0.2-1.0 Bilirubin,total ATHE ([facility]) total protein 6.9 gm/dL 6.4-8.2 Total Protein MEY ( [facility]) alkaline phosphatase 76 U/L 45-117 Alkaline Phosph atase MEY ([facility]) albumin 3.7 gm/dL 3.2-5.2 Albumin MEY ([facility]) ALT/SGPT 24 U/L 12-78 ALT/SGPT MEY ([facility]) albumin/globulin ratio Albumin/globu gibran Ratio MEY ([facility]) ID Date Data Source [id number] 07/26/2020 11:54:00 AM EST [facility] ([facility]) Name Value Range Interpretation Code Description Data Ethel rce(s) Supporting Document(s) white blood count 7.1 10 4.0-10.0 White Blood Count MEY ([facility]) hemoglobin 15.2 g/dL 13.5-17.5 Hemoglobin MEY ([facility]) hematocrit 45.1 % 42.0-52.0 Hematocrit ME[facility] ([facility]) red blood count 5.22 10 4.30-6.10 Red Blood Count ATHE NA ([facility]) mean corpuscular hemoglobin 29.1 pg 27.0-33.0 Mean Cor puscular Hemoglobin MEY ([facility]) mean corpuscular volume 86.4 fL 80.0-96.0 Mean Corpusc ular Volume MEY ([facility]) mean corpuscular HGB conc 33.7 g/dL 32.0-36.5 Mean Corpu scular HGB Conc MEY ([facility]) red cell distribution width 12.7 % 11.5-14.5 Red Cell Distribution Width MEY ([facility]) platelet count, automated 312 10 150-450 Platelet C ount, Automated MEY ([facility]) neutrophils % 45.1 % 36.0-66.0 Neutrophils % MEY ( [facility]) lymph % 41.7 % 24.0-44.0 Lymph % MEY ([facility]) eos % 2.4 % 0.0-3.0 Eos % MEY ([facility]) mono % 9.5 % 2.0-8.0 Above high normal [place] % MEY ([facility]) nucleated red blood cell % 0.0 % 0-0 Nucleated Red Blood Cell % MEY ([facility]) baso % 1.0 % 0.0-1.0 Baso % MEY ([facility]) immature granulocyte % 0.3 % 0-3.0 Immature Gran ulocyte % MEY ([facility]) lymph # 3.0 10 1.5-5.0 Lymph # MEY ([facility]) eos # 0.2 10 0.0-0.5 Eos # MEY ([facility]) mono # 0.7 10 0.0-0.8 [place] # MEY ([facility]) neutrophils # 3.2 10 1.5-8.5 Neutrophils # MEY ( [facility]) baso # 0.1 10 0.0-0.2 Baso # MEY ([facility]) ID Date Data Source [id number] 07/26/2020 11:54:00 AM EST MEY ([facility]) Name Value Range Interpretation Code Description Data Ethel rce(s) Supporting Document(s) tissue transglutaminase IgA <2 0-3 Tissue T ransglutaminase IgA ME[facility] ([facility]) ID Date Data Source [id number] 07/26/2020 11:54:00 AM EST ME[facility] ([facility]) Name Value Range Interpretation Code Description Data Ethel rce(s) Supporting Document(s) C reactive protein quantitativ 0.30 mg/dL 0.00-0.30 C Reactive Protein Quantitativ MEY ([facility]) ID Date Data Source [id number] 07/26/2020 11:54:00 AM EST ME[facility] ([facility]) Name Value Range Interpretation Code Description Data Ethel rce(s) Supporting Document(s) lipase 87 U/L 73-393 Lipase MEY ([facility]) ID Date Data Source [id number] 07/26/2020 11:54:00 AM EST ME[facility] ([facility]) Name Value Range Interpretation Code Description Data Ethel rce(s) Supporting Document(s) amylase 52 U/L 25-115 Amylase MEY ([facility]) ID Date Data Source [id number] 07/26/2020 11:54:00 AM EST [facility] ([facility]) Name Value Range Interpretation Code Description Data Ethel rce(s) Supporting Document(s) creatinine for GFR 0.81 mg/dL 0.70-1.30 Creatinine for GF R EMY ([facility]) glucose, fasting 95 mg/dL 70-100 Glucose, Fasting AT [facility] ([facility]) glomerular filtration rate > 60.0 >60 Glomerula r Filtration Rate MEY ([facility]) blood urea nitrogen 10 mg/dL 7-18 Blood Urea Nitro gen MEY ([facility]) chloride level 107 mEq/L 98-107 Chloride Level MEY ([facility]) carbon dioxide level 28 mEq/L 21-32 Carbon Dioxide Level MEY ([facility]) sodium level 140 mEq/L 136-145 Sodium Level MEY ([facility]) potassium serum 4.1 mEq/L 3.5-5.1 Potassium Serum ATHE NA ([facility]) AST/SGOT 11 U/L 7-37 AST/SGOT ME[facility] ([facility]) ALT/SGPT 24 U/L 12-78 ALT/SGPT MEY ([facility]) calcium level 8.7 mg/dL 8.5-10.1 Calcium Level MEY ( [facility]) anion gap 5 mEq/L 8-16 Below low normal Anion Gap MEY ( [facility]) total protein 6.9 gm/dL 6.4-8.2 Total Protein MEY ( [facility]) alkaline phosphatase 76 U/L 45-117 Alkaline Phosph atase MEY ([facility]) bilirubin,total 0.4 mg/dL 0.2-1.0 Bilirubin,total ATHE NA ([facility]) albumin 3.7 gm/dL 3.2-5.2 Albumin MEY ([facility]) albumin/globulin ratio Albumin/globu gibran Ratio MEY ([facility]) ID Date Data Source [id number] 07/26/2020 11:54:00 AM EST [facility] ([facility]) Name Value Range Interpretation Code Description Data Ethel rce(s) Supporting Document(s) white blood count 7.1 10 4.0-10.0 White Blood Count MEY ([facility]) red blood count 5.22 10 4.30-6.10 Red Blood Count ATHE NA ([facility]) hemoglobin 15.2 g/dL 13.5-17.5 Hemoglobin MEY ([facility]) hematocrit 45.1 % 42.0-52.0 Hematocrit ME[facility] ([facility]) mean corpuscular volume 86.4 fL 80.0-96.0 Mean Corpusc ular Volume MEY ([facility]) mean corpuscular hemoglobin 29.1 pg 27.0-33.0 Mean Cor puscular Hemoglobin MEY ([facility]) mean corpuscular HGB conc 33.7 g/dL 32.0-36.5 Mean Corpu scular HGB Conc ME[facility] ([facility]) red cell distribution width 12.7 % 11.5-14.5 Red Cell Distribution Width ME[facility] ([facility]) platelet count, automated 312 10 150-450 Platelet C ount, Automated MEY ([facility]) lymph % 41.7 % 24.0-44.0 Lymph % MEY ([facility]) mono % 9.5 % 2.0-8.0 Above high normal [place] % MEY ([facility]) eos % 2.4 % 0.0-3.0 Eos % MEY ([facility]) neutrophils % 45.1 % 36.0-66.0 Neutrophils % EMY ( [facility]) nucleated red blood cell % 0.0 % 0-0 Nucleated Red Blood Cell % MEY ([facility]) immature granulocyte % 0.3 % 0-3.0 Immature Gran ulocyte % MEY ([facility]) baso % 1.0 % 0.0-1.0 Baso % MEY ([facility]) lymph # 3.0 10 1.5-5.0 Lymph # MEY ([facility]) mono # 0.7 10 0.0-0.8 [place] # MEY ([facility]) eos # 0.2 10 0.0-0.5 Eos # MEY ([facility]) neutrophils # 3.2 10 1.5-8.5 Neutrophils # MEY ( [facility]) baso # 0.1 10 0.0-0.2 Baso # MEY ([facility]) ID Date Data Source [id number] 07/26/2020 11:54:00 AM EST ME[facility] ([facility]) Name Value Range Interpretation Code Description Data Ethel rce(s) Supporting Document(s) tissue transglutaminase IgA <2 0-3 Tissue T ransglutaminase IgA MEY ([facility]) ID Date Data Source [id number] 07/26/2020 11:54:00 AM EST [facility] ([facility]) Name Value Range Interpretation Code Description Data Ethel rce(s) Supporting Document(s) C reactive protein quantitativ 0.30 mg/dL 0.00-0.30 C Reactive Protein Quantitativ [facility] ([facility]) ID Date Data Source [id number] 07/26/2020 11:54:00 AM EST MEY ([facility]) Name Value Range Interpretation Code Description Data Ethel rce(s) Supporting Document(s) lipase 87 U/L 73-393 Lipase [facility]UN ([facility]) Procedure Social History Code Duration Value Status Description Data Source(s ) Smoking 03/22/2021 12:00:00 AM EDT Current every day smoker co mpleted Current every day smoker [facility] ([facility]) Alcohol intake 12/08/2020 12:00:00 AM EDT Current non-d no of alcohol (finding) completed Current non-drinker of alcohol (finding) [facility] Tobacco use and exposure 12/08/2020 12:00:00 AM EDT Current user co mpleted Current user [facility] Cigarette pack-years 12/08/2020 12:00:00 AM EDT UNK completed [facility] Cigarettes smoked current (pack per day) - Reported 12/09/19 12:00:00 AM EDT UNK completed [facility] Smoking 12/08/2020 12:00:00 AM EDT Current every day smoker co mpleted Current every day smoker [facility] Smoking 11/18/2020 12:00:00 AM EDT Current Smoker completed Curre nt Smoker eCW1 ([facility]) Smoking 11/18/2020 12:00:00 AM EDT Current Smoker completed Curre nt Smoker eCW1 ([facility]) Alcohol intake 11/17/2020 12:00:00 AM EDT Current non-d no of alcohol (finding) completed Current non-drinker of alcohol (finding) [facility] Vital Signs ID Date Data Source [id number] Name Value Range Interpretation Code Description Data Source(s) Diastolic blood pressure 83 mm[Hg] 83 mm[Hg] MEY ([facility]) Body height 70 [in_i] 70 [in_i] [facility] ([facility]) Body mass index (BMI) [Ratio] 37 kg/m2 37 kg/ m2 MEY ([facility]) Systolic blood pressure 116 mm[Hg] 116 mm[Hg] A THENA ([facility]) Body weight 4128 [oz_av] 4128 [oz_av] MEY ([facility]) Respiratory rate 16 /min 16 /min eCW1 ([facility]) Body weight 255 [lb_av] 255 [lb_av] eCW1 ([facility] Body height 70 [in_i] 70 [in_i] eCW1 ([facility]) Body mass index (BMI) [Ratio] 36.58 kg/m2 36.58 kg/m2 W1 ([facility]) Heart rate 98 /min 98 /min eCW1 ([facility]) Body temperature 98.6 [degF] 98.6 [degF] eCW1 ( [facility] [facility]) Systolic blood pressure 163 mm[Hg] 163 mm[Hg] e CW1 (Formerly [facility]) Diastolic blood pressure 91 mm[Hg] 91 mm[Hg] eCW1 (Formerly [facility]) Diastolic blood pressure 71 mm[Hg] 71 mm[Hg] MEY ([facility]) Body height 70 [in_i] 70 [in_i] MEY ([facility]) Body mass index (BMI) [Ratio] 36.6 kg/m2 36.6 k g/m2 MEY ([facility]) Systolic blood pressure 118 mm[Hg] 118 mm[Hg] A TYLERA ([facility]) Body weight 4086.4 [oz_av] 4086.4 [oz_av] ATHEN A ([facility]) Diastolic blood pressure 71 mm[Hg] 71 mm[Hg] MEY ([facility]) Body height 70 [in_i] 70 [in_i] MEY ([facility]) Body mass index (BMI) [Ratio] 36.6 kg/m2 36.6 k g/m2 MEY ([facility]) Systolic blood pressure 118 mm[Hg] 118 mm[Hg] [facility] Body weight 4086.4 [oz_av] 4086.4 [oz_av] ATHEN A ([facility]) Diastolic blood pressure 76 mm[Hg] 76 mm[Hg] MEY ([facility]) Body height 70 [in_i] 70 [in_i] MEY ([facility]) Body mass index (BMI) [Ratio] 38.2 kg/m2 38.2 k g/m2 MEY ([facility]) Systolic blood pressure 116 mm[Hg] 116 mm[Hg] A THENA ([facility]) Body weight 4259.2 [oz_av] 4259.2 [oz_av] ATHEN A ([facility]) Diastolic blood pressure 76 mm[Hg] 76 mm[Hg] MEY ([facility]) Body height 70 [in_i] 70 [in_i] MEY ([facility]) Body mass index (BMI) [Ratio] 38.2 kg/m2 38.2 k g/m2 MEY ([facility]) Systolic blood pressure 116 mm[Hg] 116 mm[Hg] [facility] Body weight 4259.2 [oz_av] 4259.2 [oz_av] ATHEN A ([facility]) Diastolic blood pressure 76 mm[Hg] 76 mm[Hg] MEY ([facility]) Body height 70 [in_i] 70 [in_i] MEY ([facility]) Body mass index (BMI) [Ratio] 38.2 kg/m2 38.2 k g/m2 MEY ([facility]) Systolic blood pressure 116 mm[Hg] 116 mm[Hg] Melinda JEAN-BAPTISTE ([facility]) Body weight 4259.2 [oz_av] 4259.2 [oz_av] ATHVANDANA Lawrence ([facility]) Body height 70 [in_i] 70 [in_i] MEY ([facility]) Body height 70 [in_i] 70 [in_i] MEY ([facility]) Body height 70 [in_i] 70 [in_i] MEY ([facility]) Body height 70 [in_i] 70 [in_i] MEY ([facility]) Body height 70 [in_i] 70 [in_i] MEY ([facility]) ID Date Data Source [id number] 12/08/2020 02:28:06 PM EDT [facility] Name Value Range Interpretation Code Description Data Source(s) WEIGHT RECORDED 250 lb 250 lb [facility] Body height Measured 70 in 70 in [facility] Patient Treatment Plan of Care Planned Activity Planned Date Details Description Data Source (s) sodium chloride (preservative free) 0.9 % flush 3 mL 021 09:00:00 AM [facility] sodium chloride 0.9 % bag 3-20 mL 12/08/2020 07:00:46 AM [facility] Acetaminophen 160 MG/5ML 08/11/2020 01:00:00 AM EDT [facility] ([facility]) Ensure Enlive 08/11/2020 01:00:00 AM EDT [facility] ([facility]) Folvite 08/11/2020 01:00:00 AM EDT [facility] ([facility]) Omeprazole+Syrspend SF Liss 2 MG/ML 08/11/2020 01:00:00 AM EDT [facility] ([facility]) Thiamine HCl 100 MG/ML 08/11/2020 01:00:00 AM EDT [facility] ([facility]) levETIRAcetam 100 MG/ML 08/11/2020 01:00:00 AM EDT [facility] ([facility]) Albuterol Sulfate HFA 108 (90 Base) MCG/ACT 08/11/2020 01:00:00 AM EDT [facility] ([facility]) Albuterol Sulfate 0.63 MG/3ML 08/11/2020 01:00:00 AM EDT [facility] ([facility]) Pepcid 08/11/2020 01:00:00 AM EDT [facility] ([facility]) Flonase 50 MCG/ACT 08/11/2020 01:00:00 AM EDT [facility] ([facility]) Doxycycline Monohydrate [facility] 12 HR dextromethorphan polistirex 6 MG/ML Extended Release [facility]pensi [facility] Cephalexin 50 MG/ML Oral Suspension MEY ([facility]) cefdinir 300 MG [facility] Azithromycin 250 MG [facility] Tablet [facility] Amoxicillin 80 MG/ML Oral Suspension [facility]) Pseudoephedrine Hydrochloride 30 MG Oral Tablet [[facility]ogest] [facility] Prazosin 1 MG Oral Capsule A THENA ([facility]) Metronidazole 250 MG [facility] Doxycycline Monohydrate 100 MG Oral Capsule MEY ([facility]) 12 HR dextromethorphan polistirex 6 MG/ML Extended Release Suspensi on [facility]) cefdinir 300 MG [facility] Azithromycin 250 MG [facility] Amoxicillin 80 MG/ML Oral Suspension MEY ([facility]) Azithromycin 250 MG Oral Tablet MEY ([facility]) Pseudoephedrine Hydrochloride 30 MG Oral Tablet [facility]est] [facility] Metronidazole 250 MG Oral Tablet MEY ([facility]) Doxycycline Monohydrate 100 MG Oral Capsule MEY ([facility]) 12 HR dextromethorphan polistirex 6 MG/ML Extended Release Suspensi on MEY ([facility]) cefdinir 300 MG Oral Capsule MEY ([facility]) Azithromycin 250 MG Oral Tablet MEY ([facility]) Pseudoephedrine Hydrochloride 30 MG Oral Tablet [Sudogest] MEY ([facility]) Metronidazole 250 MG Oral Tablet MEY ([facility]) Doxycycline Monohydrate 100 MG Oral Capsule MEY ([facility]) 12 HR dextromethorphan polistirex 6 MG/ML Extended Release Suspensi on MEY ([facility]) cefdinir 300 MG Oral Capsule MEY ([facility]) Azithromycin 250 MG Oral Tablet MEY ([facility]) Pseudoephedrine Hydrochloride 30 MG Oral Tablet [Sudogest] MEY ([facility]) Prazosin 1 MG Oral Capsule A THENA ([facility]) Metronidazole 250 MG Oral Tablet MEY ([facility]) Pseudoephedrine Hydrochloride 30 MG Oral Tablet [Sudogest] MEY ([facility]) Metronidazole 250 MG Oral Tablet MYE ([facility]) Doxycycline Monohydrate 100 MG Oral Capsule MEY ([facility]) 12 HR dextromethorphan polistirex 6 MG/ML Extended Release Suspensi on MEY ([facility]) cefdinir 300 MG Oral Capsule MEY ([facility])
[2021-03-24 19:04] LABS: BASO # 0.1 10^3/uL (0.0-0.2); BASO % 0.7 % (0.0-1.0); EOS # 0.2 10^3/uL (0.0-0.5); EOS % 2.4 % (0.0-3.0); HEMATOCRIT 45.4 % (42.0-52.0); HEMOGLOBIN 15.2 g/dl (13.5-17.5); LYMPH # 3.3 10^3/uL (1.5-5.0); LYMPH % 37.8 % (24.0-44.0); MEAN CORPUSCULAR HEMOGLOBIN 29.5 pg (27.0-33.0); MEAN CORPUSCULAR HGB CONC 33.5 g/dl (32.0-36.5); MEAN CORPUSCULAR VOLUME 88.2 fl (80.0-96.0); MONO # 0.7 10^3/uL (0.0-0.8); NEUTROPHILS # 4.4 10^3/uL (1.5-8.5); NEUTROPHILS % 50.8 % (36.0-66.0); PLATELET COUNT, AUTOMATED 315 10^3/uL (150-450); RED BLOOD COUNT 5.15 10^6/uL (4.30-6.10); WHITE BLOOD COUNT 8.7 10^3/uL (4.0-10.0)
[2021-03-24 19:36] LABS: ERYTHROCYTE SEDIMENTATION RATE 3 mm/hr (0-15)
[2021-03-24 19:36] LABS: ALBUMIN 3.9 GM/DL (3.2-5.2); ALT/SGPT 32 U/L (12-78); BILIRUBIN,DIRECT < 0.1 MG/DL (0.0-0.2); BILIRUBIN,TOTAL 0.2 MG/DL (0.2-1.0); LIPASE 71 U/L (73-393); TOTAL PROTEIN 7.4 GM/DL (6.4-8.2)
[2021-03-24 19:38] LABS: ALBUMIN 3.9 GM/DL (3.2-5.2); ALT/SGPT 31 U/L (12-78); BILIRUBIN,TOTAL 0.2 MG/DL (0.2-1.0); BLOOD UREA NITROGEN 8 MG/DL (7-18); CALCIUM LEVEL 9.4 MG/DL (8.5-10.1); CARBON DIOXIDE LEVEL 27 MEQ/L (21-32); CHLORIDE LEVEL 109 MEQ/L (98-107); CREATININE FOR GFR 0.69 MG/DL (0.70-1.30); GLOMERULAR FILTRATION RATE > 60.0 (>60); GLUCOSE, FASTING 93 MG/DL (70-100); POTASSIUM SERUM 4.6 MEQ/L (3.5-5.1); SODIUM LEVEL 140 MEQ/L (136-145); TOTAL PROTEIN 7.2 GM/DL (6.4-8.2)
[2021-03-24 20:22] VITALS: BP 120/72
== END 2021-03-24 20:26 | disposition home or self-care (01) ==
LOC: M ED 15:08
DX: L03.311 Cellulitis of abdominal wall (principal); J30.2 Other seasonal allergic rhinitis; J45.909 Unspecified asthma, uncomplicated; M54.9 Dorsalgia, unspecified; G40.909 Epilepsy, unspecified, not intractable, without status epilepticus; F17.200 Nicotine dependence, unspecified, uncomplicated; Z93.1 Gastrostomy status; Z79.899 Other long term (current) drug therapy; Z91.030 Bee allergy status; Z91.018 Allergy to other foods; Z88.5 Allergy status to narcotic agent; Z91.040 Latex allergy status; Z88.8 Allergy status to other drugs, medicaments and biological substances

== ENCOUNTER 2021-05-16 17:33 | Emergency (ER) | payer OTHER ==
[~2021-05-16] VITALS: Ht 180.3 cm; Wt 119.4 kg
[~2021-05-16 17:33] MED LIST changes: +CYCL-707; +SYST1SOL
[2021-05-16] MEDS ORDERED: diazePAM 10MG/2ML SYRINGE (J3360 PER 5MG) IM ONE (18:10)
[2021-05-16 18:57] LABS: ALBUMIN 3.8 GM/DL (3.2-5.2); ALT/SGPT 39 U/L (12-78); BILIRUBIN,DIRECT < 0.1 MG/DL (0.0-0.2); BILIRUBIN,TOTAL 0.2 MG/DL (0.2-1.0); LIPASE 76 U/L (73-393); TOTAL PROTEIN 7.4 GM/DL (6.4-8.2)
--- NOTE | 2021-05-16 19:30 | REPVR ---
PROCEDURE INFORMATION: Exam: CT Lumbar Spine Without Contrast Exam date and time: 05/16/2021 6:13 PM Age: 30 years old Clinical indication: Pain; Lumbago with sciatica; Additional info: Midline tnderness, sciatic pain TECHNIQUE: Imaging protocol: Computed tomography images of the lumbar spine without contrast. Axial, coronal and sagittal reformatted images were created and reviewed. Radiation optimization: All CT scans at this facility use at least one of these dose optimization techniques: automated exposure control; mA and/or kV adjustment per patient size (includes targeted exams where dose is matched to clinical indication); or iterative reconstruction. COMPARISON: CR Spine. Lumbosacral, complete 04/01/2018 8:31 PM FINDINGS: Vertebrae: Normal lumbar lordosis. Minimal retrolisthesis of L4 on L5. Alignment otherwise anatomic. No CT evidence of acute fracture, dislocation or subluxation. Vertebral body heights maintained. Discs/Spinal canal/Neural foramina: Mild multilevel spondylosis, characterized by disc space narrowing, osteophytosis, shallow disc bulges and facet/ligamentous hypertrophy. Shallow superimposed right parasagittal disc protrusion at L4-L5. Mild multilevel spinal canal narrowing, most notably at L4-L5. No significant neural foraminal stenosis. Soft tissues: Grossly unremarkable. IMPRESSION: Mild multilevel spondylosis and degenerative disc disease, as described above. Electronically signed by: Gabriele Boyd On 05/16/2021 19:30:06 PM
--- NOTE | 2021-05-16 19:33 | REPVR ---
PROCEDURE INFORMATION: Exam: CT Thoracic Spine Without Contrast Exam date and time: 05/16/2021 6:13 PM Age: 30 years old Clinical indication: Pain in thoracic spine; Additional info: Midline tnderness, sciatic pain TECHNIQUE: Imaging protocol: Computed tomography images of the thoracic spine without contrast. Axial, coronal and sagittal reformatted images were created and reviewed. Radiation optimization: All CT scans at this facility use at least one of these dose optimization techniques: automated exposure control; mA and/or kV adjustment per patient size (includes targeted exams where dose is matched to clinical indication); or iterative reconstruction. COMPARISON: CT Spine,cervical w/o contrast 07/03/2018 1:01 PM FINDINGS: Vertebrae: Normal thoracic kyphosis. Alignment anatomic. No CT evidence of acute fracture, dislocation or subluxation. Vertebral body heights maintained. Discs/Spinal canal/Neural foramina: Mild multilevel spondylosis. No significant spinal canal or neural foraminal stenosis. Soft tissues: Unremarkable. IMPRESSION: Mild multilevel spondylosis. Electronically signed by: Gabriele Boyd On 05/16/2021 19:32:39 PM
[2021-05-16 20:05] VITALS: BP 173/86
--- NOTE | 2021-05-18 10:32 | ED PDOC ---
Post-Departure Follow-Up radiology report faxed to Vannessa De Paz MD May 18, 2021 10:32
== END 2021-05-16 20:07 | disposition home or self-care (01) ==
LOC: M ED 17:33
DX: M54.50 Low back pain, unspecified (principal); M62.830 Muscle spasm of back; M51.36 Other intervertebral disc degeneration, lumbar region; G40.909 Epilepsy, unspecified, not intractable, without status epilepticus; K21.9 Gastro-esophageal reflux disease without esophagitis; J45.909 Unspecified asthma, uncomplicated; F17.200 Nicotine dependence, unspecified, uncomplicated; Z79.899 Other long term (current) drug therapy; Z91.030 Bee allergy status; Z91.018 Allergy to other foods; Z91.040 Latex allergy status; Z88.8 Allergy status to other drugs, medicaments and biological substances; Z88.5 Allergy status to narcotic agent
CPT/HCPCS: 72128; 72131; 80047; 80076; 83690; 96372; 99283; J3360

== ENCOUNTER 2021-06-20 20:40 | Emergency (ER) | payer OTHER ==
[~2021-06-20] VITALS: Ht 180.3 cm; Wt 115.9 kg
[~2021-06-20 20:40] MED LIST changes: -HALO5TA GT; -HALO5TA PO; +HALO5TAB33 GT; +HALO5TAB33 PO; -MONT10TA10 PO; +MONT10TA97 PO; -OMEP-221; +OMEP40CA5
[2021-06-20 20:42] VITALS: BP 121/78
== END 2021-06-21 05:32 | disposition left against medical advice (07) ==
LOC: M ED 20:40
DX: Z53.21 Procedure and treatment not carried out due to patient leaving prior to being seen by health care provider (principal)

== ENCOUNTER 2021-08-08 23:10 | Emergency (ER) | payer OTHER ==
[~2021-08-08] VITALS: Ht 180.3 cm; Wt 121.2 kg
[2021-08-08 23:10] VITALS: BP 140/94
== END 2021-08-09 00:31 | disposition left against medical advice (07) ==
LOC: M ED 23:10
DX: Z53.21 Procedure and treatment not carried out due to patient leaving prior to being seen by health care provider (principal)

== ENCOUNTER 2022-03-02 22:08 | Emergency (ER) | payer OTHER ==
[~2022-03-02] VITALS: Ht 177.8 cm; Wt 113.6 kg
[2022-03-02 22:08] VITALS: BP 142/84
[~2022-03-02 22:08] MED LIST changes: +ALBU2.5V10; -ALBU83IN; +BENZ1LOZ9 PO; -CEPALOZ8 PO; +NYST-13; -NYST10CR
== END 2022-03-03 | disposition left against medical advice (07) ==
LOC: M ED 22:08
DX: Z53.21 Procedure and treatment not carried out due to patient leaving prior to being seen by health care provider (principal)

== ENCOUNTER 2022-03-20 16:06 | Emergency (ER) | payer OTHER ==
[~2022-03-20] VITALS: Ht 180.3 cm; Wt 121.6 kg
[2022-03-20] MEDS ORDERED: LEVO25TA5 (16:29)
[2022-03-20] MEDS ORDERED: DIAZ2TAB (16:29)
[2022-03-20] MEDS ORDERED: dexameTHASONE 4 MG/ML 1ML VIAL (J1100 PER 1MG) PO ONE (18:05)
[2022-03-20] MEDS ORDERED: LIDOCAINE VISCOUS 2% SOLN 15ML UDC SS ONE (18:05)
[2022-03-20] MEDS ORDERED: PRED5SOL10 PO (18:11)
[2022-03-20] MEDS ORDERED: LIDO2SOL17 PO (18:12)
[2022-03-20 19:17] VITALS: BP 159/78
== END 2022-03-20 18:26 | disposition home or self-care (01) ==
LOC: M ED 16:06
DX: R06.02 Shortness of breath (principal); R07.0 Pain in throat; I10 Essential (primary) hypertension; J45.909 Unspecified asthma, uncomplicated; Z86.73 Personal history of transient ischemic attack (TIA), and cerebral infarction without residual deficits; R56.9 Unspecified convulsions; R51.9 Headache, unspecified; Z93.1 Gastrostomy status; F17.200 Nicotine dependence, unspecified, uncomplicated; Z79.899 Other long term (current) drug therapy; Z91.030 Bee allergy status; Z91.018 Allergy to other foods; Z88.5 Allergy status to narcotic agent; Z88.8 Allergy status to other drugs, medicaments and biological substances; Z91.040 Latex allergy status
CPT/HCPCS: 99283; J1100

== ENCOUNTER 2022-03-27 19:53 | Emergency (ER) | payer OTHER ==
[~2022-03-27] VITALS: Ht 177.8 cm; Wt 118.2 kg
[~2022-03-27 19:53] MED LIST changes: +DIAZ2TAB; +LEVO25TA5
[2022-03-27 19:56] VITALS: BP 178/128
== END 2022-03-27 20:00 | disposition left against medical advice (07) ==
LOC: M ED 19:53
DX: Z53.21 Procedure and treatment not carried out due to patient leaving prior to being seen by health care provider (principal)

== ENCOUNTER 2022-03-28 21:33 | Emergency (ER) | payer OTHER ==
[~2022-03-28] VITALS: Ht 177.8 cm; Wt 118.2 kg
[2022-03-28 21:33] VITALS: BP 135/91
[2022-03-29] MEDS ORDERED: KETOROLAC 60MG 2ML VIAL IM ONE (01:10)
[2022-03-29] MEDS ORDERED: LIDOCAINE 5% (LIDODERM) PATCH TD ONE (01:10)
[2022-03-29] MEDS ORDERED: diazePAM 10 MG TAB PO ONE (01:10)
[2022-03-29] MEDS ORDERED: METH-1165 PO (01:19)
[2022-03-29] MEDS ORDERED: ASPE4PAD TOP (01:19)
== END 2022-03-29 01:30 | disposition home or self-care (01) ==
LOC: M ED 21:33
DX: M54.50 Low back pain, unspecified (principal); I10 Essential (primary) hypertension; Z86.73 Personal history of transient ischemic attack (TIA), and cerebral infarction without residual deficits; J45.909 Unspecified asthma, uncomplicated; R13.10 Dysphagia, unspecified; Z88.5 Allergy status to narcotic agent; Z88.8 Allergy status to other drugs, medicaments and biological substances; Z91.040 Latex allergy status; Z91.030 Bee allergy status; Z79.51 Long term (current) use of inhaled steroids; Z79.899 Other long term (current) drug therapy
CPT/HCPCS: 96372; 99282; J1885

== ENCOUNTER → 2022-05-19 | Outpatient (REF) | payer OTHER ==
[~2022-05-19] MED LIST changes: +ASPE4PAD TOP; +METH-1165 PO
== END ==
LOC: M LAB REF 16:53
PROVIDERS: ATTEND Physician Assistant
DX: E03.9 Hypothyroidism, unspecified (principal)

== ENCOUNTER 2022-06-03 01:36 | Emergency (ER) | payer OTHER ==
[~2022-06-03] VITALS: Ht 177.8 cm; Wt 123.1 kg
[2022-06-03 01:59] LABS: BASO # 0.1 10^3/uL (0.0-0.2); BASO % 0.8 % (0.0-1.0); EOS # 0.1 10^3/uL (0.0-0.5); EOS % 1.3 % (0.0-3.0); HEMATOCRIT 43.6 % (42.0-52.0); HEMOGLOBIN 14.8 g/dl (13.5-17.5); MEAN CORPUSCULAR HEMOGLOBIN 29.8 pg (27.0-33.0); MEAN CORPUSCULAR HGB CONC 33.9 g/dl (32.0-36.5); MEAN CORPUSCULAR VOLUME 87.7 fl (80.0-96.0); MONO # 0.8 10^3/uL (0.0-0.8); MONO % 8.6 % (2.0-8.0); NEUTROPHILS # 5.2 10^3/uL (1.5-8.5); PLATELET COUNT, AUTOMATED 290 10^3/uL (150-450); RED BLOOD COUNT 4.97 10^6/uL (4.30-6.10); WHITE BLOOD COUNT 9.2 10^3/uL (4.0-10.0)
[2022-06-03] MEDS ORDERED: levETIRAcetam INJection 1,000 MG in D5W 100 ML IV ONE (02:20)
[2022-06-03 02:25] LABS: BLOOD UREA NITROGEN 8 MG/DL (9-23); CALCIUM LEVEL 9.3 MG/DL (8.5-10.1); CARBON DIOXIDE LEVEL 26 MMOL/L (20-31); CHLORIDE LEVEL 101 MMOL/L (98-107); CREATININE FOR GFR 0.68 MG/DL (0.70-1.30); GLOMERULAR FILTRATION RATE > 60.0 (>60); GLUCOSE, FASTING 128 MG/DL (60-100); POTASSIUM SERUM 4.1 MMOL/L (3.5-5.1); SODIUM LEVEL 137 MMOL/L (136-145)
[2022-06-03 02:26] LABS: CPK CREATINE PHOSPHOKINASE 133 U/L (46-171)
[2022-06-03 02:47] VITALS: BP 132/91
== END 2022-06-03 04:02 | disposition home or self-care (01) ==
LOC: EDBD 01:36 → M ED 01:36
DX: G40.909 Epilepsy, unspecified, not intractable, without status epilepticus (principal); F17.200 Nicotine dependence, unspecified, uncomplicated; Z79.890 Hormone replacement therapy; Z79.899 Other long term (current) drug therapy; Z88.5 Allergy status to narcotic agent; Z88.8 Allergy status to other drugs, medicaments and biological substances; Z91.040 Latex allergy status; Z91.030 Bee allergy status; Z91.018 Allergy to other foods
CPT/HCPCS: 36415; 80048; 80180; 82550; 83605; 85025; 96374; 99284; J1953

== ENCOUNTER → 2022-10-27 | Outpatient (CLI) | payer OTHER ==
[~2022-10-27] MED LIST changes: +FLUT50SP17 NARES; -FLUTISP NARES; +LIDO15SO PO; +LIDO15SO2 PO; -LIDO2SO PO; -LIDO2SOL17 PO; +PRED15SO24 GT; +PRED15SO24 PO; -PRED5SOL10 GT; -PRED5SOL10 PO
== END ==
LOC: M LAB 09:15
PROVIDERS: ATTEND Physician Assistant
DX: R56.9 Unspecified convulsions (principal); Z79.899 Other long term (current) drug therapy

== ENCOUNTER → 2022-11-04 | Outpatient (CLI) | payer OTHER | LOC: M PLAIMG 12:27 | PROVIDERS: ATTEND Physician Assistant | DX: R20.0 Anesthesia of skin (principal); G83.24 Monoplegia of upper limb affecting left nondominant side; J32.9 Chronic sinusitis, unspecified ==

== ENCOUNTER → 2023-01-05 | Outpatient (CLI) | payer OTHER ==
[~2023-01-05] MED LIST changes: +AMOX600S51 PO; -AUGMSUS PO
== END ==
LOC: M RAD 12:08
PROVIDERS: ATTEND Physician Assistant
DX: J45.909 Unspecified asthma, uncomplicated (principal)

== ENCOUNTER → 2023-02-16 | Outpatient (CLI) | payer OTHER | LOC: M CARPUL 12:47 | PROVIDERS: ATTEND Physician Assistant | DX: R06.00 Dyspnea, unspecified (principal) ==

== ENCOUNTER 2023-03-17 22:19 | Emergency (ER) | payer OTHER ==
[~2023-03-17] VITALS: Ht 180.3 cm; Wt 113.5 kg
[2023-03-17 22:20] VITALS: BP 154/79; TEMP 97.9; O2SAT 97
== END 2023-03-17 22:59 | disposition left against medical advice (07) ==
LOC: M ED 22:19
DX: Z53.21 Procedure and treatment not carried out due to patient leaving prior to being seen by health care provider (principal)

== ENCOUNTER 2023-03-18 15:22 | Emergency (ER) | payer OTHER ==
[~2023-03-18] VITALS: Ht 180.3 cm; Wt 111.9 kg
[2023-03-18] MEDS ORDERED: NS 1,000 ML IV ONE (16:20)
[2023-03-18] MEDS ORDERED: KETOROLAC 30 MG/ML 1ML VIAL IV ONE (16:20)
[2023-03-18] MEDS ORDERED: dexAMETHasone 20MG/5ML VIAL IV ONE (16:20)
[2023-03-18] MEDS ORDERED: METOCLOPRAMIDE INJ 10MG/2ML VIAL IV ONE (16:20)
[2023-03-18] MEDS ORDERED: MAG SULF 1GM/100ML (MAG RUN) 1 GM in IV 1 EA IV ONE (18:20)
[2023-03-18] MEDS ORDERED: ACETAMINOPHEN *IV* 1,000 MG in IV 1 EA IV ONE (18:20)
[2023-03-18 20:18] VITALS: BP 122/64; TEMP 98; O2SAT 96
== END 2023-03-18 20:21 | disposition home or self-care (01) ==
LOC: M ED 15:22
DX: G43.909 Migraine, unspecified, not intractable, without status migrainosus (principal); K21.9 Gastro-esophageal reflux disease without esophagitis; M54.50 Low back pain, unspecified; F31.9 Bipolar disorder, unspecified; F19.10 Other psychoactive substance abuse, uncomplicated; Z86.79 Personal history of other diseases of the circulatory system; Z88.5 Allergy status to narcotic agent; Z91.030 Bee allergy status; Z91.040 Latex allergy status; Z79.52 Long term (current) use of systemic steroids; Z79.891 Long term (current) use of opiate analgesic; Z79.899 Other long term (current) drug therapy
CPT/HCPCS: 70450; 96365; 96366; 96375; 99284; J0131; J1100; J1885; J2765; J3475

== ENCOUNTER → 2023-09-21 | Outpatient (CLI) | payer OTHER ==
[~2023-09-21] MED LIST changes: -FLUT50SP17 NARES; +FLUTISP NARES; -LIDO15SO PO; -LIDO15SO2 PO; +LIDO15SO8 PO; +LIDO15SO9 PO
[2023-09-21 12:48] LABS: MEAN CORPUSCULAR HEMOGLOBIN 30.2 pg (27.0-33.0); MEAN CORPUSCULAR HGB CONC 34.1 g/dl (32.0-36.5); MEAN CORPUSCULAR VOLUME 88.7 fl (80.0-96.0); PLATELET COUNT, AUTOMATED 311 10^3/uL (150-450); RED BLOOD COUNT 4.96 10^6/uL (4.30-6.10); WHITE BLOOD COUNT 7.8 10^3/uL (4.0-10.0)
[2023-09-21 13:25] LABS: ALBUMIN 3.8 G/DL (3.2-5.2); ALKALINE PHOSPHATASE 63 U/L (46-116); ALT/SGPT 21 U/L (7.0-40); AST/SGOT 11 U/L (<34); BILIRUBIN,TOTAL 0.2 MG/DL (0.3-1.2); BLOOD UREA NITROGEN 10 MG/DL (9-23); CALCIUM LEVEL 9.3 MG/DL (8.5-10.1); CARBON DIOXIDE LEVEL 30 MMOL/L (20-31); CHLORIDE LEVEL 105 MMOL/L (98-107); CHOLESTEROL LEVEL 191 MG/DL (<200); CHOLESTEROL RISK RATIO 4.72 (<5); CREATININE FOR GFR 0.67 MG/DL (0.70-1.30); GLOMERULAR FILTRATION RATE > 60.0 (>60); GLUCOSE, FASTING 86 MG/DL (60-100); HDL CHOLESTEROL 40.4 MG/DL (>40); LDL CHOLESTEROL 86.6 MG/DL (<100); NON-HDL-C 150.6 MG/DL; POTASSIUM SERUM 4.2 MMOL/L (3.5-5.1); SODIUM LEVEL 141 MMOL/L (136-145); THYROID STIMULATING HORMONE 1.445 uIU/ML (0.55-4.78); TOTAL PROTEIN 6.6 G/DL (5.7-8.2); TRIGLYCERIDES LEVEL 320 MG/DL (<150)
[2023-09-21 13:30] LABS: HEMOGLOBIN A1c 5.1 % (4.0-6.0)
== END ==
LOC: M LAB 10:36
PROVIDERS: ATTEND Physician Assistant
DX: E03.9 Hypothyroidism, unspecified (principal); R73.01 Impaired fasting glucose; R56.9 Unspecified convulsions; Z79.899 Other long term (current) drug therapy

== ENCOUNTER → 2023-09-25 | Outpatient (CLI) | payer OTHER ==
[~2023-09-25] MED LIST changes: +ALBU2.5V10 INH; +ALBU8.5H INH; +DOXY-323 PO; -DOXY-443 PO; +EPIN0.3I11 IM; +SYNT25TA PO; +SYST1SOL4 OU
== END ==
LOC: M EKG 15:53
PROVIDERS: ATTEND Nurse Practitioner Psychiatric/Mental Health
DX: F41.9 Anxiety disorder, unspecified (principal)

== ENCOUNTER 2023-10-02 20:58 | Emergency (ER) | payer OTHER ==
[~2023-10-02] VITALS: Ht 180.3 cm; Wt 116.4 kg
[~2023-10-02 20:58] MED LIST changes: -ALBU2.5V10 INH; -ALBU8.5H INH; -EPIN0.3I11 IM; -SYNT25TA PO; -SYST1SOL4 OU
[2023-10-02 22:06] LABS: BASO # 0.1 10^3/uL (0.0-0.2); BASO % 0.7 % (0.0-1.0); EOS # 0.1 10^3/uL (0.0-0.5); EOS % 1.1 % (0.0-3.0); LYMPH # 3.4 10^3/uL (1.5-5.0); MEAN CORPUSCULAR HEMOGLOBIN 30.3 pg (27.0-33.0); MEAN CORPUSCULAR HGB CONC 34.1 g/dl (32.0-36.5); MEAN CORPUSCULAR VOLUME 88.9 fl (80.0-96.0); MONO # 0.9 10^3/uL (0.0-0.8); MONO % 8.1 % (2.0-8.0); NEUTROPHILS # 6.7 10^3/uL (1.5-8.5); NEUTROPHILS % 59.7 % (36.0-66.0); PLATELET COUNT, AUTOMATED 316 10^3/uL (150-450); RED BLOOD COUNT 4.95 10^6/uL (4.30-6.10); WHITE BLOOD COUNT 11.2 10^3/uL (4.0-10.0)
[2023-10-02 22:30] LABS: ETHYL ALCOHOL (ETHANOL) 0.004 % (0.000-0.010)
[2023-10-02 22:31] LABS: SALICYLATE LEVEL < 3.0 MG/DL (<30)
[2023-10-02 22:32] LABS: ALBUMIN 4.1 G/DL (3.2-5.2); ALKALINE PHOSPHATASE 68 U/L (46-116); ALT/SGPT 25 U/L (7.0-40); AST/SGOT 17 U/L (<34); BILIRUBIN,DIRECT 0.1 MG/DL (<0.4); BILIRUBIN,TOTAL 0.4 MG/DL (0.3-1.2); BLOOD UREA NITROGEN 11 MG/DL (9-23); CALCIUM LEVEL 9.4 MG/DL (8.5-10.1); CARBON DIOXIDE LEVEL 24 MMOL/L (20-31); CHLORIDE LEVEL 108 MMOL/L (98-107); CREATININE FOR GFR 0.75 MG/DL (0.70-1.30); GLOMERULAR FILTRATION RATE > 60.0 (>60); GLUCOSE, FASTING 112 MG/DL (60-100); POTASSIUM SERUM 3.9 MMOL/L (3.5-5.1); SODIUM LEVEL 139 MMOL/L (136-145); TOTAL PROTEIN 7.1 G/DL (5.7-8.2)
[2023-10-02 22:34] LABS: THYROID STIMULATING HORMONE 2.352 uIU/ML (0.55-4.78)
[2023-10-03] MEDS ORDERED: ALBU2.5V10 INH (00:32)
[2023-10-03] MEDS ORDERED: ALBU8.5H INH (00:32)
[2023-10-03] MEDS ORDERED: SYST1SOL4 OU (00:32)
[2023-10-03] MEDS ORDERED: SYNT25TA PO (00:32)
[2023-10-03] MEDS ORDERED: EPIN0.3I11 IM (00:34)
[2023-10-03] MEDS ORDERED: HOME MED LIST COMPLETE! XX SCH (00:35)
[2023-10-03 00:48] LABS: AMPHETAMINES LEVEL URINE NEGATIVE (NEGATIVE); BARBITURATES URINE NEGATIVE (NEGATIVE); BENZODIAZEPINES URINE NEGATIVE (NEGATIVE); COCAINE METABOLITE URINE NEGATIVE (NEGATIVE); METHADONE URINE NEGATIVE (NEGATIVE); OPIATES URINE NEGATIVE (NEGATIVE); PHENCYCLIDINE URINE NEGATIVE (NEGATIVE)
[2023-10-03 00:49] LABS: CANNABINOIDS URINE NEGATIVE (NEGATIVE)
[2023-10-03] MEDS: LEVOTHYROXINE 25MCG TABLET (0.025MG) PO SCH (06:00)
[2023-10-03] MEDS ORDERED: ALBUTEROL 90 MCG/ACT 8GM HFA INHALER INH PRN (08:25)
[2023-10-03] MEDS: levETIRAcetam ORAL SOLUTION 500MG/5ML UDC PO SCH (09:00)
[2023-10-03 12:26] VITALS: BP 114/72; TEMP 97.3; O2SAT 96
[2023-10-04] MEDS ORDERED: LEVOTHYROXINE 25MCG TABLET (0.025MG) PO SCH (06:00)
== END 2023-10-03 12:28 | disposition home or self-care (01) ==
LOC: M ED 20:58
DX: F32.A Depression, unspecified (principal); R45.851 Suicidal ideations; F17.200 Nicotine dependence, unspecified, uncomplicated; Z88.5 Allergy status to narcotic agent; Z91.030 Bee allergy status; Z91.018 Allergy to other foods; Z91.040 Latex allergy status; Z79.52 Long term (current) use of systemic steroids; Z79.899 Other long term (current) drug therapy

== ENCOUNTER → 2023-10-16 | Outpatient (CLI) | payer OTHER ==
[~2023-10-16] MED LIST changes: +ALBU2.5V10 INH; +ALBU8.5H INH; +EPIN0.3I11 IM; +SYNT25TA PO; +SYST1SOL4 OU
== END ==
LOC: M RAD 11:57
PROVIDERS: ATTEND Physician Assistant
DX: M25.561 Pain in right knee (principal)

== ENCOUNTER 2024-01-25 17:47 | Emergency (ER) | payer OTHER ==
[~2024-01-25] VITALS: Ht 177.8 cm; Wt 115.9 kg
[~2024-01-25 17:47] MED LIST changes: +GABA-1490; +GABA-1490 PO; -GABA600T4; -GABA600T4 PO
[2024-01-25 17:48] VITALS: TEMP 97.7
[2024-01-25] MEDS: ONDANSETRON 4MG ORAL DISINTEGRATING TAB PO ONE (18:57)
[2024-01-25] MEDS ORDERED: ONDA-282 PO (19:51)
[2024-01-25 20:04] VITALS: BP 131/74; O2SAT 96
== END 2024-01-25 20:05 | disposition home or self-care (01) ==
LOC: M ED 17:47
DX: A09 Infectious gastroenteritis and colitis, unspecified (principal); I10 Essential (primary) hypertension; J45.909 Unspecified asthma, uncomplicated; G62.9 Polyneuropathy, unspecified; Z79.899 Other long term (current) drug therapy; Z88.5 Allergy status to narcotic agent; Z88.8 Allergy status to other drugs, medicaments and biological substances; Z91.040 Latex allergy status; Z91.030 Bee allergy status; Z91.018 Allergy to other foods

== ENCOUNTER 2024-01-31 15:00 | Emergency (ER) | payer OTHER ==
[~2024-01-31] VITALS: Ht 177.8 cm; Wt 118.6 kg
[~2024-01-31 15:00] MED LIST changes: +ONDA-282 PO
[2024-01-31 15:53] LABS: BASO # 0.1 10^3/uL (0.0-0.2); BASO % 0.7 % (0.0-1.0); EOS # 0.2 10^3/uL (0.0-0.5); EOS % 2.2 % (0.0-3.0); HEMATOCRIT 44.6 % (42.0-52.0); HEMOGLOBIN 15.4 g/dl (13.5-17.5); LYMPH # 2.9 10^3/uL (1.5-5.0); LYMPH % 31.6 % (24.0-44.0); MEAN CORPUSCULAR HEMOGLOBIN 30.7 pg (27.0-33.0); MEAN CORPUSCULAR HGB CONC 34.5 g/dl (32.0-36.5); MEAN CORPUSCULAR VOLUME 88.8 fl (80.0-96.0); MONO # 0.9 10^3/uL (0.0-0.8); MONO % 9.7 % (2.0-8.0); NEUTROPHILS # 5.1 10^3/uL (1.5-8.5); NEUTROPHILS % 55.5 % (36.0-66.0); PLATELET COUNT, AUTOMATED 333 10^3/uL (150-450); RED BLOOD COUNT 5.02 10^6/uL (4.30-6.10); WHITE BLOOD COUNT 9.2 10^3/uL (4.0-10.0)
[2024-01-31 15:59] LABS: ERYTHROCYTE SEDIMENTATION RATE 10 mm/hr (0-15)
[2024-01-31 16:21] LABS: C REACTIVE PROTEIN QUANTITATIV < 0.40 MG/DL (<1.0)
[2024-01-31 16:22] LABS: ALBUMIN 4.3 G/DL (3.2-5.2); ALKALINE PHOSPHATASE 67 U/L (46-116); ALT/SGPT 22 U/L (7.0-40); AST/SGOT 13 U/L (<34); BILIRUBIN,TOTAL 0.4 MG/DL (0.3-1.2); BLOOD UREA NITROGEN 12 MG/DL (9-23); CALCIUM LEVEL 9.6 MG/DL (8.5-10.1); CARBON DIOXIDE LEVEL 26 MMOL/L (20-31); CHLORIDE LEVEL 107 MMOL/L (98-107); CREATININE FOR GFR 0.77 MG/DL (0.70-1.30); GLOMERULAR FILTRATION RATE > 60.0 (>60); GLUCOSE, FASTING 119 MG/DL (60-100); POTASSIUM SERUM 4.2 MMOL/L (3.5-5.1); SODIUM LEVEL 138 MMOL/L (136-145); TOTAL PROTEIN 7.5 G/DL (5.7-8.2)
[2024-01-31 18:26] VITALS: BP 128/88; TEMP 97; O2SAT 98
[2024-01-31] MEDS ORDERED: DOXY-323 PO (18:27)
== END 2024-01-31 18:40 | disposition home or self-care (01) ==
LOC: M ED 15:00
DX: K94.22 Gastrostomy infection (principal); J45.909 Unspecified asthma, uncomplicated; R56.9 Unspecified convulsions; Z86.73 Personal history of transient ischemic attack (TIA), and cerebral infarction without residual deficits; F17.200 Nicotine dependence, unspecified, uncomplicated; Z79.899 Other long term (current) drug therapy; Z88.5 Allergy status to narcotic agent; Z91.040 Latex allergy status; Z91.030 Bee allergy status; Z88.8 Allergy status to other drugs, medicaments and biological substances; Z91.018 Allergy to other foods

== ENCOUNTER 2024-02-17 12:13 | Inpatient (IN) | payer MEDICAID, OTHER ==
[~2024-02-17] VITALS: Ht 177.8 cm; Wt 122.3 kg
[2024-02-17 13:28] LABS: HEMATOCRIT 43.1 % (42.0-52.0); MEAN CORPUSCULAR HGB CONC 34.8 g/dl (32.0-36.5); PLATELET COUNT, AUTOMATED 316 10^3/uL (150-450); RED BLOOD COUNT 4.84 10^6/uL (4.30-6.10); WHITE BLOOD COUNT 9.5 10^3/uL (4.0-10.0)
[2024-02-17 13:54] LABS: AMPHETAMINES LEVEL URINE NEGATIVE (NEGATIVE); BARBITURATES URINE NEGATIVE (NEGATIVE); BENZODIAZEPINES URINE NEGATIVE (NEGATIVE); CANNABINOIDS URINE NEGATIVE (NEGATIVE); COCAINE METABOLITE URINE NEGATIVE (NEGATIVE); METHADONE URINE NEGATIVE (NEGATIVE); OPIATES URINE NEGATIVE (NEGATIVE); PHENCYCLIDINE URINE NEGATIVE (NEGATIVE)
[2024-02-17 13:57] LABS: ETHYL ALCOHOL (ETHANOL) < 0.003 % (0.000-0.010)
[2024-02-17 13:59] LABS: ALBUMIN 4.2 G/DL (3.2-5.2); ALKALINE PHOSPHATASE 68 U/L (46-116); ALT/SGPT 24 U/L (7.0-40); AST/SGOT 9 U/L (<34); BILIRUBIN,DIRECT 0.1 MG/DL (<0.4); BILIRUBIN,TOTAL 0.4 MG/DL (0.3-1.2); BLOOD UREA NITROGEN 10 MG/DL (9-23); CALCIUM LEVEL 9.7 MG/DL (8.5-10.1); CARBON DIOXIDE LEVEL 26 MMOL/L (20-31); CHLORIDE LEVEL 107 MMOL/L (98-107); CREATININE FOR GFR 0.71 MG/DL (0.70-1.30); GLOMERULAR FILTRATION RATE > 60.0 (>60); GLUCOSE, FASTING 89 MG/DL (60-100); POTASSIUM SERUM 4.4 MMOL/L (3.5-5.1); SALICYLATE LEVEL < 3.0 MG/DL (<30); SODIUM LEVEL 137 MMOL/L (136-145); TOTAL PROTEIN 7.2 G/DL (5.7-8.2)
[2024-02-17 14:01] LABS: THYROID STIMULATING HORMONE 1.855 uIU/ML (0.55-4.78)
[2024-02-17] MEDS ORDERED: MAALOX 30 ML SUSP *UDC PO PRN (15:25)
[2024-02-17] MEDS ORDERED: IBUPROFEN 400MG TAB PO PRN (15:25)
[2024-02-17] MEDS ORDERED: MOM 30ML SUSPENSION UDC PO PRN (15:25)
[2024-02-17] MEDS ORDERED: ARIP1TAB6 PO (16:46)
[2024-02-17] MEDS ORDERED: SUMA50TA2 PO (16:46)
[2024-02-17] MEDS ORDERED: PRAZ1CAP PO (16:46)
[2024-02-17] MEDS ORDERED: HOME MED LIST COMPLETE! XX SCH (16:50)
[2024-02-17 17:28] VITALS: BP 130/83; TEMP 97.8; O2SAT 98
[2024-02-18] MEDS: traZODone 50 MG TAB PO PRN (00:05)
[2024-02-18 06:31] VITALS: BP 123/80; TEMP 97.6; O2SAT 100
[2024-02-18] MEDS: diphenhydrAMINE 25MG CAP PO PRN (08:51)
[2024-02-18] MEDS ORDERED: ALBUTEROL 90 MCG/ACT 8GM HFA INHALER INH PRN (13:50)
[2024-02-18] MEDS ORDERED: ALBUTEROL SULFATE 2.5MG/0.5ML INH NEB SOLN INH PRN (13:50)
[2024-02-18] MEDS ORDERED: SUMAtriptan SUCCINATE 25 MG TAB PO PRN (13:50)
[2024-02-18] MEDS: levETIRAcetam 250MG TABLET (KEPPRA) PO SCH (14:25)
[2024-02-18 16:10] VITALS: BP 132/66; TEMP 98; O2SAT 98
[2024-02-18] MEDS: traZODone 100 MG TAB PO PRN (21:25)
[2024-02-18] MEDS: QUEtiapine FUMARATE 50MG TAB PO SCH (21:25)
[2024-02-18] MEDS: PRAZOSIN 1 MG CAP PO SCH (21:26)
[2024-02-19 06:16] VITALS: BP 114/70; TEMP 98.1; O2SAT 96
[2024-02-19] MEDS: LEVOTHYROXINE 25MCG TABLET (0.025MG) PO SCH (06:18)
[2024-02-19] MEDS: NYSTATIN CREAM 15GM TOP SCH (14:47)
[2024-02-19 16:01] VITALS: BP 130/78; TEMP 97.3; O2SAT 98
[2024-02-19] MEDS: ACETAMINOPHEN TAB 650MG DOSE (2X325MG) PO PRN (18:01)
[2024-02-19] MEDS: CEPHALEXIN 500 MG CAP PO SCH (19:06)
[2024-02-19 20:41] VITALS: BP 161/88
[2024-02-19] MEDS: BACITRACIN OINTMENT 30GM TUBE TOP SCH (20:41)
[2024-02-20 06:20] VITALS: BP 119/67; TEMP 96.8; O2SAT 100
[2024-02-20] MEDS ORDERED: PRAZ1CAP PO (12:09)
[2024-02-20] MEDS ORDERED: CEPH500C PO (12:09)
[2024-02-20] MEDS ORDERED: TRAZ-257 PO (12:09)
[2024-02-20] MEDS ORDERED: QUET50TA4 PO (12:09)
== END 2024-02-20 13:42 | disposition home or self-care (01) | DRG 755 ==
LOC: M ED 12:13 → M ED INP 15:22 → M PSY 16:33
PROVIDERS: ADMIT Psychiatry & Neurology Psychiatry; ATTEND Psychiatry & Neurology Psychiatry
DX: F43.12 Post-traumatic stress disorder, chronic (principal); F10.21 Alcohol dependence, in remission; L03.319 Cellulitis of trunk, unspecified; G40.909 Epilepsy, unspecified, not intractable, without status epilepticus; I10 Essential (primary) hypertension; J45.909 Unspecified asthma, uncomplicated; K21.9 Gastro-esophageal reflux disease without esophagitis; G47.00 Insomnia, unspecified; E03.9 Hypothyroidism, unspecified; G43.909 Migraine, unspecified, not intractable, without status migrainosus; Z86.73 Personal history of transient ischemic attack (TIA), and cerebral infarction without residual deficits; R45.851 Suicidal ideations; Z62.819 Personal history of unspecified abuse in childhood; Z91.030 Bee allergy status; Z79.899 Other long term (current) drug therapy; Z88.5 Allergy status to narcotic agent; Z91.040 Latex allergy status; Z91.018 Allergy to other foods; Z88.8 Allergy status to other drugs, medicaments and biological substances; Z93.1 Gastrostomy status

== ENCOUNTER 2024-02-23 20:31 | Emergency (ER) | payer MEDICAID, OTHER ==
[~2024-02-23] VITALS: Ht 177.8 cm; Wt 121.5 kg
[~2024-02-23 20:31] MED LIST changes: +ARIP1TAB6 PO; +CEPH500C PO; +PRAZ1CAP PO; +SUMA50TA2 PO; +TRAZ-257 PO
[2024-02-23 20:36] VITALS: BP 159/85; TEMP 97.6; O2SAT 96
== END 2024-02-23 22:22 | disposition left against medical advice (07) ==
LOC: M ED 20:31
DX: Z53.21 Procedure and treatment not carried out due to patient leaving prior to being seen by health care provider (principal)

== ENCOUNTER 2024-03-10 16:26 | Emergency (ER) | payer OTHER ==
[~2024-03-10] VITALS: Ht 177.8 cm; Wt 118.2 kg
[~2024-03-10 16:26] MED LIST changes: -ARIP10TA32 GT; +ARIP10TA63 GT; -DOXY-323 PO; +DOXY-441 PO; +GABA-1172; -GABA-282
[2024-03-10 18:17] LABS: LIPASE 31 U/L (12-53)
[2024-03-10 18:23] LABS: ALBUMIN 4.1 G/DL (3.2-5.2); ALKALINE PHOSPHATASE 68 U/L (46-116); ALT/SGPT 28 U/L (7.0-40); AST/SGOT 24 U/L (<34); BILIRUBIN,DIRECT < 0.1 MG/DL (<0.4); BILIRUBIN,TOTAL 0.3 MG/DL (0.3-1.2); TOTAL PROTEIN 7.4 G/DL (5.7-8.2)
[2024-03-10 18:57] LABS: BASO # 0.1 10^3/uL (0.0-0.2); BASO % 0.7 % (0.0-1.0); EOS # 0.2 10^3/uL (0.0-0.5); EOS % 2.1 % (0.0-3.0); HEMATOCRIT 40.2 % (42.0-52.0); HEMOGLOBIN 13.6 g/dl (13.5-17.5); LYMPH # 3.2 10^3/uL (1.5-5.0); LYMPH % 35.1 % (24.0-44.0); MEAN CORPUSCULAR HEMOGLOBIN 30.2 pg (27.0-33.0); MEAN CORPUSCULAR HGB CONC 33.8 g/dl (32.0-36.5); MEAN CORPUSCULAR VOLUME 89.1 fl (80.0-96.0); MONO # 0.8 10^3/uL (0.0-0.8); MONO % 8.5 % (2.0-8.0); NEUTROPHILS # 4.8 10^3/uL (1.5-8.5); NEUTROPHILS % 53.3 % (36.0-66.0); PLATELET COUNT, AUTOMATED 335 10^3/uL (150-450); RED BLOOD COUNT 4.51 10^6/uL (4.30-6.10); WHITE BLOOD COUNT 9.1 10^3/uL (4.0-10.0)
[2024-03-10 19:05] VITALS: BP 139/84; TEMP 98.3; O2SAT 97
== END 2024-03-10 19:14 | disposition home or self-care (01) ==
LOC: M ED 16:26
DX: A08.4 Viral intestinal infection, unspecified (principal); Z79.899 Other long term (current) drug therapy; Z88.5 Allergy status to narcotic agent; Z88.8 Allergy status to other drugs, medicaments and biological substances; Z91.018 Allergy to other foods; Z91.030 Bee allergy status; Z91.040 Latex allergy status

== ENCOUNTER 2024-03-21 18:49 | Emergency (ER) | payer OTHER ==
[~2024-03-21] VITALS: Ht 177.8 cm; Wt 123.5 kg
[2024-03-21 19:51] VITALS: BP 130/70; TEMP 97.9; O2SAT 94
== END 2024-03-21 20:04 | disposition home or self-care (01) ==
LOC: M ED 18:49
DX: L30.9 Dermatitis, unspecified (principal); Z48.00 Encounter for change or removal of nonsurgical wound dressing; Z93.1 Gastrostomy status; Z86.73 Personal history of transient ischemic attack (TIA), and cerebral infarction without residual deficits; I10 Essential (primary) hypertension; J45.909 Unspecified asthma, uncomplicated; K21.9 Gastro-esophageal reflux disease without esophagitis; M54.9 Dorsalgia, unspecified; F41.9 Anxiety disorder, unspecified; F32.9 Major depressive disorder, single episode, unspecified; F20.9 Schizophrenia, unspecified; F43.10 Post-traumatic stress disorder, unspecified; F19.10 Other psychoactive substance abuse, uncomplicated; Z79.899 Other long term (current) drug therapy; Z91.030 Bee allergy status; Z91.018 Allergy to other foods; Z91.040 Latex allergy status; Z88.5 Allergy status to narcotic agent

== ENCOUNTER → 2024-03-24 | Outpatient (REF) | payer OTHER | LOC: M LAB REF 18:18 | PROVIDERS: ATTEND Physician Assistant | DX: S31.109A Unspecified open wound of abdominal wall, unspecified quadrant without penetration into peritoneal cavity, initial encounter (principal); X58.XXXA Exposure to other specified factors, initial encounter; Y92.9 Unspecified place or not applicable; Y93.9 Activity, unspecified; Y99.9 Unspecified external cause status ==

== ENCOUNTER → 2024-04-04 | Outpatient (POV) | payer OTHER ==
[~2024-04-04] MED LIST changes: -CYCL5TAB GT; +CYCL5TAB4 GT; +LIDOCAINE 1% MDV 20ML VIAL As Ordered ONE; -LORA2TA PO; +LORA2TAB15 PO; -VALP250S GT; +VALP250S26 GT
== END ==
LOC: M IRPOV 14:55
PROVIDERS: ATTEND Radiology Diagnostic Radiology
DX: K31.6 Fistula of stomach and duodenum (principal); Z88.5 Allergy status to narcotic agent; Z88.8 Allergy status to other drugs, medicaments and biological substances; Z91.018 Allergy to other foods; Z91.030 Bee allergy status; Z91.040 Latex allergy status

== ENCOUNTER 2024-06-08 21:05 | Emergency (ER) | payer OTHER ==
[~2024-06-08] VITALS: Ht 180.3 cm; Wt 126.4 kg
[~2024-06-08 21:05] MED LIST changes: -LIDOCAINE 1% MDV 20ML VIAL As Ordered ONE
[2024-06-08 21:10] VITALS: BP 132/86; TEMP 98.9; O2SAT 98
== END 2024-06-09 00:11 | disposition left against medical advice (07) ==
LOC: M ED 21:05
DX: Z53.21 Procedure and treatment not carried out due to patient leaving prior to being seen by health care provider (principal)

== ENCOUNTER 2024-06-29 19:45 | Emergency (ER) | payer OTHER ==
[~2024-06-29] VITALS: Ht 177.8 cm; Wt 124.3 kg
[2024-06-29 20:37] LABS: HEMATOCRIT 42.9 % (42.0-52.0); HEMOGLOBIN 14.2 g/dl (13.5-17.5); MEAN CORPUSCULAR HEMOGLOBIN 28.6 pg (27.0-33.0); MEAN CORPUSCULAR HGB CONC 33.1 g/dl (32.0-36.5); MEAN CORPUSCULAR VOLUME 86.5 fl (80.0-96.0); PLATELET COUNT, AUTOMATED 309 10^3/uL (150-450); RED BLOOD COUNT 4.96 10^6/uL (4.30-6.10); WHITE BLOOD COUNT 8.8 10^3/uL (4.0-10.0)
[2024-06-29 21:00] LABS: BLOOD UREA NITROGEN 10 MG/DL (9-23); CARBON DIOXIDE LEVEL 26 MMOL/L (20-31); CHLORIDE LEVEL 105 MMOL/L (98-107); GLOMERULAR FILTRATION RATE > 60.0 (>60); GLUCOSE, FASTING 120 MG/DL (60-100); POTASSIUM SERUM 4.2 MMOL/L (3.5-5.1); SODIUM LEVEL 141 MMOL/L (136-145)
[2024-06-29] MEDS ORDERED: DESI13CR2 TOP (22:22)
[2024-06-29 22:32] VITALS: BP 126/80; TEMP 97; O2SAT 98
== END 2024-06-29 22:34 | disposition home or self-care (01) ==
LOC: M ED 19:45
DX: L23.5 Allergic contact dermatitis due to other chemical products (principal); E03.9 Hypothyroidism, unspecified; I10 Essential (primary) hypertension; J45.909 Unspecified asthma, uncomplicated; K21.9 Gastro-esophageal reflux disease without esophagitis; F31.9 Bipolar disorder, unspecified; F20.9 Schizophrenia, unspecified; Z86.73 Personal history of transient ischemic attack (TIA), and cerebral infarction without residual deficits; Z79.899 Other long term (current) drug therapy; Z88.5 Allergy status to narcotic agent; Z91.040 Latex allergy status; Z91.030 Bee allergy status; Z91.018 Allergy to other foods

== ENCOUNTER → 2024-07-01 | Outpatient (POV) | payer OTHER ==
[~2024-07-01] MED LIST changes: +DESI13CR2 TOP; +LIDOCAINE 1% MDV 20ML VIAL As Ordered ONE
== END ==
LOC: M IRPOV 11:54
PROVIDERS: ATTEND Radiology Diagnostic Radiology
DX: K31.6 Fistula of stomach and duodenum (principal); L98.9 Disorder of the skin and subcutaneous tissue, unspecified; Z88.5 Allergy status to narcotic agent; Z88.8 Allergy status to other drugs, medicaments and biological substances; Z91.018 Allergy to other foods; Z91.030 Bee allergy status; Z91.040 Latex allergy status

== ENCOUNTER 2024-08-16 21:29 | Emergency (ER) | payer OTHER ==
[~2024-08-16] VITALS: Ht 177.8 cm; Wt 126.6 kg
[~2024-08-16 21:29] MED LIST changes: -LIDOCAINE 1% MDV 20ML VIAL As Ordered ONE
[2024-08-16 21:38] VITALS: BP 132/100; TEMP 100.3; O2SAT 100
[2024-08-17] MEDS ORDERED: AMOX875T2 PO (20:19)
== END 2024-08-17 01:00 | disposition left against medical advice (07) ==
LOC: M ED 21:29
DX: Z53.21 Procedure and treatment not carried out due to patient leaving prior to being seen by health care provider (principal)

== ENCOUNTER 2024-08-17 14:22 | Emergency (ER) | payer OTHER ==
[~2024-08-17] VITALS: Ht 177.8 cm; Wt 126.6 kg
[2024-08-17] MEDS: KETOROLAC 30 MG/ML 1ML VIAL IV ONE (17:41)
[2024-08-17 17:47] LABS: BASO # 0.1 10^3/uL (0.0-0.2); BASO % 0.9 % (0.0-1.0); EOS # 0.2 10^3/uL (0.0-0.5); EOS % 1.5 % (0.0-3.0); HEMATOCRIT 42.2 % (42.0-52.0); HEMOGLOBIN 13.9 g/dl (13.5-17.5); LYMPH # 3.3 10^3/uL (1.5-5.0); LYMPH % 26.7 % (24.0-44.0); MEAN CORPUSCULAR HEMOGLOBIN 29.1 pg (27.0-33.0); MEAN CORPUSCULAR HGB CONC 32.9 g/dl (32.0-36.5); MEAN CORPUSCULAR VOLUME 88.5 fl (80.0-96.0); MONO # 1.2 10^3/uL (0.0-0.8); MONO % 9.6 % (2.0-8.0); NEUTROPHILS # 7.6 10^3/uL (1.5-8.5); PLATELET COUNT, AUTOMATED 376 10^3/uL (150-450); RED BLOOD COUNT 4.77 10^6/uL (4.30-6.10); WHITE BLOOD COUNT 12.5 10^3/uL (4.0-10.0)
[2024-08-17] MEDS ORDERED: ISOVUE-370 76% 100ML VIAL As Ordered ONE (17:53)
[2024-08-17 18:11] LABS: ALKALINE PHOSPHATASE 76 U/L (40-129); ALT/SGPT 31 U/L (7.0-40); AST/SGOT 49 U/L (<34); BILIRUBIN,DIRECT < 0.1 MG/DL (<0.4); BILIRUBIN,TOTAL 0.3 MG/DL (0.3-1.2); MAGNESIUM LEVEL 2.2 MG/DL (1.8-2.4); TOTAL PROTEIN 7.5 G/DL (5.7-8.2)
[2024-08-17 20:18] VITALS: BP 135/95; TEMP 97.9; O2SAT 98
[2024-08-17] MEDS ORDERED: AMOX875T2 PO (20:19)
== END 2024-08-17 20:57 | disposition home or self-care (01) ==
LOC: M ED 14:22
DX: L02.211 Cutaneous abscess of abdominal wall (principal); K21.9 Gastro-esophageal reflux disease without esophagitis; J45.909 Unspecified asthma, uncomplicated; F43.10 Post-traumatic stress disorder, unspecified; F41.9 Anxiety disorder, unspecified; F17.210 Nicotine dependence, cigarettes, uncomplicated; Z86.73 Personal history of transient ischemic attack (TIA), and cerebral infarction without residual deficits; Z88.8 Allergy status to other drugs, medicaments and biological substances; Z88.5 Allergy status to narcotic agent; Z91.040 Latex allergy status; Z91.030 Bee allergy status; Z79.2 Long term (current) use of antibiotics; Z79.51 Long term (current) use of inhaled steroids
CPT/HCPCS: 74177; 80047; 80076; 83605; 83735; 85025; 87040; 87070; 87077; 87186; 87205; 96374; 99284; J1885; Q9967

== ENCOUNTER 2024-09-01 19:22 | Emergency (ER) | payer OTHER ==
[~2024-09-01] VITALS: Ht 177.8 cm; Wt 127.9 kg
[~2024-09-01 19:22] MED LIST changes: +AMOX875T2 PO
[2024-09-01 19:25] VITALS: BP 131/86; TEMP 97.9; O2SAT 100
[2024-09-01] MEDS: FLUORESCEIN OPHTH 1MG STRIP OU ONE (20:30)
[2024-09-01] MEDS: PROPARACAINE 0.5% OPHTH SOL 15ML OU ONE (20:30)
[2024-09-01] MEDS ORDERED: ERYT5OIN25 OP (20:46)
[2024-09-01] MEDS: ERYTHROMYCIN OPHTH OINT OD ONE (20:48)
== END 2024-09-01 20:55 | disposition home or self-care (01) ==
LOC: M ED 19:22
DX: T15.01XA Foreign body in cornea, right eye, initial encounter (principal); W44.8XXA Other foreign body entering into or through a natural orifice, initial encounter; Y93.89 Activity, other specified; Y99.9 Unspecified external cause status; F17.200 Nicotine dependence, unspecified, uncomplicated; J45.909 Unspecified asthma, uncomplicated; Z86.73 Personal history of transient ischemic attack (TIA), and cerebral infarction without residual deficits; Y92.9 Unspecified place or not applicable; Z79.51 Long term (current) use of inhaled steroids

== ENCOUNTER → 2024-12-24 | Outpatient (REF) | payer OTHER ==
[~2024-12-24] MED LIST changes: +BUPR-670 PO; -BUPR1TAB52 PO; +DIVA-41; +DIVA-41 PO; -DIVA500T94; -DIVA500T94 PO; +ERYT5OIN25 OP; +LAMO-18; -LAMO25TA4; -NYST-13; +NYST0.1C; +PRED-1142 PO; -PRED1TABL PO
== END ==
LOC: M LAB REF 16:58
PROVIDERS: ATTEND Nurse Practitioner Family
DX: L03.90 Cellulitis, unspecified (principal)

== ENCOUNTER 2025-01-12 16:14 | Emergency (ER) | payer OTHER ==
[~2025-01-12] VITALS: Ht 177.8 cm; Wt 124.3 kg
[2025-01-12 18:13] VITALS: BP 128/81; TEMP 97.9; O2SAT 97
== END 2025-01-12 20:37 | disposition left against medical advice (07) ==
LOC: M ED 16:14
DX: Z53.21 Procedure and treatment not carried out due to patient leaving prior to being seen by health care provider (principal)

== ENCOUNTER 2025-03-24 22:00 | Emergency (ER) | payer OTHER ==
[~2025-03-24] VITALS: Ht 177.8 cm; Wt 122.5 kg
[2025-03-24 22:09] VITALS: BP 135/95; TEMP 97.5; O2SAT 96
== END 2025-03-25 01:10 | disposition left against medical advice (07) ==
LOC: M ED 22:00
DX: Z53.21 Procedure and treatment not carried out due to patient leaving prior to being seen by health care provider (principal)

== ENCOUNTER 2025-03-27 12:52 | Emergency (ER) | payer OTHER ==
[~2025-03-27] VITALS: Ht 177.8 cm; Wt 123.2 kg
[2025-03-27 14:35] VITALS: BP 123/84; TEMP 97; O2SAT 97
== END 2025-03-27 14:36 | disposition home or self-care (01) ==
LOC: M ED 12:52
DX: F32.A Depression, unspecified (principal)

== ENCOUNTER 2025-04-04 18:20 | Emergency (ER) | payer OTHER ==
[~2025-04-04] VITALS: Ht 177.8 cm; Wt 125.1 kg
[2025-04-04 18:24] VITALS: BP 122/80; TEMP 98.6; O2SAT 98
[2025-04-04] MEDS ORDERED: PRAZ1CAP (18:30)
[2025-04-04] MEDS ORDERED: TRAZ-257 (18:30)
== END 2025-04-04 20:07 | disposition left against medical advice (07) ==
LOC: M ED 18:20
DX: Z53.21 Procedure and treatment not carried out due to patient leaving prior to being seen by health care provider (principal)

== ENCOUNTER 2025-04-14 21:35 | Emergency (ER) | payer OTHER ==
[~2025-04-14 21:35] MED LIST changes: +PRAZ1CAP; +TRAZ-257
[2025-04-14 22:36] LABS: ETHYL ALCOHOL (ETHANOL) < 0.003 % (0.000-0.010); PLATELET COUNT, AUTOMATED 360 10^3/uL (150-450)
[2025-04-14 22:37] LABS: SALICYLATE LEVEL < 3.0 MG/DL (<30)
[2025-04-14 22:38] LABS: ALT/SGPT 22 U/L (7.0-40); AST/SGOT 14 U/L (<34); CALCIUM LEVEL 9.2 MG/DL (8.5-10.1); CARBON DIOXIDE LEVEL 26 MMOL/L (20-31); CHLORIDE LEVEL 104 MMOL/L (98-107); CREATININE FOR GFR 0.76 MG/DL (0.70-1.30); GLOMERULAR FILTRATION RATE > 90.0 (>60); POTASSIUM SERUM 3.9 MMOL/L (3.5-5.1); SODIUM LEVEL 138 MMOL/L (136-145)
[2025-04-14 22:54] LABS: AMPHETAMINES LEVEL URINE NEGATIVE (NEGATIVE); BARBITURATES URINE NEGATIVE (NEGATIVE); BENZODIAZEPINES URINE NEGATIVE (NEGATIVE); COCAINE METABOLITE URINE NEGATIVE (NEGATIVE); METHADONE URINE NEGATIVE (NEGATIVE)
[2025-04-14 22:55] LABS: CANNABINOIDS URINE NEGATIVE (NEGATIVE); OPIATES URINE NEGATIVE (NEGATIVE); PHENCYCLIDINE URINE NEGATIVE (NEGATIVE)
[2025-04-14 23:59] VITALS: BP 138/92; TEMP 97.8; O2SAT 96
== END 2025-04-14 23:58 | disposition home or self-care (01) ==
LOC: M ED 21:35
DX: Z04.6 Encounter for general psychiatric examination, requested by authority (principal); Z86.73 Personal history of transient ischemic attack (TIA), and cerebral infarction without residual deficits; R56.9 Unspecified convulsions; I10 Essential (primary) hypertension; F20.9 Schizophrenia, unspecified; F31.9 Bipolar disorder, unspecified; E03.9 Hypothyroidism, unspecified; J45.909 Unspecified asthma, uncomplicated; Z88.5 Allergy status to narcotic agent; Z88.8 Allergy status to other drugs, medicaments and biological substances; Z91.040 Latex allergy status

== ENCOUNTER → 2025-05-26 | Outpatient (REF) | payer OTHER | LOC: M LAB REF 17:22 | PROVIDERS: ATTEND Nurse Practitioner Family | DX: J00 Acute nasopharyngitis [common cold] (principal) ==